=== PATIENT | male | born 1965 | race African-American/Black ===

== ENCOUNTER 2017-03-20 15:02 | Inpatient (IN) | payer MEDICAID, OTHER ==
--- NOTE | 2017-03-20 16:04 | ED ---
General Adult HPI - General Source: patient, RN notes reviewed Mode of arrival: ambulatory Limitations: no limitations <Juan C Monreal - Last Filed: 03/20/17 16:38> <Arcenio Pro - Last Filed: 03/20/17 18:44> - General Chief complaint: Psychiatric Symptoms Stated complaint: Mental Health Time Seen by Provider: 03/20/17 15:25 - History of Present Illness Initial comments: This is a 51-year-old male who presents emergency Department with a past medical history significant for bipolar. Patient comes in today because he states he suicidal. Patient states he stopped his Zyprexa a while ago and he started using cocaine because his INR on the wrong people. Patient states since then his voices in his head have gotten worse and now he wants to harm himself. Patient denies homicidal ideations. Patient states he has in the past hurt people but that's many many years ago. Patient denies any physical complaints today. Patient denies any patient denies numbness weakness. Patient denies lightheadedness. Patient denies chest pain difficulty breathing or shortness of breath. Patient denies abdominal pain. Patient denies nausea vomiting diarrhea. Patient denies any recent fever chills or cough. Patient denies any recent injury or trauma. (Juan C Monreal) - Related Data Home Medications Medication Instructions Recorded Confirmed Citalopram Hydrobromide [CeleXA] 40 mg PO DAILY 03/20/17 03/20/17 OLANZapine 30 mg PO HS 03/20/17 03/20/17 Allergies Allergy/AdvReac Type Severity Reaction Status Date / Time No Known Allergies Allergy Verified 03/20/17 15:24 Review of Systems ROS Other: All systems not noted in ROS Statement are negative. <Juan C Monreal - Last Filed: 03/20/17 16:38> ROS Other: All systems not noted in ROS Statement are negative. <Arcenio Pro - Last Filed: 03/20/17 18:44> ROS Statement: Those systems with pertinent positive or pertinent negative responses have been documented in the HPI. Past Medical History Past Medical History: No Reported History History of Any Multi-Drug Resistant Organisms: None Reported Past Surgical History: No Surgical Hx Reported Past Psychological History: Anxiety, Bipolar, Depression Smoking Status: Current every day smoker Past Alcohol Use History: None Reported Past Drug Use History: Cocaine <Juan C Monreal - Last Filed: 03/20/17 16:38> General Exam Limitations: no limitations <Juan C Monreal - Last Filed: 03/20/17 16:38> <Arcenio Pro - Last Filed: 03/20/17 18:44> - General Exam Comments Initial Comments: GENERAL: Patient is well-developed and well-nourished. Patient is nontoxic and well- hydrated and is in no acute distress. ENT: Neck is soft and supple. No significant lymphadenopathy is noted. Oropharynx is clear. Moist mucous membranes. Neck has full range of motion without eliciting any pain. EYES: The sclera were anicteric and conjunctiva were pink and moist. Extraocular movements were intact and pupils were equal round and reactive to light. Eyelids were unremarkable. PULMONARY: Unlabored respirations. Good breath sounds bilaterally. No audible rales rhonchi or wheezing was noted. CARDIOVASCULAR: There is a regular rate and rhythm without any murmurs gallops or rubs. ABDOMEN: Soft and nontender with normal bowel sounds. No palpable organomegaly was noted. There is no palpable pulsatile mass. SKIN: Skin is clear with no lesions or rashes and otherwise unremarkable. NEUROLOGIC: Patient is alert and oriented x3. Cranial nerves II through XII are grossly intact. Motor and sensory are also intact. Normal speech, volume and content. Symmetrical smile. MUSCULOSKELETAL: Normal extremities with adequate strength and full range of motion. No lower extremity swelling or edema. No calf tenderness. LYMPHATICS: No significant lymphadenopathy is noted PSYCHIATRIC: Patient states she's been hearing more voices and the voices are telling to kill himself and as of late he is really considering doing it. Patient does not have a specific plan at this point time. (Juan C Monreal) Course <Juan C Monreal - Last Filed: 03/20/17 16:38> <Arcenio Pro - Last Filed: 03/20/17 18:44> Vital Signs 03/20/17 03/20/17 15:21 17:57 Temperature 97.9 F 97.2 F L Pulse Rate 78 72 Respiratory 20 18 Rate Blood Pressure 112/61 118/73 O2 Sat by Pulse 99 99 Oximetry - Reevaluation(s) Reevaluation #1: 03/20/17 18:44 The patient was evaluated by psychiatric service and will be admitted for inpatient treatment of depression. (Arcenio Pro) Medical Decision Making <Juan C Monreal - Last Filed: 03/20/17 16:38> <Arcenio Pro - Last Filed: 03/20/17 18:44> - Medical Decision Making Dr. Pro be taking over care of this patient at 5 PM (Juan C Monreal) - Lab Data Lab Results 03/20/17 Range/Units 16:05 Urine Opiates Screen Not Detected (NotDetected) Ur Oxycodone Screen Not Detected (NotDetected) Urine Methadone Screen Not Detected (NotDetected) Ur Propoxyphene Screen Not Detected (NotDetected) Ur Barbiturates Screen Not Detected (NotDetected) U Tricyclic Antidepress Not Detected (NotDetected) Ur Phencyclidine Scrn Not Detected (NotDetected) Ur Amphetamines Screen Not Detected (NotDetected) U Methamphetamines Scrn Not Detected (NotDetected) U Benzodiazepines Scrn Not Detected (NotDetected) Urine Cocaine Screen Detected H (NotDetected) U Marijuana (THC) Screen Not Detected (NotDetected) Disposition <Juan C Monreal - Last Filed: 03/20/17 16:38> <Arcenio Pro - Last Filed: 03/20/17 18:44> Clinical Impression: Depression Disposition: TRANSFER TO PSYCH HOSP/UNIT Condition: Stable
[2017-03-20] MEDS ORDERED: MAGNESIUM HYDROXIDE 2,400 MG/10 ML CUP PO PRN (20:55)
[2017-03-20] MEDS ORDERED: MAG HYDROX/AL HYDROX/SIMETH 30 ML CUP PO PRN (20:55)
[2017-03-20] MEDS ORDERED: ACETAMINOPHEN TAB 325 MG TAB PO PRN (20:55)
[2017-03-20] MEDS ORDERED: LORazepam 1 MG TAB PO PRN (20:55)
[2017-03-21 09:38] LABS: Basophils # (A) 0.1 k/uL (0-0.2); Basophils % (A) 1 %; CH 30.1; CHCM 32.5; Eosinophils # (A) 0.1 k/uL (0-0.7); Eosinophils % (A) 3 %; HCT 51.1 % (39.0-53.0); HDW 2.63; Luc # (Auto) 0.11; Luc % (Auto) 3; Lymphocytes # (A) 1.4 k/uL (1.0-4.8); Lymphocytes % (A) 40 %; MCH 29.2 pg (25.0-35.0); MCHC 31.3 g/dL (31.0-37.0); MCV 93.3 fL (80.0-100.0); Mean Platelet Volume 7.6; Monocytes # (A) 0.2 k/uL (0-1.0); Monocytes % (A) 5 %; Neutrophils # (A) 1.7 k/uL (1.3-7.7); Neutrophils % (A) 47 %; RBC 5.48 m/uL (4.30-5.90); RDW 14.9 % (11.5-15.5); WBC 3.6 k/uL (3.8-10.6); WBC (Perox) 3.51
[2017-03-21 09:45] LABS: ALT 75 U/L (21-72); AST 48 U/L (17-59); Alkaline Phosphatase 46 U/L (38-126); Anion Gap 9 mmol/L; Blood Urea Nitrogen 10 mg/dL (9-20); Calcium 9.3 mg/dL (8.4-10.2); Carbon Dioxide 25 mmol/L (22-30); Chloride 105 mmol/L (98-107); Glucose 137 mg/dL (74-99); Non-African American GFR(MDRD) >60 (>60 ml/min/1.73 sqM); Potassium 4.6 mmol/L (3.5-5.1); Sodium 139 mmol/L (137-145); Total Bilirubin 0.9 mg/dL (0.2-1.3); Total Protein 7.2 g/dL (6.3-8.2)
[2017-03-21] MEDS: NICOTINE 14MG/24HR PATCH TRANSDERM SCH (09:46)
--- NOTE | 2017-03-21 18:26 | HP ---
DATE OF ADMISSION 03/20/17 IDENTIFYING DATA: This is a 51 -year-old male patient. HISTORY OF PRESENT ILLNESS: Mr. Dee was admitted to the inpatient psychiatry unit at [facility] on a voluntary basis with recent symptoms of auditory hallucinations. He states that he was off his medications which were Zyprexa and Celexa and using cocaine. He says a couple of days ago, he started hearing voices and the voices were loud telling him to hurt himself. He says he usually hears voices as whispers. He says his mood lately has been alright. He has been off his medications for two weeks. He was not having thoughts of suicide but says the voices were telling him regarding to hurt himself. He denies having had any paranoid thoughts. He does state he has been having trouble with sleep. PSYCHIATRIC HISTORY: Most recent medications were Zyprexa 30 mg at bedtime and Celexa 40 mg daily which worked well for him. He has had four inpatient psychiatric hospitalizations. No history of suicide attempt. He sees Dr. Kaminski through [facility] and a counselor Romy every two weeks. He has history of bipolar disorder with episodes of darrius and depression with psychotic features. PSYCHIATRIC FAMILY HISTORY: Sister with bipolar disorder. PAST MEDICAL HISTORY: Hepatitis C. Current medications: 1. Tylenol prn. 2. Maalox prn. 3. Ativan prn. 4. Milk of Magnesia prn. 5. Habitrol patch. DRUG AND ALCOHOL HISTORY: The patient states he had been using cocaine daily over the past week. Heroin, his last use was four years ago. He used to use it daily. He denies any alcohol use. SOCIAL HISTORY: The patient states that he recently did four years in [facility] and was released on 01/08/2017. He lives currently at a halfway house. MENTAL STATUS EXAM: He is alert, cooperative. Pleasant overall. He does not show any agitation. His mood is described as good. His affect overall is restricted. Regarding auditory hallucinations he relates he is just hearing whispering today. He denies any visual hallucinations. He denies any thoughts of harm to self or others. He does not verbalize any geetha delusions. Cognitively appears to be grossly intact. I do not note any significant disorientation or memory disturbances. Insight is adequate. Judgement shows evidence of recent impairment. IMPRESSION: 1. Bipolar disorder, unspecified with psychotic features, rule out schizoaffective disorder, bipolar type. 2. History of stimulant use disorder. 3. History of opioid use disorder. PLAN/RECOMMENDATIONS: The patient is admitted to the inpatient psychiatric unit at [facility] to help stabilize psychosis symptoms. He will be placed on SP 15 minute precautions. He will participate in group and activity therapy. Baseline laboratory workup was done on the patient and medical consultation will be ordered. He will be reinitiated on Celexa to help with psychosis symptoms and mood stabilization, 15 mg at bedtime. We will also reinitiate Celexa to help with any depressive component at 20 mg daily. He has responded well to this regimen in the past. He will be encouraged regarding keeping his sobriety. We will continue to cover this patient for Dr. Montgomery through the weekend. We will be looking at any possible support systems. Estimated length of stay is five to seven days. Prognosis guarded. MTDD
--- NOTE | 2017-03-21 19:47 | P.CON ---
Consult Note - . Consult date: 03/21/17 Assessment/Plan:: *Live* Sergei [facility] [address], [place] [address] General Medical Problem Patient Name: Rufino Dee Date of : 67 Patient Status: Inpatient Attending Provider: Konrad Montgomery General Adult HPI - General Source: patient, RN notes reviewed, emergency department notes reviewed Limitations: no limitations - General Chief complaint: Psychiatric Symptoms, patient stopped his psychiatric medications lately started hearing voices asking him to kill himself decided to come into the emergency department for further evaluation, patient has been admitted into the psychiatric unit I was asked to evaluate this patient from medical standpoint while covering for Dr. Montesinos who is his primary care provider Stated complaint: Mental Health Time Seen by Provider: 03/20/17 15:25 - History of Present Illness Initial comments: This is a 51-year-old male who presents emergency Department with a past medical history significant for bipolar. Patient comes in because he states he suicidal. Patient states he stopped his Zyprexa a while ago and he started using cocaine. Patient states since then his voices in his head have gotten worse and now he wants to harm himself. Patient denies homicidal ideations. Patient states he has in the past hurt people but that's many many years ago. Patient denies any physical complaints today. Patient denies any patient denies numbness weakness. Patient denies lightheadedness. Patient denies chest pain difficulty breathing or shortness of breath. Patient denies abdominal pain. Patient denies nausea vomiting diarrhea. Patient denies any recent fever chills or cough. Patient denies any recent injury or trauma. - Related Data Home Medications Medication Instructions Recorded Confirmed Citalopram Hydrobromide [CeleXA] 40 mg PO DAILY 03/20/17 03/20/17 OLANZapine 30 mg PO HS 03/20/17 03/20/17 Allergies Allergy/AdvReac Type Severity Reaction Status Date / Time No Known Allergies Allergy Verified 03/20/17 15:24 Review of Systems ROS Other: All systems not noted in ROS Statement are negative. <Juan C Monreal - Last Filed: 03/20/17 16:38> ROS Other: All systems not noted in ROS Statement are negative. <Arcenio Pro - Last Filed: 03/20/17 18:44> ROS Statement: Those systems with pertinent positive or pertinent negative responses have been documented in the HPI. Past Medical History Past Medical History: Chronic hepatitis C History of Any Multi-Drug Resistant Organisms: None Reported Past Surgical History: No Surgical Hx Reported Past Psychological History: Anxiety, Bipolar, Depression Smoking Status: Current every day smoker, history of substance use like cocaine Past Alcohol Use History: None Reported Past Drug Use History: Cocaine <MonrealJuan C - Last Filed: 03/20/17 16:38> General Exam GENERAL: Patient is well-developed and well-nourished. Patient is nontoxic and well- hydrated and is in no acute distress. ENT: Neck is soft and supple. No significant lymphadenopathy is noted. Oropharynx is clear. Moist mucous membranes. Neck has full range of motion without eliciting any pain. EYES: The sclera were anicteric and conjunctiva were pink and moist. Extraocular movements were intact and pupils were equal round and reactive to light. Eyelids were unremarkable. PULMONARY: Unlabored respirations. Good breath sounds bilaterally. No audible rales rhonchi or wheezing was noted. CARDIOVASCULAR: There is a regular rate and rhythm without any murmurs gallops or rubs. ABDOMEN: Soft and nontender with normal bowel sounds. No palpable organomegaly was noted. There is no palpable pulsatile mass. SKIN: Skin is clear with no lesions or rashes and otherwise unremarkable. NEUROLOGIC: Patient is alert and oriented x3. Cranial nerves II through XII are grossly intact. Motor and sensory are also intact. Normal speech, volume and content. Symmetrical smile. MUSCULOSKELETAL: Normal extremities with adequate strength and full range of motion. No lower extremity swelling or edema. No calf tenderness. LYMPHATICS: No significant lymphadenopathy is noted PSYCHIATRIC: Patient states she's been hearing more voices and the voices are telling to kill himself and as of late he is really considering doing it. Patient does not have a specific plan at this point time. Vital Signs 03/20/17 03/20/17 15:21 17:57 Temperature 97.9 F 97.2 F L Pulse Rate 78 72 Respiratory 20 18 Rate Blood Pressure 112/61 118/73 O2 Sat by Pulse 99 99 Oximetry Lab Results 08/18/17 Range/Units 16:05 Urine Opiates Screen Not Detected (NotDetected) Ur Oxycodone Screen Not Detected (NotDetected) Urine Methadone Screen Not Detected (NotDetected) Ur Propoxyphene Screen Not Detected (NotDetected) Ur Barbiturates Screen Not Detected (NotDetected) U Tricyclic Antidepress Not Detected (NotDetected) Ur Phencyclidine Scrn Not Detected (NotDetected) Ur Amphetamines Screen Not Detected (NotDetected) U Methamphetamines Scrn Not Detected (NotDetected) U Benzodiazepines Scrn Not Detected (NotDetected) Urine Cocaine Screen Detected H (NotDetected) U Marijuana (THC) Screen Not Detected (NotDetected) Impression Suicidal ideation and thought, schizophrenia Substance use with cocaine History of chronic hepatitis C History of smoking and nicotine use possible COPD From medical standpoint patient is overall stable to continue psychiatric evaluation and therapy would recommend patient to follow up on outpatient setting for more definitive evaluation and treatment for his ongoing medical problems.
[2017-03-21] MEDS: OLANZapine 5 MG TAB PO SCH (21:04)
[2017-03-22] MEDS: CITALOPRAM HYDROBROMIDE 20 MG TAB PO SCH (09:25)
[2017-03-22] MEDS: NICOTINE 14MG/24HR PATCH TRANSDERM SCH (09:26)
--- NOTE | 2017-03-22 17:46 | P.PN ---
Progress Note - Text Interval history: Patient seen in cross coverage today for Dr. Montgomery. He reports that he is feeling much better today. He slept well last night, did seem to describe some awakenings.. He does not voice any adverse psychotropic medication side effects. He reports that he talked to his 7-year-old son on the phone. Mental status exam: He is alert and cooperative with the interview. His speech is fluent, not rapid or pressured. Thought processes are organized. He denies any current hallucinations. He does not appear to responding to any internal stimuli. He does not voice any thoughts of harm to self or others. He does not display any agitation. Plan: Patient will be maintained on current doses of Zyprexa and Celexa. Consideration for further titration of Zyprexa back towards former dose during the hospital course to maintain good stabilization of psychosis symptoms. Dr. Montgomery to initiate care this patient starting tomorrow.
[2017-03-22] MEDS: OLANZapine 5 MG TAB PO SCH (18:35)
[2017-03-23] MEDS: CITALOPRAM HYDROBROMIDE 20 MG TAB PO SCH (09:51)
--- NOTE | 2017-03-23 10:24 | P.PN ---
Progress Note - Text Interval history: The patient is found in his room he follows me to an interview room. He was admitted over the weekend for acute symptoms of psychosis as well as suicidal ideation. The patient reports he was experiencing command hallucinations directing him to hang himself. As a result he had suicidal ideation. This occurs in the context of him recently using cocaine area he was in penitentiary for 4 years for drug related charges and was released this past January. He had been residing at the [facility]. He states the cocaine became available and he went ahead and used. He reports feeling much better today he has been restarted on his Celexa and Zyprexa. He is typically on Celexa 40 mg daily Zyprexa 30 mg at bedtime and we discussed titrating these medications to the outpatient dosages. Mental status exam: The patient is a very tall thin -[place] male dressed in hospital attire. Eye contact is appropriate. He has poor dentition with some missing teeth. He reports his mood is much better affect is constricted. He is cooperative throughout the session he demonstrates no agitated behavior. He is endorsing no acute suicidal or homicidal ideation intent or plan he is endorsing no command auditory hallucinations or any specific delusions. He states at baseline he will experience some auditory hallucinations that are quieter and noncommanding. He demonstrates no abnormal involuntary movements. He demonstrates no verbal or physical aggressiveness. He is oriented to person place month year. Plan: The patient will continue on the Celexa and Zyprexa I will titrate these to the outpatient doses of 40 and 30 mg respectively. We will continue to monitor him for safety. At this point he does not wish to attend inpatient chemical dependency treatment. He has been in touch with his police officer. Vital signs reviewed. He is encouraged to participate in the milieu. We will consider discharging him in the next 1-2 days if he demonstrates sufficient clinical stability/improvement.
[2017-03-23] MEDS ORDERED: OLANZapine 10 MG TAB PO SCH (21:00)
[2017-03-24 07:22] VITALS: BP 103/56; PULSE 63; RESP 16; TEMP 98.1
[2017-03-24] MEDS ORDERED: CITALOPRAM HYDROBROMIDE 20 MG TAB PO SCH (09:00)
--- NOTE | 2017-03-24 09:02 | P.DS ---
Providers Date of admission: 03/20/17 18:37 Expected date of discharge: 03/24/17 Attending physician: Konrad Montgomery Consults: 03/20/17 20:55 Consult Physician Routine Consulting Provider: Jean-Claude Montesinos Consult Reason/Comments: medical management Do you want consulting provider notified?: Already Contacted Primary care physician: Jean-Claude Montesinos - Discharge Diagnosis(es) (1) Psychosis Current Visit: Yes Status: Acute Priority: High (2) Depression Current Visit: Yes Status: Acute Priority: High (3) Cocaine use disorder, mild, abuse Current Visit: Yes Status: Acute Priority: High (4) Opiate dependence Current Visit: Yes Status: Acute Priority: Medium Hospital Course: This patient is a 51-year-old -[place] male was admitted to the mental health unit with a complaint of command auditory hallucinations and suicidal ideation. The patient reported he had been off of his Zyprexa and Celexa for several weeks prior to this presentation and he had also relapsed with cocaine use. He presented describing auditory hallucinations commanding self-harm. For full details please refer to Dr. Wilkinson is psychiatric evaluation dated 03/20/2017. Summary of hospital course: The patient was admitted to the mental health unit voluntarily. Dr. Wilkinson initially evaluated the patient and the patient was restarted on Celexa and Zyprexa. I assumed care of the patient beginning yesterday and we titrated these medications back to the outpatient dosages of 40 mg and 30 mg respectively. The patient was seen by the internal medicine physician for routine history and physical exam. Social work has met with the patient to complete a psychosocial assessment. The patient yesterday reported improvement of his symptoms and today states he has no hallucinations and his mood is much better. He has demonstrated no agitated behavior he is able to participate in his own activities of daily living. The patient has demonstrated no agitated behavior. He is complying with his medications he reports no side effects from them. He plans on returning to the [facility] where he resided before this admission. Mental status exam: The patient is a tall -[place] male appearing his stated age. He has impaired dentition. Eye contact is appropriate speech is spontaneous fluent nonpressured. He states his mood is "much better" he denies having any suicidal or homicidal ideation intent or plan. He is reporting no auditory or visual hallucinations he is endorsing no specific delusions. At this time there is no observed evidence of psychosis. Thought process is linear he demonstrates no tangential thinking loose associations or flight of ideas. He does not appear hypomanic or manic. He demonstrates no verbal or physical aggressiveness. Affect appears euthymic he is appropriately expressive throughout the conversation including smiling. He is oriented to person place and date. Impressions 1. Psychosis unspecified, depression unspecified, rule out schizoaffective disorder, rule out substance-induced mood and psychotic symptoms, cocaine use disorder, opiate abuse disorder 2. On parole resides at [facility], reapplying for disability, limited social support Plan: The patient will be discharged from the mental health unit today he will return residing at the [facility]. He will continue on Celexa 40 mg daily Zyprexa 30 mg at bedtime. At length we discussed the importance of abstaining from alcohol use marijuana or any illicit drug. He plans on attending AA or NA meetings. He does not wish to participate in inpatient chemical dependency treatment at this time. Social work will arrange his outpatient mental health follow-up likely through [facility]. There is no imminent safety risk is appropriate for transition to outpatient care. He is instructed to return to the hospital with any acute safety concerns. Patient Condition at Discharge: Stable Plan - Discharge Summary New Discharge Prescriptions: Continue Citalopram Hydrobromide [CeleXA] 40 mg PO DAILY #30 OLANZapine 30 mg PO HS #60 Discharge Medication List Citalopram Hydrobromide [CeleXA] 40 mg PO DAILY #30 03/24/17 [Rx] OLANZapine 30 mg PO HS #60 03/24/17 [Rx] Follow up Appointment(s)/Referral(s): [facility] [Outside] - 03/25/17 6:00 pm (03-25-17 @ 6:00 PM with Ester Jensen 03-30-17 @ 5:[address] Kaminski ) Jean-Claude Montesinos MD [Primary Care Provider] - 1-2 days
== END 2017-03-24 13:30 | disposition home or self-care (01) | DRG 885 ==
LOC: EC 15:02 → 3MHU 18:37
PROVIDERS: ADMIT Psychiatry & Neurology Psychiatry; ATTEND Psychiatry & Neurology Psychiatry
DX: F32.3 Major depressive disorder, single episode, severe with psychotic features (principal); F11.20 Opioid dependence, uncomplicated; R45.851 Suicidal ideations; F14.10 Cocaine abuse, uncomplicated; B18.2 Chronic viral hepatitis C; F17.200 Nicotine dependence, unspecified, uncomplicated; Z79.899 Other long term (current) drug therapy; Z81.8 Family history of other mental and behavioral disorders
CPT/HCPCS: 80053; 80306; 82075; 84443; 85025; 99285

== ENCOUNTER 2018-03-08 11:11 | Inpatient (IN) | payer MEDICAID, OTHER ==
--- NOTE | 2018-03-08 11:41 | ED ---
General Adult HPI - General Chief complaint: Psychiatric Symptoms Stated complaint: Mental Health Time Seen by Provider: 03/08/18 11:15 Source: patient, RN notes reviewed Mode of arrival: ambulatory Limitations: no limitations - History of Present Illness Initial comments: This a 52-year-old male who presents emergency department stating that he stopped his medications about 3 weeks ago shortly thereafter he started having suicidal voices in his head. He states he hears voices louder and louder and are telling him to kill himself and they also are pushing him to be more violent. Patient states he has not committed any violence towards anyone else but he feels as though is getting to the point where he might harm somebody. Patient admits to drinking couple days ago and doing crack cocaine yesterday. Patient denies any physical complaints today. Patient denies any headache patient denies any numbness weakness. Patient denies chest pain difficulty breathing first breath per patient denies abdominal pain patient denies nausea vomiting diarrhea. She denies any recent injury or trauma. - Related Data Home Medications Medication Instructions Recorded Confirmed Naltrexone HCl [Revia] 50 mg PO DAILY 03/08/18 03/08/18 QUEtiapine FUMARATE [SEROquel] 300 mg PO HS 03/08/18 03/08/18 QUEtiapine [SEROquel] 50 mg PO TID 03/08/18 03/08/18 Previous Rx's Medication Instructions Recorded Citalopram Hydrobromide [CeleXA] 40 mg PO DAILY #30 tablet 07/08/17 Allergies Allergy/AdvReac Type Severity Reaction Status Date / Time No Known Allergies Allergy Verified 03/08/18 11:21 Review of Systems ROS Statement: Those systems with pertinent positive or pertinent negative responses have been documented in the HPI. ROS Other: All systems not noted in ROS Statement are negative. Past Medical History Past Medical History: No Reported History Additional Past Medical History / Comment(s): arthritis, Hep C History of Any Multi-Drug Resistant Organisms: None Reported Past Surgical History: No Surgical Hx Reported Past Psychological History: Anxiety, Bipolar, Depression Smoking Status: Current every day smoker Past Alcohol Use History: Occasional Past Drug Use History: Cocaine General Exam - General Exam Comments Initial Comments: GENERAL: Patient is well-developed and well-nourished. Patient is nontoxic and well- hydrated and is in mild distress. ENT: Neck is soft and supple. No significant lymphadenopathy is noted. Oropharynx is clear. Moist mucous membranes. Neck has full range of motion without eliciting any pain. EYES: The sclera were anicteric and conjunctiva were pink and moist. Extraocular movements were intact and pupils were equal round and reactive to light. Eyelids were unremarkable. PULMONARY: Unlabored respirations. Good breath sounds bilaterally. No audible rales rhonchi or wheezing was noted. CARDIOVASCULAR: There is a regular rate and rhythm without any murmurs gallops or rubs. ABDOMEN: Soft and nontender with normal bowel sounds. No palpable organomegaly was noted. There is no palpable pulsatile mass. SKIN: Skin is clear with no lesions or rashes and otherwise unremarkable. NEUROLOGIC: Patient is alert and oriented x3. Cranial nerves II through XII are grossly intact. Motor and sensory are also intact. Normal speech, volume and content. Symmetrical smile. MUSCULOSKELETAL: Normal extremities with adequate strength and full range of motion. LYMPHATICS: No significant lymphadenopathy is noted PSYCHIATRIC: Patient states he is hearing voices in those voices are telling him to kill himself and was voices also are making him feel as though he wants to be more violent. Limitations: no limitations Course Vital Signs 03/08/18 03/08/18 11:19 18:35 Temperature 97.7 F 97.7 F Pulse Rate 85 77 Respiratory 20 18 Rate Blood Pressure 110/70 114/61 O2 Sat by Pulse 99 99 Oximetry Medical Decision Making - Lab Data Result diagrams: 03/08/18 15:03 03/08/18 15:03 Lab Results 03/08/18 03/08/18 03/08/18 Range/Units 12:25 12:25 15:03 WBC (3.8-10.6) k/uL RBC (4.30-5.90) m/uL Hgb (13.0-17.5) gm/dL Hct (39.0-53.0) % MCV (80.0-100.0) fL MCH (25.0-35.0) pg MCHC (31.0-37.0) g/dL RDW (11.5-15.5) % Plt Count (150-450) k/uL Neutrophils % (Manual) % Band Neutrophils % Lymphocytes % (Manual) % Monocytes % (Manual) % Eosinophils % (Manual) % Other Cells % Neutrophils # (Manual) (1.3-7.7) k/uL Lymphocytes # (Manual) (1.0-4.8) k/uL Monocytes # (Manual) (0-1.0) k/uL Eosinophils # (Manual) (0-0.7) k/uL Nucleated RBCs (0-0) /100 WBC Sodium 141 (137-145) mmol/L Potassium 4.4 (3.5-5.1) mmol/L Chloride 104 (98-107) mmol/L Carbon Dioxide 31 H (22-30) mmol/L Anion Gap 6 mmol/L BUN 18 (9-20) mg/dL Creatinine 1.30 H (0.66-1.25) mg/dL Est GFR (CKD-EPI)AfAm 73 (>60 ml/min/1.73 sqM) Est GFR (CKD-EPI)NonAf 63 (>60 ml/min/1.73 sqM) Glucose 62 L (74-99) mg/dL Calcium 9.5 (8.4-10.2) mg/dL Total Bilirubin 0.7 (0.2-1.3) mg/dL AST 94 H (17-59) U/L ALT 125 H (21-72) U/L Alkaline Phosphatase 55 (38-126) U/L Total Protein 7.8 (6.3-8.2) g/dL Albumin 4.2 (3.5-5.0) g/dL Triglycerides (<150) mg/dL Cholesterol (<200) mg/dL LDL Cholesterol, Calc (0-99) mg/dL HDL Cholesterol (40-60) mg/dL TSH (0.465-4.680) mIU/L Urine Color Dark Yellow Urine Appearance Clear (Clear) Urine pH 5.5 (5.0-8.0) Ur Specific [place] 1.034 (1.001-1.035) Urine Protein 1+ H (Negative) Urine Glucose (UA) Negative (Negative) Urine Ketones Negative (Negative) Urine Blood Negative (Negative) Urine Nitrite Negative (Negative) Urine Bilirubin 1+ H (Negative) Urine Urobilinogen 4.0 (<2.0) mg/dL Ur Leukocyte Esterase Negative (Negative) Ur Squamous Epith Cells <1 (0-4) /hpf Calcium Oxalate Crystal Rare H (None) /hpf Urine Mucus Few H (None) /hpf Urine Opiates Screen Not Detected (NotDetected) Ur Oxycodone Screen Not Detected (NotDetected) Urine Methadone Screen Not Detected (NotDetected) Ur Propoxyphene Screen Not Detected (NotDetected) Ur Barbiturates Screen Not Detected (NotDetected) U Tricyclic Antidepress Not Detected (NotDetected) Ur Phencyclidine Scrn Not Detected (NotDetected) Ur Amphetamines Screen Not Detected (NotDetected) U Methamphetamines Scrn Not Detected (NotDetected) U Benzodiazepines Scrn Not Detected (NotDetected) Urine Cocaine Screen Detected H (NotDetected) U Marijuana (THC) Screen Not Detected (NotDetected) 03/08/18 03/08/18 Range/Units 15:03 15:03 WBC 3.7 L (3.8-10.6) k/uL RBC 5.62 (4.30-5.90) m/uL Hgb 15.7 (13.0-17.5) gm/dL Hct 50.4 (39.0-53.0) % MCV 89.5 (80.0-100.0) fL MCH 27.9 (25.0-35.0) pg MCHC 31.1 (31.0-37.0) g/dL RDW 13.7 (11.5-15.5) % Plt Count 211 (150-450) k/uL Neutrophils % (Manual) 39 % Band Neutrophils % Not Reportable Lymphocytes % (Manual) 48 % Monocytes % (Manual) 8 % Eosinophils % (Manual) 5 % Other Cells % Not Reportable Neutrophils # (Manual) 1.44 (1.3-7.7) k/uL Lymphocytes # (Manual) 1.78 (1.0-4.8) k/uL Monocytes # (Manual) 0.30 (0-1.0) k/uL Eosinophils # (Manual) 0.19 (0-0.7) k/uL Nucleated RBCs 0 (0-0) /100 WBC Sodium (137-145) mmol/L Potassium (3.5-5.1) mmol/L Chloride (98-107) mmol/L Carbon Dioxide (22-30) mmol/L Anion Gap mmol/L BUN (9-20) mg/dL Creatinine (0.66-1.25) mg/dL Est GFR (CKD-EPI)AfAm (>60 ml/min/1.73 sqM) Est GFR (CKD-EPI)NonAf (>60 ml/min/1.73 sqM) Glucose (74-99) mg/dL Calcium (8.4-10.2) mg/dL Total Bilirubin (0.2-1.3) mg/dL AST (17-59) U/L ALT (21-72) U/L Alkaline Phosphatase (38-126) U/L Total Protein (6.3-8.2) g/dL Albumin (3.5-5.0) g/dL Triglycerides 103 (<150) mg/dL Cholesterol 198 (<200) mg/dL LDL Cholesterol, Calc 139 H (0-99) mg/dL HDL Cholesterol 38 L (40-60) mg/dL TSH 0.545 (0.465-4.680) mIU/L Urine Color Urine Appearance (Clear) Urine pH (5.0-8.0) Ur Specific [place] (1.001-1.035) Urine Protein (Negative) Urine Glucose (UA) (Negative) Urine Ketones (Negative) Urine Blood (Negative) Urine Nitrite (Negative) Urine Bilirubin (Negative) Urine Urobilinogen (<2.0) mg/dL Ur Leukocyte Esterase (Negative) Ur Squamous Epith Cells (0-4) /hpf Calcium Oxalate Crystal (None) /hpf Urine Mucus (None) /hpf Urine Opiates Screen (NotDetected) Ur Oxycodone Screen (NotDetected) Urine Methadone Screen (NotDetected) Ur Propoxyphene Screen (NotDetected) Ur Barbiturates Screen (NotDetected) U Tricyclic Antidepress (NotDetected) Ur Phencyclidine Scrn (NotDetected) Ur Amphetamines Screen (NotDetected) U Methamphetamines Scrn (NotDetected) U Benzodiazepines Scrn (NotDetected) Urine Cocaine Screen (NotDetected) U Marijuana (THC) Screen (NotDetected) Disposition Clinical Impression: Suicidal ideation, Depression Disposition: ADMITTED IP TO THIS HOSP
[2018-03-08 13:11] LABS: Amphetamine Screen,Urine Not Detected (NotDetected); Barbiturate Screen,Urine Not Detected (NotDetected); Benzodiazepines Screen,Urine Not Detected (NotDetected); Cocaine Screen,Urine Detected (NotDetected); Methadone Screen, Urine Not Detected (NotDetected); Opiate Screen,Urine Not Detected (NotDetected); Oxycodone Screen, Urine Not Detected (NotDetected); Phencyclidine Screen,Urine Not Detected (NotDetected); Tricyclic Antidepressant,Urine Not Detected (NotDetected); Urn Cannabinoid Scrn Not Detected (NotDetected)
[2018-03-08 15:21] LABS: Albumin 4.2 g/dL (3.5-5.0); Calcium 9.5 mg/dL (8.4-10.2); Potassium 4.4 mmol/L (3.5-5.1); Total Bilirubin 0.7 mg/dL (0.2-1.3); Total Protein 7.8 g/dL (6.3-8.2)
[2018-03-08 15:21] LABS: Appearance,Urine Clear (Clear); Bilirubin,Urine 1+ (Negative); Blood,Urine Negative (Negative); Calcium Oxalate Crystals,Urine Rare /hpf; Color,Urine Dark Yellow; Glucose,Urine (UA) Negative (Negative); Ketones,Urine Negative (Negative); Leukocyte Esterase,Urine Negative (Negative); Mucus,Urine Few /hpf; Nitrite,Urine Negative (Negative); PH, Urine 5.5 (5.0-8.0); Protein,Urine 1+ (Negative); Specific Gravity,Urine 1.034 (1.001-1.035); Squamous Epithelial Cell,Urine <1 /hpf (0-4)
[2018-03-08 15:26] LABS: HCT 50.4 % (39.0-53.0); HGB 15.7 gm/dL (13.0-17.5); MCH 27.9 pg (25.0-35.0); MCHC 31.1 g/dL (31.0-37.0); MCV 89.5 fL (80.0-100.0); Mean Platelet Volume 6.9; Platelet Count 211 k/uL (150-450); RBC 5.62 m/uL (4.30-5.90); RDW 13.7 % (11.5-15.5); WBC 3.7 k/uL (3.8-10.6)
[2018-03-08 16:12] LABS: Eosinophils # (M) 0.19 k/uL (0-0.7); Nucleated Red Blood Cells 0 /100 WBC (0-0)
[2018-03-08 16:17] LABS: Lymphocytes # (M) 1.78 k/uL (1.0-4.8); Neutrophils % (M) 39 %; Total Cells Counted 100
[2018-03-08 16:55] LABS: Neutrophils # (M) 1.44 k/uL (1.3-7.7)
[2018-03-08] MEDS ORDERED: MAGNESIUM HYDROXIDE 2,400 MG/10 ML CUP PO PRN (20:58)
[2018-03-08] MEDS ORDERED: MAG HYDROX/AL HYDROX/SIMETH 30 ML CUP PO PRN (20:58)
[2018-03-08] MEDS ORDERED: ACETAMINOPHEN TAB 325 MG TAB PO PRN (20:58)
[2018-03-08] MEDS: LORazepam 1 MG TAB PO PRN (21:35)
[2018-03-08] MEDS ORDERED: MELATONIN 3 MG TABLET PO ONE (22:11)
[2018-03-09] MEDS: NICOTINE 7MG/24HR PATCH TRANSDERM SCH (08:55)
[2018-03-09] MEDS ORDERED: NICOTINE 14MG/24HR PATCH TRANSDERM SCH (09:00)
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
[2018-03-09] MEDS: CITALOPRAM HYDROBROMIDE 20 MG TAB PO SCH (12:20)
[2018-03-09] MEDS: ARIPiprazole 10 MG TAB PO SCH (12:20)
[2018-03-09 13:45] LABS: Hemoglobin A1C 5.8 % (4.0-6.0)
--- NOTE | 2018-03-09 17:18 | CONS ---
CONSULTATION CHIEF COMPLAINT: Acute psychosis and schizophrenia. HISTORY OF PRESENT ILLNESS: This is another psych admission for this 52-year-old male. He has been on medications in the past for this problem, but has not been on them of late. He started to hear voices which were telling him to kill himself and eventually came to the emergency room. He was admitted. REVIEW OF SYSTEMS: He has had no headaches, headaches, change in vision hearing, chest pain, shortness of breath, cough, hemoptysis, asthma, hypertension, heart disease, murmurs, rheumatic fever, orthopnea, PND, abdominal pain, nausea, vomiting, hematemesis, ulcer disease, melena, hematochezia, jaundice, hepatitis, cirrhosis, gallbladder disease, hematuria, frequency, urgency, diabetes, etc. Past medical history, family history and personal and social histories are all otherwise unremarkable. He is not allergic to any medication. It is not known if he uses any illicit drugs. He does have a history of hepatitis C. PHYSICAL EXAMINATION: Blood pressure 134/76 with a pulse of 68 and regular, respirations of 20 and he is afebrile. He is 6 feet 8-1/2 inches tall. Head, ears, eyes, nose, mouth, and throat are normal. Neck veins not distended. Thyroid is not enlarged. CHEST: Clear. Cardiac exam is normal. Abdomen is soft, nontender. EXTREMITIES: Normal. Neurological is intact. IMPRESSION: 1. Schizophrenia. 2. History of hepatitis C. 3. History of drug abuse. RECOMMENDATIONS: None at this time. Thank you for this consultation. MMODL / IJN: [id number] /
[2018-03-09] MEDS: LORazepam 1 MG TAB PO PRN (18:55)
[2018-03-09 19:17] LABS: Hepatitis A Ab, Total Reactive (Non-Reactive)
[2018-03-09] MEDS: MELATONIN 5 MG TABLET PO SCH (20:34)
[2018-03-10] MEDS: CITALOPRAM HYDROBROMIDE 20 MG TAB PO SCH (08:50)
[2018-03-10] MEDS: ARIPiprazole 10 MG TAB PO SCH (08:50)
[2018-03-10] MEDS: NICOTINE 7MG/24HR PATCH TRANSDERM SCH (08:50)
--- NOTE | 2018-03-10 09:14 | P.PN ---
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 He states that his mood is down. He reports hearing whispers of auditory hallucinations last evening. He states he was able to sleep better and appetite has been improving. He had a phone conversation with his mother and girlfriend. He states they both emphasized the importance of him asking for help before needing hospitalization. We again discussed his substance use. He still plans on calling the access line to initiate placement for inpatient chemical dependency treatment. We discussed his current psychotropic medication his questions were answered. He continues to want the Abilify maintena injection. Mental status exam: The patient is a very tall thin -[place] male appearing his stated age. He is dressed in his own clothing. Hygiene is adequate. Dentition is poor he is missing teeth. Eye contact is intermittent. He reports his mood is all right but he is tearful briefly during the session. He endorsed auditory hallucinations as recent as last evening. He reports feeling safe here in the hospital. No acute suicidal ideation as he feels safe in the hospital. No homicidal ideation. He demonstrates no verbal or physical aggressiveness. He remains oriented to person place and date. Plan: The patient's will continue on his current medication. If he is demonstrating/reporting no adverse effects to Abilify we will proceed with the Abilify maintena injection. He is encouraged to call the access line as soon as possible for inpatient chemical dependency treatment. He is encouraged to fully participate in the milieu. Vital signs reviewed.
[2018-03-10 15:49] LABS: Hepatitis C IgG Antibody Reactive (Non-Reactive)
[2018-03-10] MEDS: LORazepam 1 MG TAB PO PRN (20:05)
[2018-03-10] MEDS: MELATONIN 5 MG TABLET PO SCH (20:05)
[2018-03-11 06:39] VITALS: TEMP 98.6
[2018-03-11] MEDS: CITALOPRAM HYDROBROMIDE 20 MG TAB PO SCH (08:38)
[2018-03-11] MEDS: ARIPiprazole 10 MG TAB PO SCH (08:38)
[2018-03-11] MEDS: NICOTINE 7MG/24HR PATCH TRANSDERM SCH (08:38)
--- NOTE | 2018-03-11 09:00 | P.PN ---
Progress Note - Text Interval history: The patient is found at the front end driver he follows me to an interview room. He reports his mood is stabilizing. He still struggling with sleep but we discussed that he has not attending groups and sleeping during the day. He tries to generalize all the groups by stating "I don't want to do crossword puzzles" but we discussed that several the groups are actually more interactive than that. We reviewed his psychotropic medication. He does not feel that the melatonin is effective we discussed doxepin as an alternative but again reminded him not to stay in bed during the day. We discussed initiating the Abilify maintena tomorrow. He is reporting no side effects from the medication. Mental status exam: The patient is a tall thin -[place] male appearing his stated age. He seated calmly he is dressed in his own clothing. Hygiene is adequate. He reports that his moods improving. He is reporting less hopeless thinking he feels safe in the hospital. No homicidal ideation intent or plan. He is reporting no auditory or visual hallucinations today he is endorsing no specific delusions. His affect is brighter today he is more interactive in the session. He demonstrates no abnormal involuntary movements he demonstrates no verbal or physical aggressiveness. He is oriented to person place and date. Affect is constricted. Plan: The patient will continue on his current psychotropic medications. We will plan to initiate the Abilify maintena tomorrow prior to discharge. We are awaiting a placement date from [place] which we hope is soon. Vital signs reviewed. We will monitor him for safety. I will initiate doxepin 10 mg at bedtime and we'll discontinue melatonin. He is instructed to attend the goal setting group this morning as well as the group in the [facility].
[2018-03-11] MEDS: LORazepam 1 MG TAB PO PRN (20:01)
[2018-03-11] MEDS ORDERED: DOXEPIN 10 MG CAP PO SCH (21:00)
[2018-03-12 06:29] VITALS: BP 117/67; PULSE 71; RESP 18
[2018-03-12] MEDS: ARIPiprazole 10 MG TAB PO SCH (08:22)
[2018-03-12] MEDS: NICOTINE 7MG/24HR PATCH TRANSDERM SCH (08:22)
[2018-03-12] MEDS: CITALOPRAM HYDROBROMIDE 20 MG TAB PO SCH (08:22)
[2018-03-12] MEDS ORDERED: ARIPiprazole IM SYRINGE 400 MG (NO CHARGE) IM ONE (09:29)
--- NOTE | 2018-03-12 09:31 | P.DS ---
Providers Date of admission: 03/08/18 18:36 Expected date of discharge: 03/12/18 Attending physician: Konrad Montgomery Consults: 03/08/18 21:04 Consult Physician Routine Consulting Provider: Jean-Claude Montesinos Consult Reason/Comments: follow up H & P Do you want consulting provider notified?: Yes Primary care physician: Jean-Claude Montesinos - Discharge Diagnosis(es) (1) Schizoaffective disorder, bipolar type Current Visit: Yes Status: Acute Priority: High (2) Cocaine use disorder Current Visit: Yes Status: Acute Priority: High (3) Opioid use disorder Current Visit: Yes Status: Acute Priority: Low Hospital Course: Brief summary of admission note: This patient is a 52-year-old -[place] male who presented to the mental health unit through the emergency room for suicidal ideation in the context of reported psychosis. The patient presented with suicidal and homicidal ideation. He reported experiencing command auditory hallucinations directing self-harm and harm to his girlfriend. He stated he had no thoughts of wanting to harm her but had to kan against the voices. The hallucinations had been fairly recent and occurred in the context of recent cocaine use. He does have an established cocaine use disorder as well as an opioid use disorder. He described having decreased sleep decreased appetite with weight loss and was not showering lately. He carries a diagnosis of schizoaffective disorder. For full details please refer to my psychiatric evaluation dated 03/09/2018. Summary of hospital course: The patient was admitted to the mental health unit voluntarily. We reviewed his presenting symptoms and treatment options. He had previously been treated with Seroquel and Celexa. The Seroquel was making him feel tired and was not adequately treating his hallucinations. He reported having hallucinations even when not using cocaine. He voluntarily selected a medication that could be given as a monthly Depo form. We discussed choices available. We decided to utilize Abilify and then later Abilify maintena which we will order for today for 100 mg IM. We reinitiated Celexa 20 mg daily. Doxepin was used at bedtime for sleep. The patient initially did not attend groups this has been improving over the course of the hospitalization. He was seen by internal medicine for routine history and physical exam. He demonstrated no agitated behavior. He feels that he has stabilized and is safe for discharge today. He reports he is going to be staying with a friend who is been clean for 12 years. He states that this hospitalization is different as he has made "several different personal decisions" stating "I can't keep doing this". Mental status exam: The patient is a tall thin -[place] male appearing his stated age. He is dressed in his own clothing. He has poor dentition. Eye contact is good speech is fluent spontaneous nonpressured. He reports his mood is much improved is reporting no hopelessness thinking no suicidal ideation intent or plan. He is reporting no homicidal ideation intent or plan. He states he has no thoughts of specifically harming anyone or any group of people. He reports that his auditory hallucinations have resolved. He is not experiencing any command auditory hallucinations. He is endorsing no specific delusions. At this time he demonstrates no evidence of psychosis. He demonstrates no tangential thinking loose associations or flight of ideas. He does not appear hypomanic or manic. He demonstrates no verbal or physical aggressiveness. He demonstrates no abnormal involuntary movements. He remains oriented to person place and date. His affect is euthymic and he demonstrates an appropriate range of affect during our session. Impressions 1. Schizoaffective disorder, bipolar type, opiate use disorder in sustained remission, cocaine use disorder 2. Hepatitis C 3. Homeless, unemployed Plan: The patient will be discharged from the mental health unit today he plans on residing with his friend. He will continue following up with [facility] upon discharge. He will continue on Celexa 20 mg daily, Abilify 10 mg for the next 14 days. He will be given Abilify maintena 400 mg IM today prior to discharge. He is instructed to abstain from any use of alcohol marijuana or any illicit drugs as we discussed that they will elevate his safety risk and provoke psychotic symptoms. He does not wish to participate in inpatient chemical dependency treatment. He does not wish to utilize a medication for substance use at this time. He is instructed to return to the hospital with any acute safety concerns. Patient Condition at Discharge: Stable Plan - Discharge Summary New Discharge Prescriptions: New ARIPiprazole [Abilify] 10 mg PO DAILY #14 tab ARIPiprazole IM [Abilify Maintena] 400 mg IM QMONTH #1 vial Citalopram Hydrobromide [CeleXA] 20 mg PO DAILY #30 tab Doxepin [SINEquan] 10 mg PO HS #30 cap Nicotine 7Mg/24Hr Patch [Habitrol] 1 patch TRANSDERM DAILY #30 patch Discontinued Citalopram Hydrobromide [CeleXA] 40 mg PO DAILY #30 tablet QUEtiapine [SEROquel] 50 mg PO TID QUEtiapine FUMARATE [SEROquel] 300 mg PO HS Naltrexone HCl [Revia] 50 mg PO DAILY Discharge Medication List ARIPiprazole IM [Abilify Maintena] 400 mg IM QMONTH #1 vial 03/12/18 [Rx] ARIPiprazole [Abilify] 10 mg PO DAILY #14 tab 03/12/18 [Rx] Citalopram Hydrobromide [CeleXA] 20 mg PO DAILY #30 tab 03/12/18 [Rx] Doxepin [SINEquan] 10 mg PO HS #30 cap 03/12/18 [Rx] Nicotine 7Mg/24Hr Patch [Habitrol] 1 patch TRANSDERM DAILY #30 patch 03/12/18 [ Rx] Follow up Appointment(s)/Referral(s): [facility] [Outside] - 03/23/18 10:00 am (intake,intake ) Jean-Claude Montesinos MD [Primary Care Provider] - 1-2 days
== END 2018-03-12 11:39 | disposition designated cancer center or children's hospital (05) | DRG 885 ==
LOC: EC 11:11 → 3MHU 18:36
PROVIDERS: ADMIT Psychiatry & Neurology Psychiatry; ATTEND Psychiatry & Neurology Psychiatry
DX: F25.0 Schizoaffective disorder, bipolar type (principal); R45.851 Suicidal ideations; R45.850 Homicidal ideations; Z59.0 Homelessness; F14.10 Cocaine abuse, uncomplicated; F17.200 Nicotine dependence, unspecified, uncomplicated; F11.11 Opioid abuse, in remission; M19.91 Primary osteoarthritis, unspecified site; B19.20 Unspecified viral hepatitis C without hepatic coma; Z91.5 Personal history of self-harm; Z65.3 Problems related to other legal circumstances; Z79.899 Other long term (current) drug therapy
CPT/HCPCS: 36415; 80053; 80061; 80306; 81001; 82075; 83036; 84443; 85025; 86704; 86706; 86708; 86803; 99285

== ENCOUNTER 2018-04-01 21:45 | Emergency (ER) | payer OTHER ==
--- NOTE | 2018-04-01 23:09 | ED ---
General Adult HPI - General Chief complaint: Animal Bite Stated complaint: dog bite Time Seen by Provider: 04/01/18 22:39 Source: patient, RN notes reviewed Mode of arrival: ambulatory Limitations: no limitations - History of Present Illness Initial comments: 52-year-old male presents to the emergency department for a chief complaint of dog bite occurring about one hour ago. Patient states that he was at his friend 's house when the dog bit him. Patient states he is not sure if the dog is up- to-date on immunizations but that it can be monitored for 10 days. Patient is not up-to-date on tetanus. Patient denies any fevers or chills. Patient denies any drainage from the bite. Patient denies being bitten anywhere else besides the left thigh. No other injuries. Patient has no other complaints at this time including shortness of breath, chest pain, abdominal pain, nausea or vomiting, headache, or visual changes. - Related Data Previous Rx's Medication Instructions Recorded ARIPiprazole [Abilify] 10 mg PO DAILY #14 tab 03/12/18 Citalopram Hydrobromide [CeleXA] 20 mg PO DAILY #30 tab 03/12/18 Doxepin [SINEquan] 10 mg PO HS #30 cap 03/12/18 Amoxicillin/Potassium Clav 1 tab PO Q12HR #20 tab 04/01/18 [Augmentin 875-125 Tablet] Allergies Allergy/AdvReac Type Severity Reaction Status Date / Time No Known Allergies Allergy Verified 04/01/18 22:43 Review of Systems ROS Statement: Those systems with pertinent positive or pertinent negative responses have been documented in the HPI. ROS Other: All systems not noted in ROS Statement are negative. Past Medical History Past Medical History: No Reported History Additional Past Medical History / Comment(s): arthritis, Hep C History of Any Multi-Drug Resistant Organisms: None Reported Past Surgical History: No Surgical Hx Reported Past Psychological History: Anxiety, Bipolar, Depression Smoking Status: Current every day smoker Past Alcohol Use History: Occasional Past Drug Use History: Cocaine General Exam Limitations: no limitations General appearance: alert, in no apparent distress Head exam: Present: atraumatic, normocephalic, normal inspection Eye exam: Present: normal appearance. Absent: scleral icterus, conjunctival injection ENT exam: Present: normal exam, mucous membranes moist Neck exam: Present: normal inspection, full ROM. Absent: tenderness, meningismus, lymphadenopathy Respiratory exam: Present: normal lung sounds bilaterally. Absent: respiratory distress, wheezes, rales, rhonchi, stridor Cardiovascular Exam: Present: regular rate, normal rhythm, normal heart sounds. Absent: systolic murmur, diastolic murmur, rubs, gallop, clicks Extremities exam: Present: full ROM (Full range of motion of the left lower extremity patient is able to ambulate.), tenderness (Mild tenderness over wound. ), normal capillary refill (Refill less than 2 seconds in the left lower extremity), other (Patient has 2 superficial abrasions to the left thigh. No puncture wounds noted. No lacerations noted. No spreading redness or streaking redness noted. No drainage or other signs of infection. No foreign bodies.). Absent: pedal edema, joint swelling Course Vital Signs 04/01/18 22:00 Temperature 98.6 F Pulse Rate 66 Respiratory 16 Rate Blood Pressure 114/70 O2 Sat by Pulse 96 Oximetry Medical Decision Making - Medical Decision Making 52-year-old male presents to the emergency department for a chief complaint of dog bite occurring one hour ago. On exam patient has 2 abrasions noted to the left anterior thigh. No puncture wounds or lacerations. I did clean these with saline thoroughly. No signs of infection at this time. Patient has full range of motion and neurovascular intact in the left lower extremity. He is able to ambulate. Patient was given a tetanus here in the emergency department. He was also given an Augmentin starter pack as well as Augmentin prescription. Patient states he is able to monitor the dog for 10 days to evaluate for rabies. I did offer rabies vaccinations but patient would rather monitor the dog. He will also monitor for infection and return if this occurs. Signs of infection were discussed with him. He will follow up with primary care in 1-2 days. Disposition Clinical Impression: Dog bite Disposition: HOME SELF-CARE Condition: Good Instructions: Animal Bite (ED) Additional Instructions: Please take antibiotic as directed. Please monitor for any signs of infection such as spreading redness, streaking redness, or fever and return if these or any other worsening symptoms occur. Follow-up with primary care in 1-2 days. Prescriptions: Amoxicillin/Potassium Clav [Augmentin 875-125 Tablet] 1 tab PO Q12HR #20 tab Is patient prescribed a controlled substance at d/c from ED?: No Referrals: Jean-Claude Montesinos MD [Primary Care Provider] - 1-2 days Time of Disposition: 23:08
[2018-04-01] MEDS ORDERED: DIPH,PERTUS(ACELL)TETVAC-LF 0.5 ML VIAL IM ONE (23:10)
[2018-04-01] MEDS ORDERED: AMOXIC-POT CLAV 875MG STARTER 2 EACH TABLET PO STA (23:12)
[2018-04-01 23:28] VITALS: BP 125/85; PULSE 76; RESP 18; TEMP 98.2
== END 2018-04-01 23:29 | disposition home or self-care (01) ==
LOC: EC 21:45
DX: S70.372A Other superficial bite of left thigh, initial encounter (principal); F17.200 Nicotine dependence, unspecified, uncomplicated; Z86.19 Personal history of other infectious and parasitic diseases; Z23 Encounter for immunization; W54.0XXA Bitten by dog, initial encounter
CPT/HCPCS: 90471; 90715; 99283

== ENCOUNTER 2018-04-18 09:18 | Emergency (ER) | payer OTHER ==
[2018-04-18 09:27] VITALS: BP 109/67; PULSE 86; RESP 18; TEMP 97.6
[2018-04-18] MEDS ORDERED: SODIUM CHLORIDE 0.9% 1,000 ML IV STA (09:54)
[2018-04-18] MEDS ORDERED: KETOROLAC 30 MG/ML 1 ML VIAL IVP STA (09:54)
--- NOTE | 2018-04-18 09:54 | ED ---
Abdominal Pain HPI - General Chief Complaint: Abdominal Pain Stated Complaint: Kidney pain Time Seen by Provider: 04/18/18 09:33 Source: patient, RN notes reviewed, old records reviewed Mode of arrival: ambulatory Limitations: no limitations - History of Present Illness Initial Comments: Patient is a 52-year-old male chief I right-sided back pain. Patient reports that he thinks he has been having some issues with his kidney. He states his urine is somewhat darker. He denies any other symptoms including nausea or vomiting or diarrhea. Patient states he woke up today with worsening pain. He denies any fever or chills. She does have a history of hepatitis C. - Related Data Home Medications Medication Instructions Recorded Confirmed ARIPiprazole [Abilify Maintena] 400 mg IM Q30D 04/18/18 04/18/18 Naltrexone HCl [Revia] 50 mg PO DAILY 04/18/18 04/18/18 QUEtiapine FUMARATE [SEROquel] 300 mg PO HS 04/18/18 04/18/18 Previous Rx's Medication Instructions Recorded ARIPiprazole [Abilify] 10 mg PO DAILY #14 tab 03/12/18 Citalopram Hydrobromide [CeleXA] 20 mg PO DAILY #30 tab 03/12/18 Doxepin [SINEquan] 10 mg PO HS #30 cap 03/12/18 Ibuprofen 600 mg PO TID #20 tablet 04/18/18 Allergies Allergy/AdvReac Type Severity Reaction Status Date / Time No Known Allergies Allergy Verified 04/18/18 10:33 Review of Systems ROS Statement: Those systems with pertinent positive or pertinent negative responses have been documented in the HPI. ROS Other: All systems not noted in ROS Statement are negative. Past Medical History Past Medical History: No Reported History Additional Past Medical History / Comment(s): arthritis, Hep C History of Any Multi-Drug Resistant Organisms: None Reported Past Surgical History: No Surgical Hx Reported Past Psychological History: Anxiety, Bipolar, Depression Smoking Status: Current every day smoker Past Alcohol Use History: Rare Past Drug Use History: Cocaine General Exam - General Exam Comments Initial Comments: 52-year-old male. Alert and oriented. No significant distress. Limitations: no limitations General appearance: alert, in no apparent distress Head exam: Present: atraumatic, normocephalic, normal inspection Eye exam: Present: normal appearance, PERRL, EOMI. Absent: scleral icterus, conjunctival injection, periorbital swelling ENT exam: Present: normal exam, mucous membranes moist Neck exam: Present: normal inspection. Absent: tenderness, meningismus, lymphadenopathy Respiratory exam: Present: normal lung sounds bilaterally. Absent: respiratory distress, wheezes, rales, rhonchi, stridor Cardiovascular Exam: Present: regular rate, normal rhythm, normal heart sounds. Absent: systolic murmur, diastolic murmur, rubs, gallop, clicks GI/Abdominal exam: Present: soft, normal bowel sounds. Absent: distended, tenderness, guarding, rebound, rigid Extremities exam: Present: normal inspection, full ROM, normal capillary refill. Absent: tenderness, pedal edema, joint swelling, calf tenderness Back exam: Present: normal inspection Neurological exam: Present: alert, oriented X3, CN II-XII intact Psychiatric exam: Present: normal affect, normal mood Skin exam: Present: warm, dry, intact, normal color. Absent: rash Course Vital Signs 04/18/18 09:24 Temperature 97.6 F Pulse Rate 86 Respiratory 18 Rate Blood Pressure 109/67 O2 Sat by Pulse 100 Oximetry Medical Decision Making - Medical Decision Making Patient is a 52-year-old male presents emergency Department chief complaint of right-sided flank pain. He has normal UA, blood work is negative for infection with normal WBC. Reports the pain is mainly with deep within the back. Lab work does show mildly elevated liver enzymes likely related to diagnosis of hepatitis C. We did complete US gallbladder, and this was an Unremarkable right upper quadrant ultrasound.. Right kidney is within normal limits. No evidence of biliary dilation. At this time patient's pain is somewhat better after Toradol. I did discuss the Patient does have history of drug abuse and not prescribe any narcotic medication. Patient also advised to avoid Tylenol second causing liver enzyme elevation. Patient will be discharged with ibuprofen. Discussed following up with a GI doctor in regards to diagnosis of hep C and liver enzyme elevation. Patient understands history plan will comply. Return parameters were discussed. - Lab Data Result diagrams: 04/18/18 10:00 04/18/18 10:00 Lab Results 04/18/18 04/18/18 04/18/18 Range/Units 10:00 10:00 10:00 WBC 3.0 L (3.8-10.6) k/uL RBC 5.28 (4.30-5.90) m/uL Hgb 15.8 (13.0-17.5) gm/dL Hct 48.4 (39.0-53.0) % MCV 91.7 (80.0-100.0) fL MCH 29.9 (25.0-35.0) pg MCHC 32.6 (31.0-37.0) g/dL RDW 13.6 (11.5-15.5) % Plt Count 199 (150-450) k/uL Neutrophils % 33 % Lymphocytes % 49 % Monocytes % 9 % Eosinophils % 5 % Basophils % 2 % Neutrophils # 1.0 L (1.3-7.7) k/uL Lymphocytes # 1.5 (1.0-4.8) k/uL Monocytes # 0.3 (0-1.0) k/uL Eosinophils # 0.1 (0-0.7) k/uL Basophils # 0.1 (0-0.2) k/uL Sodium 141 (137-145) mmol/L Potassium 4.4 (3.5-5.1) mmol/L Chloride 102 (98-107) mmol/L Carbon Dioxide 33 H (22-30) mmol/L Anion Gap 6 mmol/L BUN 10 (9-20) mg/dL Creatinine 1.06 (0.66-1.25) mg/dL Est GFR (CKD-EPI)AfAm >90 (>60 ml/min/1.73 sqM) Est GFR (CKD-EPI)NonAf 82 (>60 ml/min/1.73 sqM) Glucose 58 L (74-99) mg/dL Calcium 9.7 (8.4-10.2) mg/dL Total Bilirubin 1.1 (0.2-1.3) mg/dL AST 105 H (17-59) U/L ALT 162 H (21-72) U/L Alkaline Phosphatase 38 (38-126) U/L Total Protein 7.7 (6.3-8.2) g/dL Albumin 4.0 (3.5-5.0) g/dL Amylase 95 (30-110) U/L Lipase 75 (23-300) U/L Urine Color Yellow Urine Appearance Clear (Clear) Urine pH 6.0 (5.0-8.0) Ur Specific [place] 1.020 (1.001-1.035) Urine Protein Trace H (Negative) Urine Glucose (UA) Negative (Negative) Urine Ketones Negative (Negative) Urine Blood Negative (Negative) Urine Nitrite Negative (Negative) Urine Bilirubin Negative (Negative) Urine Urobilinogen 4.0 (<2.0) mg/dL Ur Leukocyte Esterase Negative (Negative) - Radiology Data Radiology results: report reviewed No acute intra-abdominal abnormality. Right upper quadrant ultrasound was negative for any acute process. Gallbladder and liver within normal limits. Disposition Clinical Impression: Elevated liver enzymes, Right flank pain, Hepatitis C Disposition: HOME SELF-CARE Condition: Good Instructions: Abdominal Pain (ED) Additional Instructions: and advised to follow-up with primary care physician. Return to the emergency department if any alarming signs or symptoms occur. Is a 5 with GI specialist regards to hepatitis C diagnosis. Prescriptions: Ibuprofen 600 mg PO TID #20 tablet Is patient prescribed a controlled substance at d/c from ED?: No Referrals: [facility] [Primary Care Provider] - 1-2 days Anika Ceballos MD [STAFF PHYSICIAN] - 1-2 days Time of Disposition: 11:48
[2018-04-18 10:14] LABS: Appearance,Urine Clear (Clear); Basophils # (A) 0.1 k/uL (0-0.2); Basophils % (A) 2 %; Bilirubin,Urine Negative (Negative); Blood,Urine Negative (Negative); Color,Urine Yellow; Eosinophils # (A) 0.1 k/uL (0-0.7); Eosinophils % (A) 5 %; Glucose,Urine (UA) Negative (Negative); HCT 48.4 % (39.0-53.0); HGB 15.8 gm/dL (13.0-17.5); Ketones,Urine Negative (Negative); Leukocyte Esterase,Urine Negative (Negative); Lymphocytes # (A) 1.5 k/uL (1.0-4.8); Lymphocytes % (A) 49 %; MCH 29.9 pg (25.0-35.0); MCHC 32.6 g/dL (31.0-37.0); MCV 91.7 fL (80.0-100.0); Mean Platelet Volume 7.3; Monocytes # (A) 0.3 k/uL (0-1.0); Monocytes % (A) 9 %; Neutrophils % (A) 33 %; Nitrite,Urine Negative (Negative); Platelet Count 199 k/uL (150-450); Protein,Urine Trace (Negative); RBC 5.28 m/uL (4.30-5.90); RDW 13.6 % (11.5-15.5)
--- NOTE | 2018-04-18 10:16 | XR ---
EXAMINATION TYPE: XR KUB , 2 VIEWS DATE OF EXAM ORDERED: 04/18/2018 HISTORY: abdominal pain. COMPARISON: None. FINDINGS: The lung bases are clear. Within the abdomen, the abdominal gas pattern is normal. There is no evidence of obstruction or free air. IMPRESSION: NO ACUTE INTRA-ABDOMINAL ABNORMALITY.
[2018-04-18 10:23] LABS: ALT 162 U/L (21-72); AST 105 U/L (17-59); Alkaline Phosphatase 38 U/L (38-126); Amylase 95 U/L (30-110); Anion Gap 6 mmol/L; Blood Urea Nitrogen 10 mg/dL (9-20); Calcium 9.7 mg/dL (8.4-10.2); Carbon Dioxide 33 mmol/L (22-30); Chloride 102 mmol/L (98-107); Glucose 58 mg/dL (74-99); Lipase 75 U/L (23-300); Potassium 4.4 mmol/L (3.5-5.1); Sodium 141 mmol/L (137-145); Total Bilirubin 1.1 mg/dL (0.2-1.3); Total Protein 7.7 g/dL (6.3-8.2)
--- NOTE | 2018-04-18 11:30 | US ---
EXAMINATION TYPE: US gallbladder DATE OF EXAM: 04/18/2018 COMPARISON: NONE CLINICAL HISTORY: Pain. Right side pain. Patient ate 4 hours ago- not NPO EXAM MEASUREMENTS: Liver Length: 16.0 cm Gallbladder Wall: 0.2 cm CBD: 0.4 cm CHD: 0.4 cm Right Kidney: 11.3 x 4.8 x 5.5 cm Pancreas: wnl Liver: wnl Gallbladder: Not fully distended due to recently eating Evidence for sonographic Edouard's sign: neg CBD: wnl CHD: wnl Right Kidney: wnl Pancreas appears unremarkable. The liver is unremarkable without evidence of biliary dilatation. The gallbladder is partially contracted. The gallbladder wall measures 2 mm. The distal common hepati c duct measures 4 mm. There is no sonographic Edouard's sign. The right kidney is within normal limits. IMPRESSION: UNREMARKABLE RIGHT UPPER QUADRANT ULTRASOUND.
== END 2018-04-18 12:04 | disposition home or self-care (01) ==
LOC: EC 09:18
DX: B19.20 Unspecified viral hepatitis C without hepatic coma (principal); F41.9 Anxiety disorder, unspecified; F31.9 Bipolar disorder, unspecified; F17.200 Nicotine dependence, unspecified, uncomplicated; Z79.899 Other long term (current) drug therapy
CPT/HCPCS: 36415; 80053; 82150; 83690; 85025; 81003; 74018; 76705; 99285; 96374; 96361 ×2; J1885

== ENCOUNTER 2018-04-23 03:55 | Inpatient (IN) | payer MEDICAID, OTHER ==
[2018-04-23] MEDS ORDERED: ACETAMINOPHEN TAB 325 MG TAB PO STA (04:35)
[2018-04-23 05:47] LABS: Basophils # (A) 0.1 k/uL (0-0.2); Basophils % (A) 1 %; Eosinophils # (A) 0.2 k/uL (0-0.7); Eosinophils % (A) 4 %; HCT 45.4 % (39.0-53.0); HGB 14.6 gm/dL (13.0-17.5); Lymphocytes # (A) 2.2 k/uL (1.0-4.8); Lymphocytes % (A) 37 %; MCH 29.1 pg (25.0-35.0); MCHC 32.1 g/dL (31.0-37.0); MCV 90.7 fL (80.0-100.0); Mean Platelet Volume 7.2; Monocytes # (A) 0.4 k/uL (0-1.0); Monocytes % (A) 6 %; Neutrophils # (A) 2.8 k/uL (1.3-7.7); Neutrophils % (A) 49 %; Platelet Count 200 k/uL (150-450); RBC 5.01 m/uL (4.30-5.90); RDW 13.7 % (11.5-15.5); WBC 5.8 k/uL (3.8-10.6)
[2018-04-23 06:13] LABS: Calcium 9.7 mg/dL (8.4-10.2); Potassium 4.2 mmol/L (3.5-5.1)
[2018-04-23 06:38] LABS: Amphetamine Screen,Urine Not Detected (NotDetected); Barbiturate Screen,Urine Not Detected (NotDetected); Benzodiazepines Screen,Urine Not Detected (NotDetected); Cocaine Screen,Urine Detected (NotDetected); Methadone Screen, Urine Not Detected (NotDetected); Opiate Screen,Urine Not Detected (NotDetected); Oxycodone Screen, Urine Not Detected (NotDetected); Phencyclidine Screen,Urine Not Detected (NotDetected); Tricyclic Antidepressant,Urine Detected (NotDetected); Urn Cannabinoid Scrn Detected (NotDetected)
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
[2018-04-23 09:14] LABS: Appearance,Urine Clear (Clear); Bilirubin,Urine Negative (Negative); Blood,Urine Negative (Negative); Color,Urine Yellow; Glucose,Urine (UA) Negative (Negative); Ketones,Urine Negative (Negative); Leukocyte Esterase,Urine Negative (Negative); Nitrite,Urine Negative (Negative); PH, Urine 5.5 (5.0-8.0); Protein,Urine Negative (Negative); Urobilinogen,Urine <2.0 mg/dL (<2.0)
[2018-04-23] MEDS ORDERED: ACETAMINOPHEN TAB 325 MG TAB PO PRN (12:19)
[2018-04-23] MEDS ORDERED: MAGNESIUM HYDROXIDE 2,400 MG/10 ML CUP PO PRN (12:19)
[2018-04-23] MEDS ORDERED: MAG HYDROX/AL HYDROX/SIMETH 30 ML CUP PO PRN (12:19)
[2018-04-23] MEDS ORDERED: ZIPRASIDONE 20 MG VIAL IM PRN (12:19)
[2018-04-23] MEDS ORDERED: LORazepam 1 MG TAB PO PRN (12:25)
[2018-04-23] MEDS ORDERED: LORazepam 2 MG/ML INJ IM PRN (12:27)
[2018-04-23] MEDS: ARIPiprazole 10 MG TAB PO SCH (13:48)
[2018-04-23 14:28] VITALS: BMI 21.9
[2018-04-23] MEDS ORDERED: DOXEPIN 10 MG CAP PO SCH (21:00)
[2018-04-24] MEDS: ARIPiprazole 10 MG TAB PO SCH (07:56)
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
[2018-04-24] MEDS: NICOTINE POLACRILEX 2 MG GUM BUCCAL PRN ×2 (12:16→18:35)
[2018-04-24] MEDS: CITALOPRAM HYDROBROMIDE 20 MG TAB PO SCH (12:24)
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
[2018-04-24] MEDS: QUEtiapine 100 MG TAB PO SCH (20:36)
[2018-04-25] MEDS: CITALOPRAM HYDROBROMIDE 20 MG TAB PO SCH (07:29)
--- NOTE | 2018-04-25 11:49 | P.PN ---
Progress Note - Text Interval history: The patient is found in the hallway he follows me to an interview room. He reports that his mood is improving. He still has feelings of anger but feels that they're very controllable. He was able to sleep last night staff reportedly slept 6 hours. Appetite is stable. We spent several minutes discussing his history of substance use. We discussed triggers for substance use and strategies he can employ to maintain sobriety. Mental status exam: The patient is a tall thin -[place] male appearing his stated age. He is dressed in a T-shirt and shorts. Eye contact is appropriate. Speech is fluent spontaneous nonpressured. He endorses a mood that's improving. He states he has no suicidal ideation intent or plan no homicidal ideation intent or plan. Specifically he states he has no thoughts of harming his girlfriend. He is endorsing no auditory or visual hallucinations at this time he feels safe here in the hospital. Insight and judgment improving. He demonstrates no verbal or physical aggressiveness he demonstrates no abnormal involuntary movements. He remains oriented to person place and date. Affect is initially constricted but he is able to demonstrate an appropriate range. Plan: The patient will continue on his current psychotropic medication however I will titrate the Celexa to 40 mg daily and we will add a 25 mg dose of Seroquel during the day. Vital signs reviewed. He is encouraged to participate in the therapeutic milieu.
[2018-04-25] MEDS: NICOTINE POLACRILEX 2 MG GUM BUCCAL PRN ×2 (16:17→17:45)
[2018-04-25] MEDS: QUEtiapine 100 MG TAB PO SCH (20:09)
[2018-04-26 06:46] VITALS: BP 103/51; PULSE 67; RESP 16; TEMP 98.1
[2018-04-26] MEDS ORDERED: CITALOPRAM HYDROBROMIDE 20 MG TAB PO SCH (09:00)
[2018-04-26] MEDS ORDERED: QUEtiapine 25 MG TAB PO SCH (09:00)
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
== END 2018-04-26 12:30 | disposition home or self-care (01) | DRG 885 ==
LOC: EC 03:55 → 3MHU 12:09
PROVIDERS: ADMIT Psychiatry & Neurology Psychiatry; ATTEND Psychiatry & Neurology Psychiatry
DX: F25.0 Schizoaffective disorder, bipolar type (principal); R45.851 Suicidal ideations; Z86.19 Personal history of other infectious and parasitic diseases; F11.11 Opioid abuse, in remission; F17.200 Nicotine dependence, unspecified, uncomplicated; R45.850 Homicidal ideations; Z59.0 Homelessness; Z65.3 Problems related to other legal circumstances; Z79.899 Other long term (current) drug therapy; Z91.5 Personal history of self-harm; Z56.0 Unemployment, unspecified; F12.10 Cannabis abuse, uncomplicated; F14.14 Cocaine abuse with cocaine-induced mood disorder; Z71.6 Tobacco abuse counseling; F17.210 Nicotine dependence, cigarettes, uncomplicated; Z71.51 Drug abuse counseling and surveillance of drug abuser; Z81.8 Family history of other mental and behavioral disorders
CPT/HCPCS: 36415; 80048; 80306; 81003; 82075; 84443; 85025; 99285

== ENCOUNTER 2019-02-28 13:11 | Emergency (ER) | payer OTHER ==
[2019-02-28 13:34] VITALS: BP 98/60; PULSE 88; RESP 18; TEMP 98.7
--- NOTE | 2019-02-28 15:03 | ED ---
General Adult HPI - General Chief complaint: Extremity Injury, Lower Stated complaint: Leg swollen/ foot pain Time Seen by Provider: 02/28/19 14:28 Source: patient Mode of arrival: ambulatory Limitations: no limitations - History of Present Illness Initial comments: Patient is a 53-year-old male presenting to emergency Department with bilateral lower extremity edema. Patient reports the initial episode of edema started in his right lower leg 6 days ago and is slowly increasing severity. Patient reports the edema progressed to his foot. Patient also reports pain in his foot especially with palpation pain or patient reports multiple ulcers with clear drainage. Patient reports that 2-3 days ago he also developed lower extremity edema and his left leg although it is not as severe as his right. Patient denies any cardiovascular problems, diabetes or renal problems. Patient reports intermittent lower extremity edema but has never been this severe. Patient does report a neuropathy in bilateral lower legs. Patient is a daily IV drug user of breath for the past 2-3 months. Patient denies injecting in his feet. Patient reports he was at [facility] a few days ago when they ruled out a DVT with ultrasound advised him to keep legs elevated. Patient denies fevers, chills or night sweats. Patient denies chest pain, shortness of breath, chest tightness, nausea or vomiting. - Related Data Home Medications Medication Instructions Recorded Confirmed Magnesium Oxide [Mag-Ox] 400 mg PO DAILY 02/28/19 02/28/19 Multivitamins, Thera [Multivitamin 1 tab PO DAILY 02/28/19 02/28/19 (formulary)] Previous Rx's Medication Instructions Recorded Cephalexin [Keflex] 500 mg PO Q6HR #28 cap 02/28/19 Allergies Allergy/AdvReac Type Severity Reaction Status Date / Time cashew nut Allergy Severe Anaphylaxis Verified 02/28/19 13:30 peanut Allergy Unknown Verified 02/28/19 14:56 peanut oil Allergy Unknown Verified 02/28/19 14:56 sertraline [From Zoloft] Allergy Itching Verified 02/28/19 14:56 Review of Systems ROS Statement: Those systems with pertinent positive or pertinent negative responses have been documented in the HPI. ROS Other: All systems not noted in ROS Statement are negative. Past Medical History Past Medical History: No Reported History Additional Past Medical History / Comment(s): arthritis, Hep C History of Any Multi-Drug Resistant Organisms: None Reported Past Surgical History: No Surgical Hx Reported Additional Past Surgical History / Comment(s): Cyst removed behind L ear Past Anesthesia/Blood Transfusion Reactions: Motion Sickness Past Psychological History: Anxiety, Bipolar, Depression Smoking Status: Current every day smoker Past Alcohol Use History: None Reported Past Drug Use History: Cocaine, Marijuana, Methamphetamine General Exam Limitations: no limitations General appearance: alert, in no apparent distress Head exam: Present: atraumatic, normocephalic, normal inspection Eye exam: Present: normal appearance, PERRL, EOMI Pupils: Present: normal accommodation ENT exam: Present: normal exam, mucous membranes moist, normal external ear exam Neck exam: Present: normal inspection, full ROM Respiratory exam: Present: normal lung sounds bilaterally Cardiovascular Exam: Present: regular rate, normal rhythm, normal heart sounds. Absent: systolic murmur, diastolic murmur Extremities exam: Present: tenderness (Right foot pain on palpation), other (Slight difference in temperature between retinal left leg.). Absent: normal inspection (+4 right lower leg edema, and draining ulcers with clear drainage, +2 dorsalis pedis and posterior tibialis detected with ultrasound. +1 left foot edema.), full ROM (Limited range of motion due swelling.) Back exam: Present: normal inspection, full ROM Neurological exam: Present: alert, oriented X3 Psychiatric exam: Present: normal affect, normal mood Skin exam: Present: warm, intact, normal color Course Vital Signs 02/28/19 13:30 Temperature 98.7 F Pulse Rate 88 Respiratory 18 Rate Blood Pressure 98/60 O2 Sat by Pulse 98 Oximetry Medical Decision Making - Medical Decision Making Patient is 53-year-old male presenting to emergency Department with lower leg edema. Considering the patient has no pertinent past medical history, I suspect the patient could be developing a right lower leg edema due to possible cellulitis or could be a result from his drug use. Patient will be treated for possible cellulitis. Patient advised to follow-up with primary care for further management. Patient advised to keep leg elevated. Patient advised to avoid using illegal substances. Patient advised to go on a low-sodium diet. Strict return parameters were thoroughly discussed patient was understanding and agreeable. also examined the patient and is in agreement with the treatment plan. Patient advised to obtain a primary care through the [facility] and obtain a consultation with [facility] for substance abuse. Disposition Clinical Impression: Lower extremity edema Disposition: HOME SELF-CARE Condition: Stable Instructions (If sedation given, give patient instructions): Leg Edema (ED) Additional Instructions: Please take prescribed medication as directed. Please obtain a primary care physician through [facility]. Please consult with [facility] for substance abuse. Please return to emergency department if symptoms worsen. Prescriptions: Cephalexin [Keflex] 500 mg PO Q6HR #28 cap Is patient prescribed a controlled substance at d/c from ED?: No Referrals: None,Stated [Primary Care Provider] - 1-2 days Time of Disposition: 15:08
[2019-02-28] MEDS ORDERED: IBUPROFEN 800 MG TAB PO STA (15:14)
== END 2019-02-28 15:49 | disposition home or self-care (01) ==
LOC: EC 13:11
DX: R60.0 Localized edema (principal); F17.200 Nicotine dependence, unspecified, uncomplicated; Z91.018 Allergy to other foods; Z91.010 Allergy to peanuts; Z88.8 Allergy status to other drugs, medicaments and biological substances
CPT/HCPCS: 99283

== ENCOUNTER 2019-03-10 05:25 | Inpatient (IN) | payer OTHER ==
[2019-03-10] MEDS ORDERED: IBUPROFEN 600 MG TAB PO STA (06:17)
--- NOTE | 2019-03-10 06:26 | ED ---
Extremity Problem HPI - General Chief complaint: Extremity Problem,Nontraumatic Stated complaint: leg swelling Time Seen by Provider: 03/10/19 06:08 Source: patient, RN notes reviewed, old records reviewed Mode of arrival: wheelchair Limitations: no limitations - History of Present Illness Initial comments: Patient is a 53-year-old male who presents for reevaluation of her bilateral shotty swelling. Patient warts reports that his left leg is worse than his right leg. He states he had the onset of swelling for the past 2 weeks. Patient was seen in emergency department approximately for 5 days ago, and was discharged with antibiotics for cellulitis. Patient rated taking them but continues to have swelling. He complains of groin lymphadenopathy. Patient reports that he's had no fevers or chills. Patient states that he has no other significant complaints. Patient has a history of IV drug use. He denies injecting in the leg sites. He was seen at [facility] and ultrasounds as well. - Related Data Home Medications Medication Instructions Recorded Confirmed Multivitamins, Thera [Multivitamin 1 tab PO DAILY 02/28/19 03/10/19 (formulary)] Allergies Allergy/AdvReac Type Severity Reaction Status Date / Time cashew nut Allergy Severe Anaphylaxis Verified 03/10/19 08:10 peanut Allergy Unknown Verified 03/10/19 08:10 peanut oil Allergy Unknown Verified 03/10/19 08:10 sertraline [From Zoloft] Allergy Itching Verified 03/10/19 08:10 Review of Systems ROS Statement: Those systems with pertinent positive or pertinent negative responses have been documented in the HPI. ROS Other: All systems not noted in ROS Statement are negative. Past Medical History Past Medical History: No Reported History Additional Past Medical History / Comment(s): arthritis, Hep C History of Any Multi-Drug Resistant Organisms: None Reported Past Surgical History: No Surgical Hx Reported Additional Past Surgical History / Comment(s): Cyst removed behind L ear Past Anesthesia/Blood Transfusion Reactions: Motion Sickness Past Psychological History: Anxiety, Bipolar, Depression Smoking Status: Current every day smoker Past Alcohol Use History: None Reported Past Drug Use History: Cocaine, Marijuana, Methamphetamine General Exam - General Exam Comments Initial Comments: Ericka -[place] 53-year-old male. No significant distress. Limitations: no limitations Head exam: Present: atraumatic, normocephalic, normal inspection Eye exam: Present: normal appearance, PERRL, EOMI. Absent: scleral icterus, conjunctival injection, periorbital swelling ENT exam: Present: normal exam, mucous membranes moist Neck exam: Present: normal inspection. Absent: tenderness, meningismus, lymphadenopathy Respiratory exam: Present: normal lung sounds bilaterally. Absent: respiratory distress, wheezes, rales, rhonchi, stridor Cardiovascular Exam: Present: regular rate, normal rhythm, normal heart sounds. Absent: systolic murmur, diastolic murmur, rubs, gallop, clicks GI/Abdominal exam: Present: soft, normal bowel sounds, other ( largelymphadenopathy bilateral groin. ). Absent: distended, tenderness, guarding, rebound, rigid Extremities exam: Present: normal inspection, full ROM, normal capillary refill, pedal edema (Bilateral pitting edema. evidence of broken skin and ulceration over dorsum 4th 5th metatarsal on right foot. ). Absent: tenderness, joint swelling, calf tenderness Back exam: Present: normal inspection Neurological exam: Present: alert, oriented X3, CN II-XII intact Psychiatric exam: Present: normal affect, normal mood Skin exam: Present: warm, dry, intact, normal color. Absent: rash Course Vital Signs 03/10/19 05:30 Temperature 98.1 F Pulse Rate 67 Respiratory 20 Rate Blood Pressure 112/76 O2 Sat by Pulse 100 Oximetry - Reevaluation(s) Reevaluation #1: 03/10/19 07:20 Staff members report odd Conversations between Patient and his significant other room. Reevaluation #2: 03/10/19 07:22 Patient also reported transient 70s been noncompliant has not completed his antibiotics and some of the Keflex as previously prescribed. Medical Decision Making - Medical Decision Making Patient is a 53-year-old male who presents with 2 weeks of lower extremity swelling. He is evaluated at [facility] as well as here in the past few weeks. Patient was recently treated for antibiotics for concern for infection over the lower leg. He returns today with some ulcerations over his ankle and foot. He also has a extremely large lymph nodes in his groin measuring up to 5 cm. Patient's urinalysis is negative. He is positive for cocaine and methamphetamines in his urine drug screen. Patient's labwork was reviewed mildly unremarkable. I did discuss with Patient concern for adenopathy could be related to infectious disease. HIV and syphilis testing was completed. Patient at this time was started on Zosyn for concern for infected wounds. I will have the Patient admitted at [facility]. - Lab Data Result diagrams: 03/10/19 06:30 03/10/19 06:30 Lab Results 03/10/19 03/10/19 03/10/19 Range/Units 06:30 06:30 06:30 WBC 4.7 (3.8-10.6) k/uL RBC 4.10 L (4.30-5.90) m/uL Hgb 12.1 L (13.0-17.5) gm/dL Hct 37.1 L (39.0-53.0) % MCV 90.6 (80.0-100.0) fL MCH 29.5 (25.0-35.0) pg MCHC 32.5 (31.0-37.0) g/dL RDW 13.6 (11.5-15.5) % Plt Count 233 (150-450) k/uL Neutrophils % 42 % Lymphocytes % 43 % Monocytes % 7 % Eosinophils % 4 % Basophils % 1 % Neutrophils # 2.0 (1.3-7.7) k/uL Lymphocytes # 2.0 (1.0-4.8) k/uL Monocytes # 0.3 (0-1.0) k/uL Eosinophils # 0.2 (0-0.7) k/uL Basophils # 0.1 (0-0.2) k/uL PT (9.0-12.0) sec INR (<1.2) APTT (22.0-30.0) sec Sodium 140 (137-145) mmol/L Potassium 4.1 (3.5-5.1) mmol/L Chloride 107 (98-107) mmol/L Carbon Dioxide 31 H (22-30) mmol/L Anion Gap 2 mmol/L BUN 22 H (9-20) mg/dL Creatinine 1.41 H (0.66-1.25) mg/dL Est GFR (CKD-EPI)AfAm 66 (>60 ml/min/1.73 sqM) Est GFR (CKD-EPI)NonAf 57 (>60 ml/min/1.73 sqM) Glucose 67 L (74-99) mg/dL Plasma Lactic Acid Pradip 1.1 (0.7-2.0) mmol/L Calcium 8.5 (8.4-10.2) mg/dL Total Bilirubin 0.6 (0.2-1.3) mg/dL AST 107 H (17-59) U/L ALT 98 H (21-72) U/L Alkaline Phosphatase 63 (38-126) U/L Total Protein 7.1 (6.3-8.2) g/dL Albumin 3.2 L (3.5-5.0) g/dL Urine Color Urine Appearance (Clear) Urine pH (5.0-8.0) Ur Specific Alderson (1.001-1.035) Urine Protein (Negative) Urine Glucose (UA) (Negative) Urine Ketones (Negative) Urine Blood (Negative) Urine Nitrite (Negative) Urine Bilirubin (Negative) Urine Urobilinogen (<2.0) mg/dL Ur Leukocyte Esterase (Negative) Urine Opiates Screen (NotDetected) Ur Oxycodone Screen (NotDetected) Urine Methadone Screen (NotDetected) Ur Propoxyphene Screen (NotDetected) Ur Barbiturates Screen (NotDetected) U Tricyclic Antidepress (NotDetected) Ur Phencyclidine Scrn (NotDetected) Ur Amphetamines Screen (NotDetected) U Methamphetamines Scrn (NotDetected) U Benzodiazepines Scrn (NotDetected) Urine Cocaine Screen (NotDetected) U Marijuana (THC) Screen (NotDetected) 03/10/19 03/10/19 Range/Units 06:30 06:30 WBC (3.8-10.6) k/uL RBC (4.30-5.90) m/uL Hgb (13.0-17.5) gm/dL Hct (39.0-53.0) % MCV (80.0-100.0) fL MCH (25.0-35.0) pg MCHC (31.0-37.0) g/dL RDW (11.5-15.5) % Plt Count (150-450) k/uL Neutrophils % % Lymphocytes % % Monocytes % % Eosinophils % % Basophils % % Neutrophils # (1.3-7.7) k/uL Lymphocytes # (1.0-4.8) k/uL Monocytes # (0-1.0) k/uL Eosinophils # (0-0.7) k/uL Basophils # (0-0.2) k/uL PT 10.3 (9.0-12.0) sec INR 1.0 (<1.2) APTT 28.4 (22.0-30.0) sec Sodium (137-145) mmol/L Potassium (3.5-5.1) mmol/L Chloride (98-107) mmol/L Carbon Dioxide (22-30) mmol/L Anion Gap mmol/L BUN (9-20) mg/dL Creatinine (0.66-1.25) mg/dL Est GFR (CKD-EPI)AfAm (>60 ml/min/1.73 sqM) Est GFR (CKD-EPI)NonAf (>60 ml/min/1.73 sqM) Glucose (74-99) mg/dL Plasma Lactic Acid Pradip (0.7-2.0) mmol/L Calcium (8.4-10.2) mg/dL Total Bilirubin (0.2-1.3) mg/dL AST (17-59) U/L ALT (21-72) U/L Alkaline Phosphatase (38-126) U/L Total Protein (6.3-8.2) g/dL Albumin (3.5-5.0) g/dL Urine Color Yellow Urine Appearance Clear (Clear) Urine pH 5.5 (5.0-8.0) Ur Specific Alderson 1.018 (1.001-1.035) Urine Protein Negative (Negative) Urine Glucose (UA) Negative (Negative) Urine Ketones Negative (Negative) Urine Blood Negative (Negative) Urine Nitrite Negative (Negative) Urine Bilirubin Negative (Negative) Urine Urobilinogen <2.0 (<2.0) mg/dL Ur Leukocyte Esterase Negative (Negative) Urine Opiates Screen Not Detected (NotDetected) Ur Oxycodone Screen Not Detected (NotDetected) Urine Methadone Screen Not Detected (NotDetected) Ur Propoxyphene Screen Not Detected (NotDetected) Ur Barbiturates Screen Not Detected (NotDetected) U Tricyclic Antidepress Not Detected (NotDetected) Ur Phencyclidine Scrn Not Detected (NotDetected) Ur Amphetamines Screen Detected H (NotDetected) U Methamphetamines Scrn Detected H (NotDetected) U Benzodiazepines Scrn Not Detected (NotDetected) Urine Cocaine Screen Detected H (NotDetected) U Marijuana (THC) Screen Not Detected (NotDetected) 03/10/19 06:46 EKG shows normal sinus rhythm with sinus arrhythmia, normal EKG. Ventricular 60 beats were minute period. Intervals 140 ms. Frustration is 86 most seconds. QT QTc is 412 ms. - Radiology Data Radiology results: report reviewed Bilateral ultrasound is negative for DVT. Incidental note of 5 cm lymph node in the right groin. Disposition Clinical Impression: Peripheral edema, Lymphadenopathy, inguinal, Cocaine abuse, Methamphetamine abuse, Leg ulcer Disposition: ADMITTED IP TO THIS HOSP Condition: Stable Is patient prescribed a controlled substance at d/c from ED?: No Referrals: None,Stated [Primary Care Provider] - 1-2 days Time of Disposition: 08:15
[2019-03-10] MEDS: SODIUM CHLORIDE 0.9% 500 ML 500 ML IV SCH ×4 (06:42→08:18)
[2019-03-10] MEDS ORDERED: PIPERACILLIN-TAZOBACTAM 3.375 GM in SODIUM CHLORIDE 0.9% 100 ML IVPB STA (06:44)
[2019-03-10 06:52] LABS: Basophils # (A) 0.1 k/uL (0-0.2); Basophils % (A) 1 %; Eosinophils # (A) 0.2 k/uL (0-0.7); Eosinophils % (A) 4 %; HCT 37.1 % (39.0-53.0); HGB 12.1 gm/dL (13.0-17.5); Lymphocytes % (A) 43 %; MCH 29.5 pg (25.0-35.0); MCHC 32.5 g/dL (31.0-37.0); MCV 90.6 fL (80.0-100.0); Mean Platelet Volume 6.7; Monocytes # (A) 0.3 k/uL (0-1.0); Monocytes % (A) 7 %; Neutrophils % (A) 42 %; Platelet Count 233 k/uL (150-450); RDW 13.6 % (11.5-15.5); WBC 4.7 k/uL (3.8-10.6)
[2019-03-10 06:53] LABS: Appearance,Urine Clear (Clear); Bilirubin,Urine Negative (Negative); Blood,Urine Negative (Negative); Color,Urine Yellow; Glucose,Urine (UA) Negative (Negative); Ketones,Urine Negative (Negative); Leukocyte Esterase,Urine Negative (Negative); Nitrite,Urine Negative (Negative); PH, Urine 5.5 (5.0-8.0); Protein,Urine Negative (Negative); Specific Gravity,Urine 1.018 (1.001-1.035); Urobilinogen,Urine <2.0 mg/dL (<2.0)
[2019-03-10 07:02] LABS: Prothrombin Time 10.3 sec (9.0-12.0)
[2019-03-10 07:03] LABS: Partial Thromboplastin Time 28.4 sec (22.0-30.0)
[2019-03-10 07:04] LABS: Amphetamine Screen,Urine Detected (NotDetected); Barbiturate Screen,Urine Not Detected (NotDetected); Benzodiazepines Screen,Urine Not Detected (NotDetected); Cocaine Screen,Urine Detected (NotDetected); Methadone Screen, Urine Not Detected (NotDetected); Opiate Screen,Urine Not Detected (NotDetected); Oxycodone Screen, Urine Not Detected (NotDetected); Phencyclidine Screen,Urine Not Detected (NotDetected); Tricyclic Antidepressant,Urine Not Detected (NotDetected); Urn Cannabinoid Scrn Not Detected (NotDetected)
[2019-03-10 07:05] LABS: Albumin 3.2 g/dL (3.5-5.0); Calcium 8.5 mg/dL (8.4-10.2); Potassium 4.1 mmol/L (3.5-5.1); Total Bilirubin 0.6 mg/dL (0.2-1.3); Total Protein 7.1 g/dL (6.3-8.2)
--- NOTE | 2019-03-10 07:39 | US ---
EXAMINATION TYPE: US venous doppler duplex LE BI DATE OF EXAM: 03/10/2019 7:19 AM COMPARISON: NONE CLINICAL HISTORY: Pain. right leg swelling SIDE PERFORMED: Bilateral TECHNIQUE: The lower extremity deep venous system is examined utilizing real time linear array sonog carmen with graded compression, doppler sonography and color-flow sonography. VESSELS IMAGED: External Iliac Vein (EIV) Common Femoral Vein Deep Femoral Vein Greater Saphenous Vein * Femoral Vein Popliteal Vein Small Saphenous Vein * Proximal Calf Veins (* superficial vessels) Right Leg: Negative for DVT Left Leg: Negative for DVT Incidental note is made of 5.0 cm lymph node right groin. Grayscale, color doppler, spectral doppler imaging performed of the deep veins of the bilateral lowe r extremities. There is normal flow, compressibility, vascular waveforms. IMPRESSION: No ultrasound evidence for acute DVT in either lower extremity. Note is made of enlarged right groin lymph node measuring roughly 1.5 cm short axis though appears to retain normal fatty hilu m. Correlate clinically for recent infection
[2019-03-10] MEDS ORDERED: NALOXONE 0.4 MG/ML 1 ML VIAL IV PRN (08:15)
[2019-03-10] MEDS ORDERED: ACETAMINOPHEN TAB 325 MG TAB PO PRN (08:15)
[2019-03-10] MEDS ORDERED: ONDANSETRON 4 MG/2 ML VIAL IVP PRN (08:15)
[2019-03-10] MEDS ORDERED: IBUPROFEN 400 MG TAB PO PRN (08:15)
[2019-03-10] MEDS: MORPHINE SULFATE 4 MG/ML SYRINGE IV PRN ×3 (10:14→22:08)
[2019-03-10] MEDS: PANTOPRAZOLE 40 MG/10 ML VIAL IV SCH (14:18)
[2019-03-10] MEDS: SODIUM CHLORIDE 0.9% 1,000 ML IV SCH ×2 (14:18→15:33)
[2019-03-10] MEDS: PIPERACILLIN-TAZOBACTAM 3.375 GM in SODIUM CHLORIDE 0.9% 100 ML IVPB SCH ×2 (15:33→23:59)
[2019-03-10 16:03] LABS: HIV 1 AB Non-Reactive (Non-Reactive); HIV 2 AB Non-Reactive (Non-Reactive); HIV AB P24 Non-Reactive (Non-Reactive); HIV P24 AG Non-Reactive (Non-Reactive)
[2019-03-10] MEDS ORDERED: LORazepam 2 MG/ML INJ IV PRN (21:10)
[2019-03-10] MEDS ORDERED: TEMAZEPAM 15 MG CAP PO PRN (21:11)
[2019-03-10] MEDS: cloNIDine HCL 0.1 MG TAB PO SCH (22:08)
[2019-03-10] MEDS: HEPARIN SODIUM,PORCINE 5,000 UNIT/ML 1 ML VIAL SQ SCH (22:08)
--- NOTE | 2019-03-10 23:24 | HP ---
HISTORY AND PHYSICAL CHIEF COMPLAINT: Bilateral leg swelling and cellulitis. HISTORY OF PRESENT ILLNESS: This 53-year-old gentleman with a past medical history of arthritis, history of hepatitis C, history of anxiety, bipolar depression, history of polysubstance abuse, not being followed by any primary physician in the outpatient setting was complaining of bilateral leg cellulitis which was there for at least the last 2 weeks. Because of increasing symptoms and worsening, the patient came to [facility] and admitted for further evaluation and treatment. Patient was taking apparently Keflex as an outpatient. There is no history of fever, rigors or chills. No history of headache, loss of consciousness or seizures. The patient also complaining of a specific corn like swelling in the sole of the left foot also. PAST MEDICAL HISTORY: History of DJD, history of hepatitis C, anxiety, bipolar depression, history of nicotine dependence, history of polysubstance abuse. MEDICATIONS: Home medication are: Multivitamins 1 p.o. daily. ALLERGIES: CASHEW NUT, PEANUTS. ZOLOFT. FAMILY HISTORY: No history of heart disease or strokes in the family. SOCIAL HISTORY: History of polysubstance abuse, smoking, alcohol, cocaine, marijuana, methamphetamine. REVIEW OF SYSTEMS: ENT: No diminished vision. No diminished hearing. CARDIOVASCULAR: No angina or palpitations. RESPIRATION: No cough. No hemoptysis. GI no nausea or vomiting. no dysuria., NERVOUS SYSTEM: No numbness or weakness. ALLERGY/IMMUNOLOGY: No asthma or hayfever. MUSCULOSKELETAL as mentioned earlier. HEMATOLOGY/ONCOLOGY: No history of anemia. ENDOCRINE: No history of diabetes or hypothyroidism. CONSTITUTIONAL: As mentioned earlier. Dermatology: As mentioned earlier. Rheumatology: Negative. Psychiatry: As mentioned earlier. PHYSICAL EXAMINATION: Alert and oriented times three. Pulse is 54, blood pressure 130/60, respirations 16, temperature 97.4, pulse ox 98% on room air. HEENT: Conjunctivae normal. Oral mucosa moist. NECK is no jugular venous distention. No carotid bruit. No lymph node enlargement. CARDIOVASCULAR: S1, S2 muffled. No S3, no S4. RESPIRATIONS: Breath sounds diminished in the bases. A few rhonchi. No crackles. ABDOMEN: Soft, nontender. No mass palpable. LEGS: Significant bilateral leg swelling and as well as significant excoriation, swelling, tenderness present, especially including the left sole also. NERVOUS SYSTEM: Higher functions as mentioned. Moves all four limbs. No focal motor or sensory deficits. LYMPHATICS: No lymph nodes palpable in the neck, axillae or groin. SKIN: As mentioned earlier. JOINTS: No active deforming arthropathy. LABS: WBC 4.2, hemoglobin 12.1. Sodium 140, potassium 4.1, creatinine is 1.41. AST is 107, ALT is 98. ASSESSMENT: 1. Acute bilateral leg cellulitis with failure of outpatient treatment. 2. Anemia, normocytic anemia of chronic disease. 3. Increased creatinine with chronic kidney stage 3. 4. Increased AST, ALT, possibly hepatitis multifactorial with hepatitis C. 5. History of degenerative joint disease. 6. History hepatitis C. 7. History of anxiety, bipolar depression. 8. History of nicotine dependence. 9. History of polysubstance abuse including cocaine, marijuana, methamphetamines. 10.FULL CODE. RECOMMENDATIONS AND DISCUSSION: In this 53-year-old gentleman who presented with multiple complex medical issues, we will monitor the patient closely, continue the current medications, management and symptomatic treatment. Otherwise, at this time, broad spectrum IV antibiotics. Infectious disease evaluation. I would also recommend DVT prophylaxis. Otherwise guarded prognosis because of multiple complex medical issues. Further recommendations to follow. Continue to continue to monitor. Further recommendations to follow. Also recommend the patient to follow up with primary physician closely after discharge. MMODL / IJN: [id number] /
[2019-03-11] MEDS: SODIUM CHLORIDE 0.9% 1,000 ML IV SCH ×2 (04:35→12:13)
[2019-03-11] MEDS: MORPHINE SULFATE 4 MG/ML SYRINGE IV PRN ×4 (05:10→21:43)
[2019-03-11] MEDS: PIPERACILLIN-TAZOBACTAM 3.375 GM in SODIUM CHLORIDE 0.9% 100 ML IVPB SCH ×2 (07:33→15:33)
[2019-03-11] MEDS: PANTOPRAZOLE 40 MG/10 ML VIAL IV SCH (07:37)
[2019-03-11] MEDS: cloNIDine HCL 0.1 MG TAB PO SCH ×3 (07:37→21:36)
[2019-03-11] MEDS: HEPARIN SODIUM,PORCINE 5,000 UNIT/ML 1 ML VIAL SQ SCH ×2 (07:37→21:36)
[2019-03-11] MEDS: NICOTINE 14MG/24HR PATCH TRANSDERM SCH (07:37)
[2019-03-11 08:53] LABS: Basophils % (A) 1 %; Eosinophils # (A) 0.1 k/uL (0-0.7); Eosinophils % (A) 3 %; HCT 36.9 % (39.0-53.0); HGB 11.8 gm/dL (13.0-17.5); Lymphocytes # (A) 1.4 k/uL (1.0-4.8); Lymphocytes % (A) 31 %; MCH 29.7 pg (25.0-35.0); MCV 92.9 fL (80.0-100.0); Mean Platelet Volume 6.9; Monocytes # (A) 0.2 k/uL (0-1.0); Monocytes % (A) 5 %; Neutrophils # (A) 2.7 k/uL (1.3-7.7); Neutrophils % (A) 59 %; Platelet Count 213 k/uL (150-450); RBC 3.97 m/uL (4.30-5.90); RDW 13.6 % (11.5-15.5); WBC 4.6 k/uL (3.8-10.6)
[2019-03-11 09:11] LABS: Calcium 8.3 mg/dL (8.4-10.2)
[2019-03-11 14:53] LABS: N. gonorrhoeae,PCR Negative (Neg,Equiv); Neisseria Source Urine
[2019-03-11 14:58] LABS: C. trachomatis,PCR Negative (Neg,Equiv); Chlamydia trachomatis Source Urine
[2019-03-11] MEDS: SILVER sulfADIAZINE Cream 400 GM 1 APPLIC APPLIC TOPICAL SCH (15:33)
--- NOTE | 2019-03-11 18:04 | PN ---
PROGRESS NOTE DATE OF SERVICE: 03/11/2019. This 53-year-old gentleman was admitted with bilateral leg cellulitis also complaining of pain on the left foot. Apparently the patient is letting his dog lick his wounds according to the staff. Infectious Disease and as well as Dr. Baker is following the patient closely. PAST MEDICAL HISTORY: Reviewed. REVIEW OF SYSTEMS: CARDIOVASCULAR: No angina or palpitations. RESPIRATORY: As mentioned earlier. GASTROINTESTINAL: As mentioned earlier. : As mentioned earlier. CENTRAL NERVOUS SYSTEM: No numbness, weakness. CURRENT MEDICATIONS: Reviewed and include: 1. Tylenol 650 q.6h p.r.n. 2. Catapres 0.1 p.o. t.i.d. 3. Heparin 5000 subcu b.i.d. 4. Motrin 400 mg q.6 p.r.n. 5. Toradol 30 mg IV q.6h. 6. Ativan 0.5 mg IV q8h. 7. Morphine sulfate 4 mg q.4h p.r.n. 8. Narcan 0.2 q.2 p.r.n. 9. Habitrol. 10.Zofran. 11.Protonix 40 mg p.o. daily. 12.Zosyn 3.375 IV q.6h. 13.Restoril. PHYSICAL EXAM: Patient is alert, oriented x3. Pulse is 52, blood pressure 116/66, respirations 16, temperature 98 degrees, pulse ox 97% on room air. HEENT: Conjunctivae normal. NECK: No JVD. CARDIOVASCULAR: S1, S2. RESPIRATORY: Breath sounds diminished in the bases. Scattered rhonchi and crackles. ABDOMEN: Soft, nontender. No mass palpable. LEGS: Bilateral leg swelling and erythema, excoriations, tenderness present in both legs below the mid calf. SKIN as mentioned earlier. JOINTS: No active deforming arthropathy. NERVOUS SYSTEM: As mentioned earlier. LABORATORY DATA: WBC 4.6, hemoglobin 11.6, sodium is 135, glucose 120. UA drug screen is positive for amphetamine, methamphetamines and cocaine. HIV is negative. ASSESSMENT: 1. Acute bilateral leg cellulitis with failure of outpatient treatment. 2. Anemia, normocytic anemia of chronic disease. 3. Increased creatinine with chronic kidney stage III. 4. Increased AST, ALT, possibly secondary to hepatitis, multifactorial. 5. History of degenerative joint disease. 6. History of hepatitis C. 7. Anxiety/bipolar depression. 8. History of nicotine dependence. 9. History of polysubstance abuse including cocaine, marijuana, and methamphetamine. 10.FULL CODE. RECOMMENDATIONS AND DISCUSSION: This 53-year-old gentleman who presented with multiple medical issues, at this time, we will continue management and symptomatic treatment. Otherwise continue with IV antibiotics. Dr. Baker has recommended local Silvadene and wrap the leg and elevate the leg. Otherwise, closely follow with Infectious Disease. Guarded prognosis because of multiple complex medical issues. See orders for details. Further recommendations will follow. Continue with DVT prophylaxis. MMODL / IJN: [id number] /
[2019-03-11] MEDS: AMPICILLIN-SULBACTAM 3 GM in SODIUM CHLORIDE 0.9% 100 ML IVPB SCH (18:14)
--- NOTE | 2019-03-11 22:52 | CONS ---
DATE OF CONSULTATION: 03/11/2019 This is a 53 year old male. I was consulted for cellulitis of the lower extremities of 2 weeks duration. The patient had a venous ultrasound. No history of DVT. The patient has history of hepatitis C, history of anxiety, history of bipolar depression, history of polysubstance abuse. According to the patient, he had developed marked swelling of the right lower extremity for the last 2 weeks. No history of trauma or insect bite. PHYSICAL EXAMINATION: Patient was seen in his room. His vital signs are stable. NECK: Supple. Trachea central. CHEST: Clear. ABDOMEN: Soft. Vascular examination: Femorals are palpable. Bilateral popliteals palpable. Posterior tibial dorsalis pedis by the Doppler. The patient has a marked swelling of the right lower extremity comparing to the left leg. The patient has superficial ulcer on the medial aspect of the ankle and marked swelling of the lower extremity. IMPRESSION: Could be venous hypertension because of some ulcer formation noted on the medial aspect of the ankle and marked swelling. We will use Silvadene cream with compression of both lower extremities. One pillow elevation. Patient on IV antibiotic. Follow with you. If the swelling goes down and patient is stable, I will follow in my office in 2 weeks. Thank you very much for this consultation. MMODL / IJN: [id number] / FABBY
--- NOTE | 2019-03-11 23:40 | CONS ---
CONSULTATION DATE OF SERVICE: 03/11/2019. REASON FOR CONSULTATION: Right lower extremity wound and cellulitis. HISTORY OF PRESENT ILLNESS: The patient is a 53 -year-old male who started having a problem with bilateral lower extremity swelling and redness more than 2 weeks ago. The patient stated he was initially presented to this facility when the patient was seen in the ER and has been treated with oral Keflex and ibuprofen. May have slight improvement initially. However, the patient did have worsening swelling, pain to the right lower extremity. He did have some superficial wound on the right foot dorsal aspect and on the medial border. The patient says his dog licked those wounds for him and the drainage seems to have slightly decreased. The patient has been complaining of associated pain almost 10 out of 10. He walks on it without any improvement with rest. With these symptoms, the patient has been evaluated by the ER physician. The patient did have lower extremity Doppler that has been negative for DVT. Patient on presentation has been afebrile and his white count has been normal as well. Did have a mildly elevated creatinine 1.4, repeat is down to 1.24. Urine was positive for amphetamines and cocaine. and cultures has been negative so far. The patient was started on Zosyn. infectious disease consulted for further recommendations regarding antibiotic therapy. REVIEW OF SYSTEMS: Positive points have been mentioned in HPI. Other systems are negative. PAST MEDICAL HISTORY: Arthritis and chronic hepatitis C. PAST SURGICAL HISTORY: Cyst removed behind the left ear. PAST PSYCHOLOGICAL HISTORY: Positive for anxiety and bipolar depression. SOCIAL HISTORY: The patient is currently an every day smoker, previous history of cocaine and marijuana use in the past. FAMILY HISTORY: No pertinent findings noticed. ALLERGIES: SERTRALINE. MEDICATIONS: The patient is currently on Tylenol, Catapres, heparin, Motrin, Toradol, Ativan, morphine sulfate, Narcan, nicotine patch, Zosyn and Restoril. EXAMINATION: Blood pressure is 156/66, pulse 52, temperature 98, he is 97% on room air. General description is a middle age male lying in bed in no distress. HEENT exam is slight pallor. No scleral icterus. Oral mucosa membranes dry. No pharyngeal thrush. Neck: Trachea central. No thyromegaly. LUNGS: Unlabored breathing. Clear to auscultation. No wheeze or crackles. HEART S1, S2. Regular rate and rhythm. ABDOMEN: Soft, no tenderness. No guarding. No rigidity. EXTREMITIES: Feet did have been swelling that has more swelling than the left foot with minimal warmth. Hard to tell in view of the dorsum wound on the right, the right medial ankle area with a small tissue or any foul-smelling drainage. NEUROLOGICAL patient is awake, alert, oriented x3. Mood and affect normal. LABS: Hemoglobin 11.2, white count 4.3, BUN of 15, creatinine 1.3 UA has been negative. Blood culture obtained so far currently pending. DIAGNOSTIC IMPRESSION AND PLAN: Patient with right lower extremity likely venous stasis ulcer with secondary cellulitis. The patient did have diffuse swelling and redness. Culture has been negative for deep vein thrombosis likely from a gram-positive skin lexus. However, with a dog licking his leg wounds, will need to cover for both aerobes and anaerobes covering the oral lexus of the dog. PLAN: 1. Discontinue the Zosyn. 2. Start the patient on Unasyn 3 g q6h. 3. Local wound care to continue with Silvadene cream and yanet wrap to keep the swelling down. 4. We will follow on his clinical condition and culture to further adjust medication if needed. Thank you for this consultation. Will follow the patient along with you. MMODL / IJN: [id number] / FABBY
[2019-03-12] MEDS: AMPICILLIN-SULBACTAM 3 GM in SODIUM CHLORIDE 0.9% 100 ML IVPB SCH ×5 (00:23→23:43)
[2019-03-12] MEDS: SODIUM CHLORIDE 0.9% 1,000 ML IV SCH ×3 (00:23→09:21)
[2019-03-12] MEDS: MORPHINE SULFATE 4 MG/ML SYRINGE IV PRN ×3 (05:24→15:36)
[2019-03-12] MEDS: NICOTINE 14MG/24HR PATCH TRANSDERM SCH (07:22)
[2019-03-12] MEDS: cloNIDine HCL 0.1 MG TAB PO SCH ×3 (07:22→22:36)
[2019-03-12] MEDS: SILVER sulfADIAZINE Cream 400 GM 1 APPLIC APPLIC TOPICAL SCH (07:22)
[2019-03-12] MEDS: HEPARIN SODIUM,PORCINE 5,000 UNIT/ML 1 ML VIAL SQ SCH ×2 (07:22→22:34)
[2019-03-12] MEDS: PANTOPRAZOLE 40 MG TABLET PO SCH (07:22)
[2019-03-12 08:26] LABS: Basophils # (A) 0.1 k/uL (0-0.2); Basophils % (A) 2 %; Eosinophils # (A) 0.2 k/uL (0-0.7); Eosinophils % (A) 4 %; HCT 37.9 % (39.0-53.0); HGB 12.1 gm/dL (13.0-17.5); Lymphocytes # (A) 1.5 k/uL (1.0-4.8); Lymphocytes % (A) 28 %; MCH 29.4 pg (25.0-35.0); MCHC 31.9 g/dL (31.0-37.0); Mean Platelet Volume 6.8; Monocytes # (A) 0.3 k/uL (0-1.0); Monocytes % (A) 7 %; Neutrophils # (A) 3.1 k/uL (1.3-7.7); Neutrophils % (A) 58 %; Platelet Count 209 k/uL (150-450); RBC 4.12 m/uL (4.30-5.90); RDW 13.6 % (11.5-15.5); WBC 5.2 k/uL (3.8-10.6)
[2019-03-12 08:39] LABS: Calcium 8.3 mg/dL (8.4-10.2); Potassium 4.6 mmol/L (3.5-5.1)
[2019-03-12] MEDS: KETOROLAC 30 MG/ML 1 ML VIAL IVP PRN (17:46)
--- NOTE | 2019-03-12 17:53 | PN ---
PROGRESS NOTE DATE OF SERVICE: 03/12/2019 This 53-year-old gentleman who was admitted with acute bilateral leg cellulitis with failure of outpatient treatment is being closely monitored. No chest pain. No palpitations. No fever. EXAM: Alert and oriented times three. Pulse 68, blood pressure is 111/60, respiration 20, temperature 98.2, pulse ox 98% on room air. HEENT: Conjunctivae normal. NECK: No jugular venous distention. CARDIOVASCULAR: S1, S2. RESPIRATIONS: Breath sounds diminished in the bases. A few rhonchi. No crackles. Abdomen is soft, nontender. LEGS bilateral leg cellulitis. NERVOUS SYSTEM: No focal deficits. LABS: At this time shows WBC ntd, hemoglobin 12.1, sodium 136. ASSESSMENT: 1. Acute bilateral leg cellulitis with failure of outpatient treatment. 2. Anemia, normocytic anemia of chronic disease. 3. Increased creatinine with chronic kidney stage III. 4. Increased AST, ALT, possibly secondary to hepatitis, multifactorial. 5. History of degenerative joint disease. 6. History of hepatitis C. 7. History of bipolar anxiety depression. 8. History of nicotine dependence. 9. History of polysubstance abuse including cocaine, marijuana, methamphetamine. 10.FULL CODE. RECOMMENDATIONS AND DISCUSSION: Recommend to continue current medications, continue with the broad-spectrum IV antibiotics. Local treatment. Repeat lytes. Guarded prognosis. Further recommendations to follow. MMODL / IJN: [id number] / MTDD
[2019-03-13] MEDS: MORPHINE SULFATE 4 MG/ML SYRINGE IV PRN ×5 (02:25→23:10)
[2019-03-13] MEDS: SODIUM CHLORIDE 0.9% 1,000 ML IV SCH ×2 (04:52→15:21)
[2019-03-13] MEDS: AMPICILLIN-SULBACTAM 3 GM in SODIUM CHLORIDE 0.9% 100 ML IVPB SCH ×4 (05:10→23:14)
[2019-03-13] MEDS: KETOROLAC 30 MG/ML 1 ML VIAL IVP PRN ×2 (05:43→11:15)
[2019-03-13 07:39] LABS: Basophils % (A) 1 %; Eosinophils # (A) 0.2 k/uL (0-0.7); Eosinophils % (A) 5 %; HCT 37.6 % (39.0-53.0); HGB 11.8 gm/dL (13.0-17.5); Lymphocytes # (A) 1.5 k/uL (1.0-4.8); Lymphocytes % (A) 34 %; MCH 28.9 pg (25.0-35.0); MCHC 31.4 g/dL (31.0-37.0); MCV 92.1 fL (80.0-100.0); Mean Platelet Volume 7.1; Monocytes # (A) 0.3 k/uL (0-1.0); Monocytes % (A) 6 %; Neutrophils # (A) 2.2 k/uL (1.3-7.7); Neutrophils % (A) 51 %; Platelet Count 219 k/uL (150-450); RBC 4.08 m/uL (4.30-5.90); RDW 13.6 % (11.5-15.5); WBC 4.3 k/uL (3.8-10.6)
[2019-03-13 07:52] LABS: African American GFR (CKD) >90 (>60 ml/min/1.73 sqM); Anion Gap 4 mmol/L; Blood Urea Nitrogen 10 mg/dL (9-20); Calcium 8.3 mg/dL (8.4-10.2); Carbon Dioxide 28 mmol/L (22-30); Chloride 104 mmol/L (98-107); Glucose 101 mg/dL (74-99); Non-African American GFR(CKD) 81 (>60 ml/min/1.73 sqM); Potassium 4.2 mmol/L (3.5-5.1); Sodium 136 mmol/L (137-145)
[2019-03-13] MEDS: HEPARIN SODIUM,PORCINE 5,000 UNIT/ML 1 ML VIAL SQ SCH ×2 (08:29→23:10)
[2019-03-13] MEDS: PANTOPRAZOLE 40 MG TABLET PO SCH (08:29)
[2019-03-13] MEDS: cloNIDine HCL 0.1 MG TAB PO SCH ×3 (08:29→23:14)
[2019-03-13] MEDS: NICOTINE 14MG/24HR PATCH TRANSDERM SCH (08:29)
[2019-03-13] MEDS: SILVER sulfADIAZINE Cream 400 GM 1 APPLIC APPLIC TOPICAL SCH (09:30)
[2019-03-13] MEDS: LORazepam 0.5 MG TAB PO PRN (12:21)
[2019-03-13 14:46] VITALS: RESP 20
--- NOTE | 2019-03-13 20:00 | PN ---
PROGRESS NOTE DATE OF SERVICE: 03/13/2019 This 53-year-old gentleman admitted with acute bilateral leg cellulitis and failure of outpatient treatment is being closely monitored. Cultures are negative so far. No chest pain. No palpitations. No fever. A 2D echo has been requested. EXAM: Alert and oriented x3. Pulse is 60, blood pressure 115/74, respiration 20, temperature 97.9, pulse ox 97% on room air. HEENT: Conjunctivae normal. Oral mucosa moist. NECK: No jugular venous distention. No lymph node enlargement. CARDIOVASCULAR: S1, S2. RESPIRATORY: Diminished breath sounds at the bases. No rhonchi, no crackles. ABDOMEN: Soft, nontender. LEGS: Bilateral leg swelling, right more than left. Left leg cellulitis also present. NERVOUS SYSTEM: No focal deficits. LABS: WBC 4.2, hemoglobin 11.8, sodium is 136. Other labs are noted. ASSESSMENT: 1. Acute bilateral leg cellulitis with failure of outpatient treatment. 2. Anemia, normocytic anemia of chronic disease. 3. Increased creatinine, chronic kidney disease stage III. 4. Increased AST, ALT, possibly secondary to hepatitis, multifactorial. 5. History of degenerative joint disease. 6. History hepatitis C. 7. History of bipolar anxiety, depression. 8. History of nicotine dependence. 9. History of polysubstance abuse including cocaine, marijuana, methamphetamine. 10.FULL CODE. RECOMMENDATIONS AND DISCUSSION: Recommend to continue current medications, continue to monitor, continue symptomatic treatment. Continue with antibiotics. Follow closely with Infectious Disease. Two-D echo with Doppler has been requested as mentioned earlier to rule out the possibility of endocarditis. Further recommendations to follow. MMODL / IJN: [id number] /
--- NOTE | 2019-03-14 01:48 | PN ---
PROGRESS NOTE DATE OF SERVICE: 03/13/2019. REASON FOR FOLLOWUP: Right lower extremity venous stasis ulcer with secondary cellulitis. INTERVAL HISTORY: The patient is currently afebrile. Patient has been breathing comfortably. Denies any chest pain or cough. No nausea, vomiting. No abdominal pain and right leg pain has decreased in intensity. PHYSICAL EXAMINATION: Blood pressure 149/85 with a pulse of 68, temperature 98. He is 96% room air. General description is a middle-aged male lying in bed in no distress. Respiratory system: Unlabored breathing. Clear to auscultation anteriorly. Heart S1, S2. Regular rate and rhythm. Abdomen soft, no tenderness. Legs are currently dressed up. No obvious drainage on the dressing. LABS: Hemoglobin is 11.1, white count 4.3 with a BUN of 10, creatinine 1.06. Blood culture remains negative so far. DIAGNOSTIC IMPRESSION AND PLAN: Patient with right lower extremity wound with venous stasis ulcer with secondary cellulitis to continue with Unasyn and venous ultrasound rule out source of lower extremity swelling and continue supportive care. MMODL / IJN: [id number] / [facility]
[2019-03-14] MEDS: SODIUM CHLORIDE 0.9% 1,000 ML IV SCH ×2 (02:58→05:43)
[2019-03-14] MEDS: MORPHINE SULFATE 4 MG/ML SYRINGE IV PRN ×3 (02:59→12:05)
[2019-03-14] MEDS: LORazepam 0.5 MG TAB PO PRN (03:04)
[2019-03-14] MEDS: AMPICILLIN-SULBACTAM 3 GM in SODIUM CHLORIDE 0.9% 100 ML IVPB SCH ×2 (05:43→12:00)
[2019-03-14] MEDS: KETOROLAC 30 MG/ML 1 ML VIAL IVP PRN (05:50)
[2019-03-14] MEDS: PANTOPRAZOLE 40 MG TABLET PO SCH (07:26)
[2019-03-14] MEDS: cloNIDine HCL 0.1 MG TAB PO SCH (07:26)
[2019-03-14] MEDS: NICOTINE 14MG/24HR PATCH TRANSDERM SCH (07:26)
[2019-03-14] MEDS: HEPARIN SODIUM,PORCINE 5,000 UNIT/ML 1 ML VIAL SQ SCH (07:26)
[2019-03-14] MEDS: SILVER sulfADIAZINE Cream 400 GM 1 APPLIC APPLIC TOPICAL SCH (07:27)
[2019-03-14 07:44] VITALS: BP 113/64; PULSE 66; TEMP 98.6
--- NOTE | 2019-03-14 14:01 | PN ---
PROGRESS NOTE DATE OF SERVICE: 03/14/2019 REASON FOR FOLLOWUP: Right lower extremity wound with cellulitis. INTERVAL HISTORY: The patient is currently afebrile. Patient is breathing comfortably. The right leg pain and swelling has improved. Patient denies having any worsening pain or any drainage. No abdominal pain, no diarrhea. PHYSICAL EXAMINATION: Blood pressure is 130/64, pulse of 66. Temperature 98.6, he is 96% on room air. General description is a middle-aged male, lying in bed in no distress. RESPIRATORY SYSTEM: Unlabored breathing, clear to auscultation anteriorly. HEART: S1, S2. Regular rate and rhythm. ABDOMEN: Soft, no tenderness. EXTREMITIES: Right leg wound, no worsening, redness improved, no drainage. LABS: Hemoglobin 11.1, white count of 4.3. DIAGNOSTIC IMPRESSION AND PLAN: Patient with right lower extremity venostasis ulcer with secondary cellulitis. The patient overall improvement on Unasyn will be transitioned to a short course of oral Augmentin, prescription sent to the pharmacy. Local care to continue for Vascular Surgery. Continue supportive care. MMODL / IJN: [id number] / [id number]
--- NOTE | 2019-03-14 17:42 | ECHOF ---
Referral Reason:r/o venous hypertension MEASUREMENTS -------- HEIGHT: 205.7 cm WEIGHT: 89.8 kg BP: 149/85 IVSd: 1.1 cm (0.6 - 1.1) LVIDd: 4.9 cm (3.9 - 5.3) LVPWd: 1.1 cm (0.6 - 1.1) IVSs: 1.4 cm LVIDs: 3.4 cm LVPWs: 1.6 cm LA Diam: 3.4 cm (2.7 - 3.8) RVIDd: 3.7 cm (< 3.3) LAESV Index (A-L): 25.46 ml/m Ao Diam: 3.3 cm (2.0 - 3.7) AV Cusp: 2.2 cm (1.5 - 2.6) EPSS: 0.6 cm MV E Johnnie: 1.04 m/s MV DecT: 189 ms MV A Johnnie: 0.56 m/s MV E/A Ratio: 1.84 RAP: 5.00 mmHg RVSP: 25.57 mmHg MV EF SLOPE: 181.02 mm/s (70 - 150) MV EXCURSION: 20.50 mm (> 18.000) FINDINGS -------- Sinus rhythm. This was a technically excellent study. The left ventricular size is normal. There is borderline concentric left ventricular hypertrophy. Overall left ventricular systolic function is normal with, an EF between 60 - 65 %. The right ventricle is mildly enlarged. Normal LA size by volume 22+/-6 ml/m2. The right atrium is normal in size. Interatrial and interventricular septum intact. The aortic valve is trileaflet and appears structurally normal. Mild mitral regurgitation is present. Mild tricuspid regurgitation present. Right ventricular systolic pressure is normal at < 35 mmHg. Trace/mild (physiologic) pulmonic regurgitation. The aortic root size is normal. Normal inferior vena cava with normal inspiratory collapse consistent with estimated right atrial pre ssure of 5 mmHg. The inferior vena cava is mildly dilated. There is no pericardial effusion. Small Pleural Effusion. CONCLUSIONS -------- 1. Sinus rhythm. 2. This was a technically excellent study. 3. The left ventricular size is normal. 4. There is borderline concentric left ventricular hypertrophy. 5. Overall left ventricular systolic function is normal with, an EF between 60 - 65 %. 6. The right ventricle is mildly enlarged. 7. Normal LA size by volume 22+/-6 ml/m2. 8. The right atrium is normal in size. 9. Interatrial and interventricular septum intact. 10. The aortic valve is trileaflet and appears structurally normal. 11. Mild mitral regurgitation is present. 12. Mild tricuspid regurgitation present. 13. Right ventricular systolic pressure is normal at < 35 mmHg. 14. Trace/mild (physiologic) pulmonic regurgitation. 15. The aortic root size is normal. 16. Normal inferior vena cava with normal inspiratory collapse consistent with estimated right atrial pressure of 5 mmHg. 17. The inferior vena cava is mildly dilated. 18. There is no pericardial effusion. 19. Small Pleural Effusion. TIN WHIZ MACHINE OPERATOR: Cielo Lundy RDCS
--- NOTE | 2019-03-15 00:16 | DS ---
DISCHARGE SUMMARY DATE OF SERVICE: 03/14/2019. FINAL DIAGNOSES: 1. Acute bilateral leg cellulitis with failure of outpatient treatment. 2. Anemia, normocytic anemia of chronic disease. 3. Increased creatinine with chronic kidney disease stage III. 4. Increased AST, ALT, possibly secondary to hepatitis multifactorial. 5. History of degenerative joint disease. 6. History of hepatitis C. 7. History of bipolar, anxiety, depression. 8. History of nicotine dependence. 9. History of polysubstance abuse including cocaine, marijuana, methamphetamine. 10.FULL CODE. DISCHARGE DISPOSITION: The patient will be discharged in stable condition with guarded prognosis. HISTORY OF PRESENT ILLNESS: This 53-year-old gentleman with a past medical history of multiple medical problems admitted with acute bilateral leg cellulitis and multiple other medical problems. Patient treated with IV antibiotics Dr. Kaminski saw and Dr. Baker saw the patient. A 2D echo with Doppler was also done which showed no evidence of any endocarditis. The patient discharged in a stable condition with guarded prognosis. On exam, vitals stable. Cardiovascular: S1, S2. Abdomen soft and cellulitis improving. DISCHARGE ADVICE AND MEDICATIONS: 1. Diet is cardiac diet. 2. Activity limited until follow up. 3. Follow up with Dr. Membreno in 2-3 days. 4. Follow up with Dr. Baker as recommended. Medications are as follows: DISCHARGE ADVICE AND MEDICATION: 1. Vitamins 1 p.o. daily. 2. Augmentin 875 mg 1 p.o. b.i.d. 3. [place] 5 mg q.6h p.r.n. 4. Silvadene 1% topically daily. 5. Follow up with Dr. Baker and Dr. Kaminski as advised. Once again the patient will be discharged in stable condition with guarded prognosis. MMODL / IJN: [id number] /
== END 2019-03-14 15:00 | disposition home or self-care (01) | DRG 603 ==
LOC: EC 05:25 → 4MS4W 10:08
PROVIDERS: ADMIT Hospitalist; ATTEND Hospitalist
DX: L03.115 Cellulitis of right lower limb (principal); L97.919 Non-pressure chronic ulcer of unspecified part of right lower leg with unspecified severity; L03.311 Cellulitis of abdominal wall; F31.30 Bipolar disorder, current episode depressed, mild or moderate severity, unspecified; L03.116 Cellulitis of left lower limb; B18.2 Chronic viral hepatitis C; D63.8 Anemia in other chronic diseases classified elsewhere; F14.10 Cocaine abuse, uncomplicated; F15.10 Other stimulant abuse, uncomplicated; F12.10 Cannabis abuse, uncomplicated; F17.210 Nicotine dependence, cigarettes, uncomplicated; F41.9 Anxiety disorder, unspecified; I83.019 Varicose veins of right lower extremity with ulcer of unspecified site; N18.3 Chronic kidney disease, stage 3 (moderate); M19.90 Unspecified osteoarthritis, unspecified site; Z79.899 Other long term (current) drug therapy; Z91.018 Allergy to other foods; Z91.010 Allergy to peanuts
CPT/HCPCS: 36415; 80048; 80053; 80306; 81003; 83605; 85025; 85610; 85730; 86780; 87040; 87070; 87075; 87086; 87205; 87390; 87491; 87591; 93005; 93306; 93970; 96365; 96366; 96375; 99285

== ENCOUNTER 2019-03-24 18:48 | Emergency (ER) | payer OTHER ==
--- NOTE | 2019-03-24 20:42 | ED ---
Wound/Laceration HPI - General Chief Complaint: Wound/Laceration Stated Complaint: WOUNDS LEAKING, SWELLING AND PAIN ON LEGS Time Seen by Provider: 03/24/19 19:44 Source: patient, RN notes reviewed Mode of arrival: wheelchair Limitations: no limitations - History of Present Illness Initial Comments: 53-year-old male presents emergency Department chief complaint of bilateral leg swelling and sores. Patient was recently admitted for similar complaints. Patient never followed up with vascular or infectious disease as directed. Patient states he did take his Augmentin. Patient states that he does have a history of drug abuse. Patient did have his legs wrapped with states he never had an rewrapped. Patient denies any chest pain or shortness breath denies abdominal complaints. Patient states that he has the same swelling they did before. - Related Data Home Medications Medication Instructions Recorded Confirmed Multivitamins, Thera [Multivitamin 1 tab PO DAILY 02/28/19 03/10/19 (formulary)] Previous Rx's Medication Instructions Recorded Amoxic-Pot Clav 875-125Mg 1 tab PO Q12HR #20 tablet 03/14/19 [Augmentin 875-125] Hydrocodone/Acetaminophen [[place] 1 tab PO Q6HR PRN 3 Days #12 tab 03/14/19 5-325] SILVER sulfADIAZINE Cream 1 applic TOPICAL DAILY #1 applic 03/14/19 [Silvadene 1% Cream] Cephalexin [Keflex] 500 mg PO Q6HR #40 cap 03/24/19 Allergies Allergy/AdvReac Type Severity Reaction Status Date / Time cashew nut Allergy Severe Anaphylaxis Verified 03/24/19 19:31 peanut Allergy Unknown Verified 03/24/19 19:31 peanut oil Allergy Unknown Verified 03/24/19 19:31 sertraline [From Zoloft] Allergy Itching Verified 03/24/19 19:31 Review of Systems ROS Statement: Those systems with pertinent positive or pertinent negative responses have been documented in the HPI. ROS Other: All systems not noted in ROS Statement are negative. Past Medical History Past Medical History: No Reported History Additional Past Medical History / Comment(s): arthritis, Hep C, neuropathy History of Any Multi-Drug Resistant Organisms: None Reported Past Surgical History: No Surgical Hx Reported Additional Past Surgical History / Comment(s): Cyst removed behind L ear Past Anesthesia/Blood Transfusion Reactions: Motion Sickness Past Psychological History: Anxiety, Bipolar, Depression Smoking Status: Current every day smoker Past Alcohol Use History: None Reported Past Drug Use History: Cocaine, Marijuana, Methamphetamine General Exam Limitations: no limitations General appearance: alert, in no apparent distress Head exam: Present: atraumatic, normocephalic, normal inspection Eye exam: Present: normal appearance, PERRL, EOMI. Absent: scleral icterus, conjunctival injection, periorbital swelling Respiratory exam: Present: normal lung sounds bilaterally. Absent: respiratory distress, wheezes, rales, rhonchi, stridor Cardiovascular Exam: Present: regular rate, normal rhythm, normal heart sounds. Absent: systolic murmur, diastolic murmur, rubs, gallop, clicks Extremities exam: Present: other (Bilateral lower extremity edema, mild weeping noted there are some open sores on the lower extremities pulses are palpable equal bilaterally 2+ pitting edema) Neurological exam: Present: alert Skin exam: Present: warm, dry, intact, normal color, rash Course Vital Signs 03/24/19 19:28 Temperature 97.8 F Pulse Rate 99 Respiratory 20 Rate Blood Pressure 126/72 O2 Sat by Pulse 99 Oximetry Medical Decision Making - Medical Decision Making 53-year-old male presented for bilateral leg swelling and open wounds. This is related to venous stasis. Patient was admitted recently for similar complaints. He did not follow-up. He is advised that he needs a follow-up with Dr. Baker, wound center. Patient be given Keflex and return parameters were discussed. - Lab Data Result diagrams: 03/24/19 20:38 03/24/19 20:38 Lab Results 03/24/19 03/24/19 03/24/19 Range/Units 20:38 20:38 20:38 WBC 4.7 (3.8-10.6) k/uL RBC 4.40 (4.30-5.90) m/uL Hgb 12.5 L (13.0-17.5) gm/dL Hct 40.7 (39.0-53.0) % MCV 92.6 (80.0-100.0) fL MCH 28.5 (25.0-35.0) pg MCHC 30.8 L (31.0-37.0) g/dL RDW 13.7 (11.5-15.5) % Plt Count 279 (150-450) k/uL Neutrophils % 45 % Lymphocytes % 39 % Monocytes % 7 % Eosinophils % 4 % Basophils % 2 % Neutrophils # 2.1 (1.3-7.7) k/uL Lymphocytes # 1.9 (1.0-4.8) k/uL Monocytes # 0.3 (0-1.0) k/uL Eosinophils # 0.2 (0-0.7) k/uL Basophils # 0.1 (0-0.2) k/uL Sodium 142 (137-145) mmol/L Potassium 4.3 (3.5-5.1) mmol/L Chloride 106 (98-107) mmol/L Carbon Dioxide 31 H (22-30) mmol/L Anion Gap 5 mmol/L BUN 15 (9-20) mg/dL Creatinine 1.00 (0.66-1.25) mg/dL Est GFR (CKD-EPI)AfAm >90 (>60 ml/min/1.73 sqM) Est GFR (CKD-EPI)NonAf 86 (>60 ml/min/1.73 sqM) Glucose 90 (74-99) mg/dL Plasma Lactic Acid Pradip (0.7-2.0) mmol/L Calcium 9.1 (8.4-10.2) mg/dL Total Bilirubin 0.4 (0.2-1.3) mg/dL AST 65 H (17-59) U/L ALT 54 (21-72) U/L Alkaline Phosphatase 74 (38-126) U/L NT-Pro-B Natriuret Pep 225 pg/mL Total Protein 7.9 (6.3-8.2) g/dL Albumin 3.6 (3.5-5.0) g/dL 03/24/19 Range/Units 20:38 WBC (3.8-10.6) k/uL RBC (4.30-5.90) m/uL Hgb (13.0-17.5) gm/dL Hct (39.0-53.0) % MCV (80.0-100.0) fL MCH (25.0-35.0) pg MCHC (31.0-37.0) g/dL RDW (11.5-15.5) % Plt Count (150-450) k/uL Neutrophils % % Lymphocytes % % Monocytes % % Eosinophils % % Basophils % % Neutrophils # (1.3-7.7) k/uL Lymphocytes # (1.0-4.8) k/uL Monocytes # (0-1.0) k/uL Eosinophils # (0-0.7) k/uL Basophils # (0-0.2) k/uL Sodium (137-145) mmol/L Potassium (3.5-5.1) mmol/L Chloride (98-107) mmol/L Carbon Dioxide (22-30) mmol/L Anion Gap mmol/L BUN (9-20) mg/dL Creatinine (0.66-1.25) mg/dL Est GFR (CKD-EPI)AfAm (>60 ml/min/1.73 sqM) Est GFR (CKD-EPI)NonAf (>60 ml/min/1.73 sqM) Glucose (74-99) mg/dL Plasma Lactic Acid Pradip 1.0 (0.7-2.0) mmol/L Calcium (8.4-10.2) mg/dL Total Bilirubin (0.2-1.3) mg/dL AST (17-59) U/L ALT (21-72) U/L Alkaline Phosphatase (38-126) U/L NT-Pro-B Natriuret Pep pg/mL Total Protein (6.3-8.2) g/dL Albumin (3.5-5.0) g/dL Disposition Clinical Impression: Lower extremity edema, Venous stasis, Leg wound, right, Leg wound, left Disposition: HOME SELF-CARE Condition: Stable Instructions (If sedation given, give patient instructions): Chronic Wounds (ED), Venous Insufficiency (DC) Additional Instructions: Please return to the Emergency Department if symptoms worsen or any other concerns. Prescriptions: Cephalexin [Keflex] 500 mg PO Q6HR #40 cap Is patient prescribed a controlled substance at d/c from ED?: No [facility] - [facility] [NON-[facility]FF] - 1-2 days Basilio Baker MD [STAFF PHYSICIAN] - 1-2 days Time of Disposition: 21:48
[2019-03-24 20:49] LABS: Basophils # (A) 0.1 k/uL (0-0.2); Basophils % (A) 2 %; Eosinophils # (A) 0.2 k/uL (0-0.7); Eosinophils % (A) 4 %; HCT 40.7 % (39.0-53.0); HGB 12.5 gm/dL (13.0-17.5); Lymphocytes # (A) 1.9 k/uL (1.0-4.8); Lymphocytes % (A) 39 %; MCH 28.5 pg (25.0-35.0); MCHC 30.8 g/dL (31.0-37.0); MCV 92.6 fL (80.0-100.0); Mean Platelet Volume 6.8; Monocytes # (A) 0.3 k/uL (0-1.0); Monocytes % (A) 7 %; Neutrophils # (A) 2.1 k/uL (1.3-7.7); Neutrophils % (A) 45 %; Platelet Count 279 k/uL (150-450); RDW 13.7 % (11.5-15.5); WBC 4.7 k/uL (3.8-10.6)
[2019-03-24 21:00] LABS: ALT 54 U/L (21-72); AST 65 U/L (17-59); African American GFR (CKD) >90 (>60 ml/min/1.73 sqM); Albumin 3.6 g/dL (3.5-5.0); Alkaline Phosphatase 74 U/L (38-126); Anion Gap 5 mmol/L; Blood Urea Nitrogen 15 mg/dL (9-20); Calcium 9.1 mg/dL (8.4-10.2); Carbon Dioxide 31 mmol/L (22-30); Chloride 106 mmol/L (98-107); Glucose 90 mg/dL (74-99); Potassium 4.3 mmol/L (3.5-5.1); Sodium 142 mmol/L (137-145); Total Bilirubin 0.4 mg/dL (0.2-1.3); Total Protein 7.9 g/dL (6.3-8.2)
[2019-03-24 22:03] VITALS: BP 127/76; PULSE 76; RESP 18; TEMP 98.3
== END 2019-03-24 22:21 | disposition home or self-care (01) ==
LOC: EC 18:48
DX: S81.802A Unspecified open wound, left lower leg, initial encounter (principal); S81.801A Unspecified open wound, right lower leg, initial encounter; I87.8 Other specified disorders of veins; F17.200 Nicotine dependence, unspecified, uncomplicated; Z91.010 Allergy to peanuts; Z91.018 Allergy to other foods; Z88.8 Allergy status to other drugs, medicaments and biological substances
CPT/HCPCS: 36415; 80053; 83605; 83880; 85025; 99283

== ENCOUNTER 2019-08-09 11:53 | Emergency (ER) | payer OTHER ==
[2019-08-09 12:39] VITALS: RESP 20; TEMP 97.1
--- NOTE | 2019-08-09 12:41 | ED ---
General Adult HPI - General Stated complaint: feet/leg swelling Time Seen by Provider: 08/09/19 12:37 Source: patient, RN notes reviewed Mode of arrival: ambulatory Limitations: no limitations - History of Present Illness Initial comments: 53-year-old male presents emergency Department with chief complaint of lower extremity swelling, pain. He states he cannot tolerate the pain this time. Patient was seen here in March for similar complaints and did not follow-up. Patient does not take any current Lasix. Patient isn't taking anything for pain this time. Patient denies any fevers or chills. Patient is concerned about possible infection. Patient has not follow-up with PCP as directed after hospitalization. Patient was. With vascular surgery. Patient has not. P atient has any fevers or chills. Patient states the swelling has not worsened usual. - Related Data Home Medications Medication Instructions Recorded Confirmed Multivitamins, Thera [Multivitamin 1 tab PO DAILY 02/28/19 03/10/19 (formulary)] Previous Rx's Medication Instructions Recorded Amoxic-Pot Clav 875-125Mg 1 tab PO Q12HR #20 tablet 03/14/19 [Augmentin 875-125] Hydrocodone/Acetaminophen [[place] 1 tab PO Q6HR PRN 3 Days #12 tab 03/14/19 5-325] SILVER sulfADIAZINE Cream 1 applic TOPICAL DAILY #1 applic 03/14/19 [Silvadene 1% Cream] Cephalexin [Keflex] 500 mg PO Q6HR #40 cap 03/24/19 Cephalexin [Keflex] 500 mg PO Q6HR #40 cap 08/09/19 Furosemide [Lasix] 20 mg PO DAILY #5 tab 08/09/19 Allergies Allergy/AdvReac Type Severity Reaction Status Date / Time cashew nut Allergy Severe Anaphylaxis Verified 08/09/19 12:39 peanut Allergy Unknown Verified 08/09/19 12:39 peanut oil Allergy Unknown Verified 08/09/19 12:39 sertraline [From Zoloft] Allergy Itching Verified 08/09/19 12:39 Review of Systems ROS Statement: Those systems with pertinent positive or pertinent negative responses have been documented in the HPI. ROS Other: All systems not noted in ROS Statement are negative. Past Medical History Past Medical History: No Reported History Additional Past Medical History / Comment(s): arthritis, Hep C, neuropathy History of Any Multi-Drug Resistant Organisms: None Reported Past Surgical History: No Surgical Hx Reported Additional Past Surgical History / Comment(s): Cyst removed behind L ear Past Anesthesia/Blood Transfusion Reactions: Motion Sickness Past Psychological History: Anxiety, Bipolar, Depression Smoking Status: Current every day smoker Past Alcohol Use History: None Reported Past Drug Use History: Cocaine, Marijuana, Methamphetamine General Exam General appearance: alert, in no apparent distress Head exam: Present: atraumatic, normocephalic, normal inspection Eye exam: Present: normal appearance, PERRL, EOMI. Absent: scleral icterus, conjunctival injection, periorbital swelling ENT exam: Present: normal exam, mucous membranes moist Neck exam: Present: normal inspection, full ROM. Absent: tenderness, meningismus, lymphadenopathy Respiratory exam: Present: normal lung sounds bilaterally. Absent: respiratory distress, wheezes, rales, rhonchi, stridor Cardiovascular Exam: Present: regular rate, normal rhythm, normal heart sounds. Absent: systolic murmur, diastolic murmur, rubs, gallop, clicks Extremities exam: Present: other (Bilateral lower extremity swelling, PULSE ARE PALPABLE 1+ THERE IS 2+ PITTING EDEMA BILATERALLY THERE IS NO TENDERNESS THERE IS CHRONIC WOUND BUT NO OBVIOUS OVERT SIGNS OF INFECTION) Course Vital Signs 08/09/19 08/09/19 08/09/19 12:36 12:39 13:39 Temperature 97.1 F L Pulse Rate 88 67 Respiratory 20 20 20 Rate Blood Pressure 118/73 144/75 O2 Sat by Pulse 100 99 Oximetry Medical Decision Making - Medical Decision Making Patient has chronic bilateral lower extremity swelling. I did review past medical history and prior records which shows patient follow-up with vascular surgery. Patient does not have any overt signs of infection. Patient be discharged with Lasix, antibiotics and follow-up with vascular surgery. - Lab Data Result diagrams: 08/09/19 13:17 08/09/19 13:17 Lab Results 08/09/19 08/09/19 Range/Units 13:17 13:17 WBC 3.8 (3.8-10.6) k/uL RBC 4.26 L (4.30-5.90) m/uL Hgb 12.4 L (13.0-17.5) gm/dL Hct 38.9 L (39.0-53.0) % MCV 91.2 (80.0-100.0) fL MCH 29.0 (25.0-35.0) pg MCHC 31.8 (31.0-37.0) g/dL RDW 12.8 (11.5-15.5) % Plt Count 210 (150-450) k/uL Neutrophils % 45 % Lymphocytes % 38 % Monocytes % 9 % Eosinophils % 3 % Basophils % 2 % Neutrophils # 1.7 (1.3-7.7) k/uL Lymphocytes # 1.4 (1.0-4.8) k/uL Monocytes # 0.3 (0-1.0) k/uL Eosinophils # 0.1 (0-0.7) k/uL Basophils # 0.1 (0-0.2) k/uL Sodium 140 (137-145) mmol/L Potassium 3.9 (3.5-5.1) mmol/L Chloride 104 (98-107) mmol/L Carbon Dioxide 29 (22-30) mmol/L Anion Gap 7 mmol/L BUN 17 (9-20) mg/dL Creatinine 1.02 (0.66-1.25) mg/dL Est GFR (CKD-EPI)AfAm >90 (>60 ml/min/1.73 sqM) Est GFR (CKD-EPI)NonAf 84 (>60 ml/min/1.73 sqM) Glucose 89 (74-99) mg/dL Calcium 9.0 (8.4-10.2) mg/dL Total Bilirubin 0.6 (0.2-1.3) mg/dL AST 71 H (17-59) U/L ALT 46 (4-49) U/L Alkaline Phosphatase 57 (38-126) U/L Total Protein 7.8 (6.3-8.2) g/dL Albumin 3.6 (3.5-5.0) g/dL Disposition Clinical Impression: Peripheral edema, Leg ulcer, Cellulitis, leg Disposition: HOME SELF-CARE Condition: Stable Instructions (If sedation given, give patient instructions): Leg Edema (ED) Additional Instructions: Follow-up with PCP and vascular surgery as directed. Please return to the Emergency Department if symptoms worsen or any other concerns. Prescriptions: Cephalexin [Keflex] 500 mg PO Q6HR #40 cap Furosemide [Lasix] 20 mg PO DAILY #5 tab Is patient prescribed a controlled substance at d/c from ED?: No Referrals: Cali Membreno MD [Primary Care Provider] - 1-2 days Basilio Baker MD [STAFF PHYSICIAN] - 1-2 days Patricia Mackenzie DO [STAFF PHYSICIAN] - 1-2 days Time of Disposition: 14:08
[2019-08-09 13:49] LABS: Basophils # (A) 0.1 k/uL (0-0.2); Basophils % (A) 2 %; Eosinophils # (A) 0.1 k/uL (0-0.7); Eosinophils % (A) 3 %; HCT 38.9 % (39.0-53.0); HGB 12.4 gm/dL (13.0-17.5); Lymphocytes # (A) 1.4 k/uL (1.0-4.8); Lymphocytes % (A) 38 %; MCHC 31.8 g/dL (31.0-37.0); MCV 91.2 fL (80.0-100.0); Mean Platelet Volume 7.3; Monocytes # (A) 0.3 k/uL (0-1.0); Monocytes % (A) 9 %; Neutrophils # (A) 1.7 k/uL (1.3-7.7); Neutrophils % (A) 45 %; Platelet Count 210 k/uL (150-450); RBC 4.26 m/uL (4.30-5.90); RDW 12.8 % (11.5-15.5); WBC 3.8 k/uL (3.8-10.6)
[2019-08-09 13:52] VITALS: BP 144/75; PULSE 67
[2019-08-09 13:54] LABS: ALT 46 U/L (4-49); AST 71 U/L (17-59); African American GFR (CKD) >90 (>60 ml/min/1.73 sqM); Albumin 3.6 g/dL (3.5-5.0); Alkaline Phosphatase 57 U/L (38-126); Anion Gap 7 mmol/L; Blood Urea Nitrogen 17 mg/dL (9-20); Carbon Dioxide 29 mmol/L (22-30); Chloride 104 mmol/L (98-107); Glucose 89 mg/dL (74-99); Non-African American GFR(CKD) 84 (>60 ml/min/1.73 sqM); Potassium 3.9 mmol/L (3.5-5.1); Sodium 140 mmol/L (137-145); Total Bilirubin 0.6 mg/dL (0.2-1.3); Total Protein 7.8 g/dL (6.3-8.2)
[2019-08-09] MEDS ORDERED: FUROSEMIDE 10 MG/ML 4 ML VIAL IV STA (13:59)
== END 2019-08-09 14:23 | disposition home or self-care (01) ==
LOC: EC 11:53
DX: L97.929 Non-pressure chronic ulcer of unspecified part of left lower leg with unspecified severity (principal); L97.919 Non-pressure chronic ulcer of unspecified part of right lower leg with unspecified severity; L03.115 Cellulitis of right lower limb; L03.116 Cellulitis of left lower limb; F17.200 Nicotine dependence, unspecified, uncomplicated; Z91.010 Allergy to peanuts; Z91.018 Allergy to other foods; Z88.8 Allergy status to other drugs, medicaments and biological substances
CPT/HCPCS: 36415; 83880; 80053; 85025; 99283; 96374; J1940

== ENCOUNTER 2022-01-12 17:07 | Inpatient (IN) | payer OTHER ==
[2022-01-12] MEDS ORDERED: ONDANSETRON 4 MG/2 ML VIAL IVP STA (17:44)
[2022-01-12] MEDS ORDERED: PIPERACILLIN-TAZOBACTAM 3.375 GM in SODIUM CHLORIDE 0.9% 100 ML IVPB STA (17:44)
[2022-01-12] MEDS ORDERED: SODIUM CHLORIDE 0.9% 500 ML 500 ML IV STA (17:45)
[2022-01-12] MEDS ORDERED: HYDROmorphone 0.5 MG/0.5 ML SYRINGE IVP STA (17:45)
--- NOTE | 2022-01-12 18:00 | ED ---
General Adult HPI - General Chief complaint: Extremity Problem,Nontraumatic Stated complaint: Extremity swelling Time Seen by Provider: 01/12/22 17:18 Source: patient, RN notes reviewed Mode of arrival: wheelchair Limitations: no limitations - History of Present Illness Initial comments: This is a 56-year-old male who presents to the emergency department for evaluation of bilateral lower extremity edema and foot ulcers. Patient states he has had worsening swelling for the past 2 weeks and has chronic wounds to his feet. Patient states, however, there is currently a foul stench to his wounds that is not usually present. Also complains of increased pain. States he has a history of cellulitis requiring hospitalization. Has not been seen by his PCP for this complaint. Denies fever, chills, headache, chest pain, shortness of breath, abdominal pain, nausea, vomiting, diarrhea, dysuria, or appetite changes. - Related Data Home Medications Medication Instructions Recorded Confirmed Multivitamins, Thera [Multivitamin 1 tab PO DAILY 02/28/19 03/10/19 (formulary)] Previous Rx's Medication Instructions Recorded Amoxic-Pot Clav 875-125Mg 1 tab PO Q12HR #20 tablet 03/14/19 [Augmentin 875-125] Hydrocodone/Acetaminophen [Holt 1 tab PO Q6HR PRN 3 Days #12 tab 03/14/19 5-325] SILVER sulfADIAZINE Cream 1 applic TOPICAL DAILY #1 applic 03/14/19 [Silvadene 1% Cream] Cephalexin [Keflex] 500 mg PO Q6HR #40 cap 03/24/19 Cephalexin [Keflex] 500 mg PO Q6HR #40 cap 08/09/19 Furosemide [Lasix] 20 mg PO DAILY #5 tab 08/09/19 Allergies Allergy/AdvReac Type Severity Reaction Status Date / Time cashew nut Allergy Severe Anaphylaxis Verified 01/12/22 17:14 peanut Allergy Unknown Verified 01/12/22 17:14 peanut oil Allergy Unknown Verified 01/12/22 17:14 sertraline [From Zoloft] Allergy Itching Verified 01/12/22 17:14 Review of Systems ROS Statement: Those systems with pertinent positive or pertinent negative responses have been documented in the HPI. ROS Other: All systems not noted in ROS Statement are negative. Past Medical History Past Medical History: No Reported History Additional Past Medical History / Comment(s): arthritis, Hep C, neuropathy History of Any Multi-Drug Resistant Organisms: None Reported Past Surgical History: No Surgical Hx Reported Additional Past Surgical History / Comment(s): Cyst removed behind L ear Past Anesthesia/Blood Transfusion Reactions: Motion Sickness Past Psychological History: Anxiety, Bipolar, Depression Smoking Status: Current every day smoker Past Alcohol Use History: Daily Past Drug Use History: Cocaine, Marijuana, Methamphetamine General Exam Limitations: no limitations General appearance: alert, in no apparent distress, other (Well-developed, well-nourished male in no acute distress. Initial temperature 97.6, pulse 64, respirations 22, blood pressure 117/82, pulse ox 90% on room air, recheck 98% on 2 L.) Eye exam: Present: normal appearance. Absent: scleral icterus, conjunctival injection, periorbital swelling, periorbital tenderness ENT exam: Present: normal exam, normal oropharynx Neck exam: Present: normal inspection, full ROM. Absent: lymphadenopathy Respiratory exam: Present: normal lung sounds bilaterally. Absent: respiratory distress, wheezes, rales, rhonchi, stridor, chest wall tenderness Cardiovascular Exam: Present: regular rate, normal rhythm, normal heart sounds. Absent: systolic murmur, diastolic murmur, rubs, gallop, clicks GI/Abdominal exam: Present: soft, normal bowel sounds. Absent: distended, tenderness, guarding, rebound, rigid Left Upper Leg exam: Present: normal inspection, full ROM. Absent: tenderness, swelling, erythema Knee exam: Present: normal inspection, full ROM. Absent: tenderness, erythema Lower Leg exam: Present: full ROM, tenderness (Nonlocalized tenderness upon palp ation of the lower leg), swelling (Diffuse circumferential pitting edema ). Absent: normal inspection, erythema, Homans' sign Ankle exam: Present: full ROM, swelling Foot/Toe exam: Present: tenderness, swelling. Absent: normal inspection (Ulcer on the distal aspect of the plantar surface of the left foot; wound on the dorsal surface of the left foot irregular shaped pink tissue base and sloughing border ), erythema Neurovascular tendon exam: Present: no vascular compromise. Absent: pulse deficit, abnormal cap refill, motor deficit, sensory deficit Right Upper Leg exam: Present: normal inspection, full ROM. Absent: tenderness, swelling Knee exam: Present: normal inspection, full ROM. Absent: tenderness, swelling Lower Leg exam: Present: tenderness (Nonlocalized tenderness upon palpation of the lower leg), swelling (Diffuse circumferential pitting edema ). Absent: normal inspection Ankle exam: Present: tenderness, swelling. Absent: normal inspection Foot/Toe exam: Present: full ROM, tenderness, swelling. Absent: normal inspection (Ulcer on the distal aspect of the plantar surface of the right foot; wound on the dorsal surface of the right foot irregular shaped pink tissue base and sloughing border ) Neurovascular tendon exam: Present: no vascular compromise. Absent: pulse deficit, abnormal cap refill, motor deficit, sensory deficit Neurological exam: Present: alert, oriented X3 Psychiatric exam: Present: anxious Skin exam: Present: warm, dry Course Vital Signs 01/12/22 01/12/22 17:10 19:54 Temperature 97.6 F Pulse Rate 64 70 Respiratory 22 16 Rate Blood Pressure 117/82 119/68 O2 Sat by Pulse 90 L 98 Oximetry - Reevaluation(s) Reevaluation #1: 01/12/22 19:17 Patient is reevaluated and is resting comfortably. Dr. Olivera present at bedside. Patient will be admitted to the hospital for further evaluation and treatment. Medical Decision Making - Medical Decision Making This is a pleasant 56-year-old male with a past medical history of hepatitis C, IV drug abuse, and daily alcohol intake who presents to the emergency department for evaluation of bilateral lower extremity edema and foot wounds. Upon exam, patient is well-appearing and in no acute distress with the exception of signifi cant bilateral lower extremity edema. He has wounds to bilateral feet and ulcers on the plantar surfaces. Foul smell accompanies these wounds. Patient has previously been admitted to the hospital for IV antibiotics for similar situation. It has been noted that patient has poor compliance with follow-up care related to this issue. Patient was given fluids, pain medication, and IV antibiotics were initiated while patient was present to the emergency department. He will be admitted to the hospital for ongoing IV antibiotic therapy. I did speak with Dr. Montesinos who agrees to accept this patient. Attending: Joselin. - Lab Data Result diagrams: 01/12/22 18:21 01/12/22 18:21 Lab Results 01/12/22 01/12/22 01/12/22 Range/Units 18:21 18:21 18:21 WBC 7.0 (3.8-10.6) k/uL RBC 3.91 L (4.30-5.90) m/uL Hgb 11.7 L (13.0-17.5) gm/dL Hct 36.1 L (39.0-53.0) % MCV 92.4 (80.0-100.0) fL MCH 29.9 (25.0-35.0) pg MCHC 32.3 (31.0-37.0) g/dL RDW 12.9 (11.5-15.5) % Plt Count 373 (150-450) k/uL MPV 7.4 Neutrophils % 69 % Lymphocytes % 20 % Monocytes % 4 % Eosinophils % 3 % Basophils % 1 % Neutrophils # 4.8 (1.3-7.7) k/uL Lymphocytes # 1.4 (1.0-4.8) k/uL Monocytes # 0.3 (0-1.0) k/uL Eosinophils # 0.2 (0-0.7) k/uL Basophils # 0.1 (0-0.2) k/uL PT (9.0-12.0) sec INR (<1.2) APTT (22.0-30.0) sec Sodium 139 (137-145) mmol/L Potassium 4.1 (3.5-5.1) mmol/L Chloride 104 (98-107) mmol/L Carbon Dioxide 29 (22-30) mmol/L Anion Gap 6 mmol/L BUN 21 H (9-20) mg/dL Creatinine 1.18 (0.66-1.25) mg/dL Est GFR (CKD-EPI)AfAm 80 (>60 ml/min/1.73 sqM) Est GFR (CKD-EPI)NonAf 69 (>60 ml/min/1.73 sqM) Glucose 83 (74-99) mg/dL Plasma Lactic Acid Pradip 1.5 (0.7-2.0) mmol/L Calcium 8.5 (8.4-10.2) mg/dL Total Bilirubin 0.3 (0.2-1.3) mg/dL AST 35 (17-59) U/L ALT 18 (4-49) U/L Alkaline Phosphatase 69 (38-126) U/L NT-Pro-B Natriuret Pep pg/mL Total Protein 7.3 (6.3-8.2) g/dL Albumin 3.3 L (3.5-5.0) g/dL 01/12/22 01/12/22 Range/Units 18:21 18:21 WBC (3.8-10.6) k/uL RBC (4.30-5.90) m/uL Hgb (13.0-17.5) gm/dL Hct (39.0-53.0) % MCV (80.0-100.0) fL MCH (25.0-35.0) pg MCHC (31.0-37.0) g/dL RDW (11.5-15.5) % Plt Count (150-450) k/uL MPV Neutrophils % % Lymphocytes % % Monocytes % % Eosinophils % % Basophils % % Neutrophils # (1.3-7.7) k/uL Lymphocytes # (1.0-4.8) k/uL Monocytes # (0-1.0) k/uL Eosinophils # (0-0.7) k/uL Basophils # (0-0.2) k/uL PT 10.1 (9.0-12.0) sec INR 0.9 (<1.2) APTT 28.2 (22.0-30.0) sec Sodium (137-145) mmol/L Potassium (3.5-5.1) mmol/L Chloride (98-107) mmol/L Carbon Dioxide (22-30) mmol/L Anion Gap mmol/L BUN (9-20) mg/dL Creatinine (0.66-1.25) mg/dL Est GFR (CKD-EPI)AfAm (>60 ml/min/1.73 sqM) Est GFR (CKD-EPI)NonAf (>60 ml/min/1.73 sqM) Glucose (74-99) mg/dL Plasma Lactic Acid Pradip (0.7-2.0) mmol/L Calcium (8.4-10.2) mg/dL Total Bilirubin (0.2-1.3) mg/dL AST (17-59) U/L ALT (4-49) U/L Alkaline Phosphatase (38-126) U/L NT-Pro-B Natriuret Pep 333 pg/mL Total Protein (6.3-8.2) g/dL Albumin (3.5-5.0) g/dL - Radiology Data Radiology results: report reviewed, image reviewed X-ray of bilateral feet was obtained. Report was reviewed in its entirety. Impression per Dr. Gonzalez is no fracture. No evidence of osteomyelitis. Disposition Clinical Impression: Bilateral lower extremity edema, Cellulitis of both lower extremities, Skin ulcers of foot, bilateral Disposition: ADMITTED IP TO THIS [facility] Condition: Serious Decision Date: 01/12/22 Decision Time: 19:07
[2022-01-12 18:32] LABS: Basophils # (A) 0.1 k/uL (0-0.2); Basophils % (A) 1 %; Eosinophils # (A) 0.2 k/uL (0-0.7); Eosinophils % (A) 3 %; HCT 36.1 % (39.0-53.0); HGB 11.7 gm/dL (13.0-17.5); Lymphocytes # (A) 1.4 k/uL (1.0-4.8); Lymphocytes % (A) 20 %; MCH 29.9 pg (25.0-35.0); MCHC 32.3 g/dL (31.0-37.0); MCV 92.4 fL (80.0-100.0); Mean Platelet Volume 7.4; Monocytes # (A) 0.3 k/uL (0-1.0); Monocytes % (A) 4 %; Neutrophils # (A) 4.8 k/uL (1.3-7.7); Neutrophils % (A) 69 %; Platelet Count 373 k/uL (150-450); RBC 3.91 m/uL (4.30-5.90); RDW 12.9 % (11.5-15.5)
[2022-01-12 18:40] LABS: INR 0.9 (<1.2); Partial Thromboplastin Time 28.2 sec (22.0-30.0); Prothrombin Time 10.1 sec (9.0-12.0)
[2022-01-12 18:43] LABS: Albumin 3.3 g/dL (3.5-5.0); Calcium 8.5 mg/dL (8.4-10.2); Potassium 4.1 mmol/L (3.5-5.1); Total Bilirubin 0.3 mg/dL (0.2-1.3); Total Protein 7.3 g/dL (6.3-8.2)
--- NOTE | 2022-01-12 18:46 | XR ---
EXAMINATION TYPE: XR foot complete bilateral DATE OF EXAM: 01/12/2022 COMPARISON: NONE HISTORY: Bilateral wounds. TECHNIQUE: 6 views FINDINGS: There is bilateral hallux valgus deformity. Metatarsals are intact. There is no fracture no r dislocation. No subluxation. I see no focal bone destruction. There is multiple hammertoe deformity bilaterally. IMPRESSION: No fracture. No evidence of osteomyelitis.
[2022-01-12] MEDS ORDERED: VANCOMYCIN IV PER PHARMACY 1 EACH MISC MISCELLANE PRN (19:18)
[2022-01-12] MEDS ORDERED: VANCOMYCIN 1,500 MG in SODIUM CHLORIDE 0.9% 250 ML IVPB STA (19:21)
[2022-01-12] MEDS ORDERED: NALOXONE 0.4 MG/ML 1 ML VIAL IV PRN (20:22)
[2022-01-12] MEDS ORDERED: ONDANSETRON 4 MG/2 ML VIAL IVP PRN (20:22)
[2022-01-12] MEDS: FAMOTIDINE 20 MG TAB PO SCH (21:22)
[2022-01-12] MEDS: HYDROmorphone 0.5 MG/0.5 ML SYRINGE IVP PRN (21:56)
[2022-01-13] MEDS: PIPERACILLIN-TAZOBACTAM 3.375 GM in SODIUM CHLORIDE 0.9% 100 ML IVPB SCH ×2 (01:37→11:19)
[2022-01-13] MEDS: HYDROmorphone 0.5 MG/0.5 ML SYRINGE IVP PRN ×2 (02:34→06:20)
[2022-01-13] MEDS: VANCOMYCIN 1,500 MG in SODIUM CHLORIDE 0.9% 250 ML IVPB SCH ×2 (08:34→21:22)
[2022-01-13 08:56] LABS: Basophils # (A) 0.06 X 10*3/uL (0.00-0.10); Eosinophils # (A) 0.17 X 10*3/uL (0.04-0.35); Eosinophils % (A) 2.7 %; HCT 33.2 % (39.6-50.0); HGB 10.1 g/dL (13.0-17.0); Immature Grans, Automated 0.3 %; Lymphocytes # (A) 2.04 X 10*3/uL (0.90-5.00); Lymphocytes % (A) 32.6 %; MCH 28.3 pg (27.0-32.0); MCHC 30.4 g/dL (32.0-37.0); Mean Platelet Volume 9.8 fL (9.5-12.2); Monocytes # (A) 0.57 X 10*3/uL (0.20-1.00); Monocytes % (A) 9.1 %; NRBC Per 100 WBC 0 /100 WBCS (0.0-0.0); Neutrophils # (A) 3.39 X 10*3/uL (1.80-7.70); Neutrophils % (A) 54.3 %; Platelet Count 303 X 10*3/uL (140-440); RBC 3.57 X 10*6/uL (4.40-5.60); RDW 13.2 % (11.5-14.5); WBC 6.25 X 10*3/uL (4.50-10.00)
[2022-01-13 09:09] LABS: African American GFR (CKD) 87.1 (60.0-200.0); Anion Gap 6.7 mmol/L (10.00-18.00); BUN/Creat Ratio 13.73 Ratio (12.00-20.00); Blood Urea Nitrogen 15.1 mg/dL (9.0-27.0); Calcium 8.1 mg/dL (8.7-10.3); Carbon Dioxide 25.2 mmol/L (20.0-27.5); Non-African American GFR(CKD) 75.2 (60.0-200.0); Potassium 4.5 mmol/L (3.5-5.5)
[2022-01-13] MEDS: HYDROcodone/APAP 5-325MG 1 EACH TAB PO PRN ×3 (09:20→22:40)
[2022-01-13] MEDS: FAMOTIDINE 20 MG TAB PO SCH ×2 (11:19→21:22)
--- NOTE | 2022-01-13 17:35 | P.GSCN ---
History of Present Illness History of present illness: 56-year-old gentleman patient came to the emergency room with history of bilateral lower extremity wound involving the right and left foot left foot has a skin ulceration involving the ankle area measurement is 7 x 6 cm and dorsum aspect the foot has measurement of 18 x 7 cm. Left foot has ulcer 18 x 6 cm with some debridement last tissue. Patient has history of hepatitis C also patient has a history of drug abuse and alcohol use Neck examination neck is supple Chest pulses second sound normal good and both lungs Abdomen soft nontender Femorals are 1+ bilateral and has a marked swelling of the both lower extremity patient has a right and left foot ulceration there is some debridement last tissue Plan is patient is under care of infectious disease patient will need bilateral foot debridement with deep culture risk and complication discussed Past Medical History Past Medical History: No Reported History Additional Past Medical History / Comment(s): arthritis, Hep C, neuropathy History of Any Multi-Drug Resistant Organisms: None Reported Past Surgical History: No Surgical Hx Reported Additional Past Surgical History / Comment(s): Cyst removed behind L ear Past Anesthesia/Blood Transfusion Reactions: Motion Sickness Past Psychological History: Anxiety, Bipolar, Depression Smoking Status: Current every day smoker Past Alcohol Use History: Daily Past Drug Use History: Cocaine, Marijuana, Methamphetamine Medications and Allergies Home Medications Medication Instructions Recorded Confirmed Type No Known Home Medications 01/13/22 01/13/22 History Allergies Allergy/AdvReac Type Severity Reaction Status Date / Time cashew nut Allergy Severe Anaphylaxis Verified 01/13/22 08:15 peanut Allergy Unknown Verified 01/13/22 08:15 peanut oil Allergy Unknown Verified 01/13/22 08:15 sertraline [From Zoloft] Allergy Itching Verified 01/13/22 08:15 Surgical - Exam Vital Signs Temp Pulse Resp BP Pulse Ox 97.6 F 64 22 117/82 90 L 01/12/22 17:10 01/12/22 17:10 01/12/22 17:10 01/12/22 17:10 01/12/22 17:10 Results - Labs 01/13/22 03:47 01/13/22 03:47 Abnormal Lab Results - Last 24 Hours (Table) 01/12/22 01/12/22 01/13/22 Range/Units 18:21 18:21 03:47 RBC 3.91 L 3.57 L (4.30-5.90) m/uL Hgb 11.7 L 10.1 L (13.0-17.5) gm/dL Hct 36.1 L 33.2 L (39.0-53.0) % MCHC 30.4 L (32.0-37.0) g/dL Anion Gap (10.00-18.00) mmol/L BUN 21 H (9-20) mg/dL Glucose (70-110) mg/dL Calcium (8.7-10.3) mg/dL Albumin 3.3 L (3.5-5.0) g/dL 01/13/22 Range/Units 03:47 RBC (4.30-5.90) m/uL Hgb (13.0-17.5) gm/dL Hct (39.0-53.0) % MCHC (32.0-37.0) g/dL Anion Gap 6.70 L (10.00-18.00) mmol/L BUN (9-20) mg/dL Glucose 111 H (70-110) mg/dL Calcium 8.1 L (8.7-10.3) mg/dL Albumin (3.5-5.0) g/dL Diabetes panel 01/12/22 01/13/22 Range/Units 18:21 03:47 Sodium 139 138 (137-145) mmol/L Potassium 4.1 4.5 (3.5-5.1) mmol/L Chloride 104 107 (98-107) mmol/L Carbon Dioxide 29 25.2 (22-30) mmol/L BUN 21 H 15.1 (9-20) mg/dL Creatinine 1.18 1.1 (0.66-1.25) mg/dL Glucose 83 111 H (74-99) mg/dL Calcium 8.5 8.1 L (8.4-10.2) mg/dL AST 35 (17-59) U/L ALT 18 (4-49) U/L Alkaline Phosphatase 69 (38-126) U/L Total Protein 7.3 (6.3-8.2) g/dL Albumin 3.3 L (3.5-5.0) g/dL Calcium panel 01/12/22 01/13/22 Range/Units 18:21 03:47 Calcium 8.5 8.1 L (8.4-10.2) mg/dL Albumin 3.3 L (3.5-5.0) g/dL Pituitary panel 01/12/22 01/13/22 Range/Units 18:21 03:47 Sodium 139 138 (137-145) mmol/L Potassium 4.1 4.5 (3.5-5.1) mmol/L Chloride 104 107 (98-107) mmol/L Carbon Dioxide 29 25.2 (22-30) mmol/L BUN 21 H 15.1 (9-20) mg/dL Creatinine 1.18 1.1 (0.66-1.25) mg/dL Glucose 83 111 H (74-99) mg/dL Calcium 8.5 8.1 L (8.4-10.2) mg/dL Adrenal panel 01/12/22 01/13/22 Range/Units 18:21 03:47 Sodium 139 138 (137-145) mmol/L Potassium 4.1 4.5 (3.5-5.1) mmol/L Chloride 104 107 (98-107) mmol/L Carbon Dioxide 29 25.2 (22-30) mmol/L BUN 21 H 15.1 (9-20) mg/dL Creatinine 1.18 1.1 (0.66-1.25) mg/dL Glucose 83 111 H (74-99) mg/dL Calcium 8.5 8.1 L (8.4-10.2) mg/dL Total Bilirubin 0.3 (0.2-1.3) mg/dL AST 35 (17-59) U/L ALT 18 (4-49) U/L Alkaline Phosphatase 69 (38-126) U/L Total Protein 7.3 (6.3-8.2) g/dL Albumin 3.3 L (3.5-5.0) g/dL
--- NOTE | 2022-01-13 18:09 | HP ---
HISTORY AND PHYSICAL CHIEF COMPLAINT: Bilateral lower extremity edema, cellulitis and superficial breakdown of the epidermis. HISTORY OF PRESENT ILLNESS: This gentleman has not been seen in the office since December of 2010. He has a history in the past of psychiatric problems with depression, ADD, ADHD, and he currently is not on any medications. He came to the emergency room because of swelling, pain and open areas on the feet. He is not a known diabetic. REVIEW OF SYSTEMS: He has had no headaches, neurologic problems, chest pain, shortness of breath, hemoptysis, abdominal pain, hematemesis, melena, hematochezia, jaundice, renal failure, dysuria, diabetes, etc. Past medical history, family history, and personal and social histories reveal that he is currently not on any medication. He does smoke. PHYSICAL EXAMINATION: Blood pressure 134/76 with a pulse of 90, respirations of 33, and he is afebrile. In general he appeared to be slender and in no acute is acute distress. Head, ears, eyes, nose, mouth and throat were normal. Chest was clear. Cardiac exam is normal and the abdomen is flat, soft and nontender. Lower extremities reveal edema in both legs below the knees with cellulitis and skin breakdown on various areas, particularly on the dorsum of the left foot. Toes seem to be warm and well perfused. Neurologically he is intact. He is admitted to the hospital with the diagnosis: Lower extremity dependent edema with cellulitis and ulcerations. PLAN: 1. Bedrest. 2. IV fluids. 3. IV antibiotics. 4. Vascular surgery consult. MMODL / IJN: [id number] /
--- NOTE | 2022-01-13 18:13 | PN ---
PROGRESS NOTE DATE OF SERVICE: 01/13/2022 CHIEF COMPLAINT: Lower extremity edema with cellulitis and ulcerations. HISTORY OF PRESENT ILLNESS: This gentleman is fairly comfortable. He has not had any fever or chills. PHYSICAL EXAMINATION: The legs are just about the same. Chest is clear. IMPRESSION: Lower extremity edema with cellulitis and ulcerations. PLAN: 1. Continue with IV fluids and antibiotics. 2. Wait for recommendations from Infectious Disease. 3. Consult Vascular Surgery. MMODL / IJN: [id number] /
--- NOTE | 2022-01-13 22:24 | P.CONS ---
History of Present Illness - Reason for Consult Consult date: 01/13/22 Bilateral lower extremity wound and cellulitis Requesting physician: Beulah Landaverde - Chief Complaint Lower extremity wound and redness x few days - History of Present Illness Patient is a 56-year-old -[place] male presenting to the ER yesterday afternoon for evaluation of bilateral lower extremity ulcers apparently the patient mention having increasing swelling to lower legs for the last 2 weeks and noticed to have some blister which seem to have ruptured leading to these ulceration especially to the left leg patient been complaining of pain to the leg more of a sharp in nature 7-8 out of 10 and no radiation denies having any foul-smelling drainage patient on presentation to the hospital was afebrile and no fever has been recorded subsequently, patient did have a normal white count kidney function has been normal patient did have a x-ray of the foot no fracture no evidence of osteomyelitis patient was started on vancomycin and Zosyn was admitted to the hospital infectious disease was consulted for further management of antibiotic therapy Review of Systems Positive point has been mentioned in the HPI rest of the systems are negative Past Medical History Past Medical History: No Reported History Additional Past Medical History / Comment(s): arthritis, Hep C, neuropathy History of Any Multi-Drug Resistant Organisms: None Reported Past Surgical History: No Surgical Hx Reported Additional Past Surgical History / Comment(s): Cyst removed behind L ear Past Anesthesia/Blood Transfusion Reactions: Motion Sickness Past Psychological History: Anxiety, Bipolar, Depression Smoking Status: Current every day smoker Past Alcohol Use History: Daily Past Drug Use History: Cocaine, Marijuana, Methamphetamine Medications and Allergies Home Medications Medication Instructions Recorded Confirmed Type No Known Home Medications 01/13/22 01/13/22 History Allergies Allergy/AdvReac Type Severity Reaction Status Date / Time cashew nut Allergy Severe Anaphylaxis Verified 01/13/22 08:15 peanut Allergy Unknown Verified 01/13/22 08:15 peanut oil Allergy Unknown Verified 01/13/22 08:15 sertraline [From Zoloft] Allergy Itching Verified 01/13/22 08:15 Physical Exam Vitals: Vital Signs Temp Pulse Pulse Resp BP BP Pulse Ox 01/13/22 07:52 97.7 F 92 18 133/87 100 01/13/22 02:00 97.4 F L 60 20 108/68 91 L 01/12/22 22:34 18 01/12/22 22:30 98.7 F 69 18 143/64 99 01/12/22 19:54 70 16 119/68 98 01/12/22 17:10 97.6 F 64 22 117/82 90 L Intake and Output 01/12/22 01/13/22 01/13/22 22:59 06:59 14:59 Other: # Voids 2 Weight 97.522 kg GENERAL DESCRIPTION: Middle-aged male lying in bed, no distress. No tachypnea or accessory muscle of respiration use. HEENT: Shows Pallor , no scleral icterus. Oral mucous membrane is dry. No pharyngeal erythema or thrush NECK: Trachea central, no thyromegaly. LUNGS: Unlabored breathing. Clear to auscultation anteriorly. No wheeze or crackle. HEART: S1, S2, regular rate and rhythm. No loud murmur ABDOMEN: Soft, no tenderness , guarding or rigidity, no organomegaly EXTREMITIES: Bilateral lower extremity with superficial ulceration and redness and warmth most of the left leg SKIN: No rash, no masses palpable. NEUROLOGICAL: The patient is awake, alert, oriented x3, mood and affect normal. Results CBC & Chem 7: 01/13/22 03:47 01/13/22 03:47 Labs: Abnormal Lab Results - Last 24 Hours (Table) 01/12/22 01/12/22 01/13/22 Range/Units 18:21 18:21 03:47 RBC 3.91 L 3.57 L (4.30-5.90) m/uL Hgb 11.7 L 10.1 L (13.0-17.5) gm/dL Hct 36.1 L 33.2 L (39.0-53.0) % MCHC 30.4 L (32.0-37.0) g/dL Anion Gap (10.00-18.00) mmol/L BUN 21 H (9-20) mg/dL Glucose (70-110) mg/dL Calcium (8.7-10.3) mg/dL Albumin 3.3 L (3.5-5.0) g/dL 01/13/22 Range/Units 03:47 RBC (4.30-5.90) m/uL Hgb (13.0-17.5) gm/dL Hct (39.0-53.0) % MCHC (32.0-37.0) g/dL Anion Gap 6.70 L (10.00-18.00) mmol/L BUN (9-20) mg/dL Glucose 111 H (70-110) mg/dL Calcium 8.1 L (8.7-10.3) mg/dL Albumin (3.5-5.0) g/dL Assessment and Plan (1) Cellulitis of both lower extremities Current Visit: Yes Status: Acute Code(s): L03.115 - CELLULITIS OF RIGHT LOWER LIMB; L03.116 - CELLULITIS OF LEFT LOWER LIMB SNOMED Code(s): 198374675 Plan: 1patient with bilateral lower extremity ulceration and cellulitis mostly to the left leg likely from gram-positive skin lexus less likely gram-negative infection. 2local wound culture has been obtained to guide antibiotic therapy. 3await vascular surgery evaluation possible debridement. 4local care with Medihoney followed by moist dressing change daily. 5vancomycin pharmacy to dose target trough of 15 while watching kidney function and vancomycin trough closely and discontinue Zosyn We will follow on clinical condition and cultures to further adjust medication if needed Thank you for this consultation will follow this patient along with you Time with Patient: Greater than 30
[2022-01-14] MEDS: FAMOTIDINE 20 MG TAB PO SCH ×2 (08:26→20:04)
[2022-01-14] MEDS: VANCOMYCIN 1,500 MG in SODIUM CHLORIDE 0.9% 250 ML IVPB SCH ×2 (08:26→20:04)
[2022-01-14] MEDS ORDERED: LACTATED RINGERS 1,000 ML IV ONE (13:02)
[2022-01-14] MEDS ORDERED: LIDOCAINE 2% INJ 20 MG/ML (2 ML VIAL) ONE (13:51)
[2022-01-14] MEDS ORDERED: KETAMINE 10 MG/ML 20 ML VIAL ONE (13:51)
[2022-01-14] MEDS ORDERED: fentaNYL (PF) 50 MCG/ML 2 ML AMP ONE (13:51)
[2022-01-14] MEDS ORDERED: MIDAZOLAM 2 MG/2 ML VIAL ONE (13:51)
[2022-01-14] MEDS ORDERED: PROPOFOL 10 MG/ML 20 ML VIAL IV ONE (13:51)
[2022-01-14] MEDS ORDERED: LIDOCAINE 1% INJ 10MG/ML (20 ML MDV) SQ ONE (14:14)
[2022-01-14] MEDS ORDERED: HYDROmorphone 0.5 MG/0.5 ML SYRINGE IVP ONE ×2 (14:40→14:53)
--- NOTE | 2022-01-14 15:32 | OP ---
OPERATIVE REPORT PREOPERATIVE DIAGNOSIS: Wound, right lower extremity at the ankle and dorsum aspect of the foot. Ankle wound is 7 x 6 cm and dorsum aspect of the foot 18 x 7 cm. Left foot has a lateral aspect wound measuring 18 x 6 cm. PROCEDURE: Debridement of the wounds down to subcutaneous tissue. PROCEDURE DESCRIPTION: The patient was brought to the operating room under local and IV sedation. Both feet were prepped, and drapes were applied in sterile manner. Right lower extremity wound has ulcer with devitalized tissue at the ankle and dorsal aspect. Using a sharp knife, we did selective debridement of all the devitalized tissue, and necrotic skin was excised on the dorsal aspect of the foot and the lateral aspect of the ankle. There were some bleeding points which were electrocoagulated. We sent the deep tissue for culture. We irrigated with saline. Then for the left leg wound, 1% lidocaine was infiltrated. Using a sharp knife we did selective debridement down to subcutaneous tissue. All the devitalized tissue was removed, which was sent for deep culture. No active bleeding was noted. Wound was copiously irrigated with saline. Hemostasis was well controlled and Aquacel Silver was used to cover the wound. Dressing was applied. Patient tolerated the procedure well and was transferred to the recovery room in satisfactory condition. MMODL / IJN: [id number] /
[2022-01-14] MEDS ORDERED: VANCOMYCIN TROUGH DUE 1 EACH MISC MISCELLANE ONE (19:00)
[2022-01-14] MEDS: ACETAMINOPHEN TAB 325 MG TAB PO PRN (19:22)
[2022-01-14] MEDS: HYDROmorphone 0.5 MG/0.5 ML SYRINGE IVP PRN (19:27)
--- NOTE | 2022-01-14 22:10 | PN ---
PROGRESS NOTE CHIEF COMPLAINT: Cellulitis and open ulcers of the lower extremities. HISTORY OF PRESENT ILLNESS: This gentleman is doing just about the same. He is being followed by Infectious Disease and Surgery. PHYSICAL EXAMINATION: The wounds are still open and weeping on both feet. Chest is clear. Cardiac exam is normal. IMPRESSION: Stasis disease with infected superficial ulcerations and cellulitis. PLAN: Continue with current program and refer to Wound Management. MMODL / IJN: [id number] /
[2022-01-14] MEDS: HYDROcodone/APAP 5-325MG 1 EACH TAB PO PRN (23:49)
[2022-01-15] MEDS: HYDROmorphone 0.5 MG/0.5 ML SYRINGE IVP PRN ×4 (01:49→21:58)
[2022-01-15] MEDS: ACETAMINOPHEN TAB 325 MG TAB PO PRN ×2 (06:11→18:29)
[2022-01-15 07:07] LABS: African American GFR (CKD) >90 (>60 ml/min/1.73 sqM); Non-African American GFR(CKD) 83 (>60 ml/min/1.73 sqM)
[2022-01-15] MEDS: HYDROcodone/APAP 5-325MG 1 EACH TAB PO PRN ×2 (07:15→19:08)
[2022-01-15] MEDS: VANCOMYCIN 1,500 MG in SODIUM CHLORIDE 0.9% 250 ML IVPB SCH ×2 (09:04→21:52)
[2022-01-15] MEDS: FAMOTIDINE 20 MG TAB PO SCH ×2 (09:04→21:52)
[2022-01-15] MEDS: CEFEPIME 2 GM in SODIUM CHLORIDE 0.9% 100 ML IVPB SCH (15:59)
--- NOTE | 2022-01-15 19:17 | PN ---
PROGRESS NOTE DATE OF SERVICE: 01/15/2022. CHIEF COMPLAINT: Lower extremity edema, stasis dermatitis, cellulitis and ulcers. HISTORY OF PRESENT ILLNESS: This gentleman's feet have been cleaned and debrided and are now wrapped. He will be a management problem because he has no place to go. He is homeless. PHYSICAL EXAMINATION: Chest is clear. Cardiac exam is normal. Abdomen is soft, nontender. Both feet are now wrapped with bandages. IMPRESSION: Cellulitis and ulcers of the lower legs and feet. PLAN: Continue with wound care in the hospital with IV antibiotics until a discharge plan can be made. MMODL / IJN: [id number] /
[2022-01-16] MEDS: CEFEPIME 2 GM in SODIUM CHLORIDE 0.9% 100 ML IVPB SCH ×4 (00:53→23:33)
[2022-01-16] MEDS: HYDROcodone/APAP 5-325MG 1 EACH TAB PO PRN ×4 (02:23→23:13)
[2022-01-16] MEDS: HYDROmorphone 0.5 MG/0.5 ML SYRINGE IVP PRN ×2 (04:06→08:48)
[2022-01-16 04:49] LABS: African American GFR (CKD) >90 (>60 ml/min/1.73 sqM); Non-African American GFR(CKD) 81 (>60 ml/min/1.73 sqM)
[2022-01-16] MEDS: FAMOTIDINE 20 MG TAB PO SCH ×2 (08:22→22:41)
--- NOTE | 2022-01-16 09:04 | P.PN ---
Subjective Progress Note Date: 01/14/22 Principal diagnosis: Bilateral lower extremity wound and cellulitis Patient is a 56-year-old -Hond[place] male presenting to the hospital with bilateral lower extremity wound and increasing pain and swelling to the left leg has been diagnosed with the wound infection and secondary cellulitis in this patient who is status post surgical debridement and cultures vascular surgery. On today's evaluation that is 01/14/2022, the patient denies having any fever or chills, the patient be complaining of pain to the lower extremity wounds and wanted more pain medication, denies any chest pain or shortness of breath or cough no abdominal pain no diarrhea Objective - Vital Signs Vital signs: Vital Signs Temp 98.9 F 01/14/22 08:00 Pulse 71 01/14/22 08:00 Resp 19 01/14/22 08:00 BP 111/73 01/14/22 08:00 Pulse Ox 96 01/14/22 08:00 FiO2 Intake & Output 01/13/22 01/14/22 01/14/22 18:59 06:59 18:59 Intake Total 350 Balance 350 Intake: Intake, IV Titration 350 Amount Piperacillin-Tazobactam 3 100 .375 gm In Sodium Chloride 0.9% 100 ml @ 25 mls/hr IVPB Q8H [facility] Rx#: [id number] Vancomycin 1,500 mg In 250 Sodium Chloride 0.9% 250 ml @ 125 mls/hr IVPB Q12H [facility] Rx#:[id number] Other: Voiding Method Urinal # Voids 3 - Exam GENERAL DESCRIPTION: Middle-aged male lying in bed in no distress RESPIRATORY SYSTEM: Unlabored breathing , decreased breath sounds at bases HEART: S1 S2 regular rate and rhythm , ABDOMEN: Soft , no tenderness EXTREMITIES: Bilateral lower wounds are currently dressed no drainage on the dressing - Labs CBC & Chem 7: 01/13/22 03:47 01/16/22 03:49 Labs: Microbiology - Last 24 Hours (Table) 01/13/22 15:10 Gram Stain - Preliminary Foot - Right Wound Culture - Preliminary 01/12/22 18:21 Blood Culture - Preliminary Blood No Growth after 24 hours 01/12/22 18:21 Blood Culture - Preliminary Blood No Growth after 24 hours Assessment and Plan (1) Cellulitis of both lower extremities Current Visit: Yes Status: Acute Code(s): L03.115 - CELLULITIS OF RIGHT LOWER LIMB; L03.116 - CELLULITIS OF LEFT LOWER LIMB SNOMED Code(s): 197123555 Plan: 1patient with bilateral lower extremity ulceration and cellulitis mostly to the left leg likely from gram-positive skin lexus less likely gram-negative infection. 2local wound culture has been obtained to guide antibiotic therapy. 3patient is status post vascular surgery evaluation and surgical debridement. 4local care with [place] followed by moist dressing change daily. 5vancomycin pharmacy to dose target trough of 15 while watching kidney function and vancomycin trough closely while waiting for the cultures to finalize Time with Patient: Less than 30
--- NOTE | 2022-01-16 09:08 | P.PN ---
Subjective Progress Note Date: 01/15/22 Principal diagnosis: Bilateral lower extremity wound and cellulitis Patient is a 56-year-old -[place] male presenting to the hospital with bilateral lower extremity wound and increasing pain and swelling to the left leg has been diagnosed with the wound infection and secondary cellulitis in this patient who is status post surgical debridement and cultures vascular surgery. On today's evaluation that is 01/15/2022, the patient remains to be afebrile, the patient pain to the lower extremity wounds is currently controlled, denies any chest pain or shortness of breath or cough no abdominal pain no diarrhea Objective - Vital Signs Vital signs: Vital Signs Temp 99.6 F 01/15/22 07:37 Pulse 79 01/15/22 07:37 Resp 17 01/15/22 07:37 BP 106/55 01/15/22 07:37 Pulse Ox 96 01/15/22 07:37 FiO2 Intake & Output 01/14/22 01/15/22 01/15/22 18:59 06:59 18:59 Intake Total 700 Output Total 15 1250 Balance 685 -1250 Intake: IV 700 Output: Urine 1250 Estimated Blood Loss 15 Other: Voiding Method Urinal Urinal # Voids 4 # Bowel Movements 1 - Exam GENERAL DESCRIPTION: Middle-aged male lying in bed in no distress RESPIRATORY SYSTEM: Unlabored breathing , decreased breath sounds at bases HEART: S1 S2 regular rate and rhythm , ABDOMEN: Soft , no tenderness EXTREMITIES: Bilateral lower wounds are currently dressed no drainage on the dressing - Labs CBC & Chem 7: 01/13/22 03:47 01/16/22 03:49 Labs: Microbiology - Last 24 Hours (Table) 01/14/22 14:30 Gram Stain - Preliminary Foot - Right Tissue Culture - Preliminary Gram Neg Bacilli 01/14/22 14:30 Gram Stain - Preliminary Foot - Left Tissue Culture - Preliminary 01/12/22 18:21 Blood Culture - Preliminary Blood No Growth after 48 hours 01/12/22 18:21 Blood Culture - Preliminary Blood No Growth after 48 hours 01/14/22 14:30 Anaerobic Culture - Preliminary Foot - Left 01/14/22 14:30 Anaerobic Culture - Preliminary Foot - Right Assessment and Plan (1) Cellulitis of both lower extremities Current Visit: Yes Status: Acute Code(s): L03.115 - CELLULITIS OF RIGHT LOWER LIMB; L03.116 - CELLULITIS OF LEFT LOWER LIMB SNOMED Code(s): 506314283 Plan: 1patient with bilateral lower extremity ulceration and cellulitis mostly to the left leg likely from gram-positive skin lexus less likely gram-negative infection. 2local wound culture has been obtained to guide antibiotic therapy. 3patient is status post vascular surgery evaluation and surgical debridement. 4local care with Aquacel silver dressing 5patient will continue the vancomycin however we'll add cefepime as gram- negative has been seen in the culture Time with Patient: Less than 30
[2022-01-16] MEDS: VANCOMYCIN 1,500 MG in SODIUM CHLORIDE 0.9% 250 ML IVPB SCH (09:22)
--- NOTE | 2022-01-16 10:35 | PN ---
PROGRESS NOTE The patient came with bilateral wounds on both feet. The patient had a debridement and patient is on IV antibiotic under the care of infectious disease. Today, we changed dressing. The base of the wound is clean and granulating. No discharge noted. We have been using Aquacel Silver. Dressing should be changed every 48 hours. Neck dressing will be changed on Thursday, then Thursday. LAURA / KIM: [id number] /
[2022-01-16] MEDS ORDERED: IBUPROFEN 800 MG TAB PO PRN (10:47)
[2022-01-16] MEDS ORDERED: IBUPROFEN 800 MG TAB PO SCH (13:00)
--- NOTE | 2022-01-16 20:10 | PN ---
PROGRESS NOTE CHIEF COMPLAINT: Lower extremity edema, stasis dermatitis and infected ulcers of the ankles and feet. HISTORY OF PRESENT ILLNESS: This gentleman is fairly stable. Discharge planning is being worked on. PHYSICAL EXAMINATION: Chest is clear. Cardiac exam is normal. Vital signs: Normal. IMPRESSION: Bilateral lower extremity edema with stasis dermatitis, cellulitis and ulcers. PLAN: 1. Continue with local wound care and work on discharge plan. 2. Apparently the patient wants a different physician and this will be arranged. MMODL / IJN: [id number] /
[2022-01-17] MEDS: IBUPROFEN 600 MG TAB PO PRN ×4 (02:01→21:50)
[2022-01-17] MEDS: HYDROcodone/APAP 5-325MG 1 EACH TAB PO PRN ×4 (03:12→21:50)
[2022-01-17] MEDS ORDERED: VANCOMYCIN TROUGH DUE 1 EACH MISC MISCELLANE ONE (07:00)
[2022-01-17] MEDS: CEFEPIME 2 GM in SODIUM CHLORIDE 0.9% 100 ML IVPB SCH ×3 (08:45→23:31)
[2022-01-17] MEDS: FAMOTIDINE 20 MG TAB PO SCH ×2 (08:45→20:16)
[2022-01-17 10:44] LABS: Basophils # (A) 0.07 X 10*3/uL (0.00-0.10); Basophils % (A) 1.4 %; Eosinophils # (A) 0.24 X 10*3/uL (0.04-0.35); Eosinophils % (A) 4.8 %; HCT 31.9 % (39.6-50.0); HGB 10.3 g/dL (13.0-17.0); Immature Grans, Automated 0.6 %; Lymphocytes # (A) 1.64 X 10*3/uL (0.90-5.00); Lymphocytes % (A) 32.5 %; MCH 28.9 pg (27.0-32.0); MCHC 32.3 g/dL (32.0-37.0); MCV 89.6 fL (80.0-97.0); Mean Platelet Volume 9.6 fL (9.5-12.2); Monocytes # (A) 0.59 X 10*3/uL (0.20-1.00); Monocytes % (A) 11.7 %; NRBC Per 100 WBC 0 /100 WBCS (0.0-0.0); Neutrophils # (A) 2.48 X 10*3/uL (1.80-7.70); Platelet Count 325 X 10*3/uL (140-440); RBC 3.56 X 10*6/uL (4.40-5.60); RDW 13.1 % (11.5-14.5); WBC 5.05 X 10*3/uL (4.50-10.00)
--- NOTE | 2022-01-17 12:24 | P.PN ---
Subjective Progress Note Date: 01/16/22 Patient was transferred from Dr. Montesinos service. Patient is a 56-year-old male presents to ER with complaints of bilateral lower extremity wound and increasing pain and swelling of the left leg on 01/12/2022. Status post surgical debridement and cultures were sent. 01/16/2022 Patient is currently lying in the bed. Awake alert and oriented 3. Still complains of lower extremity pain. Currently IV Dilaudid H has been discontinued. Patient be continued on [place] and will add Motrin 600 mg 3 times a day for one day. Afebrile. No nausea vomiting or abdominal pain or diarrhea. No chest pain or shortness of breath. No cough or sputum production. ID is on board. Current medications reviewed. Objective - Vital Signs Vital signs: Vital Signs Temp 99.0 F 01/16/22 14:00 Pulse 72 01/16/22 14:00 Resp 21 01/16/22 14:00 BP 128/73 01/16/22 14:00 Pulse Ox 98 01/16/22 14:00 FiO2 Intake & Output 01/15/22 01/16/22 01/16/22 18:59 06:59 18:59 Output Total 1275 Balance -1275 Output: Urine 1275 Other: Voiding Method Urinal Urinal Urinal # Voids 6 # Bowel Movements 1 - Exam PHYSICAL EXAMINATION: Patient is lying in the bed comfortably, no acute distress, awake alert and oriented.. HEENT: Normocephalic. Neck is supple. Pupils reactive. Nostrils clear. Oral cavity is moist. Neck reveals no JVD, carotid bruits, or thyromegaly. CHEST EXAMINATION: Trachea is central. Symmetrical expansion. Lung payne clear to auscultation and percussion. CARDIAC: Normal S1, S2 with no gallops. No murmurs ABDOMEN: Soft. Bowel sounds normal. No organomegaly. No abdominal bruits. Extremities: Patient does have bilateral lower extremity wounds with a dressing in place. Bilateral feet swelling. No clubbing or cyanosis Neurologically awake, alert, oriented x3 with well-coordinated movements. No focal deficits noted Skin: No rash or skin lesions. Psychiatric: Coperative. Nonsuicidal Musculoskeletal: No joint swelling or deformity. Normal range of motion. - Labs CBC & Chem 7: 01/17/22 07:03 01/16/22 03:49 Labs: Microbiology - Last 24 Hours (Table) 01/14/22 14:30 Anaerobic Culture - Preliminary Foot - Right 01/14/22 14:30 Anaerobic Culture - Preliminary Foot - Left 01/14/22 14:30 Gram Stain - Preliminary Foot - Left Tissue Culture - Preliminary Gram Neg Bacilli Diphtheroid species Diphtheroid species#2 01/14/22 14:30 Gram Stain - Preliminary Foot - Right Tissue Culture - Preliminary Enterobacter cloacae Gram Neg Bacilli Diphtheroid species 01/12/22 18:21 Blood Culture - Preliminary Blood No Growth after 72 hours 01/12/22 18:21 Blood Culture - Preliminary Blood No Growth after 72 hours 01/13/22 15:10 Gram Stain - Final Foot - Right Wound Culture - Final Assessment and Plan Assessment: Bilateral lower extremity leg wounds and cellulitis. Pain management Plan: Patient will be continued on antidepressant form of cefepime. Vancomycin has been discontinued. Wound cultures growing gram-negative bacilli and Enterobact er species. ID is on board. Patient was seen by vascular and is status post debridement. Next and continued with pain management with [place] and Motrin when necessary. Follow up closely. Discussed the patient in detail. Time with Patient: Greater than 30
--- NOTE | 2022-01-17 15:07 | P.PN ---
Subjective Progress Note Date: 01/16/22 Principal diagnosis: Bilateral lower extremity wound and cellulitis Patient is a 56-year-old -[place] male presenting to the hospital with bilateral lower extremity wound and increasing pain and swelling to the left leg has been diagnosed with the wound infection and secondary cellulitis in this patient who is status post surgical debridement and cultures vascular surgery. On today's evaluation that is 01/16/2022, the patient continues to be afebrile, the patient still complaining of pain to the lower extremity wounds and not getting enough pain medication, denies any chest pain or shortness of breath or cough no abdominal pain no diarrhea Objective - Vital Signs Vital signs: Vital Signs Temp 99.0 F 01/16/22 14:00 Pulse 72 01/16/22 14:00 Resp 21 01/16/22 14:00 BP 128/73 01/16/22 14:00 Pulse Ox 98 01/16/22 14:00 FiO2 Intake & Output 01/15/22 01/16/22 01/16/22 18:59 06:59 18:59 Output Total 1275 Balance -1275 Output: Urine 1275 Other: Voiding Method Urinal Urinal Urinal # Voids 6 # Bowel Movements 1 - Exam GENERAL DESCRIPTION: Middle-aged male lying in bed in no distress RESPIRATORY SYSTEM: Unlabored breathing , decreased breath sounds at bases HEART: S1 S2 regular rate and rhythm , ABDOMEN: Soft , no tenderness EXTREMITIES: Bilateral lower wounds are currently dressed no drainage on the dressing - Labs CBC & Chem 7: 01/17/22 07:03 01/16/22 03:49 Labs: Microbiology - Last 24 Hours (Table) 01/14/22 14:30 Anaerobic Culture - Preliminary Foot - Right 01/14/22 14:30 Anaerobic Culture - Preliminary Foot - Left 01/14/22 14:30 Gram Stain - Preliminary Foot - Left Tissue Culture - Preliminary Gram Neg Bacilli Diphtheroid species Diphtheroid species#2 01/14/22 14:30 Gram Stain - Preliminary Foot - Right Tissue Culture - Preliminary Enterobacter cloacae Gram Neg Bacilli Diphtheroid species 01/12/22 18:21 Blood Culture - Preliminary Blood No Growth after 72 hours 01/12/22 18:21 Blood Culture - Preliminary Blood No Growth after 72 hours 01/13/22 15:10 Gram Stain - Final Foot - Right Wound Culture - Final Assessment and Plan (1) Cellulitis of both lower extremities Current Visit: Yes Status: Acute Code(s): L03.115 - CELLULITIS OF RIGHT LOWER LIMB; L03.116 - CELLULITIS OF LEFT LOWER LIMB SNOMED Code(s): 732336301 Plan: 1patient with bilateral lower extremity ulceration and cellulitis mostly to the left leg likely from gram-positive skin lexus less likely gram-negative infection. 2local wound culture has been obtained to guide antibiotic therapy. 3patient is status post vascular surgery evaluation and surgical debridement and culture showing gram-negative. 4local care with Aquacel silver dressing 5patient will continue with cefepime however discontinue vancomycin Time with Patient: Less than 30
--- NOTE | 2022-01-17 15:09 | P.PN ---
Subjective Progress Note Date: 01/17/22 Principal diagnosis: Bilateral lower extremity wound and cellulitis Patient is a 56-year-old -Kittitian male presenting to the hospital with bilateral lower extremity wound and increasing pain and swelling to the left leg has been diagnosed with the wound infection and secondary cellulitis in this patient who is status post surgical debridement and cultures vascular surgery. On today's evaluation that is 01/17/2022, the patient denies any fever or chills , the patient denies any worsening pain to the lower extremity wounds however still complaining of not getting enough pain medication, the patient denies any chest pain or shortness of breath or cough no abdominal pain no diarrhea Objective - Vital Signs Vital signs: Vital Signs Temp 98.7 F 01/17/22 08:00 Pulse 71 01/17/22 08:00 Resp 18 01/17/22 08:00 BP 141/79 01/17/22 08:00 Pulse Ox 99 01/17/22 08:00 FiO2 Intake & Output 01/16/22 01/17/22 01/17/22 18:59 06:59 18:59 Output Total 1999 1150 Balance -19991150 Output: Urine 1999 1150 Other: Voiding Method Urinal Urinal Urinal # Bowel Movements 1 - Exam GENERAL DESCRIPTION: Middle-aged male lying in bed in no distress RESPIRATORY SYSTEM: Unlabored breathing , decreased breath sounds at bases HEART: S1 S2 regular rate and rhythm , ABDOMEN: Soft , no tenderness EXTREMITIES: Bilateral lower wounds are currently dressed, RN mentioned dressing was changed yesterday morning and the wound base looks clean and addressing supposed to be changed tomorrow - Labs CBC & Chem 7: 01/17/22 07:03 01/16/22 03:49 Labs: Abnormal Lab Results - Last 24 Hours (Table) 01/17/22 Range/Units 07:03 RBC 3.56 L (4.40-5.60) X 10*6/uL Hgb 10.3 L (13.0-17.0) g/dL Hct 31.9 L (39.6-50.0) % Microbiology - Last 24 Hours (Table) 01/12/22 18:21 Blood Culture - Preliminary Blood No Growth after 96 hours 01/12/22 18:21 Blood Culture - Preliminary Blood No Growth after 96 hours 01/14/22 14:30 Anaerobic Culture - Preliminary Foot - Right 01/14/22 14:30 Anaerobic Culture - Preliminary Foot - Left 01/14/22 14:30 Gram Stain - Preliminary Foot - Left Tissue Culture - Preliminary Gram Neg Bacilli Diphtheroid species Diphtheroid species#2 01/14/22 14:30 Gram Stain - Preliminary Foot - Right Tissue Culture - Preliminary Enterobacter cloacae Gram Neg Bacilli Diphtheroid species Assessment and Plan (1) Cellulitis of both lower extremities Current Visit: Yes Status: Acute Code(s): L03.115 - CELLULITIS OF RIGHT LOWER LIMB; L03.116 - CELLULITIS OF LEFT LOWER LIMB SNOMED Code(s): 056195449 Plan: 1patient with bilateral lower extremity ulceration and cellulitis mostly to the left leg likely from gram-positive skin lexus less likely gram-negative infection. 2local wound culture has been obtained to guide antibiotic therapy. 3patient is status post vascular surgery evaluation and surgical debridement and culture showing gram-negative. 4patient will continue local care with Aquacel silver dressing to be changed every 48 hour 5patient will continue with cefepime however plan to finish therapy with oral Cipro Time with Patient: Less than 30
[2022-01-18] MEDS: HYDROcodone/APAP 5-325MG 1 EACH TAB PO PRN ×5 (02:52→23:12)
[2022-01-18] MEDS: ACETAMINOPHEN TAB 325 MG TAB PO PRN ×2 (02:52→12:29)
[2022-01-18] MEDS: CEFEPIME 2 GM in SODIUM CHLORIDE 0.9% 100 ML IVPB SCH ×3 (07:34→23:13)
[2022-01-18] MEDS: FAMOTIDINE 20 MG TAB PO SCH ×2 (07:35→22:05)
[2022-01-18] MEDS: IBUPROFEN 600 MG TAB PO PRN ×3 (07:38→23:12)
--- NOTE | 2022-01-18 11:21 | P.PN ---
Subjective Progress Note Date: 01/17/22 Patient was transferred from Dr. Montesinos service. Patient is a 56-year-old male presents to ER with complaints of bilateral lower extremity wound and increasing pain and swelling of the left leg on 01/12/2022. Status post surgical debridement and cultures were sent. 01/16/2022 Patient is currently lying in the bed. Awake alert and oriented 3. Still complains of lower extremity pain. Currently IV Dilaudid H has been discontinued. Patient be continued on [place] and will add Motrin 600 mg 3 times a day for one day. Afebrile. No nausea vomiting or abdominal pain or diarrhea. No chest pain or shortness of breath. No cough or sputum production. ID is on board. 01/17/2022 Patient is currently resting in bed. Awake alert and oriented 3. Wound care dressing is being done. Patient is on antibiotics in the form of cefepime. Wound cultures growing Enterobacter, diphtheroid species and alcaligan faecalis. Patient is on oral pain medications. No fever no chills. Tolerating oral diet. ID is on board. Anticipate discharge to rehab once antibiotics are finalized. Case management services following. Current medications reviewed. Objective - Vital Signs Vital signs: Vital Signs Temp 98.9 F 01/17/22 14:00 Pulse 72 01/17/22 14:00 Resp 18 01/17/22 14:00 BP 129/78 01/17/22 14:00 Pulse Ox 99 01/17/22 14:00 FiO2 Intake & Output 01/16/22 01/17/22 01/17/22 18:59 06:59 18:59 Output Total 1999 1150 800 Balance -19991150 -800 Output: Urine 1999 1150 800 Other: Voiding Method Urinal Urinal Urinal # Bowel Movements 1 - Exam PHYSICAL EXAMINATION: Patient is lying in the bed comfortably, no acute distress, awake alert and oriented.. HEENT: Normocephalic. Neck is supple. Pupils reactive. Nostrils clear. Oral cavity is moist. Neck reveals no JVD, carotid bruits, or thyromegaly. CHEST EXAMINATION: Trachea is central. Symmetrical expansion. Lung payne clear to auscultation and percussion. CARDIAC: Normal S1, S2 with no gallops. No murmurs ABDOMEN: Soft. Bowel sounds normal. No organomegaly. No abdominal bruits. Extremities: Patient does have bilateral lower extremity wounds with a dressing in place. Bilateral feet swelling. No clubbing or cyanosis Neurologically awake, alert, oriented x3 with well-coordinated movements. No focal deficits noted Skin: No rash or skin lesions. Psychiatric: Coperative. Nonsuicidal Musculoskeletal: No joint swelling or deformity. Normal range of motion. - Labs CBC & Chem 7: 01/17/22 07:03 01/16/22 03:49 Labs: Abnormal Lab Results - Last 24 Hours (Table) 01/17/22 Range/Units 07:03 RBC 3.56 L (4.40-5.60) X 10*6/uL Hgb 10.3 L (13.0-17.0) g/dL Hct 31.9 L (39.6-50.0) % Microbiology - Last 24 Hours (Table) 01/12/22 18:21 Blood Culture - Preliminary Blood No Growth after 96 hours 01/12/22 18:21 Blood Culture - Preliminary Blood No Growth after 96 hours 01/14/22 14:30 Anaerobic Culture - Preliminary Foot - Right 01/14/22 14:30 Anaerobic Culture - Preliminary Foot - Left Assessment and Plan Assessment: Bilateral lower extremity leg wounds and cellulitis. Pain management Plan: Patient will be continued on antidepressant form of cefepime. Vancomycin has been discontinued. Wound cultures growing diphtheroid and Enterobacter species. ID is on board. Patient was seen by vascular and is status post debridement. continued with pain management with [place] and Motrin when necessary. Follow up closely. Pending discharge to rehab. Discussed the patient in detail. Time with Patient: Greater than 30
--- NOTE | 2022-01-18 12:50 | P.PN ---
Subjective Progress Note Date: 01/18/22 Principal diagnosis: Bilateral lower extremity wound and cellulitis Patient is a 56-year-old -[place]ian male presenting to the hospital with bilateral lower extremity wound and increasing pain and swelling to the left leg has been diagnosed with the wound infection and secondary cellulitis in this patient who is status post surgical debridement and cultures vascular surgery. On today's evaluation that is 01/18/2022, the patient remains to be afebrile , the patient pain to the lower extremity wounds is currently controlled, the patient denies any chest pain or shortness of breath or cough no abdominal pain no diarrhea Objective - Vital Signs Vital signs: Vital Signs Temp 98.4 F 01/18/22 07:55 Pulse 79 01/18/22 08:00 Resp 18 01/18/22 08:00 BP 137/72 01/18/22 07:55 Pulse Ox 99 01/18/22 07:55 FiO2 Intake & Output 01/17/22 01/18/22 01/18/22 18:59 06:59 18:59 Intake Total 750 Output Total 2800 1000 675 Balance -2800 -250 -675 Intake: IV 550 normal saline 550 Intake, IV Titration 200 Amount Cefepime 2 gm In Sodium 200 Chloride 0.9% 100 ml @ 25 mls/hr IVPB Q8HR [facility] Rx# :[id number] Output: Urine 2800 1000 675 Other: Voiding Method Urinal Urinal Urinal - Exam GENERAL DESCRIPTION: Middle-aged male lying in bed in no distress RESPIRATORY SYSTEM: Unlabored breathing , decreased breath sounds at bases HEART: S1 S2 regular rate and rhythm , ABDOMEN: Soft , no tenderness EXTREMITIES: Bilateral lower wounds are currently dressed, RN mentioned dressing was changed yesterday morning and the wound base looks clean and addressing supposed to be changed tomorrow - Labs CBC & Chem 7: 01/17/22 07:03 01/16/22 03:49 Labs: Microbiology - Last 24 Hours (Table) 01/14/22 14:30 Gram Stain - Final Foot - Right Tissue Culture - Final Enterobacter cloacae Alcaligen. faecalis Diphtheroid species 01/14/22 14:30 Gram Stain - Final Foot - Left Tissue Culture - Final Alcaligen. faecalis Diphtheroid species Diphtheroid species#2 01/12/22 18:21 Blood Culture - Preliminary Blood No Growth after 120 hours 01/12/22 18:21 Blood Culture - Preliminary Blood No Growth after 120 hours Assessment and Plan (1) Cellulitis of both lower extremities Current Visit: Yes Status: Acute Code(s): L03.115 - CELLULITIS OF RIGHT LOWER LIMB; L03.116 - CELLULITIS OF LEFT LOWER LIMB SNOMED Code(s): 758075458 Plan: 1patient with bilateral lower extremity ulceration and cellulitis mostly to the left leg likely from gram-positive skin lexus less likely gram-negative infection. 2local wound culture has been obtained to guide antibiotic therapy. 3patient is status post vascular surgery evaluation and surgical debridement and culture showing gram-negative. 4patient will continue local care with Aquacel silver dressing to be changed every 48 hour 5patient currently being treated with cefepime which will be continued while inpatient however plan to finish therapy with oral Cipro Time with Patient: Less than 30
[2022-01-18] MEDS: NICOTINE 14MG/24HR PATCH TRANSDERM SCH (14:46)
[2022-01-19] MEDS: ACETAMINOPHEN TAB 325 MG TAB PO PRN ×3 (04:21→22:17)
[2022-01-19] MEDS: HYDROcodone/APAP 5-325MG 1 EACH TAB PO PRN ×5 (04:21→22:17)
[2022-01-19] MEDS: NICOTINE 14MG/24HR PATCH TRANSDERM SCH (08:26)
[2022-01-19] MEDS: CEFEPIME 2 GM in SODIUM CHLORIDE 0.9% 100 ML IVPB SCH ×2 (08:26→17:30)
[2022-01-19] MEDS: FAMOTIDINE 20 MG TAB PO SCH ×2 (08:26→22:18)
[2022-01-19] MEDS: IBUPROFEN 600 MG TAB PO PRN ×2 (08:27→18:26)
[2022-01-20] MEDS: CEFEPIME 2 GM in SODIUM CHLORIDE 0.9% 100 ML IVPB SCH ×3 (01:33→15:09)
--- NOTE | 2022-01-20 01:57 | P.PN ---
Subjective Progress Note Date: 01/18/22 Patient was transferred from Dr. Montesinos service. Patient is a 56-year-old male presents to ER with complaints of bilateral lower extremity wound and increasing pain and swelling of the left leg on 01/12/2022. Status post surgical debridement and cultures were sent. 01/16/2022 Patient is currently lying in the bed. Awake alert and oriented 3. Still complains of lower extremity pain. Currently IV Dilaudid H has been discontinued. Patient be continued on [place] and will add Motrin 600 mg 3 times a day for one day. Afebrile. No nausea vomiting or abdominal pain or diarrhea. No chest pain or shortness of breath. No cough or sputum production. ID is on board. 01/17/2022 Patient is currently resting in bed. Awake alert and oriented 3. Wound care dressing is being done. Patient is on antibiotics in the form of cefepime. Wound cultures growing Enterobacter, diphtheroid species and alcaligan faecalis. Patient is on oral pain medications. No fever no chills. Tolerating oral diet. ID is on board. Anticipate discharge to rehab once antibiotics are finalized. Case management services following. 01/18/2022 Patient is currently resting in bed. Awake alert and oriented x3. Currently on pain management with [place] and Motrin. No complaints of fever or chills. No cough or sputum production. No nausea vomiting or abdominal pain or diarrhea. Tolerating oral diet. Current on wound care. Current medications reviewed. Objective - Vital Signs Vital signs: Vital Signs Temp 98.6 F 01/18/22 13:58 Pulse 65 01/18/22 13:58 Resp 22 01/18/22 13:58 BP 126/75 01/18/22 13:58 Pulse Ox 100 01/18/22 13:58 FiO2 Intake & Output 01/17/22 01/18/22 01/18/22 18:59 06:59 18:59 Intake Total 750 Output Total 2800 1000 1000 Balance -2800 -250 -1000 Intake: IV 550 normal saline 550 Intake, IV Titration 200 Amount Cefepime 2 gm In Sodium 200 Chloride 0.9% 100 ml @ 25 mls/hr IVPB Q8HR [facility] Rx# :[id number] Output: Urine 2800 1000 1000 Other: Voiding Method Urinal Urinal Urinal - Exam PHYSICAL EXAMINATION: Patient is lying in the bed comfortably, no acute distress, awake alert and oriented.. HEENT: Normocephalic. Neck is supple. Pupils reactive. Nostrils clear. Oral cavity is moist. Neck reveals no JVD, carotid bruits, or thyromegaly. CHEST EXAMINATION: Trachea is central. Symmetrical expansion. Lung payne clear to auscultation and percussion. CARDIAC: Normal S1, S2 with no gallops. No murmurs ABDOMEN: Soft. Bowel sounds normal. No organomegaly. No abdominal bruits. Extremities: Patient does have bilateral lower extremity wounds with a dressing in place. Bilateral feet swelling. No clubbing or cyanosis Neurologically awake, alert, oriented x3 with well-coordinated movements. No focal deficits noted Skin: No rash or skin lesions. Psychiatric: Coperative. Nonsuicidal Musculoskeletal: No joint swelling or deformity. Normal range of motion. - Labs CBC & Chem 7: 01/17/22 07:03 01/16/22 03:49 Labs: Microbiology - Last 24 Hours (Table) 01/14/22 14:30 Gram Stain - Final Foot - Right Tissue Culture - Final Enterobacter cloacae Alcaligen. faecalis Diphtheroid species 01/14/22 14:30 Gram Stain - Final Foot - Left Tissue Culture - Final Alcaligen. faecalis Diphtheroid species Diphtheroid species#2 01/12/22 18:21 Blood Culture - Preliminary Blood No Growth after 120 hours 01/12/22 18:21 Blood Culture - Preliminary Blood No Growth after 120 hours Assessment and Plan Assessment: Bilateral lower extremity leg wounds and cellulitis. Pain management Plan: Patient will be continued on antidepressant form of cefepime. Vancomycin has been discontinued. Wound cultures growing diphtheroid and Enterobacter species. ID is on board. Patient was seen by vascular and is status post debridement. continued with pain management with Wool[place] and Motrin when necessary. Follow up closely. Pending discharge to rehab. Discussed the patient in detail.
--- NOTE | 2022-01-20 01:58 | P.PN ---
Subjective Progress Note Date: 01/19/22 Patient was transferred from Dr. Montesinos service. Patient is a 56-year-old male presents to ER with complaints of bilateral lower extremity wound and increasing pain and swelling of the left leg on 01/12/2022. Status post surgical debridement and cultures were sent. 01/16/2022 Patient is currently lying in the bed. Awake alert and oriented 3. Still complains of lower extremity pain. Currently IV Dilaudid H has been discontinued. Patient be continued on [place] and will add Motrin 600 mg 3 times a day for one day. Afebrile. No nausea vomiting or abdominal pain or diarrhea. No chest pain or shortness of breath. No cough or sputum production. ID is on board. 01/17/2022 Patient is currently resting in bed. Awake alert and oriented 3. Wound care dressing is being done. Patient is on antibiotics in the form of cefepime. Wound cultures growing Enterobacter, diphtheroid species and alcaligan faecalis. Patient is on oral pain medications. No fever no chills. Tolerating oral diet. ID is on board. Anticipate discharge to rehab once antibiotics are finalized. Case management services following. 01/18/2022 Patient is currently resting in bed. Awake alert and oriented x3. Currently on pain management with [place] and Motrin. No complaints of fever or chills. No cough or sputum production. No nausea vomiting or abdominal pain or diarrhea. Tolerating oral diet. Current on wound care. 01/19/2022. Patient is resting in bed. Awake alert and oriented x3. No complaints of chest pain or shortness breath. Still complains of pain in the legs. Requesting more pain medications. Patient will be continued on Motrin and Frisco 5 every 4 hourly at this time. On antibiotics on hold cefepime. Wound cultures showed diphtheroid species and Enterobacter and Alcaligen faecalis. Anticipate discharge to rehab in the next 24 hours. Current medications reviewed. Objective - Vital Signs Vital signs: Vital Signs Temp 98.3 F 01/19/22 14:00 Pulse 77 01/19/22 14:00 Resp 18 01/19/22 14:00 BP 116/81 01/19/22 14:00 Pulse Ox 98 01/19/22 14:00 FiO2 Intake & Output 06/19/22 06/19/22 06/20/22 06:59 18:59 06:59 Intake Total 480 Output Total 600 Balance -120 Intake: Oral 480 Output: Urine 600 Other: Voiding Method Urinal # Voids 4 # Bowel Movements 1 - Exam PHYSICAL EXAMINATION: Patient is lying in the bed comfortably, no acute distress, awake alert and oriented.. HEENT: Normocephalic. Neck is supple. Pupils reactive. Nostrils clear. Oral cavity is moist. Neck reveals no JVD, carotid bruits, or thyromegaly. CHEST EXAMINATION: Trachea is central. Symmetrical expansion. Lung payne clear to auscultation and percussion. CARDIAC: Normal S1, S2 with no gallops. No murmurs ABDOMEN: Soft. Bowel sounds normal. No organomegaly. No abdominal bruits. Extremities: Patient does have bilateral lower extremity wounds with a dressing in place. Bilateral feet swelling. No clubbing or cyanosis Neurologically awake, alert, oriented x3 with well-coordinated movements. No focal deficits noted Skin: No rash or skin lesions. Psychiatric: Coperative. Nonsuicidal Musculoskeletal: No joint swelling or deformity. Normal range of motion. - Labs CBC & Chem 7: 01/17/22 07:03 01/16/22 03:49 Labs: Microbiology - Last 24 Hours (Table) 01/14/22 14:30 Anaerobic Culture - Final Foot - Left Anaerobic Gm Negative Bacilli 01/14/22 14:30 Anaerobic Culture - Final Foot - Right 01/12/22 18:21 Blood Culture - Final Blood No Growth after 144 hours 01/12/22 18:21 Blood Culture - Final Blood No Growth after 144 hours Assessment and Plan Assessment: Bilateral lower extremity leg wounds and cellulitis. Pain management Plan: Patient will be continued on antidepressant form of cefepime. Vancomycin has been discontinued. Wound cultures growing diphtheroid and Enterobacter species. ID is on board. Patient was seen by vascular and is status post debridement. continued with pain management with [place] and Motrin when necessary. Follow up closely. Pending discharge to rehab. Discussed the patient in detail.
[2022-01-20] MEDS: IBUPROFEN 600 MG TAB PO PRN ×3 (03:19→15:06)
[2022-01-20] MEDS: HYDROcodone/APAP 5-325MG 1 EACH TAB PO PRN ×3 (03:19→15:02)
[2022-01-20] MEDS: NICOTINE 14MG/24HR PATCH TRANSDERM SCH (06:46)
[2022-01-20] MEDS: FAMOTIDINE 20 MG TAB PO SCH (06:46)
--- NOTE | 2022-01-20 07:40 | P.PN ---
Subjective Progress Note Date: 01/19/22 Principal diagnosis: Bilateral lower extremity wound and cellulitis Patient is a 56-year-old -[place] male presenting to the hospital with bilateral lower extremity wound and increasing pain and swelling to the left leg has been diagnosed with the wound infection and secondary cellulitis in this patient who is status post surgical debridement and cultures vascular surgery. On today's evaluation that is 01/19/2022, the patient denies any fever or chills , the patient still complaining of pain to the lower extremity wounds and want more pain medication, the patient denies any chest pain or shortness of breath or cough no abdominal pain no diarrhea Objective - Vital Signs Vital signs: Vital Signs Temp 98.3 F 01/19/22 14:00 Pulse 77 01/19/22 14:00 Resp 18 01/19/22 14:00 BP 116/81 01/19/22 14:00 Pulse Ox 98 01/19/22 14:00 FiO2 Intake & Output 01/19/22 01/19/22 01/20/22 06:59 18:59 06:59 Intake Total 480 Output Total 600 Balance -120 Intake: Oral 480 Output: Urine 600 Other: Voiding Method Urinal # Voids 4 # Bowel Movements 1 - Exam GENERAL DESCRIPTION: Middle-aged male lying in bed in no distress RESPIRATORY SYSTEM: Unlabored breathing , decreased breath sounds at bases HEART: S1 S2 regular rate and rhythm , ABDOMEN: Soft , no tenderness EXTREMITIES: Bilateral lower wounds are currently dressed, RN mentioned dressing was changed yesterday morning and the wound base looks clean and addressing supposed to be changed tomorrow - Labs CBC & Chem 7: 01/17/22 07:03 01/16/22 03:49 Labs: Microbiology - Last 24 Hours (Table) 01/14/22 14:30 Anaerobic Culture - Final Foot - Left Anaerobic Gm Negative Bacilli 01/14/22 14:30 Anaerobic Culture - Final Foot - Right 01/12/22 18:21 Blood Culture - Final Blood No Growth after 144 hours 01/12/22 18:21 Blood Culture - Final Blood No Growth after 144 hours Assessment and Plan (1) Cellulitis of both lower extremities Current Visit: Yes Status: Acute Code(s): L03.115 - CELLULITIS OF RIGHT LOWER LIMB; L03.116 - CELLULITIS OF LEFT LOWER LIMB SNOMED Code(s): 507420690 Plan: 1patient with bilateral lower extremity ulceration and cellulitis mostly to the left leg likely from gram-positive skin lexus less likely gram-negative infection. 2local wound culture has been obtained to guide antibiotic therapy. 3patient is status post vascular surgery evaluation and surgical debridement and culture showing gram-negative. 4patient will continue local care with Aquacel silver dressing to be changed every 48 hour 5patient to continue cefepime while inpatient and plan to finish therapy with oral Cipro Time with Patient: Less than 30
[2022-01-20 08:41] LABS: Basophils # (A) 0.06 X 10*3/uL (0.00-0.10); Basophils % (A) 1.1 %; Eosinophils # (A) 0.19 X 10*3/uL (0.04-0.35); Eosinophils % (A) 3.5 %; HCT 34.6 % (39.6-50.0); HGB 10.8 g/dL (13.0-17.0); Immature Grans, Automated 0.9 %; Lymphocytes % (A) 33.3 %; MCH 28.4 pg (27.0-32.0); MCHC 31.2 g/dL (32.0-37.0); MCV 91.1 fL (80.0-97.0); Mean Platelet Volume 9.7 fL (9.5-12.2); Monocytes # (A) 0.64 X 10*3/uL (0.20-1.00); Monocytes % (A) 11.8 %; NRBC Per 100 WBC 0 /100 WBCS (0.0-0.0); Neutrophils # (A) 2.67 X 10*3/uL (1.80-7.70); Neutrophils % (A) 49.4 %; Platelet Count 407 X 10*3/uL (140-440); RDW 13.2 % (11.5-14.5); WBC 5.41 X 10*3/uL (4.50-10.00)
[2022-01-20 09:03] LABS: African American GFR (CKD) 90.1 (60.0-200.0); Anion Gap 5.6 mmol/L (10.00-18.00); BUN/Creat Ratio 12.43 Ratio (12.00-20.00); Blood Urea Nitrogen 13.3 mg/dL (9.0-27.0); Calcium 8.6 mg/dL (8.7-10.3); Carbon Dioxide 31.1 mmol/L (20.0-27.5); Non-African American GFR(CKD) 77.7 (60.0-200.0); Potassium 5.1 mmol/L (3.5-5.5)
--- NOTE | 2022-01-20 15:49 | P.PCN ---
Description of Procedure: Patient came with bilateral wound to the foot we did the debridement in the OR patient is under care of infectious disease for IV antibiotic today we have changed the dressing of the both feet base of the wound is clean and granulating plan is patient will go to detention are home homecare the dressing should be changed every 48 hours with Aquacel silver patient will follow in the wound clinic
[2022-01-20] MEDS ORDERED: GABAPENTIN 100 MG CAP PO SCH (16:00)
[2022-01-20 16:08] VITALS: BP 132/73; PULSE 79; RESP 18; TEMP 98.6
--- NOTE | 2022-01-21 09:52 | P.DS ---
Providers Date of admission: 01/14/22 13:41 Expected date of discharge: 01/20/22 Attending physician: Simone Phan Consults: 01/12/22 20:22 Consult Physician Routine Consulting Provider: Michelle Kaminski Consult Reason/Comments: Bilateral lower extremity foot wounds and ulcers Do you want consulting provider notified?: Yes, Notify in am 01/13/22 15:09 Consult Physician Routine Consulting Provider: Basilio Baker Consult Reason/Comments: vasc. eval. Do you want consulting provider notified?: Yes Primary care physician: Jean-Claude Montesinos [facility] Course: Final diagnosis Bilateral lower extremity leg wounds and cellulitis Pain management History of arthritis History of hepatitis C History of neuropathy Anxiety, bipolar, depression Continued ongoing nicotine abuse Continued use of cocaine and marijuana DVT prophylaxis GI prophylaxis Full code Discharge disposition Patient is being discharged in a stable condition with guarded prognosis to home. Home care being arranged. Patient will follow-up with Dr. Montesinos in the outpatient setting upon discharge. Patient is to continue with wound care Dr. Kaminski and also vascular surgery as scheduled. Patient will continue on oral Cipro for the next 10 days. Continue local wound care Total time taken is greater than 35 minutes. Hospital course This is a 56-year-old male who was recently admitted with bilateral lower extremity wounds and increasing pain and swelling and underwent surgical debridement with vascular surgery and ID following. Patient was initially scheduled to go to [facility] for continued antibiotic therapy and wound care although only accepting facility is in [place] at [facility] and patient refusing and is being arranged for home care in the outpatient setting and will continue on oral Cipro for the next 10 days and close outpatient follow-up at the wound center with Dr. Kaminski along with vascular surgery this week. Patient is to continue local wound care per Dr. Baker and dressing changes every 2 days or if becoming soiled. Home care arranged for discharge. Currently no reports of chest pain, shortness of breath, or palpitations. Patient is afebrile. No reports of nausea or vomiting and patient is tolerating diet. Patient will be going to discharge home with home care today. Guarded prognosis. On exam vital signs are stable. Cardio S1, S2 are muffled. Respiratory system shows diminished breath sounds at the bases with no wheezing or rhonchi noted. Abdomen is soft and nontender. Nervous system shows diffuse weakness. Please refer to medication reconciliation sheet for a list of medications. The impression and plan of care has been dictated by Melissa Stafford, Nurse Practitioner as directed. Dr. Gary MD I have performed a history and examination and MDM of this patient, discussed the same with the dictator, and agree with the dictator's assessment and plan as written ,documented as a scribe. Based on total visit time, I have performed more than 50% of the visit. Patient Condition at Discharge: Stable Plan - Discharge Summary Discharge Rx Participant: No New Discharge Prescriptions: New Ciprofloxacin HCl [Cipro] 500 mg PO BID 10 Days #20 tab Ibuprofen [Motrin] 600 mg PO TID PRN #30 tab PRN Reason: Pain Gabapentin [Neurontin] 100 mg PO TID #9 cap HYDROcodone/APAP 5-325MG [Antelope 5-325] 1 each PO Q6H PRN #9 tab PRN Reason: Pain Acetaminophen Tab [Tylenol] 650 mg PO Q6HR PRN #30 tab PRN Reason: Mild Pain Or Fever > 100.5 Discharge Medication List Acetaminophen Tab [Tylenol] 650 mg PO Q6HR PRN #30 tab 01/20/22 [Rx] Ciprofloxacin HCl [Cipro] 500 mg PO BID 10 Days #20 tab 01/20/22 [Rx] Gabapentin [Neurontin] 100 mg PO TID #9 cap 01/20/22 [Rx] HYDROcodone/APAP 5-325MG [Antelope 5-325] 1 each PO Q6H PRN #9 tab 01/20/22 [Rx] Ibuprofen [Motrin] 600 mg PO TID PRN #30 tab 01/20/22 [Rx] Follow up Appointment(s)/Referral(s): Jean-Claude Montesinos MD [Primary Care Provider] - 1-2 days [facility], [NON-STAFF] - [facility] [NON-STAFF] - 01/27/22 12:40 pm Basilio Baker MD [STAFF PHYSICIAN] - 1 Week Michelle Kaminski MD [STAFF PHYSICIAN] - 1 Week Ambulatory/Diagnostic Orders: Complete Blood Count w/diff [LAB.AMB] Time Frame: 3 Days, Location: None Selected Patient Instructions/Handouts: Acute Wounds (DC) Activity/Diet/Wound Care/Special Instructions: Activity Limited until follow-up Follow-up with primary care provider on discharge Follow-up with wound care center with Dr. Kaminski in one week Follow-up with Dr. Baker vascular surgery in one week Continue local wound care and Homecare Recommend repeat labs of CBC and BMP in 2-3 days Patient will need outpatient follow-up with pain management Discharge Disposition: HOME WITH HOME HEALTH SERVICES
[2022-01-22 16:34] LABS: C. trachomatis,PCR Negative (Neg,Equiv); Chlamydia trachomatis Source Urine; N. gonorrhoeae,PCR Negative (Neg,Equiv); Neisseria Source Urine
== END 2022-01-20 16:34 | disposition home health service (06) | DRG 571 ==
LOC: EC 17:07 → 5NMEDONC 19:00 → 4SSUR 21:10 → OBSVTOIN 01-14 13:41
PROVIDERS: ADMIT Internal Medicine; ATTEND Internal Medicine
PROC: 0JBQ0ZZ Excision of Right Foot Subcutaneous Tissue and Fascia, Open Approach (ICD-10-PCS; 2022-01-14)
PROC: 0JBR0ZZ Excision of Left Foot Subcutaneous Tissue and Fascia, Open Approach (ICD-10-PCS; principal; 2022-01-14 16:00)
DX: L03.115 Cellulitis of right lower limb (principal); L97.319 Non-pressure chronic ulcer of right ankle with unspecified severity; L97.329 Non-pressure chronic ulcer of left ankle with unspecified severity; I96 Gangrene, not elsewhere classified; L03.116 Cellulitis of left lower limb; I87.2 Venous insufficiency (chronic) (peripheral); G62.9 Polyneuropathy, unspecified; B19.20 Unspecified viral hepatitis C without hepatic coma; F17.200 Nicotine dependence, unspecified, uncomplicated; F31.9 Bipolar disorder, unspecified; F41.9 Anxiety disorder, unspecified; Z59.00 Homelessness unspecified; Z88.8 Allergy status to other drugs, medicaments and biological substances; Z91.010 Allergy to peanuts; Z91.018 Allergy to other foods
CPT/HCPCS: 36415; 80048; 80053; 80202; 82565; 83605; 83880; 85025; 85610; 85730; 87040; 87070; 87075; 87077; 87186; 87205; 87491; 87591; 96365; 96366; 96367; 96375; 99285

== ENCOUNTER 2022-01-28 21:55 | Observation (INO) | payer OTHER ==
--- NOTE | 2022-01-29 05:29 | ED ---
Recheck HPI - General Chief Complaint: Skin/Abscess/Foreign Body Stated Complaint: Cellulitis in both feet Time Seen by Provider: 01/29/22 04:59 Source: patient, RN notes reviewed, old records reviewed Mode of arrival: ambulatory Limitations: no limitations - History of Present Illness Initial Comments: This is a 56-year-old male to the ER for evaluation. Patient is known to facility, recent hospital admission with discharge. Patient's eye was diagnosed with cellulitis lower extremity open wounds. Patient states he is unfortunately homeless cannot get wound care started of elevated is discharged significant swelling increased redness MD Complaint: wound re-check -: days(s) Returns Today for: needs IV antibiotics, persistent/worsening pain related to initial visit Symptoms Since Prior Visit: worsening pain, worsening swelling, worsening redn ess Treatments Prior to Arrival: Given Antibiotics on, Given Pain Meds on - Related Data Home Medications Medication Instructions Recorded Confirmed HYDROcodone/APAP 5-325MG [Sch[place]ield 1 tab PO Q6H PRN 01/29/22 01/29/22 5-325] Previous Rx's Medication Instructions Recorded Acetaminophen Tab [Tylenol] 650 mg PO Q6HR PRN #30 tab 01/20/22 Ciprofloxacin HCl [Cipro] 500 mg PO BID 10 Days #20 tab 01/20/22 Gabapentin [Neurontin] 100 mg PO TID #9 cap 01/20/22 Ibuprofen [Motrin] 600 mg PO TID PRN #30 tab 01/20/22 Allergies Allergy/AdvReac Type Severity Reaction Status Date / Time cashew nut Allergy Severe Anaphylaxis Verified 01/29/22 08:05 peanut Allergy Unknown Verified 01/29/22 08:05 peanut oil Allergy Unknown Verified 01/29/22 08:05 sertraline [From Zoloft] Allergy Itching Verified 01/29/22 08:05 Review of Systems ROS Statement: Those systems with pertinent positive or pertinent negative responses have been documented in the HPI. ROS Other: All systems not noted in ROS Statement are negative. Past Medical History Past Medical History: No Reported History Additional Past Medical History / Comment(s): arthritis, Hep C, neuropathy History of Any Multi-Drug Resistant Organisms: None Reported Past Surgical History: No Surgical Hx Reported Additional Past Surgical History / Comment(s): Cyst removed behind L ear Past Anesthesia/Blood Transfusion Reactions: Motion Sickness Past Psychological History: Anxiety, Bipolar, Depression Smoking Status: Current every day smoker Past Alcohol Use History: Daily Past Drug Use History: Cocaine, Marijuana, Methamphetamine - Past Family History Mother Family Medical History: No Reported History General Exam Limitations: no limitations General appearance: alert, in no apparent distress Head exam: Present: atraumatic, normocephalic, normal inspection Eye exam: Present: normal appearance, PERRL, EOMI. Absent: scleral icterus, conjunctival injection, periorbital swelling ENT exam: Present: normal exam, mucous membranes moist Neck exam: Present: normal inspection. Absent: tenderness, meningismus, lymphadenopathy Respiratory exam: Present: normal lung sounds bilaterally. Absent: respiratory distress, wheezes, rales, rhonchi, stridor Cardiovascular Exam: Present: regular rate, normal rhythm, normal heart sounds. Absent: systolic murmur, diastolic murmur, rubs, gallop, clicks GI/Abdominal exam: Present: soft, normal bowel sounds. Absent: distended, tenderness, guarding, rebound, rigid Extremities exam: Present: normal inspection, full ROM, normal capillary refill, other (Both lower extremity's have significantly swollen wounds likely infected). Absent: tenderness, pedal edema, joint swelling, calf tenderness Back exam: Present: normal inspection Neurological exam: Present: alert, oriented X3, CN II-XII intact Psychiatric exam: Present: normal affect, normal mood Skin exam: Present: warm, dry, intact, normal color. Absent: rash Course Vital Signs 01/28/22 01/29/22 01/29/22 22:15 06:20 07:34 Temperature 98.5 F 97.7 F Pulse Rate 97 74 Respiratory 18 16 Rate Blood Pressure 105/63 127/63 100/58 O2 Sat by Pulse 98 97 95 Oximetry 01/29/22 01/29/22 10:46 12:36 Temperature Pulse Rate 58 L Respiratory 16 16 Rate Blood Pressure 123/81 141/83 O2 Sat by Pulse 100 Oximetry - Reevaluation(s) Reevaluation #1: 01/29/22 Medical records reviewed Reevaluation #2: 01/29/22 Patient has adequate pain control Reevaluation #3: 01/29/22 patient informed results and questions answered - Consultations Consultation #1: Spoke with sound okay for admission Medical Decision Making - Medical Decision Making 56 male presents today for evaluation, patient presents today for evaluation regards to bilateral lower extremity swelling edema fevers and chills drainage from leg wounds. Patient is unable to get outpatient wound care as he is currently homeless. - Lab Data Result diagrams: 01/29/22 06:20 01/29/22 06:20 - EKG Data -: EKG Interpreted by Me (EKG sinus rhythm 61 CT 158 QRS 88 QTc 413) Disposition Clinical Impression: Cellulitis of both lower extremities, Bilateral lower extremity edema, Leg ulcer, Failure of outpatient treatment Disposition: ADMITTED IP TO THIS HOSP Condition: Good Is patient prescribed a controlled substance at d/c from ED?: No
[2022-01-29] MEDS ORDERED: NALOXONE 0.4 MG/ML 1 ML VIAL IV PRN (05:41)
[2022-01-29] MEDS ORDERED: SODIUM CHLORIDE 0.9% 1,000 ML IV STA (05:41)
[2022-01-29] MEDS: MORPHINE SULFATE 4 MG/ML SYRINGE IV PRN ×3 (06:17→22:21)
[2022-01-29 06:35] LABS: Basophils # (A) 0.1 k/uL (0-0.2); Basophils % (A) 2 %; Eosinophils # (A) 0.2 k/uL (0-0.7); Eosinophils % (A) 4 %; HGB 12.3 gm/dL (13.0-17.5); Hypochromasia Slight; Lymphocytes # (A) 1.4 k/uL (1.0-4.8); Lymphocytes % (A) 30 %; MCH 29.2 pg (25.0-35.0); MCHC 31.5 g/dL (31.0-37.0); MCV 92.6 fL (80.0-100.0); Mean Platelet Volume 7.2; Monocytes # (A) 0.4 k/uL (0-1.0); Monocytes % (A) 8 %; Neutrophils # (A) 2.6 k/uL (1.3-7.7); Neutrophils % (A) 54 %; Platelet Count 455 k/uL (150-450); RBC 4.21 m/uL (4.30-5.90); RDW 13.2 % (11.5-15.5); WBC 4.8 k/uL (3.8-10.6)
[2022-01-29 06:43] LABS: Albumin 4.2 g/dL (3.5-5.0); Partial Thromboplastin Time 26.6 sec (22.0-30.0); Phosphorus 4.2 mg/dL (2.5-4.5); Prothrombin Time 10.8 sec (9.0-12.0); Total Bilirubin 0.9 mg/dL (0.2-1.3); Total Protein 9.2 g/dL (6.3-8.2)
[2022-01-29 06:45] LABS: Magnesium 1.9 mg/dL (1.6-2.3); Potassium 4.4 mmol/L (3.5-5.1)
[2022-01-29] MEDS: SODIUM CHLORIDE 0.9% 1,000 ML IV SCH (08:30)
[2022-01-29] MEDS ORDERED: ACETAMINOPHEN TAB 325 MG TAB PO PRN (11:04)
[2022-01-29] MEDS ORDERED: VANCOMYCIN IV PER PHARMACY 1 EACH MISC MISCELLANE PRN (11:30)
--- NOTE | 2022-01-29 11:33 | P.HPIM ---
History of Present Illness H&P Date: 01/29/22 Chief Complaint: leg wounds Patient is a 56 yo Male with known bilateral lower extremity wounds who was recently hosptialized here from 01/14 through 01/20 for cellulitis and infected wounds. He underwent debridement of wounds with Dr. Baker on 01/14/22. He ap parently did not want to go to the facility we found to accept him for rehab and was discharged home. In the ED he underwent an extensive evaluation. His vitals were within normal limits. His labs were relatively unremarkable. Patient seen and exmained at bedside in the emergency department. He complains of worsening lower extremity pain and inability to walk along with fevers. He reports increased odor over the last 2 days. He was taking cipro. He has no complaints of nuasea or vomiting. He reports that he is now homeless. 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 He was doing his dressing changes with silividene but ran out and dressed his legs last 2 days ago. Pertinent positives and negatives as discussed in HPI, a complete review of systems was performed and all other systems are negative. Vital signs reviewed General: nontoxic, no distress, appears at stated age Derm: warm, dry, dressings were inplace on bilateral feet which revealed 4 areas of skin break down that are malodorous with pink moist wound bed and no areas of necrosis noted. Head: atraumatic, normocephalic, symmetric Eyes: EOMI, no lid lag, anicteric sclera, pupils equal round reactive to light ENT: Nose and ears atraumatic, no thrush, no pharyngeal erythema Neck: No thyromegaly, no cervical lymphadenopathy, trachea midline, supple Mouth: no lip lesion, mucus membranes moist Cardiovascular: S1S2 reg, no murmur, positive posterior tibial pulse bilateral, no edema, capillary refill less than 2 seconds Lungs: clear to auscultation bilateral, no rhonchi, no rales, no wheeze, no a ccessory muscle use Abdominal: soft, nontender to palpation, no guarding, no appreciable organomega ly, normal bowel sounds Ext: no gross muscle atrophy, Moving all 4 extremities independently, no c ontractures Neuro: CN II-XII grossly intact, light touch intact all 4 extremities, finger to nose within normal limits, Psych: Alert, oriented, appropriate affect Assessment/Plan: Infected bilateral lower extremity wounds, failed outpatient management. Venous insufficiency - vanco and unasyn - consult ID and vascular - Lift legs up Tobacco abuse - cessation - nicotine replacement Thrombocytosis - follow CBC SDOH - homeless The patient is admitted with an anticipated greater than 2 midnight stay for evaluation of Infected bilateral lower extremity wounds. CODE STATUS:full DVT prophylaxis: Lovenox Discussed with: Patient, nursing Anticipated discharge date: in 2-[address]: SNF A total of 65 minutes was spent on the care of this complex patient more than 50% of the time was spent in counseling and care coordination. Past Medical History Additional Past Medical History / Comment(s): arthritis, Hep C, neuropathy, lower extremity wounds History of Any Multi-Drug Resistant Organisms: None Reported Additional Past Surgical History / Comment(s): Cyst removed behind L ear Past Anesthesia/Blood Transfusion Reactions: Motion Sickness Past Psychological History: Anxiety, Bipolar, Depression Smoking Status: Current every day smoker Past Alcohol Use History: Daily Past Drug Use History: Cocaine, Marijuana, Methamphetamine - Past Family History Mother Family Medical History: No Reported History Medications and Allergies Home Medications Medication Instructions Recorded Confirmed Type Acetaminophen Tab [Tylenol] 650 mg PO Q6HR PRN #30 tab 01/20/22 01/29/22 Rx Ciprofloxacin HCl [Cipro] 500 mg PO BID 10 Days #20 tab 01/20/22 01/29/22 Rx Gabapentin [Neurontin] 100 mg PO TID #9 cap 01/20/22 01/29/22 Rx Ibuprofen [Motrin] 600 mg PO TID PRN #30 tab 01/20/22 01/29/22 Rx HYDROcodone/APAP 5-325MG [[place] 1 tab PO Q6H PRN 01/29/22 01/29/22 History 5-325] Allergies Allergy/AdvReac Type Severity Reaction Status Date / Time cashew nut Allergy Severe Anaphylaxis Verified 01/29/22 08:05 peanut Allergy Unknown Verified 01/29/22 08:05 peanut oil Allergy Unknown Verified 01/29/22 08:05 sertraline [From Zoloft] Allergy Itching Verified 01/29/22 08:05 Physical Exam Osteopathic Statement: *. No significant issues noted on an osteopathic structural exam other than those noted in the History and Physical/Consult. Vitals: Vital Signs Temp Pulse Resp BP Pulse Ox 01/29/22 10:46 16 123/81 01/29/22 07:34 97.7 F 16 100/58 95 01/29/22 06:20 74 127/63 97 01/28/22 22:15 98.5 F 97 18 105/63 98 Intake and Output 01/28/22 01/29/22 01/29/22 22:59 06:59 14:59 Other: Weight 95.254 kg Results CBC & Chem 7: 01/29/22 06:20 01/29/22 06:20 Labs: Abnormal Lab Results - Last 24 Hours (Table) 01/29/22 01/29/22 Range/Units 06:20 06:20 RBC 4.21 L (4.30-5.90) m/uL Hgb 12.3 L (13.0-17.5) gm/dL Plt Count 455 H (150-450) k/uL BUN 24 H (9-20) mg/dL ALT 57 H (4-49) U/L Total Protein 9.2 H (6.3-8.2) g/dL
[2022-01-29] MEDS: AMPICILLIN-SULBACTAM 3 GM in SODIUM CHLORIDE 0.9% 100 ML IVPB SCH ×3 (12:00→23:58)
[2022-01-29] MEDS: VANCOMYCIN 1,500 MG in SODIUM CHLORIDE 0.9% 250 ML IVPB SCH ×2 (13:46→21:45)
[2022-01-29] MEDS: GABAPENTIN 100 MG CAP PO SCH ×2 (13:54→21:45)
[2022-01-29] MEDS: HYDROcodone/APAP 5-325MG 1 EACH TAB PO PRN (13:56)
[2022-01-30] MEDS: AMPICILLIN-SULBACTAM 3 GM in SODIUM CHLORIDE 0.9% 100 ML IVPB SCH (05:42)
[2022-01-30] MEDS: HYDROcodone/APAP 5-325MG 1 EACH TAB PO PRN ×4 (05:42→21:02)
[2022-01-30] MEDS: SODIUM CHLORIDE 0.9% 1,000 ML IV SCH (05:42)
[2022-01-30] MEDS: NICOTINE 14MG/24HR PATCH TRANSDERM SCH (08:03)
[2022-01-30] MEDS: GABAPENTIN 100 MG CAP PO SCH ×3 (08:03→21:03)
[2022-01-30] MEDS: ENOXAPARIN 40 MG/0.4 ML SYRINGE SQ SCH ×2 (08:03→09:25)
[2022-01-30] MEDS: MORPHINE SULFATE 4 MG/ML SYRINGE IV PRN (08:03)
--- NOTE | 2022-01-30 08:04 | P.CONS ---
History of Present Illness - Reason for Consult Consult date: 01/29/22 - History of Present Illness Patient is a 56-year-old -[place] male with a past medical history significant for bilateral lower extremity venous stasis ulcer with a recent admission to this facility for infected wound and secondary cellulitis especially to the left leg patient did have debridement of the leg wounds culture positive for Enterobacter Alcaligen and anaerobes patient was treated with IV antibiotic therapy on discharge was recommended Cipro and Flagyl and the patient was supposed to go to rehab however the patient refused and going home mentioned has been taking his antibiotic however not clear how compliant he has been with his dressing changes presenting back to the hospital early this morning concerning for worsening pain and swelling and some foul-smelling drainage from his leg wound patient describes the pain to be more of a throbbing to dull aching 6-7 out of 10 no radiation on presentation to the hospital patient was afebrile did have normal white count kidney function was normal ALT mildly elevated patient was started on Unasyn and vancomycin has been admitted to hospital infectious disease was consulted for further management Past Medical History Past Medical History: No Reported History Additional Past Medical History / Comment(s): arthritis, Hep C, neuropathy, lower extremity wounds History of Any Multi-Drug Resistant Organisms: None Reported Past Surgical History: No Surgical Hx Reported Additional Past Surgical History / Comment(s): Cyst removed behind L ear Past Anesthesia/Blood Transfusion Reactions: Motion Sickness Past Psychological History: Anxiety, Bipolar, Depression Smoking Status: Current every day smoker Past Alcohol Use History: Daily Past Drug Use History: Cocaine, Marijuana, Methamphetamine - Past Family History Mother Family Medical History: No Reported History Medications and Allergies Home Medications Medication Instructions Recorded Confirmed Type Acetaminophen Tab [Tylenol] 650 mg PO Q6HR PRN #30 tab 01/20/22 01/29/22 Rx Ciprofloxacin HCl [Cipro] 500 mg PO BID 10 Days #20 tab 01/20/22 01/29/22 Rx Gabapentin [Neurontin] 100 mg PO TID #9 cap 01/20/22 01/29/22 Rx Ibuprofen [Motrin] 600 mg PO TID PRN #30 tab 01/20/22 01/29/22 Rx HYDROcodone/APAP 5-325MG [[place] 1 tab PO Q6H PRN 01/29/22 01/29/22 History 5-325] Allergies Allergy/AdvReac Type Severity Reaction Status Date / Time cashew nut Allergy Severe Anaphylaxis Verified 01/29/22 08:05 peanut Allergy Unknown Verified 01/29/22 08:05 peanut oil Allergy Unknown Verified 01/29/22 08:05 sertraline [From Zoloft] Allergy Itching Verified 01/29/22 08:05 Physical Exam Vitals: Vital Signs Temp Pulse Resp BP Pulse Ox 01/29/22 10:46 16 123/81 01/29/22 07:34 97.7 F 16 100/58 95 01/29/22 06:20 74 127/63 97 01/28/22 22:15 98.5 F 97 18 105/63 98 Intake and Output 01/28/22 01/29/22 01/29/22 22:59 06:59 14:59 Other: Weight 95.254 kg Results CBC & Chem 7: 01/29/22 06:20 01/29/22 06:20 Labs: Abnormal Lab Results - Last 24 Hours (Table) 01/29/22 01/29/22 Range/Units 06:20 06:20 RBC 4.21 L (4.30-5.90) m/uL Hgb 12.3 L (13.0-17.5) gm/dL Plt Count 455 H (150-450) k/uL BUN 24 H (9-20) mg/dL ALT 57 H (4-49) U/L Total Protein 9.2 H (6.3-8.2) g/dL Assessment and Plan Plan: 1patient with bilateral lower extremity venous stasis ulcer with secondary cellulitis in this patient with noncompliant with local treatment plus minus antibiotic intake presented back to the hospital with worsening wound pain and drainage with concern for possible second cellulitis however the patient did not have any fever or elevated white count with recent culture predominantly gram- negative and anaerobes. 2wait for surgical evaluation and possible debridement. 3local wound care with the [facility] followed by moist dressing change daily. 4discontinue Unasyn and start the patient on cefepime and Flagyl. We will follow on clinical condition and cultures to further adjust medication if needed Thank you for this consultation will follow this patient along with you Time with Patient: Greater than 30
--- NOTE | 2022-01-30 08:09 | P.GSCN ---
History of Present Illness History of present illness: 56-year-old -English male patient was seen on last admission on 01/14/2022 patient went for bilateral lower extremity no involving the both feet dorsal lateral aspect extensive wound debridement and we have been treating with Aquacel silver which we will changing every 48 hours he was under care of infectious disease for IV antibiotic patient had a appointment last Thursday to the wound clinic to see me he did not show has appointment Lizzeth has been complaining of some pain in both feet Medical history history of arthritis hepatitis C Neck examination neck is supple no bruit appreciated Chest is clear good and both lungs first and second sound normal Abdomen soft nontender Vascular femorals are 1+ bilateral patient has a wound on the dorsal venous right foot base of the wound is granulating no discharge noted patient has a wound on the left foot lateral aspect dorsum aspect and at the ankle area base of the wound is granulating no discharge noted that graft plan is continue his exercise silver which should be changed every 48 hours with you Past Medical History Past Medical History: No Reported History Additional Past Medical History / Comment(s): arthritis, Hep C, neuropathy, lower extremity wounds History of Any Multi-Drug Resistant Organisms: None Reported Past Surgical History: No Surgical Hx Reported Additional Past Surgical History / Comment(s): Cyst removed behind L ear Past Anesthesia/Blood Transfusion Reactions: Motion Sickness Past Psychological History: Anxiety, Bipolar, Depression Smoking Status: Current every day smoker Past Alcohol Use History: Daily Past Drug Use History: Cocaine, Marijuana, Methamphetamine - Past Family History Mother Family Medical History: No Reported History Medications and Allergies Home Medications Medication Instructions Recorded Confirmed Type Acetaminophen Tab [Tylenol] 650 mg PO Q6HR PRN #30 tab 01/20/22 01/29/22 Rx Ciprofloxacin HCl [Cipro] 500 mg PO BID 10 Days #20 tab 01/20/22 01/29/22 Rx Gabapentin [Neurontin] 100 mg PO TID #9 cap 01/20/22 01/29/22 Rx Ibuprofen [Motrin] 600 mg PO TID PRN #30 tab 01/20/22 01/29/22 Rx HYDROcodone/APAP 5-325MG [[place] 1 tab PO Q6H PRN 01/29/22 01/29/22 History 5-325] Allergies Allergy/AdvReac Type Severity Reaction Status Date / Time cashew nut Allergy Severe Anaphylaxis Verified 01/29/22 08:05 peanut Allergy Unknown Verified 01/29/22 08:05 peanut oil Allergy Unknown Verified 01/29/22 08:05 sertraline [From Zoloft] Allergy Itching Verified 01/29/22 08:05 Surgical - Exam Vital Signs Temp Pulse Resp BP Pulse Ox 98.5 F 97 18 105/63 98 01/28/22 22:15 01/28/22 22:15 01/28/22 22:15 01/28/22 22:15 01/28/22 22:15 Results - Labs 01/29/22 06:20 01/29/22 06:20
[2022-01-30] MEDS: CEFEPIME 2 GM in SODIUM CHLORIDE 0.9% 100 ML IVPB SCH ×2 (09:32→16:05)
[2022-01-30] MEDS: metroNIDAZOLE 500 MG TAB PO SCH ×3 (09:32→21:03)
[2022-01-30] MEDS ORDERED: GABAPENTIN 100 MG CAP PO STA (11:40)
--- NOTE | 2022-01-30 17:09 | P.PN ---
Subjective Progress Note Date: 01/30/22 (Delayed charting seen on 1135) Patient is a 56 yo Male with known bilateral lower extremity wounds who was recently hosptialized here from 01/14 through 01/20 for cellulitis and infected wounds. He underwent debridement of wounds with Dr. Baker on 01/14/22. He apparently did not want to go to the facility we found to accept him for rehab and was discharged home. In the ED he underwent an extensive evaluation. His vitals were within normal limits. His labs were relatively unremarkable. He was seen by vascular surgery who felt his wounds were healing well. He was seen by infectious disease who felt he could be transitioned to oral antibiotics with Cipro and Flagyl on discharge. Case management is currently working on [facility]. Patient seen and exmained at bedside. He is complaining of nerve pain and asking for something more. We discussed that vascular surgery and infectious disease both feel as though he is having a normal postoperative course that they recommended him going to rehab for continued dressings and wound care changes as it will be difficult for patient to walk with his multiple wounds. General: nontoxic, no distress, appears at stated age Derm: warm, dry, dressings in place bilateral feet Head: atraumatic, normocephalic, symmetric Eyes: EOMI, no lid lag, anicteric sclera Mouth: no lip lesion, mucus membranes moist Cardiovascular: S1S2 reg, no murmur, positive posterior tibial pulse bilateral, Lungs: CTA bilateral, no rhonchi, no rales , no accessory muscle use Abdominal: soft, nontender to palpation, no guarding, no appreciable organome roger Ext: no gross muscle atrophy, 2+ nonpitting edema bilateral lower extremities left greater than right, no contractures Neuro: CN II-XI grossly intact, no focal neuro deficits Psych: Alert, oriented, appropriate affect Assessment/Plan: Infected bilateral lower extremity wounds, failed outpatient management. Venous insufficiency -Vascular surgery recommendations appreciated -Infectious disease recommendations appreciated. Currently on cefepime and Flagyl. Plan to transition to Cipro and Flagyl on discharge -Elevate legs -Continue with dressing changes -Pain control Tobacco abuse - cessation - nicotine replacement Thrombocytosis - follow CBC SDOH - homeless Patient is aware that with his record he will not have many choices for nursing homes. He is aware that he will need to go to ever facility accept him. Currently awaiting auth. Anticipate that patient will be discharged to [facility] in [place]. DVT prophylaxis: Lovenox Discussed with: Patient, nursing Anticipated discharge date: In a.m. Anticipated discharge place: [facility] A total of 35 minutes was spent on the care of this complex patient more than 50% of the time was spent in counseling and care coordination. Objective - Vital Signs Vital signs: Vital Signs Temp 98.5 F 01/30/22 15:00 Pulse 82 01/30/22 15:00 Resp 18 01/30/22 15:00 BP 127/69 01/30/22 15:00 Pulse Ox 97 01/30/22 15:51 FiO2 Intake & Output 01/29/22 01/30/22 01/30/22 18:59 06:59 18:59 Intake Total 240 473 Output Total 300 1700 750 Balance -60 -1700 -277 Weight 95.254 kg Intake: Oral 240 473 Output: Urine 300 1700 750 Other: # Voids 2 - Labs CBC & Chem 7: 01/29/22 06:20 01/29/22 06:20
--- NOTE | 2022-01-31 00:21 | P.PN ---
Subjective Progress Note Date: 01/30/22 Principal diagnosis: Bilateral lower extremity venous stasis ulcer and cellulitis Patient is a 56-year-old -[place] male with a recent admission to the hospital with bilateral lower extremity venous stasis ulcer and cellulitis status post debridement culture positive for Enterobacter and anaerobes, patient noncompliant with local care and antibiotic with presentation to the hospital with worsening wound and the patient being homeless. On today's evaluation that is 01/30/2022, the patient denies having any fever and chills, patient denies any worsening pain to bilateral lower extremity wound. No chest pain shortness of breath or cough no abdominal pain or diarrhea Objective - Vital Signs Vital signs: Vital Signs Temp 98.3 F 01/30/22 07:00 Pulse 80 01/30/22 07:00 Resp 16 01/30/22 07:00 BP 120/57 01/30/22 07:00 Pulse Ox 97 01/30/22 07:00 FiO2 Intake & Output 01/29/22 01/30/22 01/30/22 18:59 06:59 18:59 Intake Total 240 473 Output Total 300 1700 Balance -60 -1700 473 Weight 95.254 kg Intake: Oral 240 473 Output: Urine 300 1700 Other: # Voids 2 - Exam GENERAL DESCRIPTION: Middle-age male lying in bed in no distress RESPIRATORY SYSTEM: Unlabored breathing , decreased breath sounds at bases HEART: S1 S2 regular rate and rhythm , ABDOMEN: Soft , no tenderness EXTREMITIES: Bilateral lower extremity wound with minimal slough tissue some surrounding swelling or redness minimal drainage - Labs CBC & Chem 7: 01/29/22 06:20 01/29/22 06:20 Assessment and Plan (1) Cellulitis of both lower extremities Current Visit: Yes Status: Acute Code(s): L03.115 - CELLULITIS OF RIGHT LOWER LIMB; L03.116 - CELLULITIS OF LEFT LOWER LIMB SNOMED Code(s): 783587324 (2) Leg ulcer Current Visit: Yes Status: Acute Code(s): L97.909 - NON-PRS CHRONIC ULC UNSP PRT OF UNSP LOW LEG W UNSP SEVERITY SNOMED Code(s): 29851717 Plan: 1patient with bilateral lower extremity venous stasis ulcer with secondary cellulitis in this patient with noncompliant with local treatment plus minus antibiotic intake presented back to the hospital with worsening wound pain and drainage with concern for possible second cellulitis however the patient did not have any fever or elevated white count with recent culture predominantly gram- negative and anaerobes. 2vascular surgery has seen the patient recommending no debridement 3local wound care with the Aquacel silver dressing per surgery 4patient to continue with cefepime and Flagyl with a plan to finish therapy with oral Cipro and Flagyl discussed with admitting physician.
[2022-01-31] MEDS: CEFEPIME 2 GM in SODIUM CHLORIDE 0.9% 100 ML IVPB SCH ×4 (00:42→23:18)
[2022-01-31 05:47] LABS: African American GFR (CKD) 78 (>60 ml/min/1.73 sqM); Anion Gap 5 mmol/L; Blood Urea Nitrogen 13 mg/dL (9-20); Calcium 8.2 mg/dL (8.4-10.2); Carbon Dioxide 28 mmol/L (22-30); Chloride 101 mmol/L (98-107); Glucose 113 mg/dL (74-99); Non-African American GFR(CKD) 68 (>60 ml/min/1.73 sqM); Potassium 4.1 mmol/L (3.5-5.1); Sodium 134 mmol/L (137-145)
[2022-01-31] MEDS: SODIUM CHLORIDE 0.9% 1,000 ML IV SCH (05:54)
[2022-01-31] MEDS: metroNIDAZOLE 500 MG TAB PO SCH ×3 (07:49→20:29)
[2022-01-31] MEDS: HYDROcodone/APAP 5-325MG 1 EACH TAB PO PRN ×3 (07:49→20:32)
[2022-01-31] MEDS: NICOTINE 14MG/24HR PATCH TRANSDERM SCH (07:49)
[2022-01-31] MEDS: GABAPENTIN 100 MG CAP PO SCH ×3 (07:49→20:39)
[2022-01-31] MEDS: ENOXAPARIN 40 MG/0.4 ML SYRINGE SQ SCH ×2 (07:53→07:57)
--- NOTE | 2022-01-31 10:35 | P.PN ---
Subjective Progress Note Date: 01/31/22 No new complaints. Placement pending. Gen: awake, alert HEENT: normocephalic, atraumatic, good hearing acuity, moist mucous membranes Resp: good air exchange, breathing comfortably with no accessory muscle use CVS: good distal perfusion x 4, GI: soft, NTTP, ND : no SPT, no CVAT, light catheter not present MSK: no pitting edema, no clubbing Neuro: non-focal, moving all extremities Psych: cooperative, euthymic mood Assessment/plan: Infected bilateral lower extremity wounds, failed outpatient management. Venous insufficiency -Vascular surgery recommendations appreciated -Infectious disease recommendations appreciated. Currently on cefepime and Flagyl. Plan to transition to Cipro and Flagyl on discharge -Elevate legs -Continue with dressing changes -Pain control Tobacco abuse - cessation - nicotine replacement Thrombocytosis - follow CBC SDOH - homeless Patient is aware that with his record he will not have many choices for nursing homes. He is aware that he will need to go to ever facility accept him. Currently awaiting auth. Anticipate that patient will be discharged to [facility] in [place]. DVT prophylaxis: Lovenox Discussed with: Patient, nursing Anticipated discharge date: In a.m. Anticipated discharge place: SNF A total of 35 minutes was spent on the care of this complex patient more than 50% of the time was spent in counseling and care coordination. Objective - Vital Signs Vital signs: Vital Signs Temp 98.5 F 01/31/22 07:00 Pulse 83 01/31/22 07:00 Resp 16 01/31/22 07:00 BP 131/69 01/31/22 07:00 Pulse Ox 100 01/31/22 07:00 FiO2 Intake & Output 01/30/22 01/31/22 01/31/22 18:59 06:59 18:59 Intake Total 473 118 Output Total 750 2250 650 Balance -277 -7416 -532 Intake: Oral 473 118 Output: Urine 750 2250 650 Other: Voiding Method Urinal # Voids 1 - Labs CBC & Chem 7: 01/29/22 06:20 01/31/22 04:56 Labs: Abnormal Lab Results - Last 24 Hours (Table) 01/31/22 Range/Units 04:56 Sodium 134 L (137-145) mmol/L Glucose 113 H (74-99) mg/dL Calcium 8.2 L (8.4-10.2) mg/dL
--- NOTE | 2022-01-31 14:58 | P.PN ---
Subjective Progress Note Date: 01/31/22 Principal diagnosis: Bilateral lower extremity venous stasis ulcer and cellulitis Patient is a 56-year-old -[place] male with a recent admission to the hospital with bilateral lower extremity venous stasis ulcer and cellulitis status post debridement culture positive for Enterobacter and anaerobes, patient noncompliant with local care and antibiotic with presentation to the hospital with worsening wound and the patient being homeless. On today's evaluation that is 01/31/2022, the patient denies any fever or chills, patient pain to bilateral lower extremity wound is currently controlled, the patient denies chest pain shortness of breath or cough no abdominal pain or diarrhea Objective - Vital Signs Vital signs: Vital Signs Temp 98.5 F 01/31/22 07:00 Pulse 83 01/31/22 07:00 Resp 16 01/31/22 08:00 BP 131/69 01/31/22 07:00 Pulse Ox 100 01/31/22 07:00 FiO2 Intake & Output 01/30/22 01/31/22 01/31/22 18:59 06:59 18:59 Intake Total 473 118 Output Total 750 2250 650 Balance -277 -2250 -532 Intake: Oral 473 118 Output: Urine 750 2250 650 Other: Voiding Method Urinal Urinal # Voids 1 - Exam GENERAL DESCRIPTION: Middle-age male lying in bed in no distress RESPIRATORY SYSTEM: Unlabored breathing , decreased breath sounds at bases HEART: S1 S2 regular rate and rhythm , ABDOMEN: Soft , no tenderness EXTREMITIES: Bilateral lower extremity wound with minimal slough tissue some shah rrounding swelling or redness minimal drainage - Labs CBC & Chem 7: 01/29/22 06:20 01/31/22 04:56 Labs: Abnormal Lab Results - Last 24 Hours (Table) 01/31/22 Range/Units 04:56 Sodium 134 L (137-145) mmol/L Glucose 113 H (74-99) mg/dL Calcium 8.2 L (8.4-10.2) mg/dL Assessment and Plan (1) Cellulitis of both lower extremities Current Visit: Yes Status: Acute Code(s): L03.115 - CELLULITIS OF RIGHT LOWER LIMB; L03.116 - CELLULITIS OF LEFT LOWER LIMB SNOMED Code(s): 277125489 (2) Leg ulcer Current Visit: Yes Status: Acute Code(s): L97.909 - NON-PRS CHRONIC ULC UNSP PRT OF UNSP LOW LEG W UNSP SEVERITY SNOMED Code(s): 93529949 Plan: 1patient with bilateral lower extremity venous stasis ulcer with secondary cellulitis in this patient with noncompliant with local treatment plus minus antibiotic intake presented back to the hospital with worsening wound pain and drainage with concern for possible second cellulitis however the patient did not have any fever or elevated white count with recent culture predominantly gram- negative and anaerobes. 2vascular surgery has seen the patient recommending no debridement at this point 3local wound care with the Aquacel silver dressing per surgery 4patient currently being treated with cefepime and Flagyl with a plan to finish therapy with oral Cipro and Flagyl 10 days on discharge. Time with Patient: Less than 30
[2022-02-01] MEDS: SODIUM CHLORIDE 0.9% 1,000 ML IV SCH (05:14)
[2022-02-01] MEDS: HYDROcodone/APAP 5-325MG 1 EACH TAB PO PRN ×2 (08:16→16:42)
[2022-02-01] MEDS: NICOTINE 14MG/24HR PATCH TRANSDERM SCH (08:17)
[2022-02-01] MEDS: GABAPENTIN 100 MG CAP PO SCH ×3 (08:17→20:33)
[2022-02-01] MEDS: ENOXAPARIN 40 MG/0.4 ML SYRINGE SQ SCH (08:18)
[2022-02-01] MEDS: CEFEPIME 2 GM in SODIUM CHLORIDE 0.9% 100 ML IVPB SCH ×3 (08:18→23:13)
[2022-02-01] MEDS: metroNIDAZOLE 500 MG TAB PO SCH ×3 (08:18→20:33)
--- NOTE | 2022-02-01 14:30 | P.PN ---
Subjective Progress Note Date: 02/01/22 No new complaints. Placement pending. Gen: awake, alert HEENT: normocephalic, atraumatic, good hearing acuity, moist mucous membranes Resp: good air exchange, breathing comfortably with no accessory muscle use CVS: good distal perfusion x 4, GI: soft, NTTP, ND : no SPT, no CVAT, light catheter not present MSK: no pitting edema, no clubbing Neuro: non-focal, moving all extremities Psych: cooperative, euthymic mood Assessment/plan: Infected bilateral lower extremity wounds, failed outpatient management. Venous insufficiency -Vascular surgery recommendations appreciated -Infectious disease recommendations appreciated. Currently on cefepime and Flagyl. Plan to transition to Cipro and Flagyl on discharge -Elevate legs -Continue with dressing changes -Pain control Tobacco abuse - cessation - nicotine replacement Thrombocytosis - follow CBC SDOH - homeless Patient is aware that with his record he will not have many choices for nursing homes. He is aware that he will need to go to ever facility accept him. Currently awaiting auth. Anticipate that patient will be discharged to [facility] in [place]. DVT prophylaxis: Lovenox Discussed with: Patient, nursing Anticipated discharge date: In a.m. Anticipated discharge place: SNF A total of 35 minutes was spent on the care of this complex patient more than 50% of the time was spent in counseling and care coordination. Objective - Vital Signs Vital signs: Vital Signs Temp 98.6 F 02/01/22 13:15 Pulse 74 02/01/22 13:15 Resp 16 02/01/22 13:15 BP 115/72 02/01/22 13:15 Pulse Ox 100 02/01/22 13:15 FiO2 Intake & Output 01/31/22 02/01/22 02/01/22 18:59 06:59 18:59 Intake Total 1006 720 Output Total 9034 037 8219 Balance -394 -550 -330 Intake: Oral 1006 720 Output: Urine 8573 373 2358 Other: Voiding Method Urinal Urinal Urinal # Voids 1 - Labs CBC & Chem 7: 01/29/22 06:20 01/31/22 04:56
[2022-02-02] MEDS: HYDROcodone/APAP 5-325MG 1 EACH TAB PO PRN ×2 (01:48→08:53)
[2022-02-02 07:31] VITALS: BP 105/67; PULSE 76; RESP 14; TEMP 97.5
[2022-02-02] MEDS: ENOXAPARIN 40 MG/0.4 ML SYRINGE SQ SCH (08:48)
[2022-02-02] MEDS: CEFEPIME 2 GM in SODIUM CHLORIDE 0.9% 100 ML IVPB SCH (08:49)
[2022-02-02] MEDS: metroNIDAZOLE 500 MG TAB PO SCH (08:50)
[2022-02-02] MEDS: GABAPENTIN 100 MG CAP PO SCH (08:50)
[2022-02-02] MEDS: NICOTINE 14MG/24HR PATCH TRANSDERM SCH (09:03)
[2022-02-02] MEDS: SODIUM CHLORIDE 0.9% 1,000 ML IV SCH (09:20)
--- NOTE | 2022-02-02 14:28 | P.DS ---
Providers Date of admission: 01/31/22 11:57 Expected date of discharge: 02/02/22 Attending physician: Carmelita Mata MD Consults: 01/29/22 11:05 Consult Physician Routine Consulting Provider: Basilio Baker Consult Reason/Comments: lower extremity wounds, venous insufficiency Do you want consulting provider notified?: Yes Consult Physician Routine Consulting Provider: Michelle Kaminski Consult Reason/Comments: infected lower extremity wounds Do you want consulting provider notified?: Yes Primary care physician: Stated None Hospital Course: Infected bilateral lower extremity wounds, failed outpatient management. Venous insufficiency Tobacco abuse Thrombocytosis SDUT Patient is a 56 yo Male with known bilateral lower extremity wounds who was recently hosptialized here from 01/14 through 01/20 for cellulitis and infected wounds. He underwent debridement of wounds with Dr. Baker on 01/14/22. He apparently did not want to go to the facility we found to accept him for rehab and was discharged home. In the ED he underwent an extensive evaluation. His vitals were within normal limits. His labs were relatively unremarkable. Patient was evaluated again by vascular surgery as well as infectious disease. Patient was treated with cefepime/Flagyl with the plan to go to rehab for wound care . However, prior to finding a facility, patient left AGAINST MEDICAL ADVICE prior to my evaluation today. Patient Condition at Discharge: Fair Plan - Discharge Summary Discharge Rx Participant: No New Discharge Prescriptions: No Action Ciprofloxacin HCl [Cipro] 500 mg PO BID 10 Days #20 tab Ibuprofen [Motrin] 600 mg PO TID PRN #30 tab PRN Reason: Pain Gabapentin [Neurontin] 100 mg PO TID #9 cap Acetaminophen Tab [Tylenol] 650 mg PO Q6HR PRN #30 tab PRN Reason: Mild Pain Or Fever > 100.5 HYDROcodone/APAP 5-325MG [[place] 5-325] 1 tab PO Q6H PRN PRN Reason: Pain Discharge Medication List Acetaminophen Tab [Tylenol] 650 mg PO Q6HR PRN #30 tab 01/20/22 [Rx] Ciprofloxacin HCl [Cipro] 500 mg PO BID 10 Days #20 tab 01/20/22 [Rx] Gabapentin [Neurontin] 100 mg PO TID #9 cap 01/20/22 [Rx] Ibuprofen [Motrin] 600 mg PO TID PRN #30 tab 01/20/22 [Rx] HYDROcodone/APAP 5-325MG [[place]red 5-325] 1 tab PO Q6H PRN 01/29/22 [History] Follow up Appointment(s)/Referral(s): None,Stated [Primary Care Provider] - 1-2 days Discharge Disposition: Left Against Medical Advice
--- NOTE | 2022-02-08 22:44 | P.PN ---
Subjective Progress Note Date: 02/01/22 Principal diagnosis: Bilateral lower extremity venous stasis ulcer and cellulitis Patient is a 56-year-old -Czech male with a recent admission to the hospital with bilateral lower extremity venous stasis ulcer and cellulitis status post debridement culture positive for Enterobacter and anaerobes, patient noncompliant with local care and antibiotic with presentation to the hospital with worsening wound and the patient being homeless. On today's evaluation that is 02/01/2022, the patient remains to be afebrile, patient denies any worsening pain to bilateral lower extremity wound, the patient denies chest pain shortness of breath or cough no abdominal pain or diarrhea Objective - Vital Signs Vital signs: Vital Signs Temp 98.6 F 02/01/22 13:15 Pulse 74 02/01/22 13:15 Resp 16 02/01/22 13:15 BP 115/72 02/01/22 13:15 Pulse Ox 100 02/01/22 13:15 FiO2 Intake & Output 01/31/22 02/01/22 02/01/22 18:59 06:59 18:59 Intake Total 1006 720 Output Total 1963 736 4484 Balance -394 -550 -330 Intake: Oral 1006 720 Output: Urine 7353 712 6970 Other: Voiding Method Urinal Urinal Urinal # Voids 1 - Exam GENERAL DESCRIPTION: Middle-age male lying in bed in no distress RESPIRATORY SYSTEM: Unlabored breathing , decreased breath sounds at bases HEART: S1 S2 regular rate and rhythm , ABDOMEN: Soft , no tenderness EXTREMITIES: Bilateral lower extremity wound with minimal slough tissue some surrounding swelling or redness minimal drainage - Labs CBC & Chem 7: 01/29/22 06:20 01/31/22 04:56 Assessment and Plan (1) Cellulitis of both lower extremities Status: Acute Code(s): L03.115 - CELLULITIS OF RIGHT LOWER LIMB; L03.116 - CELLULITIS OF LEFT LOWER LIMB SNOMED Code(s): 516369178 (2) Leg ulcer Status: Acute Code(s): L97.909 - NON-PRS CHRONIC ULC UNSP PRT OF UNSP LOW LEG W UNSP SEVERITY SNOMED Code(s): 22041065 Plan: 1patient with bilateral lower extremity venous stasis ulcer with secondary cellulitis in this patient with noncompliant with local treatment plus minus antibiotic intake presented back to the hospital with worsening wound pain and drainage with concern for possible second cellulitis however the patient did not have any fever or elevated white count with recent culture predominantly gram-n egative and anaerobes. 2vascular surgery has seen the patient recommending no debridement at this p oint 3local wound care with the Aquacel silver dressing per surgery 4patient to continue with cefepime and Flagyl with a plan to finish therapy with oral Cipro and Flagyl 10 days on discharge and close outpatient follow-up. Time with Patient: Less than 30
== END 2022-02-02 11:50 | disposition left against medical advice (07) ==
LOC: EC 21:55 → 6NMEDSUR 01-29 05:41 → INTOOBSV 01-31 11:57 → OBSVTOIN 01-31 11:57 → UNDODISIN 02-02 11:50
PROVIDERS: ADMIT Internal Medicine; ATTEND Internal Medicine
DX: I83.215 Varicose veins of right lower extremity with both ulcer other part of foot and inflammation (principal); L03.115 Cellulitis of right lower limb; L97.929 Non-pressure chronic ulcer of unspecified part of left lower leg with unspecified severity; L03.116 Cellulitis of left lower limb; I83.229 Varicose veins of left lower extremity with both ulcer of unspecified site and inflammation; L97.519 Non-pressure chronic ulcer of other part of right foot with unspecified severity; F41.9 Anxiety disorder, unspecified; F31.9 Bipolar disorder, unspecified; F15.11 Other stimulant abuse, in remission; Z20.822 Contact with and (suspected) exposure to COVID-19; D75.839 Thrombocytosis, unspecified; G62.9 Polyneuropathy, unspecified; B19.20 Unspecified viral hepatitis C without hepatic coma; M19.90 Unspecified osteoarthritis, unspecified site; F17.200 Nicotine dependence, unspecified, uncomplicated; Z91.19 Patient's noncompliance with other medical treatment and regimen; Z71.6 Tobacco abuse counseling; Z79.899 Other long term (current) drug therapy; Z59.00 Homelessness unspecified; Z86.59 Personal history of other mental and behavioral disorders; Z88.8 Allergy status to other drugs, medicaments and biological substances; Z91.018 Allergy to other foods; Z91.010 Allergy to peanuts; Z53.29 Procedure and treatment not carried out because of patient's decision for other reasons; Z71.9 Counseling, unspecified
CPT/HCPCS: 96376 ×3; 96361 ×3; 96366 ×5; 96367 ×2; 96365; 96375; 99284; 93005; 97162; 97166; 80053; 80048; 83605; 83735; 84100; 84484; 85025; 85610; 85730; 87635; G0378 ×5; S4990 ×3; J3370; J2270 ×2; J0696; J0692 ×4; J0295 ×2

== ENCOUNTER 2022-02-03 10:24 | Inpatient (IN) | payer OTHER ==
[2022-02-03] MEDS ORDERED: HYDROmorphone 0.5 MG/0.5 ML SYRINGE IVP STA (10:54)
[2022-02-03] MEDS ORDERED: ONDANSETRON 4 MG/2 ML VIAL IVP STA (10:55)
[2022-02-03] MEDS ORDERED: SODIUM CHLORIDE 0.9% 2,000 ML IV STA (10:56)
[2022-02-03] MEDS ORDERED: CEFEPIME 2 GM in SODIUM CHLORIDE 0.9% 100 ML IVPB STA (11:01)
[2022-02-03] MEDS ORDERED: metroNIDAZOLE-NS PMX 500 MG in SALINE 1 100ML.BAG IVPB STA (11:02)
--- NOTE | 2022-02-03 11:22 | ED ---
Skin/Abscess/FB HPI - General Chief complaint: Skin/Abscess/Foreign Body Stated complaint: Celulitis Time Seen by Provider: 02/03/22 10:31 Source: patient Mode of arrival: ambulatory Limitations: no limitations - History of Present Illness Initial comments: Patient is a 56-year-old male with a past medical history significant for bilateral lower extremity venous stasis ulcer with multiple recent admissions for infected wounds and secondary cellulitis who presents to the emergency department for worsening bilateral leg pain. Patient was hospitalized from 01/14 through 01/23 where he underwent debridement of wounds with Dr. Baker. Patient was accepted for rehab in [place] however did not want to go so he was discharged home. Patient presented back to the emergency department on 01/29 with worsening symptoms and apparently is homeless so could not get outpatient wound care established. Patient's wound cultures positive for Enterobacter cloacae, alcaligen faecalis, and diphtheroid. He was evaluated by vascular surgery and infectious disease. He was treated with cefepime and Flagyl will plan to go to rehab for wound care however prior to evaluation on 02/02 patient left AGAINST MEDICAL ADVICE. Patient states the medications were making him sick so he left. Patient presents with increased pain and chills today. He agrees to stay in the hospital for IV antibiotics and agrees to go to rehab upon discharge. - Related Data Home Medications Medication Instructions Recorded Confirmed HYDROcodone/APAP 5-325MG [[place] 1 tab PO Q6H PRN 01/29/22 02/03/22 5-325] Previous Rx's Medication Instructions Recorded Acetaminophen Tab [Tylenol] 650 mg PO Q6HR PRN #30 tab 01/20/22 Ciprofloxacin HCl [Cipro] 500 mg PO BID 10 Days #20 tab 01/20/22 Gabapentin [Neurontin] 100 mg PO TID #9 cap 01/20/22 Ibuprofen [Motrin] 600 mg PO TID PRN #30 tab 01/20/22 Allergies Allergy/AdvReac Type Severity Reaction Status Date / Time cashew nut Allergy Severe Anaphylaxis Verified 02/03/22 11:44 peanut Allergy Unknown Verified 02/03/22 11:44 peanut oil Allergy Unknown Verified 02/03/22 11:44 sertraline [From Zoloft] Allergy Itching Verified 02/03/22 11:44 Review of Systems ROS Statement: Those systems with pertinent positive or pertinent negative responses have been documented in the HPI. ROS Other: All systems not noted in ROS Statement are negative. Past Medical History Past Medical History: No Reported History Additional Past Medical History / Comment(s): arthritis, Hep C, neuropathy, low er extremity wounds History of Any Multi-Drug Resistant Organisms: None Reported Past Surgical History: No Surgical Hx Reported Additional Past Surgical History / Comment(s): Cyst removed behind L ear Past Anesthesia/Blood Transfusion Reactions: Motion Sickness Past Psychological History: Anxiety, Bipolar, Depression Smoking Status: Current every day smoker Past Alcohol Use History: Daily Past Drug Use History: Cocaine, Marijuana, Methamphetamine - Past Family History Mother Family Medical History: No Reported History General Exam Limitations: no limitations General appearance: alert, in no apparent distress Eye exam: Present: normal appearance, PERRL, EOMI. Absent: scleral icterus, conjunctival injection, periorbital swelling Respiratory exam: Present: normal lung sounds bilaterally. Absent: respiratory distress, wheezes, rales, rhonchi, stridor Cardiovascular Exam: Present: regular rate, normal rhythm, normal heart sounds. Absent: systolic murmur, diastolic murmur, rubs, gallop, clicks Extremities exam: Present: other (Diffuse tenderness over bilateral lower legs and feet with swelling. Large ulcers over the lateral aspect of the bilateral feet, pink with sloughing. Additional ulcer inferior to the right medial ankle. Neurovascularly intact.) Neurological exam: Present: alert, oriented X3, CN II-XII intact Psychiatric exam: Present: normal affect, normal mood Skin exam: Present: warm, dry Course Vital Signs 02/03/22 02/03/22 10:26 11:35 Temperature 97.9 F Pulse Rate 96 Respiratory 18 16 Rate Blood Pressure 118/72 138/81 O2 Sat by Pulse 96 95 Oximetry Medical Decision Making - Medical Decision Making This is a 56-year-old -[place] male who presents with infection of bilateral lower extremity wounds and cellulitis with failed outpatient management and recent leave against medical advice yesterday. Patient is in no apparent distress. Vitals stable. He is afebrile. Patient presents with moderately saturated wound dressing over the bilateral feet which he states was last changed yesterday. He has multiple ulcers over the bilateral feet that are pink with sloughing. Neurovascularly intact. Patient started on cefepime and vancomycin. Pain and nausea controlled with Dilaudid and zofran. Laboratory studies obtained. Patient has normal white count at 6.4. Case discussed with Dr. Vega. Patient will be admitted to his service for further evaluation and management. Infectious disease is consulted. Results discussed the patient who verbalizes understanding and is agreeable with admission. Dr. Aj is my attending. - Lab Data Result diagrams: 02/03/22 11:19 02/03/22 11:19 Lab Results 02/03/22 02/03/22 02/03/22 Range/Units 11:19 11:19 11:19 WBC 6.4 (3.8-10.6) k/uL RBC 4.57 (4.30-5.90) m/uL Hgb 13.1 (13.0-17.5) gm/dL Hct 40.9 (39.0-53.0) % MCV 89.4 (80.0-100.0) fL MCH 28.7 (25.0-35.0) pg MCHC 32.1 (31.0-37.0) g/dL RDW 13.0 (11.5-15.5) % Plt Count 415 (150-450) k/uL MPV 7.2 Neutrophils % 66 % Lymphocytes % 21 % Monocytes % 6 % Eosinophils % 3 % Basophils % 2 % Neutrophils # 4.2 (1.3-7.7) k/uL Lymphocytes # 1.3 (1.0-4.8) k/uL Monocytes # 0.4 (0-1.0) k/uL Eosinophils # 0.2 (0-0.7) k/uL Basophils # 0.1 (0-0.2) k/uL Sodium 136 L (137-145) mmol/L Potassium 5.1 (3.5-5.1) mmol/L Chloride 100 (98-107) mmol/L Carbon Dioxide 26 (22-30) mmol/L Anion Gap 10 mmol/L BUN 16 (9-20) mg/dL Creatinine 0.96 (0.66-1.25) mg/dL Est GFR (CKD-EPI)AfAm >90 (>60 ml/min/1.73 sqM) Est GFR (CKD-EPI)NonAf 89 (>60 ml/min/1.73 sqM) Glucose 99 (74-99) mg/dL Plasma Lactic Acid Pradip 0.9 (0.7-2.0) mmol/L Calcium 9.0 (8.4-10.2) mg/dL Total Bilirubin 0.8 (0.2-1.3) mg/dL AST 38 (17-59) U/L ALT 26 (4-49) U/L Alkaline Phosphatase 61 (38-126) U/L Total Protein 9.2 H (6.3-8.2) g/dL Albumin 4.1 (3.5-5.0) g/dL Disposition Clinical Impression: Failure of outpatient treatment, Cellulitis of both lower extremities, Bilateral lower extremity edema, Skin ulcers of foot, bilateral Disposition: ADMITTED IP TO THIS [facility] Condition: Good Referrals: None,Stated [Primary Care Provider] - 1-2 days Decision Time: 11:55
[2022-02-03 11:34] LABS: Basophils # (A) 0.1 k/uL (0-0.2); Basophils % (A) 2 %; Eosinophils # (A) 0.2 k/uL (0-0.7); Eosinophils % (A) 3 %; HCT 40.9 % (39.0-53.0); HGB 13.1 gm/dL (13.0-17.5); Lymphocytes # (A) 1.3 k/uL (1.0-4.8); Lymphocytes % (A) 21 %; MCH 28.7 pg (25.0-35.0); MCHC 32.1 g/dL (31.0-37.0); MCV 89.4 fL (80.0-100.0); Mean Platelet Volume 7.2; Monocytes # (A) 0.4 k/uL (0-1.0); Monocytes % (A) 6 %; Neutrophils # (A) 4.2 k/uL (1.3-7.7); Neutrophils % (A) 66 %; Platelet Count 415 k/uL (150-450); RBC 4.57 m/uL (4.30-5.90); WBC 6.4 k/uL (3.8-10.6)
[2022-02-03 11:43] LABS: ALT 26 U/L (4-49); African American GFR (CKD) >90 (>60 ml/min/1.73 sqM); Albumin 4.1 g/dL (3.5-5.0); Anion Gap 10 mmol/L; Blood Urea Nitrogen 16 mg/dL (9-20); Carbon Dioxide 26 mmol/L (22-30); Chloride 100 mmol/L (98-107); Glucose 99 mg/dL (74-99); Non-African American GFR(CKD) 89 (>60 ml/min/1.73 sqM); Sodium 136 mmol/L (137-145); Total Bilirubin 0.8 mg/dL (0.2-1.3); Total Protein 9.2 g/dL (6.3-8.2)
[2022-02-03 11:46] LABS: AST 38 U/L (17-59); Alkaline Phosphatase 61 U/L (38-126); Potassium 5.1 mmol/L (3.5-5.1)
[2022-02-03] MEDS ORDERED: VANCOMYCIN 2,000 MG in SODIUM CHLORIDE 0.9% 500 ML 500 ML IVPB STA (12:03)
[2022-02-03] MEDS ORDERED: VANCOMYCIN 1,500 MG in SODIUM CHLORIDE 0.9% 250 ML IVPB STA (12:04)
[2022-02-03] MEDS ORDERED: ONDANSETRON 4 MG/2 ML VIAL IVP PRN (12:11)
[2022-02-03] MEDS ORDERED: NALOXONE 0.4 MG/ML 1 ML VIAL IV PRN (12:11)
[2022-02-03] MEDS ORDERED: IBUPROFEN 600 MG TAB PO PRN (15:18)
[2022-02-03] MEDS ORDERED: ACETAMINOPHEN TAB 325 MG TAB PO PRN (15:18)
[2022-02-03] MEDS ORDERED: LORazepam 0.5 MG TAB PO PRN (15:19)
--- NOTE | 2022-02-03 16:15 | HP ---
HISTORY AND PHYSICAL DATE OF SERVICE: 02/03/2022 CHIEF COMPLAINTS: Bilateral leg ulcers. HISTORY OF PRESENT ILLNESS: This 56-year-old gentleman with a past medical history of hepatitis C, DJD, not being followed by any primary physician in the outpatient setting, was having diabetic foot ulcers on both feet for the last 3 months. The patient was recently admitted, but the patient left AGAINST MEDICAL ADVICE. Currently the patient is being readmitted with features of cellulitis and failure of outpatient treatment. The patient underwent debridement by Dr. Baker. There is no history of any fever, rigor or chills at this time. PAST MEDICAL HISTORY: History of cellulitis, history of hepatitis C, history of anxiety, bipolar. HOME MEDICATIONS: Reviewed. They include Motrin. Doses and the rest of the medications are noted. ALLERGIES: ALLERGIES INCLUDE CASHEW NUTS. FAMILY HISTORY: Hypertension. SOCIAL HISTORY: Smoking, THC. REVIEW OF SYSTEMS: Fourteen-point review of systems negative except as mentioned earlier. PHYSICAL EXAMINATION: Pulse is 90, blood pressure 130/69, respirations 16. HEENT: Conjunctivae normal. NECK: No jugular venous distention. CARDIOVASCULAR: S1, S2 muffled. RESPIRATION: Breath sounds diminished at the bases. A few scattered rhonchi. ABDOMEN: Soft, nontender. LEGS: Bilateral feet and there is some bilateral cellulitis and ulcers also present, grade 2 on both dorsum. SKIN: As mentioned earlier. JOINTS: No active deforming arthropathy. NERVOUS SYSTEM: No focal deficit. LABS: CBC within normal limits. Other labs are noted. ASSESSMENT: 1. Bilateral foot cellulitis and failure of outpatient treatment. 2. History of noncompliance. 3. Hepatitis C. 4. Degenerative joint disease. 5. Anxiety, bipolar. RECOMMENDATIONS AND DISCUSSION: In this 56-year-old gentleman who presented with multiple complex medical issues, at this time I recommend continuing the antibiotics, vascular and infectious disease evaluations. Otherwise, prognosis is guarded because of multiple complex medical conditions. Further recommendations to follow. I also recommend that the patient follow up with a primary physician closely. MMODL / IJN: [id number] / MTDD
[2022-02-03] MEDS: GABAPENTIN 100 MG CAP PO SCH ×2 (16:26→22:26)
[2022-02-03] MEDS: HYDROcodone/APAP 5-325MG 1 EACH TAB PO PRN ×2 (16:26→22:25)
[2022-02-03] MEDS: SODIUM CHLORIDE 0.9% 1,000 ML IV SCH ×3 (16:27→23:10)
[2022-02-03] MEDS ORDERED: VANCOMYCIN 1,500 MG in SODIUM CHLORIDE 0.9% 250 ML IVPB SCH (20:00)
[2022-02-03] MEDS: MORPHINE SULFATE 4 MG/ML SYRINGE IV PRN (20:12)
[2022-02-03] MEDS: HEPARIN SODIUM,PORCINE/PF 5,000 UNIT/0.5 ML SYRINGE SQ SCH ×2 (20:12→20:17)
--- NOTE | 2022-02-03 22:49 | P.CONS ---
History of Present Illness - Reason for Consult Consult date: 02/03/22 - History of Present Illness Patient is a 56-year-old -[place]ene[place] male with a past medical history significant for bilateral lower extremity venous stasis ulcer in this patient who recently did have a debridement of this wound on January 14, 2022 culture positive for Enterobacter anaerobes Alcaligenes species, patient was treated with cefepime and Flagyl and was advised oral Cipro on discharge patient end up going home subsequent readmission to the hospital with similar problem and improved with IV antibiotic therapy however the patient left AMA yesterday and is presenting back to the hospital with 24-hour concerning for worsening pain to lower extremity wounds describes the pain to be more of a sharp in nature almost 7-8 out of 10 no radiation and did have some drainage patient denies having any chest pain or shortness of breath or cough patient was afebrile on presentation to the hospital and did have a normal white count kidney function has been normal patient was started on vancomycin infectious disease was consulted for further management of antibiotic therapy Past Medical History Past Medical History: No Reported History Additional Past Medical History / Comment(s): arthritis, Hep C, neuropathy, lower extremity wounds History of Any Multi-Drug Resistant Organisms: None Reported Past Surgical History: No Surgical Hx Reported Additional Past Surgical History / Comment(s): Cyst removed behind L ear Past Anesthesia/Blood Transfusion Reactions: No Reported Reaction Past Psychological History: Anxiety, Bipolar, Depression Smoking Status: Current every day smoker, Vaper Past Alcohol Use History: Occasional Additional Past Alcohol Use History / Comment(s): Pt. states he maybe drinks one beer per month. Past Drug Use History: Marijuana Additional Drug Use History / Comment(s): Patient states he uses his vape which has THC and marijuana - Past Family History Mother Family Medical History: Hypertension Medications and Allergies Home Medications Medication Instructions Recorded Confirmed Type Acetaminophen Tab [Tylenol] 650 mg PO Q6HR PRN #30 tab 01/20/22 02/03/22 Rx Ciprofloxacin HCl [Cipro] 500 mg PO BID 10 Days #20 tab 01/20/22 02/03/22 Rx Gabapentin [Neurontin] 100 mg PO TID #9 cap 01/20/22 02/03/22 Rx Ibuprofen [Motrin] 600 mg PO TID PRN #30 tab 01/20/22 02/03/22 Rx HYDROcodone/APAP 5-325MG [[place] 1 tab PO Q6H PRN 01/29/22 02/03/22 History 5-325] Allergies Allergy/AdvReac Type Severity Reaction Status Date / Time cashew nut Allergy Severe Anaphylaxis Verified 02/03/22 11:44 peanut Allergy Unknown Verified 02/03/22 11:44 peanut oil Allergy Unknown Verified 02/03/22 11:44 sertraline [From Zoloft] Allergy Itching Verified 02/03/22 11:44 Physical Exam Vitals: Vital Signs Temp Pulse Pulse Resp BP BP Pulse Ox 02/03/22 12:58 98.3 F 90 138/69 100 02/03/22 11:35 16 138/81 95 02/03/22 10:26 97.9 F 96 18 118/72 96 Intake and Output 02/02/22 02/03/22 02/03/22 22:59 06:59 14:59 Other: Weight 90.718 kg Results CBC & Chem 7: 02/03/22 11:19 02/03/22 11:19 Labs: Abnormal Lab Results - Last 24 Hours (Table) 02/03/22 Range/Units 11:19 Sodium 136 L (137-145) mmol/L Total Protein 9.2 H (6.3-8.2) g/dL Assessment and Plan Plan: 1patient with bilateral lower extremity venous stasis ulcer and concern for secondary cellulitis the patient overall wound base With no evidence of any slough tissue there was no evidence of any MRSA on the culture positive recently. 2discontinue vancomycin. 3we will start the patient on oral Cipro and Flagyl to cover for the pathogen grew on his last culture. 4local wound care with dry Aquacel silver dressing change every 48 hours. Patient will likely need placement in view of noncompliance with the treatment. We will follow on clinical condition and cultures to further adjust medication if needed Thank you for this consultation will follow this patient along with you Time with Patient: Less than 30
[2022-02-03] MEDS: metroNIDAZOLE 500 MG TAB PO SCH (23:06)
[2022-02-03] MEDS: CIPROFLOXACIN HCL 500 MG TAB PO SCH (23:06)
[2022-02-04] MEDS: HYDROcodone/APAP 5-325MG 1 EACH TAB PO PRN ×4 (04:25→22:27)
[2022-02-04] MEDS: HEPARIN SODIUM,PORCINE/PF 5,000 UNIT/0.5 ML SYRINGE SQ SCH ×2 (07:57→20:21)
[2022-02-04] MEDS: CIPROFLOXACIN HCL 500 MG TAB PO SCH ×2 (08:00→20:23)
[2022-02-04] MEDS: GABAPENTIN 100 MG CAP PO SCH ×3 (08:00→20:23)
[2022-02-04] MEDS: metroNIDAZOLE 500 MG TAB PO SCH ×3 (08:01→20:23)
[2022-02-04] MEDS: MORPHINE SULFATE 4 MG/ML SYRINGE IV PRN ×3 (08:02→20:52)
[2022-02-04 10:38] LABS: Basophils # (A) 0.07 X 10*3/uL (0.00-0.10); Basophils % (A) 1.5 %; Eosinophils # (A) 0.25 X 10*3/uL (0.04-0.35); Eosinophils % (A) 5.2 %; HGB 11.2 g/dL (13.0-17.0); Immature Grans, Automated 0.6 %; Lymphocytes # (A) 1.73 X 10*3/uL (0.90-5.00); Lymphocytes % (A) 36.3 %; MCH 27.5 pg (27.0-32.0); MCHC 30.3 g/dL (32.0-37.0); MCV 90.9 fL (80.0-97.0); Mean Platelet Volume 9.9 fL (9.5-12.2); Monocytes # (A) 0.65 X 10*3/uL (0.20-1.00); Monocytes % (A) 13.6 %; NRBC Per 100 WBC 0 /100 WBCS (0.0-0.0); Neutrophils # (A) 2.04 X 10*3/uL (1.80-7.70); Neutrophils % (A) 42.8 %; Platelet Count 357 X 10*3/uL (140-440); RBC 4.07 X 10*6/uL (4.40-5.60); RDW 13.7 % (11.5-14.5); WBC 4.77 X 10*3/uL (4.50-10.00)
[2022-02-04 11:03] LABS: African American GFR (CKD) 97.8 (60.0-200.0); Anion Gap 7.3 mmol/L (10.00-18.00); BUN/Creat Ratio 10.8 Ratio (12.00-20.00); Blood Urea Nitrogen 10.8 mg/dL (9.0-27.0); Calcium 8.4 mg/dL (8.7-10.3); Carbon Dioxide 27.7 mmol/L (20.0-27.5); Non-African American GFR(CKD) 84.4 (60.0-200.0); Potassium 4.5 mmol/L (3.5-5.5)
--- NOTE | 2022-02-04 15:42 | P.PN ---
Subjective Progress Note Date: 02/04/22 This is a 56-year-old male who was recently admitted with diabetic foot ulcers that have been ongoing over the last 3 months with recent admission and patient left AGAINST MEDICAL ADVICE. Patient is being closely monitored and infectious disease is following. Patient was readmitted with features of cellulitis and failure of outpatient treatment. Patient was also recently seen by vascular surgery and underwent debridement and noncompliant with follow-up and continues to have lower extremity pain. Infectious disease is following and patient is maintained on oral Flagyl and Cipro in case management also following working on possible ECF. Patient is high risk for noncompliance and has been hospitalized and left AGAINST MEDICAL ADVICE. Patient currently does not have a primary care provider and will provide resources to establish once stabilized and discharged. Patient to continue with local wound care. Patient is currently afebrile and denies any chest pain or shortness of breath. Patient is tolerating diet with no reports of nausea or vomiting noted. Review of systems: Constitutional: No reports of fatigue, fever, or chills Cardiovascular: No reports of chest pain or palpitations Respiratory: No reports of shortness of breath or cough GI: reports of nausea, no reports of of vomiting, patient is passing gas : No reports of dysuria or retention Neurovascular: reports of generalized weakness, reports bilateral lower extremity and feet pain All medications have been reviewed Active Medications Acetaminophen (Acetaminophen Tab 325 Mg Tab) 650 mg PO Q6HR PRN PRN Reason: Mild Pain or Fever > 100.5 Hydrocodone Bitart/Acetaminophen (Hydrocodone/Apap 5-325mg 1 Each Tab) 1 each PO Q4H PRN PRN Reason: Pain Ciprofloxacin (Ciprofloxacin Hcl 500 Mg Tab) 500 mg PO BID [facility]; Protocol Last Admin: 02/04/22 08:00 Dose: 500 mg Gabapentin (Gabapentin 100 Mg Cap) 100 mg PO TID [facility] Last Admin: 02/04/22 08:00 Dose: 100 mg Heparin Sodium (Porcine) (Heparin Sodium,Porcine/Pf 5,000 Unit/0.5 Ml Syringe) 5,000 unit SQ Q12HR [facility] Last Admin: 02/04/22 07:57 Dose: Not Given Sodium Chloride (Saline 0.9%) 1,000 mls @ 130 mls/hr IV .Q7H42M [facility] Last Admin: 02/03/22 23:10 Dose: Not Given Ibuprofen (Ibuprofen 600 Mg Tab) 600 mg PO TID PRN PRN Reason: Pain Lorazepam (Lorazepam 0.5 Mg Tab) 0.5 mg PO Q8HR PRN PRN Reason: Anxiety Metronidazole (Metronidazole 500 Mg Tab) 500 mg PO TID [facility]; Protocol Last Admin: 02/04/22 08:01 Dose: 500 mg Morphine Sulfate (Morphine Sulfate 4 Mg/Ml Syringe) 4 mg IV Q4HR PRN PRN Reason: Severe Pain Last Admin: 02/04/22 13:25 Dose: 4 mg Naloxone HCl (Naloxone 0.4 Mg/Ml 1 Ml Vial) 0.2 mg IV Q2M PRN PRN Reason: Opioid Reversal Ondansetron HCl (Ondansetron 4 Mg/2 Ml Vial) 4 mg IVP Q8HR PRN PRN Reason: Nausea And Vomiting Temazepam (Temazepam 15 Mg Cap) 15 mg PO HS PRN PRN Reason: Insomnia PHYSICAL EXAMINATION: GENERAL: The patient is alert and oriented x4, Well developed, well nourished. HEENT: Pupils are round and equally reacting to light. EOMI. no scleral icterus. No conjunctival pallor. Normocephalic, atraumatic. No pharyngeal erythema. No thyromegaly. CARDIOVASCULAR: S1 and S2 muffled PULMONARY: diminished breath sounds bilaterally with no wheezing and a few scat tered rhonchi noted. ABDOMEN: soft. Nontender on exam. non-distended, normoactive bowel sounds. No palpable organomegaly. MUSCULOSKELETAL: No joint swelling or deformity. EXTREMITIES: No cyanosis, clubbing, or pedal edema. Bilateral lower extremities with dressings noted with some bilateral cellulitis and ulcers also present, grade 2 on both dorsum NEUROLOGICAL: Gross neurological examination did not reveal any focal deficits. Diffuse weakness SKIN: No rashes. Assessment: Bilateral foot cellulitis and failure of outpatient treatment History of noncompliance hepatitis C Degenerative joint disease anxiety/bipolar GI prophylaxis DVT prophylaxis Full code Plan: Recommend to continue with current medications and management infectious disease following . Patient did have recent debridement with vascular surgery and currently maintained on oral antibiotics. Patient continues to have severe pain of bilateral lower extremities and will titrate pain medications. Case management also following and working on possible ECF. Blood cultures remain negative. Recommend continue with local wound care per infectious disease. Will have physical therapy evaluate the patient and plan for possible ECF. Patient is extremely noncompliant and has had multiple hospitalizations and left AGAINST MEDICAL ADVICE and currently does not have a primary care provider in the outpatient setting. Due to multiple complex medical issues, prognosis is guarded. The impression and plan of care has been dictated by Melissa Stafford, nurse practitioner as directed. MD Poncho I have performed a history and examination and MDM of this patient, discussed the same with the dictator, and agree with the dictator's assessment and plan as written ,documented as a scribe. Based on total visit time, I have performed more than 50% of the visit. Any additional findings or plans will be noted. Objective - Vital Signs Vital signs: Vital Signs Temp 98.6 F 02/04/22 14:00 Pulse 65 02/04/22 14:00 Resp 18 02/04/22 14:00 BP 117/70 02/04/22 14:00 Pulse Ox 96 02/04/22 14:00 FiO2 Intake & Output 02/03/22 02/04/22 02/04/22 18:59 06:59 18:59 Intake Total 770 1000 Output Total 2100 Balance 770 -1100 Weight 90.718 kg Intake: Intake, IV Titration 770 Amount Sodium Chloride 0.9% 1, 520 000 ml @ 130 mls/hr IV . Q7H42M [facility] Rx#:[id number] Vancomycin 1,500 mg In 250 Sodium Chloride 0.9% 250 ml @ 125 mls/hr IVPB Q8H [facility] Rx#:[id number] Oral 1000 Output: Urine 2100 Other: Voiding Method Urinal Urinal # Voids 5 # Bowel Movements 0 0 - Labs CBC & Chem 7: 02/04/22 05:33 02/04/22 05:33 Labs: Abnormal Lab Results - Last 24 Hours (Table) 02/04/22 02/04/22 Range/Units 05:33 05:33 RBC 4.07 L (4.40-5.60) X 10*6/uL Hgb 11.2 L (13.0-17.0) g/dL Hct 37.0 L (39.6-50.0) % MCHC 30.3 L (32.0-37.0) g/dL Carbon Dioxide 27.7 H (20.0-27.5) mmol/L Anion Gap 7.30 L (10.00-18.00) mmol/L BUN/Creatinine Ratio 10.80 L (12.00-20.00) Ratio Calcium 8.4 L (8.7-10.3) mg/dL Microbiology - Last 24 Hours (Table) 02/03/22 11:00 Blood Culture - Preliminary Blood No Growth after 24 hours 02/03/22 11:00 Blood Culture - Preliminary Blood No Growth after 24 hours
[2022-02-04] MEDS: SODIUM CHLORIDE 0.9% 1,000 ML IV SCH ×2 (16:20→20:24)
[2022-02-04] MEDS: TEMAZEPAM 15 MG CAP PO PRN (22:27)
[2022-02-05] MEDS: HYDROcodone/APAP 5-325MG 1 EACH TAB PO PRN ×4 (03:08→21:16)
[2022-02-05] MEDS: SODIUM CHLORIDE 0.9% 1,000 ML IV SCH ×3 (03:09→18:01)
[2022-02-05] MEDS: MORPHINE SULFATE 4 MG/ML SYRINGE IV PRN ×3 (05:45→18:14)
[2022-02-05] MEDS: GABAPENTIN 100 MG CAP PO SCH ×3 (09:02→21:16)
[2022-02-05] MEDS: metroNIDAZOLE 500 MG TAB PO SCH ×3 (09:02→21:16)
[2022-02-05] MEDS: CIPROFLOXACIN HCL 500 MG TAB PO SCH ×2 (09:03→21:17)
[2022-02-05] MEDS: HEPARIN SODIUM,PORCINE/PF 5,000 UNIT/0.5 ML SYRINGE SQ SCH ×3 (09:03→21:17)
--- NOTE | 2022-02-05 15:29 | P.PN ---
Subjective Progress Note Date: 02/05/22 This is a 56-year-old male who was recently admitted with diabetic foot ulcers that have been ongoing over the last 3 months with recent admission and patient left AGAINST MEDICAL ADVICE. Patient is being closely monitored and infectious disease is following. Patient was readmitted with features of cellulitis and failure of outpatient treatment. Patient was also recently seen by vascular surgery and underwent debridement and noncompliant with follow-up and continues to have lower extremity pain. Infectious disease is following and patient is maintained on oral Flagyl and Cipro in case management also following working on possible ECF. Patient is high risk for noncompliance and has been hospitalized and left AGAINST MEDICAL ADVICE. Patient currently does not have a primary care provider and will provide resources to establish once stabilized and discharged. Patient to continue with local wound care. Patient is currently afebrile and denies any chest pain or shortness of breath. Patient is tolerating diet with no reports of nausea or vomiting noted. 02/05/2022 Patient is seen in follow-up this morning reports his pain is somewhat improved although continues to have pain. Patient is maintained on Cipro and Flagyl with infectious disease following closely. Case management also following and working on ECF for continued wound care and antibiotic therapy. Patient reports he is willing to go for continued care as he has previously refused. Recommend continue with local wound care and awaiting insurance authorization at this time. Patient denies chest pain or palpitations. Patient denies any shortness of breath or abdominal discomfort. Patient is tolerating diet with no reports of nausea or vomiting noted. Patient is afebrile. Recommend continued physical therapy evaluation. Review of systems: Constitutional: No reports of fatigue, fever, or chills Cardiovascular: No reports of chest pain or palpitations Respiratory: No reports of shortness of breath or cough GI: reports of nausea, no reports of of vomiting, no reports of diarrhea : No reports of dysuria or retention Neurovascular: reports of generalized weakness, reports bilateral lower extremity and feet pain All medications have been reviewed PHYSICAL EXAMINATION: GENERAL: The patient is alert and oriented x4, Well developed, well nourished. HEENT: Pupils are round and equally reacting to light. EOMI. no scleral icterus. No conjunctival pallor. Normocephalic, atraumatic. No pharyngeal erythema. No thyromegaly. CARDIOVASCULAR: S1 and S2 muffled PULMONARY: diminished breath sounds bilaterally with no wheezing and a few scattered rhonchi noted. ABDOMEN: soft. Nontender on exam. non-distended, normoactive bowel sounds. No palpable organomegaly. MUSCULOSKELETAL: No joint swelling or deformity. EXTREMITIES: No cyanosis, clubbing, or pedal edema. Bilateral lower extremities with dressings noted with some bilateral cellulitis and ulcers also present, grade 2 on both dorsum NEUROLOGICAL: Gross neurological examination did not reveal any focal deficits. Diffuse weakness SKIN: No rashes. Assessment: Bilateral foot cellulitis and failure of outpatient treatment History of noncompliance hepatitis C Degenerative joint disease anxiety/bipolar GI prophylaxis DVT prophylaxis Full code Plan: Recommend to continue with current medications and management infectious disease following . Patient did have recent debridement with vascular surgery and currently maintained on oral antibiotics. Patient continues to have severe pain of bilateral lower extremities and have adjusted pain medications. Patient reporting 7 out of 10 on the pain scale. Case management also following and working on possible ECF as patient is now agreeable and working on possible [place] and awaiting for insurance authorization at this time.. Blood cultures remain negative. Recommend continue with local wound care per infectious disease. Will have physical therapy follow the patient and plan for possible ECF. Patient is extremely noncompliant and has had multiple hospitalizations a nd left AGAINST MEDICAL ADVICE and currently does not have a primary care provider in the outpatient setting. Patient is now agreeable to rehab and moving forward with the treatment plan. Due to multiple complex medical issues, prognosis is guarded. The impression and plan of care has been dictated by Melissa Stafford, nurse practitioner as directed. MD Poncho I have performed a history and examination and MDM of this patient, discussed the same with the dictator, and agree with the dictator's assessment and plan as written ,documented as a scribe. Based on total visit time, I have performed more than 50% of the visit. Any additional findings or plans will be noted. Objective - Vital Signs Vital signs: Vital Signs Temp 98.6 F 02/05/22 13:45 Pulse 65 02/05/22 13:45 Resp 18 02/05/22 13:45 BP 128/74 02/05/22 13:45 Pulse Ox 99 02/05/22 13:45 FiO2 Intake & Output 02/04/22 02/05/22 02/05/22 18:59 06:59 18:59 Intake Total 1856 2200 296 Output Total 600 4250 Balance 1256 -2049 296 Intake: Intake, IV Titration 1560 1200 Amount Sodium Chloride 0.9% 1, 1560 1200 000 ml @ 130 mls/hr IV . Q7H42M [facility] Rx#:[id number] Oral 296 1000 296 Output: Urine 600 4250 Other: Voiding Method Urinal Urinal Urinal # Voids 5 # Bowel Movements 0 0 - Labs CBC & Chem 7: 02/04/22 05:33 02/04/22 05:33 Labs: Microbiology - Last 24 Hours (Table) 02/03/22 11:00 Blood Culture - Preliminary Blood No Growth after 48 hours 02/03/22 11:00 Blood Culture - Preliminary Blood No Growth after 48 hours
[2022-02-05] MEDS: TEMAZEPAM 15 MG CAP PO PRN (22:28)
[2022-02-06] MEDS: HYDROcodone/APAP 5-325MG 1 EACH TAB PO PRN (05:33)
[2022-02-06] MEDS: SODIUM CHLORIDE 0.9% 1,000 ML IV SCH ×2 (05:44→10:53)
[2022-02-06] MEDS: MORPHINE SULFATE 4 MG/ML SYRINGE IV PRN (07:05)
--- NOTE | 2022-02-06 08:56 | P.PN ---
Subjective Progress Note Date: 02/04/22 Principal diagnosis: Bilateral lower extremity ulcer and cellulitis Patient is a 56-year-old -Malawian male with a past medical history significant for bilateral lower extremity ulcerations and cellulitis noncompliance with treatment and did have multiple episodes of AMA, presented back to hospital for pain the lower extremity wound and has been admitted for cellulitis and placement. On today's evaluation that is 02/04/2022, the patient denies having any fever or chills, patient is still complaining of pain to the lower extremity wound area, patient denies having any chest pain or shortness of cough no abdominal pain or any diarrhea Objective - Vital Signs Vital signs: Vital Signs Temp 98.6 F 02/04/22 14:00 Pulse 65 02/04/22 14:00 Resp 18 02/04/22 14:00 BP 117/70 02/04/22 14:00 Pulse Ox 96 02/04/22 14:00 FiO2 Intake & Output 02/03/22 02/04/22 02/04/22 18:59 06:59 18:59 Intake Total 770 1000 Output Total 2100 Balance 770 -1100 Weight 90.718 kg Intake: Intake, IV Titration 770 Amount Sodium Chloride 0.9% 1, 520 000 ml @ 130 mls/hr IV . Q7H42M [facility] Rx#:[id number] Vancomycin 1,500 mg In 250 Sodium Chloride 0.9% 250 ml @ 125 mls/hr IVPB Q8H [facility] Rx#:[id number] Oral 1000 Output: Urine 2100 Other: Voiding Method Urinal Urinal # Voids 5 # Bowel Movements 0 0 - Exam GENERAL DESCRIPTION: Middle-aged male lying in bed in no distress RESPIRATORY SYSTEM: Unlabored breathing , decreased breath sounds at bases HEART: S1 S2 regular rate and rhythm , ABDOMEN: Soft , no tenderness EXTREMITIES: Bilateral lower extremity wound with no slough tissue some swelling no significant redness - Labs CBC & Chem 7: 02/04/22 05:33 02/04/22 05:33 Labs: Abnormal Lab Results - Last 24 Hours (Table) 02/04/22 02/04/22 Range/Units 05:33 05:33 RBC 4.07 L (4.40-5.60) X 10*6/uL Hgb 11.2 L (13.0-17.0) g/dL Hct 37.0 L (39.6-50.0) % MCHC 30.3 L (32.0-37.0) g/dL Carbon Dioxide 27.7 H (20.0-27.5) mmol/L Anion Gap 7.30 L (10.00-18.00) mmol/L BUN/Creatinine Ratio 10.80 L (12.00-20.00) Ratio Calcium 8.4 L (8.7-10.3) mg/dL Microbiology - Last 24 Hours (Table) 02/03/22 11:00 Blood Culture - Preliminary Blood No Growth after 24 hours 02/03/22 11:00 Blood Culture - Preliminary Blood No Growth after 24 hours Assessment and Plan (1) Cellulitis of both lower extremities Current Visit: Yes Status: Acute Code(s): L03.115 - CELLULITIS OF RIGHT LOWER LIMB; L03.116 - CELLULITIS OF LEFT LOWER LIMB SNOMED Code(s): 396429557 Plan: 1patient with bilateral lower extremity venous stasis ulcer and concern for secondary cellulitis the patient overall wound base With no evidence of any slough tissue there was no evidence of any MRSA on the culture positive recently. 2patient to continue with oral Cipro and Flagyl to cover for the pathogen grew on his last culture. 3local wound care with dry Aquacel silver dressing change every 48 hours. Time with Patient: Less than 30
--- NOTE | 2022-02-06 08:57 | P.PN ---
Subjective Progress Note Date: 02/05/22 Principal diagnosis: Bilateral lower extremity ulcer and cellulitis Patient is a 56-year-old -Guatem[place] male with a past medical history significant for bilateral lower extremity ulcerations and cellulitis noncompliance with treatment and did have multiple episodes of AMA, presented back to hospital for pain the lower extremity wound and has been admitted for cellulitis and placement. On today's evaluation that is 02/05/2022, the patient is afebrile, patient denies any worsening pain to the lower extremity wound area, patient denies having any chest pain or shortness of cough no abdominal pain or any diarrhea Objective - Vital Signs Vital signs: Vital Signs Temp 98 F 02/05/22 07:44 Pulse 77 02/05/22 07:44 Resp 18 02/05/22 07:44 BP 112/85 02/05/22 07:44 Pulse Ox 99 02/05/22 07:44 FiO2 Intake & Output 02/04/22 02/05/22 02/05/22 18:59 06:59 18:59 Intake Total 1856 2200 296 Output Total 600 4250 Balance 1256 -2050 296 Intake: Intake, IV Titration 1560 1200 Amount Sodium Chloride 0.9% 1, 1560 1200 000 ml @ 130 mls/hr IV . Q7H42M [facility] Rx#:[id number] Oral 296 1000 296 Output: Urine 600 4250 Other: Voiding Method Urinal Urinal Urinal # Voids 5 # Bowel Movements 0 0 - Exam GENERAL DESCRIPTION: Middle-aged male lying in bed in no distress RESPIRATORY SYSTEM: Unlabored breathing , decreased breath sounds at bases HEART: S1 S2 regular rate and rhythm , ABDOMEN: Soft , no tenderness EXTREMITIES: Bilateral lower extremity wound are currently dressed no drainage on the dressing - Labs CBC & Chem 7: 02/04/22 05:33 02/04/22 05:33 Labs: Microbiology - Last 24 Hours (Table) 02/03/22 11:00 Blood Culture - Preliminary Blood No Growth after 24 hours 02/03/22 11:00 Blood Culture - Preliminary Blood No Growth after 24 hours Assessment and Plan (1) Bilateral lower extremity edema Current Visit: Yes Status: Acute Code(s): R60.0 - LOCALIZED EDEMA SNOMED Code(s): 763940497 Plan: 1patient with bilateral lower extremity venous stasis ulcer and concern for secondary cellulitis the patient overall wound base With no evidence of any slough tissue there was no evidence of any MRSA on the culture positive recently. 2local wound care with dry Aquacel silver dressing change every 48 hours. 3-patient to continue with oral Cipro and Flagyl to cover for cellulitis Time with Patient: Less than 30
[2022-02-06 09:26] VITALS: BP 99/65; PULSE 70; RESP 18; TEMP 97.8
[2022-02-06] MEDS: metroNIDAZOLE 500 MG TAB PO SCH (09:27)
[2022-02-06] MEDS: CIPROFLOXACIN HCL 500 MG TAB PO SCH (09:27)
[2022-02-06] MEDS: HEPARIN SODIUM,PORCINE/PF 5,000 UNIT/0.5 ML SYRINGE SQ SCH ×2 (09:27→09:29)
[2022-02-06] MEDS: GABAPENTIN 100 MG CAP PO SCH (09:28)
--- NOTE | 2022-02-06 11:38 | P.DS ---
Providers Date of admission: 02/03/22 12:14 Expected date of discharge: 02/06/22 Attending physician: Shannon Vega Consults: 02/03/22 12:11 Consult Physician Routine Consulting Provider: Michelle Kaminski Consult Reason/Comments: bilateral lower extremity venous stasis ulcer infection with cellulitis Do you want consulting provider notified?: Yes Primary care physician: Stated None Hospital Course: Final diagnosis Discharge disposition Patient is being discharged in a stable condition with guarded prognosis to [facility] for continued PT/OT therapy. Patient will follow-up with primary care provider and also wound care Dr. Kaminski in the outpatient setting upon discharge. Patient is to continue with Cipro 500 mg twice daily for the next 10 days along with Flagyl 3 times a day for the next 10 days as scheduled. Total time taken is greater than 35 minutes. Hospital course This is a 56-year-old male who was recently admitted with bilateral lower extremity cellulitis with failed outpatient treatment and has high history of noncompliance and has left AGAINST MEDICAL ADVICE multiple times. Patient will require placement to accommodate wound care and also medication compliance. Patient will need follow-up with wound care along with vascular surgery on discharge. Currently no reports of chest pain, shortness of breath, or palpitations. Patient is afebrile. No reports of nausea or vomiting and patient is tolerating diet. Patient will be going to [facility] today. Physical exam: Gen: This is a 56-year-old male awake, alert and oriented 3, well-developed, well-nourished. HEENT: Head is atraumatic, normocephalic. Pupils equal, round. Sclerae is anicteric. NECK: Supple. No JVD. No lymphadenopathy. No thyromegaly. LUNGS: Clear to auscultation. No wheezes or rhonchi. No intercostal retractions. HEART: Regular rate and rhythm. No murmur. ABDOMEN: Soft. Bowel sounds are present. No masses. No tenderness. EXTREMITIES: No pedal edema. No calf tenderness. NEUROLOGICAL: Patient is awake, alert and oriented x3. Cranial nerves 2 through 12 are grossly intact. Diffusely weak Please refer to medication reconciliation sheet for a list of medications. The impression and plan of care has been dictated by Melissa Stafford, Nurse Practitioner as directed. Dr. Matthew MD I have performed a history and examination and MDM of this patient, discussed the same with the dictator, and agree with the dictator's assessment and plan as written ,documented as a scribe. Based on total visit time, I have performed more than 50% of the visit. Patient Condition at Discharge: Good Plan - Discharge Summary Discharge Rx Participant: Yes New Discharge Prescriptions: New Ciprofloxacin HCl [Cipro] 500 mg PO BID 10 Days #20 tab metroNIDAZOLE [Flagyl] 500 mg PO TID 30 Days #30 tab Temazepam [Restoril] 15 mg PO HS PRN #3 cap PRN Reason: Insomnia HYDROcodone/APAP 5-325MG [[place] 5-325] 1 each PO Q4H PRN #6 tab PRN Reason: Pain Continue Ciprofloxacin HCl [Cipro] 500 mg PO BID 10 Days #20 tab Ibuprofen [Motrin] 600 mg PO TID PRN #30 tab PRN Reason: Pain Acetaminophen Tab [Tylenol] 650 mg PO Q6HR PRN #30 tab PRN Reason: Mild Pain Or Fever > 100.5 Gabapentin [Neurontin] 100 mg PO TID #6 cap Discontinued HYDROcodone/APAP 5-325MG [[place] 5-325] 1 tab PO Q6H PRN PRN Reason: Pain Discharge Medication List Acetaminophen Tab [Tylenol] 650 mg PO Q6HR PRN #30 tab 01/20/22 [Rx] Ciprofloxacin HCl [Cipro] 500 mg PO BID 10 Days #20 tab 01/20/22 [Rx] Ibuprofen [Motrin] 600 mg PO TID PRN #30 tab 01/20/22 [Rx] Ciprofloxacin HCl [Cipro] 500 mg PO BID 10 Days #20 tab 02/06/22 [Rx] Gabapentin [Neurontin] 100 mg PO TID #6 cap 02/06/22 [Rx] HYDROcodone/APAP 5-325MG [[place]att 5-325] 1 each PO Q4H PRN #6 tab 02/06/22 [Rx] Temazepam [Restoril] 15 mg PO HS PRN #3 cap 02/06/22 [Rx] metroNIDAZOLE [Flagyl] 500 mg PO TID 30 Days #30 tab 02/06/22 [Rx] Follow up Appointment(s)/Referral(s): Michelle Kaminski MD [STAFF PHYSICIAN] - 1 Week Basilio Baker MD [STAFF PHYSICIAN] - 1 Week Activity/Diet/Wound Care/Special Instructions: Patient is going to [facility] Activity as tolerated Follow-up with infectious disease Dr. Kaminski at the wound center in 1 week Follow-up Dr. Baker vascular in 1-2 weeks Continue current diet Discharge Disposition: TRANSFER TO SNF/ECF
== END 2022-02-06 13:08 | DRG 603 ==
LOC: EC 10:24 → 4SSUR 12:14
PROVIDERS: ADMIT Hospitalist; ATTEND Hospitalist
DX: L03.115 Cellulitis of right lower limb (principal); L03.116 Cellulitis of left lower limb; I83.029 Varicose veins of left lower extremity with ulcer of unspecified site; B19.20 Unspecified viral hepatitis C without hepatic coma; F17.290 Nicotine dependence, other tobacco product, uncomplicated; F17.200 Nicotine dependence, unspecified, uncomplicated; F31.9 Bipolar disorder, unspecified; F41.9 Anxiety disorder, unspecified; I83.019 Varicose veins of right lower extremity with ulcer of unspecified site; L97.519 Non-pressure chronic ulcer of other part of right foot with unspecified severity; L97.529 Non-pressure chronic ulcer of other part of left foot with unspecified severity; F15.11 Other stimulant abuse, in remission; E11.42 Type 2 diabetes mellitus with diabetic polyneuropathy; E11.621 Type 2 diabetes mellitus with foot ulcer; Z59.00 Homelessness unspecified; M19.90 Unspecified osteoarthritis, unspecified site; Z79.899 Other long term (current) drug therapy; Z82.49 Family history of ischemic heart disease and other diseases of the circulatory system; Z91.19 Patient's noncompliance with other medical treatment and regimen; Z28.21 Immunization not carried out because of patient refusal
CPT/HCPCS: 36415; 80048; 80053; 83605; 85025; 87040; 96361; 96365; 96375; 99284

== ENCOUNTER 2022-03-01 07:40 | Inpatient (IN) | payer MEDICAID, OTHER ==
--- NOTE | 2022-03-01 07:59 | ED ---
General Adult HPI - General Chief complaint: Recheck/Abnormal Lab/Rx Stated complaint: wounds on feet Time Seen by Provider: 03/01/22 07:43 Source: patient Mode of arrival: wheelchair Limitations: no limitations - History of Present Illness Initial comments: Dictation was produced using [employer] dictation software. please excuse any grammatical, word or spelling errors. Chief Complaint: 56-year-old male presents to the emergency department for request to be transferred back to rehab facility. History of Present Illness: She is 56-year-old male U was recently admitted to our hospital for bilateral lower extremity wounds. During that time patient had surgical debridement of bilateral lower extremity foot wounds. He is also seen by infectious disease. Patient was discharged on February 06. He was sent to [facility] rehab facility. Patient is a long-standing history of leaving its medical advice, medical noncompliance. Patient states that he left [facility] because he didn't like how he was treated there the left AGAINST MEDICAL ADVICE. Patient states he spoke with his girlfriend told to come to the emergency department to seek rehab readmission. She has been performing wound checks at home. He states that he's been taking his antibiotics as prescribed. Patient has any constitutional symptoms. States that the pain is stable. Patient has not had any follow-up. After surgical debridement patient was discharged with 10 days of ciprofloxacin. The ROS documented in this emergency department record has been reviewed and confirmed by me. Those systems with pertinent positive or negative responses have been documented in the HPI. All other systems are other negative and/or noncontributory. PHYSICAL EXAM: General Impression: Alert and oriented x3, not in acute distress HEENT: Normocephalic atraumatic, extra-ocular movements intact, pupils equal and reactive to light bilaterally, mucous membranes moist. Cardiovascular: Heart regular rate and rhythm Chest: Able to complete full sentences, no retractions, no tachypnea Abdomen: abdomen soft, non-tender, non-distended, no organomegaly Musculoskeletal: Pulses present and equal in all extremities, no peripheral edema Motor: no focal deficits noted Neurological: CN II-XII grossly intact, no focal motor or sensory deficits noted Skin: Intact with no visualized rashes Bilateral feet: There appears to be well healing nonerythematous, nondraining nonindurated wounds to the lateral portions of the bilateral feet Psych: Normal affect and mood ED course: 56-year-old male presents to the emergency department seeking rehab placement. States that his wound is not completely healed up yet. Signs upon arrival are within acceptable limits. Patient's well-appearing. His wounds appear to be stable without any signs of infection. Patient was told that he does not meet criteria for any further care workup. He saw his wounds look well. Patient told that he was given a be discharge. Told me that he is homeless and suicidal. Patient requests being evaluated by [facility]. Patient was read by [facility]. According to [facility] patient told EPS nurse that he was actively homicidal towards his ex-girlfriend since she broke up with him. Patient stated to EPS nurse that he has access to weapons. EPS recommended psychiatric admission. - Related Data Previous Rx's Medication Instructions Recorded Acetaminophen Tab [Tylenol] 650 mg PO Q6HR PRN #30 tab 01/20/22 Ciprofloxacin HCl [Cipro] 500 mg PO BID 10 Days #20 tab 01/20/22 Ibuprofen [Motrin] 600 mg PO TID PRN #30 tab 01/20/22 Ciprofloxacin HCl [Cipro] 500 mg PO BID 10 Days #20 tab 02/06/22 Gabapentin [Neurontin] 100 mg PO TID #6 cap 02/06/22 HYDROcodone/APAP 5-325MG [[place] 1 each PO Q4H PRN #6 tab 02/06/22 5-325] Temazepam [Restoril] 15 mg PO HS PRN #3 cap 02/06/22 metroNIDAZOLE [Flagyl] 500 mg PO TID 30 Days #30 tab 02/06/22 Allergies Allergy/AdvReac Type Severity Reaction Status Date / Time cashew nut Allergy Severe Anaphylaxis Verified 03/01/22 13:22 peanut Allergy Unknown Verified 03/01/22 13:22 peanut oil Allergy Unknown Verified 03/01/22 13:22 sertraline [From Zoloft] Allergy Itching Verified 03/01/22 13:22 Review of Systems ROS Statement: Those systems with pertinent positive or pertinent negative responses have been documented in the HPI. ROS Other: All systems not noted in ROS Statement are negative. Past Medical History Past Medical History: No Reported History Additional Past Medical History / Comment(s): arthritis, Hep C, neuropathy, lower extremity wounds History of Any Multi-Drug Resistant Organisms: None Reported Past Surgical History: No Surgical Hx Reported, Orthopedic Surgery Additional Past Surgical History / Comment(s): Cyst removed behind L ear Past Anesthesia/Blood Transfusion Reactions: No Reported Reaction Past Psychological History: Anxiety, Bipolar, Depression Smoking Status: Current every day smoker, Vaper Past Alcohol Use History: Occasional Past Drug Use History: Marijuana - Past Family History Mother Family Medical History: Hypertension General Exam Limitations: no limitations Course Vital Signs 03/01/22 03/01/22 07:41 11:25 Temperature 97.9 F 97.0 F L Pulse Rate 89 62 Respiratory 18 18 Rate Blood Pressure 125/70 126/75 O2 Sat by Pulse 100 97 Oximetry Medical Decision Making - Lab Data Lab Results 03/01/22 Range/Units 10:25 Coronavirus (PCR) Not Detected (Not Detectd) Disposition Clinical Impression: Psychosis Disposition: ADMITTED IP TO THIS HOSP Condition: Fair
[2022-03-01] MEDS ORDERED: HYDROcodone/APAP 5-325MG 1 EACH TAB PO STA (09:32)
[2022-03-01] MEDS ORDERED: haloperidoL 5 MG TAB PO PRN (11:23)
[2022-03-01] MEDS ORDERED: ACETAMINOPHEN TAB 325 MG TAB PO PRN (11:23)
[2022-03-01] MEDS ORDERED: MAGNESIUM HYDROXIDE 2,400 MG/10 ML CUP PO PRN (11:23)
[2022-03-01] MEDS ORDERED: LORazepam 1 MG TAB PO PRN (11:23)
[2022-03-01] MEDS ORDERED: MAG HYDROX/AL HYDROX/SIMETH 30 ML CUP PO PRN (11:23)
[2022-03-01] MEDS ORDERED: HALOPERIDOL LACTATE 5 MG/ML 1 ML VIAL IM PRN (11:23)
[2022-03-01] MEDS ORDERED: LORazepam 2 MG/ML INJ IM PRN (11:23)
[2022-03-01] MEDS: ARIPiprazole 5 MG TAB PO SCH ×2 (13:45→21:09)
[2022-03-01] MEDS: IBUPROFEN 800 MG TAB PO PRN ×2 (13:46→21:15)
--- NOTE | 2022-03-01 14:21 | P.HP ---
Psychiatric H&P - . H&P Date: 03/01/22 History & Physical: Allergies Allergy/AdvReac Type Severity Reaction Status Date / Time cashew nut Allergy Severe Anaphylaxis Verified 03/01/22 13:22 peanut Allergy Unknown Verified 03/01/22 13:22 peanut oil Allergy Unknown Verified 03/01/22 13:22 sertraline [From Zoloft] Allergy Itching Verified 03/01/22 13:22 Vital Signs Temp 98.7 F 03/01/22 13:23 Pulse 78 03/01/22 13:23 Resp 14 03/01/22 13:23 BP 122/78 03/01/22 13:23 Pulse Ox 99 03/01/22 13:23 FiO2 Intake & Output 02/28/22 03/01/22 03/01/22 18:59 06:59 18:59 Weight 87.7 kg Laboratory Last Values Coronavirus (PCR) Not Detected (Not Detectd) 03/01/22 10:25 03/01/22 14:10 Chief Complaint: 56-year-old male presents to the emergency department for request to be transferred back to rehab facility. When they could not find any problem with his feet then he wanted be admitted to the psychiatric unit. At first he said that he was having thoughts of self-harm then he wanted to harm his girlfriend. History of Present Illness: She is 56-year-old male who was recently admitted to our hospital for bilateral lower extremity wounds. During that time patient had surgical debridement of bilateral lower extremity foot wounds. He is also seen by infectious disease. Patient was discharged on February 06. He was sent to [facility] rehab facility. Patient is a long-standing history of ignoring medical advice, medical noncompliance. Patient states that he left [facility] because he didn't like how he was treated there. He left AGAINST MEDICAL ADVICE. Patient states he spoke with his girlfriend who told him to come to the emergency department to seek rehab readmission. She has been performing wound checks at home. He states that he's been taking his antibiotics as prescribed. Patient has not had any follow-up. After surgical debridement patient was discharged with 10 days of ciprofloxacin. 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 He says that he has been 20 years trying to make his girlfriend happy and that she recently got upset at him and gave away all of his memorabilia or threw it out. He says he is consumed with ideas of harming her. He said he would like to cut out her lying tongue and then bury her. He said that this would probably be legal because it would just be enforcing justice. He said that he wanted to be in the hospital so he could sleep and get help with the racing thoughts although he thought the thoughts themselves were justified. ( He is a poor historian because he keeps jumping topic and has some pressured speech). He says he has 100s of bicycles that he collects We talked about medicines he is trying the past he seemed to be positive about Seroquel but if you crank up the dose higher than 200 the needs to sleepy the next day and that he has a friend on Sharla and would like to give that a try. Mental status exam: Patient is in a wheelchair he is thin and tall says he has not had much appetite has poor eye contact flight of ideas pressured speech and mild grandiosity. He is intelligent and the things he says are within the realm of possibility but highly improbable. No clear psychotic symptoms. He is alert oriented to person place time and circumstances seems to be of above-average IQ. He could remember 3 of 3 objects after 3 minutes when asked to name the [facility] he said that he was not from here but then he got Kahlil and Mariano. He couldn't subtract 7 from 100 but then 7 from 93 was 87. When asked to spell world backward he said DL Geeta Baron thought for a while and said DL ROW. He abstracted the cats and snakes of both sneaky then he could not think of any other similarity and appeared that his mind jumped off in another direction. For the grass is greener on the other side of the fence, "he said there is a better way." When asked to name the presidents he wanted know the first letter the current president's name and then he remembered his name and the previous Pres. he got off on how he is probably going to be in alf here shortly. Social history the patient is a second of 3 children born to his parents he has an older sister who just recently of [place] it. She was diagnosed with bipolar disorder his parents stayed together dad dying and from cancer when he was 80. As far as he knows he had normal and early development he says he graduated from [employer] and then went on to school beyond that and worked as a schoolteacher for special ed. Substance: He says that he has often abuse cocaine but has been clear since about 4 years. denied Legal denied Income he says he is on SSI Diagnosis would be bipolar manic Plan Abilify 5 twice a day and Seroquel 200 at night because the patient requested's the Seroquel but wanted something to back it up that would make him so sleepy.
[2022-03-01] MEDS: QUEtiapine 200 MG TAB PO SCH (21:09)
--- NOTE | 2022-03-01 23:12 | P.CONS ---
History of Present Illness - Reason for Consult Consult date: 03/01/22 - History of Present Illness The patient is a 56-year-old male with a PMH of bilateral lower extremity nonhealing ulcers who presents to the emergency room requesting for transfer to rehab facility. Of note, the patient was recently admitted on bilateral lower extremity cellulitis requiring surgical debridement. The patient was evaluated by wound care and infectious disease and was subsequently discharged to [facility] for PT/OT on 02/06 with a course of oral antibiotics. The patient however left from the facility AGAINST MEDICAL ADVICE as he was not happy with the care he was receiving. Of note, the patient has a long-standing history of bleeding AGAINST MEDICAL ADVICE from multiple facilities. The patient was informed in the emergency room that he did not meet criteria for further hospitalization, at which time the patient complained of suicidal ideation as well as homicidal ideation against his girlfriend. Patient was admitted to the mental health unit where he was seen and evaluated. He reports that he in fact does not have any depressive thoughts or suicidal or homicidal ideation that he simply wants to be placed in a facility either rehab or a mental health unit if needed. He reports mild lower extremity pain at the site of his ulcers but denies any changes in the wounds and reports that they have been healing. Denied any additional complaints. Denied extremity chest discomfort, shortness of breath, chills, cough, nausea, vomiting, abdominal pain, diarrhea. Review of systems: Pertinent positives and negatives as discussed in HPI, a complete review of systems was performed and all other systems are negative. Physical examination: General: non toxic, no distress, appears at stated age, normal weight Derm: Right foot well healing wounds on the medial aspect with dry scab, left lateral foot large healing wound with scab, no unusual ecchymoses, warm, dry Head: atraumatic, normocephalic, symmetric Eyes: EOMI, no lid lag, anicteric sclera ENT: Nose and ears atraumatic, no thrush, no pharyngeal erythema Neck: trachea midline, supple Mouth: no lip lesion, mucus membranes moist Cardiovascular: S1S2 reg, no murmur, no edema Lungs: CTA bilateral, no rhonchi, no rales , no accessory muscle use Abdominal: soft, nontender to palpation, no guarding Ext: no gross muscle atrophy, no contractures, Neuro: No gross focal neuro deficits noted Psych: Alert, oriented, appropriate affect Assessment/plan Bilateral lower extremity ulcers -Wound care consult Depression and suicidal ideation -As per psychiatry Thank you for allowing us to participate in the care of this patient. We will follow peripherally. Do not hesitate to contact us with questions. Someone can be reached from the [facility] hospitalist group at all hours of the day at [phone]. Past Medical History Past Medical History: No Reported History Additional Past Medical History / Comment(s): arthritis, Hep C, neuropathy, lower extremity wounds History of Any Multi-Drug Resistant Organisms: None Reported Past Surgical History: No Surgical Hx Reported, Orthopedic Surgery Additional Past Surgical History / Comment(s): Cyst removed behind L ear Past Anesthesia/Blood Transfusion Reactions: No Reported Reaction Past Psychological History: Anxiety, Bipolar, Depression Smoking Status: Current every day smoker, Vaper Past Alcohol Use History: Occasional Past Drug Use History: Marijuana - Past Family History Mother Family Medical History: Hypertension Medications and Allergies Home Medications Medication Instructions Recorded Confirmed Type Acetaminophen Tab [Tylenol] 650 mg PO Q6HR PRN #30 tab 01/20/22 03/01/22 Rx Ciprofloxacin HCl [Cipro] 500 mg PO BID 10 Days #20 tab 01/20/22 03/01/22 Rx Ibuprofen [Motrin] 600 mg PO TID PRN #30 tab 01/20/22 03/01/22 Rx Ciprofloxacin HCl [Cipro] 500 mg PO BID 10 Days #20 tab 02/06/22 03/01/22 Rx Gabapentin [Neurontin] 100 mg PO TID #6 cap 02/06/22 03/01/22 Rx HYDROcodone/APAP 5-325MG [[place] 1 each PO Q4H PRN #6 tab 02/06/22 03/01/22 Rx 5-325] Temazepam [Restoril] 15 mg PO HS PRN #3 cap 02/06/22 03/01/22 Rx metroNIDAZOLE [Flagyl] 500 mg PO TID 30 Days #30 tab 02/06/22 03/01/22 Rx Allergies Allergy/AdvReac Type Severity Reaction Status Date / Time cashew nut Allergy Severe Anaphylaxis Verified 03/01/22 13:22 peanut Allergy Unknown Verified 03/01/22 13:22 peanut oil Allergy Unknown Verified 03/01/22 13:22 sertraline [From Zoloft] Allergy Itching Verified 03/01/22 13:22 Physical Exam Vitals: Vital Signs Temp Pulse Pulse Resp BP BP Pulse Ox 03/01/22 13:23 98.7 F 78 14 122/78 99 03/01/22 11:25 97.0 F L 62 18 126/75 97 03/01/22 07:41 97.9 F 89 18 125/70 100 Intake and Output 03/01/22 03/01/22 03/01/22 06:59 14:59 22:59 Other: Weight 87.7 kg
--- NOTE | 2022-03-02 08:14 | P.PN ---
Subjective Progress Note Date: 03/02/22 Principal diagnosis: Diagnosis: Bipolar darrius Pain medicine abuse Subjective: The patient changes topics every few seconds so it's hard to assess his subjective state. He said that the Seroquel helped him get to sleep just fine last night until everybody came in like [place] to look for his stashed drugs which he freely acknowledges he brought in. He said all he needed to do was ask. He denies any akathisia and he has also had a dose of Abilify. He says that although he is still angry at his sex for stealing all of his things he says his plan is to just ignore her and leave her alone and he has a new girlfriend and a place to go. Objective: His story changes every 2 minutes O's hard to establish what his resources are. He has decreased eye contact but definitely seems less belligerent and did not give the staff or hard time yesterday. Evidently he has reported by another patient to say, " if they find out about my drugs although who told them." His insight into the inappropriateness of what he did is low although he realizes that he knew he was breaking the rules. No evidence of her psychosis still some pressured speech. We talked for modest period time jumping topic and then he says can I go to breakfasts and wheeled himself out. Assessment I think he does have bipolar disorder darrius and he thought it was a great lark to figure out how to get in here and make sure he had pain medicine for his feet and sell some of it and get around our rules. He has not been aggressive with anyone but he is a big person which of course makes everybody jumpy. Plan: He is tolerating the antipsychotics well I think I'll increase Abilify to 10 twice a day with the Seroquel at night for sleep and the symptoms we can establish that he has a safe place to go and fulfill her duty to warn the ex- girlfriend I think we should look to moving him on. Objective - Vital Signs Vital signs: Vital Signs Temp 98.7 F 03/01/22 13:23 Pulse 78 03/01/22 13:23 Resp 14 03/01/22 13:23 BP 122/78 03/01/22 13:23 Pulse Ox 99 03/01/22 13:23 FiO2 Intake & Output 03/01/22 03/02/22 03/02/22 18:59 06:59 18:59 Weight 87.7 kg
[2022-03-02] MEDS: NICOTINE 14MG/24HR PATCH TRANSDERM SCH (08:50)
[2022-03-02] MEDS: ARIPiprazole 5 MG TAB PO SCH ×2 (08:50→20:42)
[2022-03-02] MEDS: IBUPROFEN 800 MG TAB PO PRN ×2 (08:52→21:08)
[2022-03-02 12:38] LABS: Appearance,Urine Clear (Clear); Bilirubin,Urine Negative (Negative); Blood,Urine Negative (Negative); Color,Urine Yellow; Glucose,Urine (UA) Negative (Negative); Ketones,Urine Negative (Negative); Leukocyte Esterase,Urine Negative (Negative); Nitrite,Urine Negative (Negative); PH, Urine 5.5 (5.0-8.0); Protein,Urine Trace (Negative); Urobilinogen,Urine <2.0 mg/dL (<2.0)
[2022-03-02 13:11] LABS: Cocaine Screen,Urine Detected (NotDetected); Phencyclidine Screen,Urine Not Detected (NotDetected); Urn Cannabinoid Scrn Detected (NotDetected)
[2022-03-02 13:12] LABS: Amphetamine Screen,Urine Not Detected (NotDetected); Barbiturate Screen,Urine Not Detected (NotDetected); Benzodiazepines Screen,Urine Not Detected (NotDetected); Methadone Screen, Urine Not Detected (NotDetected); Opiate Screen,Urine Detected (NotDetected); Oxycodone Screen, Urine Not Detected (NotDetected); Tricyclic Antidepressant,Urine Detected (NotDetected)
[2022-03-02] MEDS: QUEtiapine 200 MG TAB PO SCH (20:42)
[2022-03-03] MEDS: ARIPiprazole 5 MG TAB PO SCH (07:43)
[2022-03-03] MEDS: IBUPROFEN 800 MG TAB PO PRN ×2 (07:43→20:30)
[2022-03-03] MEDS: NICOTINE 14MG/24HR PATCH TRANSDERM SCH (07:43)
--- NOTE | 2022-03-03 11:17 | P.PN ---
Progress Note - Text Progress Note Date: 03/03/22 Interval History: Patient was seen wandering the hallways and was directable and agreeable to sp eak with procedure writer in the office. Patient appeared to be calm and cooperative with procedure writer today. He explains he is feeling "embarrassed" and was also somewhat depressed when he came into the hospital. He states that he did not want to face his oral friend about his relapse. He claims that he has been doing a little better over the weekend in terms of his anxiety and mood. He states that medications are helping him. He admitted to relapsing back on cocaine before coming into the hospital however does not seem interested in going to rehab. States that "I can stop when I want to". He claims that he has been going to groups and attending to participate. At this time patient denies any suicidal or homical ideations, intent or plan. Patient denies any auditory, visual hallucinations and denies any paranoia or delusions. Patient denies any side effects from the medications and has been compliant with meds. Mental Status Exam: General Appearance: Patient appears to be tall, male, stated age is alert, directable, and cooperative. Behavior: Patient is calmly seated without any agitated behavior. Superficial and manipulative at times. Speech: Patient's speech is fluent and nonpressured. concrete. Mood/Affect: Mood is improving mildly, affect is congruent and constricted. Suicidality/Homicidality: Patient denies having any suicidal or homicidal ideation intent or plan. Perceptions: Patient denies any visual hallucinations and denies any auditory hallucinations. Though content/process: There is no evidence of any delusional thought content and thought process is linear and goal-directed. manipulative at times. Memory and concentration: AOX3, grossly intact for the purposes of this session Judgment and insight: Improving mildly Assessment: mood disorder unspecified cocaine use disorder cannabis use disorder mild opioid abuse nicotine dependence Plan: -Patient continues to meet criteria for inpatient psychiatric admission for symptom stabilization and safety. Patient has signed adult voluntary form and medication consent and was placed in patient's chart. -Medications: D/c abilify. Continue with seroquel 200 mg qhs insomnia/mood stabilization. -When necessary Ativan and Haldol for agitation/aggression. -NRT - nicotine patch -SW on board for discharge planning. Encouraged the patient to participate in milieu. Patient is not interested in rehab at this time. likely discharge in 1-2 days. SW to call girlfriend to provide duty to warn.
[2022-03-03 20:29] VITALS: RESP 16
[2022-03-03] MEDS: QUEtiapine 200 MG TAB PO SCH (20:30)
[2022-03-04 07:11] VITALS: BP 123/64; PULSE 96; TEMP 98.3
[2022-03-04] MEDS: NICOTINE 14MG/24HR PATCH TRANSDERM SCH (08:19)
[2022-03-04] MEDS: IBUPROFEN 800 MG TAB PO PRN (08:19)
[2022-03-04] MEDS ORDERED: SODIUM HYPOCHLORITE 0.25% 480 ML BOT MISCELLANE SCH (10:15)
--- NOTE | 2022-03-04 10:19 | P.CONS ---
History of Present Illness - Reason for Consult Consult date: 03/04/22 wound care - History of Present Illness The patient is a 56-year-old male with a PMH of bilateral lower extremity nonhealing ulcers who presents to the emergency room requesting for transfer to rehab facility. Of note, the patient was recently admitted on 02/03 bilateral lower extremity cellulitis requiring surgical debridement. The patient was evaluated by wound care and infectious disease and was subsequently discharged to [facility] for PT/OT on 02/06 with a course of oral antibiotics. Patient states that he does not like what dressings on his ulcerations. He only wanted dry dressing. Patient states that he will use Dakin's only and maybe honey gel. Patient has ulcerations to bilateral lower extremities lateral aspect with fat layer exposed. Some Slough and scabbing noted. The patient however left from the facility AGAINST MEDICAL ADVICE as he was not happy with the care he was receiving. Of note, the patient has a long-standing history of bleeding AGAINST MEDICAL ADVICE from multiple facilities. Patient was admitted to the mental health unit where he was seen and evaluated. Review Of Systems: Constitutional: No fever, no chills, no night sweats. No weight change. No weakness, fatigue or lethargy. No daytime sleepiness. Integumentary:reports wounds, no lesions. No rash or pruritus. No unusual bruising. No change in hair or nails. Physical exam: General Appearance: Alert, cooperative, no distress, appears stated age. Skin: See HPI all other Skin color, texture, tugor normal, no rashes or lesions. Neurologic: Alert oriented x3 Assessment: 1. Nonhealing ulceration with fatty layer exposure right foot 2. Nonhealing ulceration with fat layer exposure left foot Plan: 1. Cleanse with Dakin's, apply honey gel, dry gauze roll gauze and secure with paper tape. Change Thursday and Thursday. Thank you for the consultation any questions please contact the wound care center DNP note has been reviewed and discussed with Dr. Hawkins and the impression and plan of care has been directed as dictated. Past Medical History Past Medical History: No Reported History Additional Past Medical History / Comment(s): arthritis, Hep C, neuropathy, lower extremity wounds History of Any Multi-Drug Resistant Organisms: None Reported Past Surgical History: No Surgical Hx Reported, Orthopedic Surgery Additional Past Surgical History / Comment(s): Cyst removed behind L ear Past Anesthesia/Blood Transfusion Reactions: No Reported Reaction Past Psychological History: Anxiety, Bipolar, Depression Smoking Status: Current every day smoker, Vaper Past Alcohol Use History: Occasional Past Drug Use History: Marijuana - Past Family History Mother Family Medical History: Hypertension Medications and Allergies Home Medications Medication Instructions Recorded Confirmed Type Acetaminophen Tab [Tylenol] 650 mg PO Q6HR PRN #30 tab 01/20/22 03/01/22 Rx Ciprofloxacin HCl [Cipro] 500 mg PO BID 10 Days #20 tab 01/20/22 03/01/22 Rx Ibuprofen [Motrin] 600 mg PO TID PRN #30 tab 01/20/22 03/01/22 Rx Ciprofloxacin HCl [Cipro] 500 mg PO BID 10 Days #20 tab 02/06/22 03/01/22 Rx Gabapentin [Neurontin] 100 mg PO TID #6 cap 02/06/22 03/01/22 Rx HYDROcodone/APAP 5-325MG [[place] 1 each PO Q4H PRN #6 tab 02/06/22 03/01/22 Rx 5-325] Temazepam [Restoril] 15 mg PO HS PRN #3 cap 02/06/22 03/01/22 Rx metroNIDAZOLE [Flagyl] 500 mg PO TID 30 Days #30 tab 02/06/22 03/01/22 Rx Allergies Allergy/AdvReac Type Severity Reaction Status Date / Time cashew nut Allergy Severe Anaphylaxis Verified 03/01/22 13:22 peanut Allergy Unknown Verified 03/01/22 13:22 peanut oil Allergy Unknown Verified 03/01/22 13:22 sertraline [From Zoloft] Allergy Itching Verified 03/01/22 13:22 Physical Exam Vitals: Vital Signs Temp Pulse Resp BP 03/04/22 07:10 98.3 F 96 123/64 03/03/22 20:27 97.4 F L 113 H 16 131/81 Assessment and Plan (1) Non-pressure chronic ulcer of other part of right foot with fat layer exposed Current Visit: Yes Status: Acute Code(s): L97.512 - NON-PRS CHRONIC ULCER OTH PRT RIGHT FOOT W FAT LAYER EXPOSED SNOMED Code(s): 093222035 (2) Non-pressure chronic ulcer of other part of left foot with fat layer exposed Current Visit: Yes Status: Acute Code(s): L97.522 - NON-PRS CHRONIC ULCER OTH PRT LEFT FOOT W FAT LAYER EXPOSED SNOMED Code(s): 373082019
--- NOTE | 2022-03-04 11:06 | P.DS ---
Providers Date of admission: 03/01/22 11:16 Expected date of discharge: 03/04/22 Attending physician: Conrad Laura MD Consults: 03/01/22 11:23 Consult Physician Routine Consulting Provider: Guicho Busby Consult Reason/Comments: New MHU Admission Do you want consulting provider notified?: Already Contacted Primary care physician: Physician Nonstaff - Discharge Diagnosis(es) (1) Mood disorder Current Visit: Yes Status: Acute Priority: High (2) Cocaine use disorder Current Visit: Yes Status: Acute Priority: High (3) Cannabis use disorder, mild, abuse Current Visit: Yes Status: Acute Priority: Low (4) Opioid abuse Current Visit: Yes Status: Acute Priority: High (5) Nicotine dependence Current Visit: Yes Status: Acute Priority: Low Hospital Course: Admission HPI: Admission note was completed by Dr Neri "56-year-old male presents to the emergency department for request to be transferred back to rehab facility. When they could not find any problem with his feet then he wanted be admitted to the psychiatric unit. At first he said that he was having thoughts of self-harm then he wanted to harm his girlfriend. She is 56-year-old male who was recently admitted to our hospital for bilateral lower extremity wounds. During that time patient had surgical debridement of bilateral lower extremity foot wounds. He is also seen by infectious disease. Patient was discharged on February 06. He was sent to [facility] facility. Patient is a long-standing history of ignoring medical advice, medical noncompliance. Patient states that he left [facility] because he didn't like how he was treated there. He left AGAINST MEDICAL ADVICE. Patient states he spoke with his girlfriend who told him to come to the emergency department to seek rehab readmission. She has been performing wound checks at home. He states that he's been taking his antibiotics as prescribed. Patient has not had any follow-up. After surgical debridement patient was discharged with 10 days of ciprofloxacin. 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 He says that he has been 20 years trying to make his girlfriend happy and that she recently got upset at him and gave away all of his memorabilia or threw it out. He says he is consumed with ideas of harming her. He said he would like to cut out her lying tongue and then bury her. He said that this would probably be legal because it would just be enforcing justice. He said that he wanted to be in the hospital so he could sleep and get help with the racing thoughts although he thought the thoughts themselves were justified. ( He is a poor historian because he keeps jumping topic and has some pressured speech). He says he has 100s of bicycles that he collects. we talked about medicines he is trying the past he seemed to be positive about Seroquel but if you crank up the dose higher than 200 the needs to sleepy the next day and that he has a friend on Abilify and would like to give that a try." Hospital course: Upon admission to the unit patient was directable and agreeable to commence treatment and signed adult voluntary form . Patient got along well with other patients on the unit and followed unit protocol. Patient was compliant with the medications and denied any side effects throughout hospital course. Patient was started on Seroquel 200 mg daily at bedtime for mood stabilization/insomnia. Abilify was discontinued. Patient spoke of his stressors and engaged in therapy both group and individual. Patient was also seen by medical team for history and physical exam. Throughout the course of the hospitalization patient gradually improved with regards to mood, anxiety, sleep and returned back to their baseline level of functioning. On the day of discharge patient denied any suicidal or homicidal ideations intent or plan denied any auditory or visual hallucinations. Patient endorsed wanting to live for his health and family. The patient denied any access to guns or weapons. Patient denied any paranoia and did not endorse any delusions. Patient does have a significant history of substance abuse and was counseled on abstaining from all substances including alcohol and marijuana. Patient was offered however declined inpatient substance- abuse rehab. Patient was also counseled on the medications and need for regular compliance and was encouraged to follow-up with their outpatient appointment for mental health and also for primary care. Prior to discharge a family meeting will be arranged by social work lecturer to answer any questions and ensure safety upon discharge. Mental status exam: General Appearance: Patient appears to be tall, -[place] male, stated age is alert, pleasant, and cooperative. Patient is in no acute distress and has improved hygiene and grooming Behavior: Patient is calmly seated without any agitated behavior. Speech: Patient's speech is fluent and nonpressured. Mood/Affect: Patient reports their mood is "good", affect is congruent and euthymic. Suicidality/Homicidality: Patient denies having any suicidal or homicidal ideation intent or plan. Perceptions: Patient denies any auditory or visual hallucinations. Though content/process: There is no evidence of any delusional thought content and thought process is linear and goal-directed. more future oriented Memory and concentration: AOX3, grossly intact for the purposes of this session. Can spell "WORLD" backwards correctly. Judgment and insight: chronically poor, however has improved with guarded prognosis Impression: Mood disorder unspecified Cocaine use disorder Cannabis use disorder mild Opioid abuse Nicotine dependence Plan: -Continue with discharge today as patient has improved and stabilized psychiatrically and is not currently an imminent threat to himself and/or others. Patient will remain at chronically elevated risk for harm to self and/or others due to his polysubstance abuse. -Continue medications: Seroquel 200 mg daily at bedtime for mood stabilization/insomnia. -Patient was counseled on the need for medication compliance and appropriate follow-up at mental health and also primary care for medical issues. Patient verbalized understanding and agreed. -Social work to arrange for and conduct family meeting to ensure safety upon discharge and answer any questions/concerns. Social work also to arrange for patients follow up appointments with [facility] for psychiatric care along with follow up with primary care provider. -Patient counseled on abstaining from recreational drugs and marijuana and alcohol. Was informed/educated on the adverse effects on their physical and mental health. Patient verbally agreed and understood]. [Patient was offered substance abuse treatment however declined at this time.] -Patient was instructed to return to the hospital or seek immediate medical care if their psychiatric or medical symptoms do worsen or reoccur. Allergies Allergy/AdvReac Type Severity Reaction Status Date / Time cashew nut Allergy Severe Anaphylaxis Verified 03/01/22 13:22 peanut Allergy Unknown Verified 03/01/22 13:22 peanut oil Allergy Unknown Verified 03/01/22 13:22 sertraline [From Zoloft] Allergy Itching Verified 03/01/22 13:22 Laboratory Results Urine Color Yellow 03/02/22 12:00 Urine Appearance Clear (Clear) 03/02/22 12:00 Urine pH 5.5 (5.0-8.0) 03/02/22 12:00 Ur Specific [place] 1.030 (1.001-1.035) 03/02/22 12:00 Urine Protein Trace (Negative) H 03/02/22 12:00 Urine Glucose (UA) Negative (Negative) 03/02/22 12:00 Urine Ketones Negative (Negative) 03/02/22 12:00 Urine Blood Negative (Negative) 03/02/22 12:00 Urine Nitrite Negative (Negative) 03/02/22 12:00 Urine Bilirubin Negative (Negative) 03/02/22 12:00 Urine Urobilinogen <2.0 mg/dL (<2.0) 03/02/22 12:00 Ur Leukocyte Esterase Negative (Negative) 03/02/22 12:00 Urine Opiates Screen Detected (NotDetected) H 03/02/22 12:00 Ur Oxycodone Screen Not Detected (NotDetected) 03/02/22 12:00 Urine Methadone Screen Not Detected (NotDetected) 03/02/22 12:00 Ur Propoxyphene Screen Not Detected (NotDetected) 03/02/22 12:00 Ur Barbiturates Screen Not Detected (NotDetected) 03/02/22 12:00 U Tricyclic Antidepress Detected (NotDetected) H 03/02/22 12:00 Ur Phencyclidine Scrn Not Detected (NotDetected) 03/02/22 12:00 Ur Amphetamines Screen Not Detected (NotDetected) 03/02/22 12:00 U Methamphetamines Scrn Not Detected (NotDetected) 03/02/22 12:00 U Benzodiazepines Scrn Not Detected (NotDetected) 03/02/22 12:00 Urine Cocaine Screen Detected (NotDetected) H 03/02/22 12:00 U Marijuana (THC) Screen Detected (NotDetected) H 03/02/22 12:00 Coronavirus (PCR) Not Detected (Not Detectd) 03/01/22 10:25 Vital Signs Temp 98.3 F 03/04/22 07:10 Pulse 96 03/04/22 07:10 Resp 16 03/03/22 20:27 BP 123/64 03/04/22 07:10 Pulse Ox 99 03/01/22 13:23 FiO2 Patient Condition at Discharge: Stable Plan - Discharge Summary Discharge Rx Participant: No New Discharge Prescriptions: New Nicotine 14Mg/24Hr Patch [Habitrol] 1 patch TRANSDERM DAILY 14 Days patch Ibuprofen [Motrin] 800 mg PO TID PRN 30 Days tab PRN Reason: Pain QUEtiapine [SEROquel] 200 mg PO HS 30 Days tab Continue Gabapentin [Neurontin] 100 mg PO TID #6 cap Ibuprofen [Motrin] 600 mg PO TID PRN #30 tab PRN Reason: Pain Discontinued Ciprofloxacin HCl [Cipro] 500 mg PO BID 10 Days #20 tab Acetaminophen Tab [Tylenol] 650 mg PO Q6HR PRN #30 tab PRN Reason: Mild Pain Or Fever > 100.5 Ciprofloxacin HCl [Cipro] 500 mg PO BID 10 Days #20 tab metroNIDAZOLE [Flagyl] 500 mg PO TID 30 Days #30 tab Temazepam [Restoril] 15 mg PO HS PRN #3 cap PRN Reason: Insomnia HYDROcodone/APAP 5-325MG [[place] 5-325] 1 each PO Q4H PRN #6 tab PRN Reason: Pain Discharge Medication List Gabapentin [Neurontin] 100 mg PO TID #6 cap 02/06/22 [Rx] Ibuprofen [Motrin] 600 mg PO TID PRN #30 tab 03/04/22 [Rx] Ibuprofen [Motrin] 800 mg PO TID PRN 30 Days tab 03/04/22 [Rx] Nicotine 14Mg/24Hr Patch [Habitrol] 1 patch TRANSDERM DAILY 14 Days patch 03/04/22 [Rx] QUEtiapine [SEROquel] 200 mg PO HS 30 Days tab 03/04/22 [Rx] Follow up Appointment(s)/Referral(s): [facility] [Outside] - 1 Week Nonstaff,Physician [Primary Care Provider] - 1-2 days [facility] [NON-STAFF] - As Needed Activity/Diet/Wound Care/Special Instructions: Avoid the use of street drugs and alcohol. Take all prescriptions as prescribed. When you are in need of refills on your medications, please contact your medical provider and/or outpatient psychiatrist to have this done. Please go to scheduled outpatient appointment for aftercare treatment. If symptoms return or become worse, call the crisis line at and/or go to the nearest emergency room for evaluation. Discharge Disposition: HOME SELF-CARE
== END 2022-03-04 11:57 | disposition home or self-care (01) | DRG 885 ==
LOC: EC 07:40 → 3MHU 11:16
PROVIDERS: ADMIT Psychiatry & Neurology Psychiatry; ATTEND Psychiatry & Neurology Psychiatry
DX: F31.2 Bipolar disorder, current episode manic severe with psychotic features (principal); R45.851 Suicidal ideations; F11.10 Opioid abuse, uncomplicated; F12.10 Cannabis abuse, uncomplicated; F14.10 Cocaine abuse, uncomplicated; B18.2 Chronic viral hepatitis C; G62.9 Polyneuropathy, unspecified; M19.90 Unspecified osteoarthritis, unspecified site; F17.210 Nicotine dependence, cigarettes, uncomplicated; F41.9 Anxiety disorder, unspecified; G47.00 Insomnia, unspecified; L97.512 Non-pressure chronic ulcer of other part of right foot with fat layer exposed; L97.522 Non-pressure chronic ulcer of other part of left foot with fat layer exposed; L98.492 Non-pressure chronic ulcer of skin of other sites with fat layer exposed; R45.850 Homicidal ideations; Z79.899 Other long term (current) drug therapy; Z91.19 Patient's noncompliance with other medical treatment and regimen; Z88.8 Allergy status to other drugs, medicaments and biological substances; Z91.018 Allergy to other foods; Z91.010 Allergy to peanuts; Z82.49 Family history of ischemic heart disease and other diseases of the circulatory system
CPT/HCPCS: 80306; 81003; 82075; 87635; 99285

== ENCOUNTER 2023-01-04 23:18 | Emergency (ER) | payer OTHER ==
[2023-01-04 23:24] VITALS: TEMP 97.8
[2023-01-04] MEDS ORDERED: MORPHINE SULFATE 4 MG/ML SYRINGE IV STA (23:42)
[2023-01-05 00:15] LABS: Basophils % (A) 1 %; Eosinophils # (A) 0.2 k/uL (0-0.7); Eosinophils % (A) 4 %; HGB 12.8 gm/dL (13.0-17.5); Lymphocytes # (A) 1.6 k/uL (1.0-4.8); Lymphocytes % (A) 36 %; MCHC 32.7 g/dL (31.0-37.0); MCV 91.9 fL (80.0-100.0); Mean Platelet Volume 6.8; Monocytes # (A) 0.3 k/uL (0-1.0); Monocytes % (A) 6 %; Neutrophils # (A) 2.3 k/uL (1.3-7.7); Neutrophils % (A) 50 %; Platelet Count 254 k/uL (150-450); RBC 4.25 m/uL (4.30-5.90); RDW 13.2 % (11.5-15.5); WBC 4.5 k/uL (3.8-10.6)
[2023-01-05 00:38] LABS: African American GFR (CKD) >90 (>60 ml/min/1.73 sqM); Anion Gap 10 mmol/L; Blood Urea Nitrogen 18 mg/dL (9-20); C Reactive Protein 2.1 mg/dL (<1.0); Calcium 8.9 mg/dL (8.4-10.2); Carbon Dioxide 25 mmol/L (22-30); Chloride 103 mmol/L (98-107); Glucose 116 mg/dL (74-99); Non-African American GFR(CKD) 85 (>60 ml/min/1.73 sqM); Potassium 4.1 mmol/L (3.5-5.1); Sodium 138 mmol/L (137-145)
--- NOTE | 2023-01-05 01:25 | US ---
EXAM: US Duplex Right Lower Extremity Veins CLINICAL HISTORY: ITS.REASON US Reason: swelling, possible DVT TECHNIQUE: Real-time duplex ultrasound scan of the right lower extremity veins integrating B-mode two-dimensional vascular structure, Doppler spectral analysis, color flow Doppler imaging and compression. COMPARISON: No relevant prior studies available. FINDINGS: Deep veins: No DVT in the visualized common femoral, femoral, proximal deep femoral or popliteal veins. The veins demonstrate normal color flow, are normally compressible, with normal phasic flow and/or augmentation response. Superficial veins: No thrombus in the visualized great saphenous vein. Soft tissues: No popliteal cyst. IMPRESSION: No DVT.
--- NOTE | 2023-01-05 02:47 | ED ---
Extremity Problem HPI - General Chief complaint: Extremity Problem,Nontraumatic Stated complaint: Swollen Leg, Pain Time Seen by Provider: 01/04/23 23:32 Source: patient Mode of arrival: ambulatory Limitations: no limitations - History of Present Illness Initial comments: This patient is a 57-year-old man who presents to evaluation of right calf pain and swelling. Has been getting worse over past 2 days or so. Patient denies acute trauma area he has not noted fever or chills. He has not noted redness or erythema. No wound or drainage. MD Complaint: extremity pain, extremity swelling -: days(s) Location: right, lower extremity History of Same: Yes -: Yes myalgia Quality: aching Consistency: constant Improves with: rest Worsens with: walking Associated Symptoms: denies other symptoms - Related Data Home Medications Medication Instructions Recorded Confirmed Sulfamethox-Tmp 800-160Mg [Bactrim 1 tab PO Q12HR 01/13/23 01/13/23 Ds] Allergies Allergy/AdvReac Type Severity Reaction Status Date / Time cashew nut Allergy Severe Anaphylaxis Verified 01/13/23 09:00 peanut Allergy Unknown Verified 01/13/23 09:00 peanut oil Allergy Unknown Verified 01/13/23 09:00 sertraline [From Zoloft] Allergy Itching Verified 01/13/23 09:00 Review of Systems ROS Statement: Those systems with pertinent positive or pertinent negative responses have been documented in the HPI. ROS Other: All systems not noted in ROS Statement are negative. Constitutional: Denies: fever, chills Respiratory: Denies: cough, dyspnea, hemoptysis Cardiovascular: Denies: chest pain, palpitations, syncope Gastrointestinal: Denies: abdominal pain, vomiting Genitourinary: Denies: dysuria, hematuria Musculoskeletal: Reports: myalgia Skin: Denies: rash, lesions Neurological: Denies: headache, weakness, numbness Past Medical History Past Medical History: No Reported History Additional Past Medical History / Comment(s): arthritis, Hep C, neuropathy, lower extremity wounds History of Any Multi-Drug Resistant Organisms: None Reported Past Surgical History: No Surgical Hx Reported, Orthopedic Surgery Additional Past Surgical History / Comment(s): bilateral feet Past Anesthesia/Blood Transfusion Reactions: No Reported Reaction Past Psychological History: Anxiety, Bipolar, Depression Smoking Status: Current every day smoker, Vaper Past Alcohol Use History: None Reported Past Drug Use History: Cocaine, Marijuana - Past Family History Mother Family Medical History: Hypertension General Exam Limitations: no limitations General appearance: alert, in no apparent distress Head exam: Present: atraumatic, normocephalic Eye exam: Present: normal appearance Respiratory exam: Present: normal lung sounds bilaterally. Absent: respiratory distress, wheezes, rales, rhonchi, stridor Cardiovascular Exam: Present: regular rate, normal rhythm, normal heart sounds. Absent: systolic murmur, diastolic murmur, rubs, gallop GI/Abdominal exam: Present: soft. Absent: distended, tenderness, guarding Extremities exam: Present: normal capillary refill, other (The patient does have swelling to the right lower extremity, mainly in the calf and there is tenderness to palpation. There is no palpable cord. No Homans sign. No wound, drainage, erythema or warmth. There is intact motor and sensory function as well as normal dorsalis pedis pulse) Back exam: Present: normal inspection. Absent: vertebral tenderness Neurological exam: Present: alert. Absent: motor sensory deficit Skin exam: Present: warm, dry, intact, normal color. Absent: rash Course Vital Signs 01/04/23 01/05/23 01/05/23 23:19 01:00 02:30 Temperature 97.8 F Pulse Rate 77 71 69 Respiratory 16 16 14 Rate Blood Pressure 178/74 132/73 113/76 O2 Sat by Pulse 100 97 99 Oximetry 01/05/23 03:40 Temperature Pulse Rate 65 Respiratory 16 Rate Blood Pressure 110/68 O2 Sat by Pulse 99 Oximetry Medical Decision Making - Medical Decision Making This patient is 57-year-old man presenting with right lower extremity pain. The workup includes duplex Doppler which was interpreted by the radiologist as being negative for acute DVT or warner's cyst. The patient did have relief of symptoms with analgesic here. The labs unremarkable. The patient at this point stable for discharge with close follow-up to ensure that this is not onset of infection or vascular problem. He is given close follow-up and strict return parameters. Was pt. sent in by a medical professional or institution (, PA, WOOD WEB WEAVING MACHINE OPERATOR, urgent care, hospital, or long-term...) When possible be specific @ -[No] Did you speak to anyone other than the patient for history (EMS, parent, family, police, friend...)? What history was obtained from this source @ -[No] Did you review nursing and triage notes (agree or disagree)? Why? @ -[I reviewed and agree with nursing and triage notes] Were old charts reviewed (outside hosp., previous admission, EMS record, old EKG, old radiological studies, urgent care reports/EKG's, long-term records)? Report findings @ -[No old charts were reviewed] Differential Diagnosis (chest pain, altered mental status, abdominal pain women, abdominal pain men, vaginal bleeding, weakness, fever, dyspnea, syncope, headache, dizziness, GI bleed, back pain, seizure, CVA, palpatations, mental health, musculoskeletal)? @ -[Differential diagnosis for the patient's unilateral leg swelling and pain include but not limited to cellulitis/infection, DVT, peripheral vascular occlusion, muscle strain, popliteal cyst, lymphangitis, amongst other conditions EKG interpreted by me (3pts min.). @ -[ X-rays interpreted by me (1pt min.). @ -[None done] CT interpreted by me (1pt min.). @ -[None done] U/S interpreted by me (1pt. min.). @ -[None done] What testing was considered but not performed or refused? (CT, X-rays, U/S, labs)? Why? @ -[None] What meds were considered but not given or refused? Why? @ -[None] Did you discuss the management of the patient with other professionals (professionals i.e. , PA, WOOD WEB WEAVING MACHINE OPERATOR, lab, RT, psych nurse, manager social, stock mixer, teacher, electronic intelligence officer, case packer and sealer)? Give summary @ -[No] Was smoking cessation discussed for >3mins.? @ -[No] Was critical care preformed (if so, how long)? @ -[No] Were there social determinants of health that impacted care today? How? (Homele ssness, low income, unemployed, alcoholism, drug addiction, transportation, low edu. Level, literacy, decrease access to med. care, fdc, rehab)? @ -[No] Was there de-escalation of care discussed even if they declined (Discuss DNR or withdrawal of care, Hospice)? DNR status @ -[No] What co-morbidities impacted this encounter? (DM, HTN, Smoking, COPD, CAD, Cancer, CVA, ARF, Chemo, Hep., AIDS, mental health diagnosis, sleep apnea, morbid obesity)? @ -[None] Was patient admitted / discharged? Hospital course, mention meds given and route, prescriptions, significant lab abnormalities, going to OR and other pertinent info. @ -[Patient discharged to have close follow-up and strict return parameters given Undiagnosed new problem with uncertain prognosis? @ -[No] Drug Therapy requiring intensive monitoring for toxicity (Heparin, Nitro, Insulin, Cardizem)? @ -[No] Were any procedures done? @ -[No] Diagnosis/symptom? @ -[Acute right leg pain and swelling Acute, or Chronic, or Acute on Chronic? @ -[Acute Uncomplicated (without systemic symptoms) or Complicated (systemic symptoms)? @ -[Uncomplicated Side effects of treatment? @ -[No] Exacerbation, Progression, or Severe Exacerbation? @ -[No] Poses a threat to life or bodily function? How? (Chest pain, [place], [place], pneumonia, PE, COPD, DKA, ARF, appy, cholecystitis, CVA, Diverticulitis, Homicidal, Suicidal, threat to staff... and all critical care pts) @ -[No] - Lab Data Result diagrams: 01/05/23 00:00 01/05/23 00:00 Lab Results 01/05/23 01/05/23 Range/Units 00:00 00:00 WBC 4.5 (3.8-10.6) k/uL RBC 4.25 L (4.30-5.90) m/uL Hgb 12.8 L (13.0-17.5) gm/dL Hct 39.0 (39.0-53.0) % MCV 91.9 (80.0-100.0) fL MCH 30.0 (25.0-35.0) pg MCHC 32.7 (31.0-37.0) g/dL RDW 13.2 (11.5-15.5) % Plt Count 254 (150-450) k/uL MPV 6.8 Neutrophils % 50 % Lymphocytes % 36 % Monocytes % 6 % Eosinophils % 4 % Basophils % 1 % Neutrophils # 2.3 (1.3-7.7) k/uL Lymphocytes # 1.6 (1.0-4.8) k/uL Monocytes # 0.3 (0-1.0) k/uL Eosinophils # 0.2 (0-0.7) k/uL Basophils # 0.0 (0-0.2) k/uL Sodium 138 (137-145) mmol/L Potassium 4.1 (3.5-5.1) mmol/L Chloride 103 (98-107) mmol/L Carbon Dioxide 25 (22-30) mmol/L Anion Gap 10 mmol/L BUN 18 (9-20) mg/dL Creatinine 0.99 (0.66-1.25) mg/dL Est GFR (CKD-EPI)AfAm >90 (>60 ml/min/1.73 sqM) Est GFR (CKD-EPI)NonAf 85 (>60 ml/min/1.73 sqM) Glucose 116 H (74-99) mg/dL Calcium 8.9 (8.4-10.2) mg/dL C-Reactive Protein 2.1 H (<1.0) mg/dL Disposition Clinical Impression: Leg ulcer Disposition: HOME SELF-CARE Condition: Good Instructions (If sedation given, give patient instructions): Chronic Wounds (ED) Is patient prescribed a controlled substance at d/c from ED?: No Referrals: None,Stated [Primary Care Provider] - 1-2 days [facility] [NON-STAFF] - 1-2 days
[2023-01-05] MEDS ORDERED: traMADol 50 MG STARTER PACK 3 TAB BTL PO STA (03:19)
[2023-01-05] MEDS ORDERED: SULFAMETH-TMP DS STARTER PACK 2 TAB BTL PO STA (03:19)
[2023-01-05 04:45] VITALS: BP 110/68; PULSE 65; RESP 16
== END 2023-01-05 04:37 | disposition home or self-care (01) ==
LOC: EC 23:18
DX: L97.219 Non-pressure chronic ulcer of right calf with unspecified severity (principal); F12.90 Cannabis use, unspecified, uncomplicated; F17.290 Nicotine dependence, other tobacco product, uncomplicated; Z86.59 Personal history of other mental and behavioral disorders; Z91.018 Allergy to other foods
CPT/HCPCS: 36415; 80048; 85025; 86140; 87040; 93971; 99284; 96374; J2270

== ENCOUNTER 2023-01-13 05:47 | Observation (INO) | payer OTHER ==
[2023-01-13] MEDS ORDERED: KETOROLAC 15 MG/ML 1 ML VIAL IVP STA (06:12)
--- NOTE | 2023-01-13 06:28 | ED ---
Extremity Problem HPI - General Chief complaint: Extremity Problem,Nontraumatic Stated complaint: Right Foot Pain Time Seen by Provider: 01/13/23 05:56 Source: patient, EMS, RN notes reviewed Mode of arrival: EMS - History of Present Illness Initial comments: This is a 57-year-old male who presents to the emergency department for right foot pain. Patient states that he has increasing pain and wounds to the right foot over the last couple of weeks. He was evaluated here on 01/05 for the same complaint. He was started on Bactrim, but believes that the wounds have gotten worse. He had an ultrasound at that time that was negative for signs of a blood clot. While he believes that the swelling has improved, as he has been elevating his feet and staying off of them, the pain and the ulcerations have started to get worse. He has also started to develop a wound to the left foot. He has not checked his temperature, but states that he has felt very hot. Denies any sore throat, cough, dyspnea, chest pain, palpitations, abdominal pain, nausea, vomiting, diarrhea, back pain, or headaches. MD Complaint: extremity pain - Related Data Home Medications Medication Instructions Recorded Confirmed Sulfamethox-Tmp 800-160Mg [Bactrim 1 tab PO Q12HR 01/13/23 01/13/23 Ds] Allergies Allergy/AdvReac Type Severity Reaction Status Date / Time cashew nut Allergy Severe Anaphylaxis Verified 01/13/23 09:00 peanut Allergy Unknown Verified 01/13/23 09:00 peanut oil Allergy Unknown Verified 01/13/23 09:00 sertraline [From Zoloft] Allergy Itching Verified 01/13/23 09:00 Review of Systems ROS Statement: Those systems with pertinent positive or pertinent negative responses have been documented in the HPI. ROS Other: All systems not noted in ROS Statement are negative. Past Medical History Past Medical History: No Reported History Additional Past Medical History / Comment(s): arthritis, Hep C, neuropathy, lower extremity wounds History of Any Multi-Drug Resistant Organisms: None Reported Past Surgical History: No Surgical Hx Reported, Orthopedic Surgery Additional Past Surgical History / Comment(s): bilateral feet Past Anesthesia/Blood Transfusion Reactions: No Reported Reaction Past Psychological History: Anxiety, Bipolar, Depression Smoking Status: Current every day smoker, Vaper Past Alcohol Use History: None Reported Past Drug Use History: Cocaine, Marijuana - Past Family History Mother Family Medical History: Hypertension General Exam Limitations: no limitations General appearance: alert, in no apparent distress Head exam: Present: atraumatic, normocephalic, normal inspection Respiratory exam: Present: normal lung sounds bilaterally. Absent: respiratory distress, wheezes, rales, rhonchi, stridor Cardiovascular Exam: Present: regular rate, normal rhythm, normal heart sounds. Absent: systolic murmur, diastolic murmur, rubs, gallop, clicks Extremities exam: Present: other (Multiple ulcerations to the dorsal aspect of the right foot. No active drainage. Swelling to the entirety of the foot with severe surrounding tenderness. One ulceration to the dorsal aspect of the left foot. Less severe than the right foot.) Neurological exam: Present: alert, oriented X3, CN II-XII intact Psychiatric exam: Present: normal affect, normal mood Course Vital Signs 01/13/23 01/13/23 01/13/23 05:49 07:42 10:00 Temperature 97.7 F Pulse Rate 74 75 71 Respiratory 16 18 16 Rate Blood Pressure 122/88 134/88 135/81 O2 Sat by Pulse 100 100 99 Oximetry 01/13/23 13:06 Temperature Pulse Rate Respiratory Rate Blood Pressure 118/77 O2 Sat by Pulse Oximetry Medical Decision Making - Medical Decision Making This is a 57-year-old male who presents to the emergency department for ulcera tions to the right foot. Was pt. sent in by a medical professional or institution? @ -No Did you speak to anyone other than the patient for history? @ -No Did you review nursing and triage notes? @ -Yes, and I agree, it is accurate with regards to the patient's symptoms. Were old charts reviewed? @ -No Differential Diagnosis? @ -Differential Foot Ulcerations/Redness: Cellulitis, Abscess, Osteomyelitis, Venous stasis changes, this is not meant to be an all-inclusive list. EKG interpreted by me (3pts min.)? @ -Not obtained X-rays interpreted by me (1pt min.)? @ -X-ray of the bilateral feet obtained. My interpretation identifies generalized soft tissue swelling. CT interpreted by me (1pt min.)? @ -Not obtained U/S interpreted by me (1pt. min.)? @ -Not obtained What testing was considered but not performed? (CT, X-rays, U/S, labs)? Why? @ -None What meds were considered but not given? Why? @ -None Did you discuss the management of the patient with other professionals? @ -Yes, Melissa Stafford, who accepts the patient for admission. Did you reconcile home meds? @ -No Was smoking cessation discussed for >3mins.? @ -No Was critical care preformed (if so, how long)? @ -No Were there social determinants of health that impacted care today? How? (Homelessness, low income, unemployed, alcoholism, drug addiction, transportation, low edu. Level, literacy, decrease access to med. care, senior care, rehab)? @ -No Was there de-escalation of care discussed even if they declined? (Discuss DNR or withdrawal of care, Hospice)? @ -No What co-morbidities impacted this encounter? (DM, HTN, Smoking, COPD, CAD, Cancer, CVA, Hep., AIDS, mental health diagnosis, sleep apnea, morbid obesity)? @ -Hx of polysubstance abuse, hepatitis C Was patient admitted / discharged? @ -Admitted. Lab work obtained and found to be nonactionable. X-ray of the bilateral feet reveal generalized soft tissue swelling. While the images appear to reflect chronic changes on the right foot, they cannot exclude a new metatarsal head erosion on the right. I tried to obtain wound cultures, however the ulcerations were fairly hardened over and the patient did not want them to be interfered with to try to get a better sample. His pain was fairly hard to control in the emergency department. Given that he has been on Bactrim and symptoms continue to worsen, as well as the fact that he is experiencing intractable pain and barely able to walk at this point, will admit patient to medicine for field outpatient management of cellulitis. He was started on IV vancomycin and cefepime. Consult placed for infectious disease. Undiagnosed new problem with uncertain prognosis? @ -None Drug Therapy requiring intensive monitoring for toxicity (Heparin, Nitro, Insulin, Cardizem)? @ -None Were any procedures done? @ -None Diagnosis/symptom? @ -Right foot cellulitis Acute, or Chronic, or Acute on Chronic? @ -Acute Uncomplicated (without systemic symptoms) or Complicated (systemic symptoms)? @ -Complicated Side effects of treatment? @ -None Exacerbation, Progression, or Severe Exacerbation] @ -Not applicable Poses a threat to life or bodily function? @ -This is impacting his ability to walk. This case was discussed in detail with the attending ED physician, Dr. Persaud. Presentation, findings, and treatment plan discussed in detail as well. - Lab Data Result diagrams: 01/13/23 06:36 01/13/23 06:36 Lab Results 01/13/23 01/13/23 01/13/23 Range/Units 06:36 06:36 06:36 WBC 4.5 (3.8-10.6) k/uL RBC 4.26 L (4.30-5.90) m/uL Hgb 12.5 L (13.0-17.5) gm/dL Hct 38.7 L (39.0-53.0) % MCV 90.9 (80.0-100.0) fL MCH 29.4 (25.0-35.0) pg MCHC 32.4 (31.0-37.0) g/dL RDW 13.1 (11.5-15.5) % Plt Count 259 (150-450) k/uL MPV 7.3 Neutrophils % 53 % Lymphocytes % 32 % Monocytes % 7 % Eosinophils % 5 % Basophils % 1 % Neutrophils # 2.4 (1.3-7.7) k/uL Lymphocytes # 1.4 (1.0-4.8) k/uL Monocytes # 0.3 (0-1.0) k/uL Eosinophils # 0.2 (0-0.7) k/uL Basophils # 0.0 (0-0.2) k/uL Sodium 138 (137-145) mmol/L Potassium 4.4 (3.5-5.1) mmol/L Chloride 103 (98-107) mmol/L Carbon Dioxide 28 (22-30) mmol/L Anion Gap 7 mmol/L BUN 19 (9-20) mg/dL Creatinine 1.17 (0.66-1.25) mg/dL Est GFR (CKD-EPI)AfAm 80 (>60 ml/min/1.73 sqM) Est GFR (CKD-EPI)NonAf 69 (>60 ml/min/1.73 sqM) Glucose 85 (74-99) mg/dL Plasma Lactic Acid Pradip 1.0 (0.7-2.0) mmol/L Calcium 8.7 (8.4-10.2) mg/dL Total Bilirubin 0.4 (0.2-1.3) mg/dL AST 42 (17-59) U/L ALT 27 (4-49) U/L Alkaline Phosphatase 59 (38-126) U/L C-Reactive Protein 2.0 H (<1.0) mg/dL Total Protein 7.6 (6.3-8.2) g/dL Albumin 3.7 (3.5-5.0) g/dL Urine Opiates Screen (NotDetected) Ur Oxycodone Screen (NotDetected) Urine Methadone Screen (NotDetected) Ur Propoxyphene Screen (NotDetected) Ur Barbiturates Screen (NotDetected) U Tricyclic Antidepress (NotDetected) Ur Phencyclidine Scrn (NotDetected) Ur Amphetamines Screen (NotDetected) U Methamphetamines Scrn (NotDetected) U Benzodiazepines Scrn (NotDetected) Urine Cocaine Screen (NotDetected) U Marijuana (THC) Screen (NotDetected) 01/13/23 Range/Units 07:52 WBC (3.8-10.6) k/uL RBC (4.30-5.90) m/uL Hgb (13.0-17.5) gm/dL Hct (39.0-53.0) % MCV (80.0-100.0) fL MCH (25.0-35.0) pg MCHC (31.0-37.0) g/dL RDW (11.5-15.5) % Plt Count (150-450) k/uL MPV Neutrophils % % Lymphocytes % % Monocytes % % Eosinophils % % Basophils % % Neutrophils # (1.3-7.7) k/uL Lymphocytes # (1.0-4.8) k/uL Monocytes # (0-1.0) k/uL Eosinophils # (0-0.7) k/uL Basophils # (0-0.2) k/uL Sodium (137-145) mmol/L Potassium (3.5-5.1) mmol/L Chloride (98-107) mmol/L Carbon Dioxide (22-30) mmol/L Anion Gap mmol/L BUN (9-20) mg/dL Creatinine (0.66-1.25) mg/dL Est GFR (CKD-EPI)AfAm (>60 ml/min/1.73 sqM) Est GFR (CKD-EPI)NonAf (>60 ml/min/1.73 sqM) Glucose (74-99) mg/dL Plasma Lactic Acid Pradip (0.7-2.0) mmol/L Calcium (8.4-10.2) mg/dL Total Bilirubin (0.2-1.3) mg/dL AST (17-59) U/L ALT (4-49) U/L Alkaline Phosphatase (38-126) U/L C-Reactive Protein (<1.0) mg/dL Total Protein (6.3-8.2) g/dL Albumin (3.5-5.0) g/dL Urine Opiates Screen Not Detected (NotDetected) Ur Oxycodone Screen Not Detected (NotDetected) Urine Methadone Screen Not Detected (NotDetected) Ur Propoxyphene Screen Not Detected (NotDetected) Ur Barbiturates Screen Not Detected (NotDetected) U Tricyclic Antidepress Not Detected (NotDetected) Ur Phencyclidine Scrn Not Detected (NotDetected) Ur Amphetamines Screen Detected H (NotDetected) U Methamphetamines Scrn Detected H (NotDetected) U Benzodiazepines Scrn Detected H (NotDetected) Urine Cocaine Screen Detected H (NotDetected) U Marijuana (THC) Screen Detected H (NotDetected) - Radiology Data Radiology results: report reviewed, image reviewed Disposition Clinical Impression: Cellulitis of right foot Disposition: ADMITTED IP TO THIS HOSP
[2023-01-13 07:03] LABS: Basophils % (A) 1 %; Eosinophils # (A) 0.2 k/uL (0-0.7); Eosinophils % (A) 5 %; HCT 38.7 % (39.0-53.0); HGB 12.5 gm/dL (13.0-17.5); Lymphocytes # (A) 1.4 k/uL (1.0-4.8); Lymphocytes % (A) 32 %; MCH 29.4 pg (25.0-35.0); MCHC 32.4 g/dL (31.0-37.0); MCV 90.9 fL (80.0-100.0); Mean Platelet Volume 7.3; Monocytes # (A) 0.3 k/uL (0-1.0); Monocytes % (A) 7 %; Neutrophils # (A) 2.4 k/uL (1.3-7.7); Neutrophils % (A) 53 %; Platelet Count 259 k/uL (150-450); RBC 4.26 m/uL (4.30-5.90); RDW 13.1 % (11.5-15.5); WBC 4.5 k/uL (3.8-10.6)
[2023-01-13 07:23] LABS: ALT 27 U/L (4-49); AST 42 U/L (17-59); African American GFR (CKD) 80 (>60 ml/min/1.73 sqM); Albumin 3.7 g/dL (3.5-5.0); Alkaline Phosphatase 59 U/L (38-126); Anion Gap 7 mmol/L; Blood Urea Nitrogen 19 mg/dL (9-20); Calcium 8.7 mg/dL (8.4-10.2); Carbon Dioxide 28 mmol/L (22-30); Chloride 103 mmol/L (98-107); Glucose 85 mg/dL (74-99); Non-African American GFR(CKD) 69 (>60 ml/min/1.73 sqM); Potassium 4.4 mmol/L (3.5-5.1); Sodium 138 mmol/L (137-145); Total Bilirubin 0.4 mg/dL (0.2-1.3); Total Protein 7.6 g/dL (6.3-8.2)
--- NOTE | 2023-01-13 07:25 | XR ---
EXAMINATION TYPE: XR foot limited bilateral DATE OF EXAM: 01/13/2023 COMPARISON: NONE HISTORY: 57-year-old male infection, pain TECHNIQUE: 2 views each side FINDINGS: Right: There is hallux valgus deformity with a bunion. Mild degenerative change first MTP joint. Some genera lized soft tissue swelling is noted. Pes planus. Hammertoes. Punctate 1 mm density at the distal wall of the foot on the lateral view not well localized on the AP view. Some well-defined, chronic appear ing erosions are suggested at the medial first metatarsal head. Left: Hallux valgus deformity with bunion. Hammertoes. Mild generalized soft tissue swelling. Tiny plantar heel spur. Mild hallux valgus. A couple punctate densities, one along the proximal ball of the foot superficiall y located and one projecting at the plantar aspect of the great toe. These also not well localized on the AP view. No acute fracture, subluxation, or dislocation seen on either side. IMPRESSION: 1. Bilateral hallux valgus deformities with bunion. 2. On the right, the medial aspect of the first metatarsal head may contain some chronic, well define d erosions that may reflect sequela of gout or prior infection. Correlate clinically to exclude any a ctive infection though this is considered less likely. 3. Generalized soft tissue swelling on both sides. Query signs of cellulitis or third spacing. Some p unctate debris is present along the sole of the forefoot on both sides, likely on the skin surface or in the superficial soft tissues. 4. Pes planus bilaterally. Bilateral hammertoes.
[2023-01-13] MEDS ORDERED: CEFEPIME 2 GM in SODIUM CHLORIDE 0.9% 100 ML IVPB STA (07:37)
[2023-01-13] MEDS ORDERED: VANCOMYCIN IV PER PHARMACY 1 EACH MISC MISCELLANE PRN (07:37)
[2023-01-13] MEDS ORDERED: VANCOMYCIN 1,500 MG in SODIUM CHLORIDE 0.9% 500 ML 500 ML IVPB STA (07:46)
[2023-01-13] MEDS ORDERED: MORPHINE SULFATE 2 MG/ML SYRINGE IVP STA (07:54)
[2023-01-13 08:15] LABS: Amphetamine Screen,Urine Detected (NotDetected); Barbiturate Screen,Urine Not Detected (NotDetected); Benzodiazepines Screen,Urine Detected (NotDetected); Cocaine Screen,Urine Detected (NotDetected); Methadone Screen, Urine Not Detected (NotDetected); Opiate Screen,Urine Not Detected (NotDetected); Oxycodone Screen, Urine Not Detected (NotDetected); Phencyclidine Screen,Urine Not Detected (NotDetected); Tricyclic Antidepressant,Urine Not Detected (NotDetected); Urn Cannabinoid Scrn Detected (NotDetected)
[2023-01-13] MEDS ORDERED: NALOXONE 0.4 MG/ML 1 ML VIAL IV PRN (08:22)
[2023-01-13] MEDS ORDERED: ACETAMINOPHEN TAB 325 MG TAB PO PRN (08:22)
[2023-01-13] MEDS ORDERED: MORPHINE SULFATE 4 MG/ML SYRINGE IV PRN (08:22)
[2023-01-13] MEDS ORDERED: ONDANSETRON 4 MG/2 ML VIAL IVP PRN (08:22)
[2023-01-13] MEDS ORDERED: KETOROLAC 15 MG/ML 1 ML VIAL IVP PRN (08:22)
--- NOTE | 2023-01-13 11:01 | P.HPIM ---
History of Present Illness 57-year-old male is admitted for right foot cellulitis and stage II to 3 ulcer on the dorsal aspect. Patient was started on Bactrim without any improvement. Patient does have chronic venous stasis of bilateral lower extremities. Patient had an ultrasound that when he was started on Bactrim this is negative for any DVT. Patient drug screen is positive for amphetamines cocaine and benzodiazepine and patient admits to using them and agrees that he has to quit. REVIEW OF SYSTEMS: CONSTITUTIONAL: No fever, no malaise, no fatigue. HEENT: No recent visual problems or hearing problems. Denied any sore throat. CARDIOVASCULAR: No chest pain, orthopnea, PND, no palpitations, no syncope. PULMONARY: No shortness of breath, no cough, no hemoptysis. GASTROINTESTINAL: No diarrhea, no nausea, no vomiting, no abdominal pain. NEUROLOGICAL: No headaches, no weakness, no numbness. HEMATOLOGICAL: Denies any bleeding or petechiae. GENITOURINARY: Denies any burning micturition, frequency, or urgency. MUSCULOSKELETAL/RHEUMATOLOGICAL: Denies any joint pain, swelling, or any muscle pain. ENDOCRINE: Denies any polyuria or polydipsia. The rest of the 14-point review of systems is negative. PHYSICAL EXAMINATION: GENERAL: The patient is alert and oriented x3, not in any acute distress. Well developed, well nourished. HEENT: Pupils are round and equally reacting to light. EOMI. No scleral icterus. No conjunctival pallor. Normocephalic, atraumatic. No pharyngeal erythema. No thyromegaly. CARDIOVASCULAR: S1 and S2 present. No murmurs, rubs, or gallops. PULMONARY: Chest is clear to auscultation, no wheezing or crackles. ABDOMEN: Soft, nontender, nondistended, normoactive bowel sounds. No palpable organomegaly. MUSCULOSKELETAL: No joint swelling or deformity. EXTREMITIES: No cyanosis, clubbing. NEUROLOGICAL: Gross neurological examination did not reveal any focal deficits. SKIN: Patient has a bilateral lower extremity venous stasis and chronic venous stasis dermatosis along with a large ulcer occupying the entire dorsal aspect of the right foot cellulitis. Assessment and plan -Cellulitis and infected ulcer on the dorsal aspect of the right foot: Patient was started on vancomycin and Cipro infectious disease was consulted wound cultures will be obtained if there is any purulence -History of hepatitis C -Chronic venous stasis dermatosis -Nicotine use: Counseling was provided -Multiple drug use counseling was provided and patient is willing to quit all these -Bipolar disorder: Patient is presently not on any medications DVT prophylaxis: Lovenox Past Medical History Past Medical History: No Reported History Additional Past Medical History / Comment(s): arthritis, Hep C, neuropathy, lower extremity wounds History of Any Multi-Drug Resistant Organisms: None Reported Past Surgical History: No Surgical Hx Reported, Orthopedic Surgery Additional Past Surgical History / Comment(s): bilateral feet Past Anesthesia/Blood Transfusion Reactions: No Reported Reaction Past Psychological History: Anxiety, Bipolar, Depression Smoking Status: Current every day smoker, Vaper Past Alcohol Use History: None Reported Past Drug Use History: Cocaine, Marijuana - Past Family History Mother Family Medical History: Hypertension Medications and Allergies Home Medications Medication Instructions Recorded Confirmed Type Sulfamethox-Tmp 800-160Mg [Bactrim 1 tab PO Q12HR 01/13/23 01/13/23 History Ds] Allergies Allergy/AdvReac Type Severity Reaction Status Date / Time cashew nut Allergy Severe Anaphylaxis Verified 01/13/23 09:00 peanut Allergy Unknown Verified 01/13/23 09:00 peanut oil Allergy Unknown Verified 01/13/23 09:00 sertraline [From Zoloft] Allergy Itching Verified 01/13/23 09:00 Physical Exam Vitals: Vital Signs Temp Pulse Resp BP Pulse Ox 01/13/23 10:00 71 16 135/81 99 01/13/23 07:42 75 18 134/88 100 01/13/23 05:49 97.7 F 74 16 122/88 100 Intake and Output 01/12/23 01/13/23 01/13/23 22:59 06:59 14:59 Other: Weight 95.254 kg Results CBC & Chem 7: 01/13/23 06:36 01/13/23 06:36 Labs: Abnormal Lab Results - Last 24 Hours (Table) 01/13/23 01/13/23 01/13/23 Range/Units 06:36 06:36 07:52 RBC 4.26 L (4.30-5.90) m/uL Hgb 12.5 L (13.0-17.5) gm/dL Hct 38.7 L (39.0-53.0) % C-Reactive Protein 2.0 H (<1.0) mg/dL Ur Amphetamines Screen Detected H (NotDetected) U Methamphetamines Scrn Detected H (NotDetected) U Benzodiazepines Scrn Detected H (NotDetected) Urine Cocaine Screen Detected H (NotDetected) U Marijuana (THC) Screen Detected H (NotDetected)
[2023-01-13] MEDS: HYDROcodone/APAP 5-325MG 1 EACH TAB PO PRN ×2 (13:05→20:27)
[2023-01-13] MEDS: IBUPROFEN 400 MG TAB PO PRN (20:30)
--- NOTE | 2023-01-13 20:39 | P.CONS ---
History of Present Illness - Reason for Consult Consult date: 01/13/23 Cellulitis right foot Requesting physician: Dilia Hardy - Chief Complaint Bilateral foot wound and pain x days - History of Present Illness Patient is a 57-year-old -[place] male with a past medical history significant for hepatitis C arthritis did have a history of venous stasis ulcer to bilateral lower extremity and [facility] same reason patient is presenting to [facility] ER for evaluation of increasing pain swelling redness and drainage from his right foot wound that apparently has been getting worse over the last week or 2 patient was evaluated at [facility] ER on 01/05/2023 for the same symptoms and the patient was discharged on Bactrim with the patient mention has been taking however did not have any improvement hence he presented back to the hospital on presentation the hospital the patient was afebrile and in no acute hemicord subsequently patient did have a normal white count kidney function has been normal he was in the normal ureteroscopy has been positive for multiple agents including him benzo marijuana and cocaine amphetamines and methamphetamines patient did have x-ray of the foot on the right medial aspect of the first metatarsal head may contain some chronic bony erosion concerning for possible gout or prior infection patient was started on vancomycin local culture has been obtained infectious disease was consulted for further management of antibiotic therapy Review of Systems Positive point and negatives has been mentioned in the HPI, complete review of systems was performed and all other systems are negative Past Medical History Past Medical History: No Reported History Additional Past Medical History / Comment(s): arthritis, Hep C, neuropathy, lower extremity wounds History of Any Multi-Drug Resistant Organisms: None Reported Past Surgical History: No Surgical Hx Reported, Orthopedic Surgery Additional Past Surgical History / Comment(s): bilateral feet Past Anesthesia/Blood Transfusion Reactions: No Reported Reaction Past Psychological History: Anxiety, Bipolar, Depression Smoking Status: Current every day smoker, Vaper Past Alcohol Use History: None Reported Past Drug Use History: Cocaine, Marijuana - Past Family History Mother Family Medical History: Hypertension Medications and Allergies Home Medications Medication Instructions Recorded Confirmed Type Acetaminophen Tab [Tylenol] 650 mg PO Q6HR PRN tab 01/15/23 Rx Doxycycline [Vibramycin] 100 mg PO BID 7 Days #14 capsule 01/15/23 Rx Famotidine [Pepcid] 20 mg PO BID #60 tablet 01/15/23 Rx HYDROcodone/APAP 5-325MG [[place] 1 tab PO Q6HR PRN 3 Days #12 tab 01/15/23 Rx 5-325] Pregabalin 100 mg PO BID 15 Days #30 cap 01/15/23 Rx Allergies Allergy/AdvReac Type Severity Reaction Status Date / Time cashew nut Allergy Severe Anaphylaxis Verified 01/13/23 09:00 peanut Allergy Unknown Verified 01/13/23 09:00 peanut oil Allergy Unknown Verified 01/13/23 09:00 sertraline [From Zoloft] Allergy Itching Verified 01/13/23 09:00 Physical Exam Vitals: Vital Signs Temp Pulse Resp BP Pulse Ox 01/13/23 10:00 71 16 135/81 99 01/13/23 07:42 75 18 134/88 100 01/13/23 05:49 97.7 F 74 16 122/88 100 Intake and Output 01/12/23 01/13/23 01/13/23 22:59 06:59 14:59 Other: Weight 95.254 kg GENERAL DESCRIPTION: Middle-aged male lying in bed, no distress. No tachypnea or accessory muscle of respiration use. HEENT: Shows Pallor , no scleral icterus. Oral mucous membrane is dry. No pharyngeal erythema or thrush NECK: Trachea central, no thyromegaly. LUNGS: Unlabored breathing. Clear to auscultation anteriorly. No wheeze or crackle. HEART: S1, S2, regular rate and rhythm. No loud murmur ABDOMEN: Soft, no tenderness , guarding or rigidity, no organomegaly EXTREMITIES: Bilateral feet did have a wound on the dorsum aspect superficial with no slough tissue no drainage SKIN: No rash, no masses palpable. NEUROLOGICAL: The patient is awake, alert, oriented x3, mood and affect normal. Results CBC & Chem 7: 01/13/23 06:36 01/15/23 07:24 Labs: Abnormal Lab Results - Last 24 Hours (Table) 01/13/23 01/13/23 01/13/23 Range/Units 06:36 06:36 07:52 RBC 4.26 L (4.30-5.90) m/uL Hgb 12.5 L (13.0-17.5) gm/dL Hct 38.7 L (39.0-53.0) % C-Reactive Protein 2.0 H (<1.0) mg/dL Ur Amphetamines Screen Detected H (NotDetected) U Methamphetamines Scrn Detected H (NotDetected) U Benzodiazepines Scrn Detected H (NotDetected) Urine Cocaine Screen Detected H (NotDetected) U Marijuana (THC) Screen Detected H (NotDetected) Assessment and Plan (1) Cellulitis of both lower extremities Status: Acute Code(s): L03.115 - CELLULITIS OF RIGHT LOWER LIMB; L03.116 - CELLULITIS OF LEFT LOWER LIMB SNOMED Code(s): 319547843 Plan: 1patient with bilateral feet ulceration mostly on the dorsal aspect of the feet with evidence of some swelling and redness concerning for cellulitis failing outpatient oral Bactrim DS therapy 2-abnormal x-ray concern for possible previous sequela of osteo versus gout 3-we will check CRP sed rate and uric acid level 4-local wound care with a dry Aquacel dressing change every 48 hour 5-vancomycin pharmacy to dose with a target trough of 15 while watching kidney function and Vanco trough closely. We will follow on clinical condition and cultures to further adjust medication if needed Thank you for this consultation we will follow the patient along with you Time with Patient: Greater than 30
[2023-01-13] MEDS: VANCOMYCIN 1,500 MG in SODIUM CHLORIDE 0.9% 500 ML 500 ML IVPB SCH (22:23)
[2023-01-13] MEDS: FAMOTIDINE 20 MG TAB PO SCH (22:25)
[2023-01-14] MEDS: IBUPROFEN 400 MG TAB PO PRN ×4 (05:32→22:32)
[2023-01-14] MEDS: HYDROcodone/APAP 5-325MG 1 EACH TAB PO PRN ×4 (05:36→20:59)
[2023-01-14] MEDS: FAMOTIDINE 20 MG TAB PO SCH ×2 (09:24→20:20)
[2023-01-14] MEDS: ENOXAPARIN 40 MG/0.4 ML SYRINGE SQ SCH (09:24)
[2023-01-14 09:30] LABS: Uric Acid 4.9 mg/dL (3.5-8.5)
[2023-01-14] MEDS: VANCOMYCIN 1,500 MG in SODIUM CHLORIDE 0.9% 500 ML 500 ML IVPB SCH ×2 (10:17→20:20)
[2023-01-14 12:03] LABS: African American GFR (CKD) >90 (>60 ml/min/1.73 sqM); Anion Gap 10 mmol/L; Blood Urea Nitrogen 15 mg/dL (9-20); Calcium 8.7 mg/dL (8.4-10.2); Carbon Dioxide 22 mmol/L (22-30); Chloride 102 mmol/L (98-107); Glucose 112 mg/dL (74-99); Non-African American GFR(CKD) 79 (>60 ml/min/1.73 sqM); Potassium 4.9 mmol/L (3.5-5.1); Sodium 134 mmol/L (137-145)
--- NOTE | 2023-01-14 13:40 | P.PN ---
Subjective Progress Note Date: 01/14/23 57-year-old male is admitted for right foot cellulitis and stage II to 3 ulcer on the dorsal aspect. Patient was started on Bactrim without any improvement. Patient does have chronic venous stasis of bilateral lower extremities. Patient had an ultrasound that when he was started on Bactrim this is negative for any DVT. Patient drug screen is positive for amphetamines cocaine and benzodiazepine and patient admits to using them and agrees that he has to quit. 01/14/2023 Patient continues to report pain and discomfort bilateral feet. Local wound care with aquacel recommended. Patient continues on IV antibiotics in the form of vancomycin, blood cultures so far are negative. Preliminary wound cultures are negative so far confirmed with flint. Review of Systems Constitutional: Denied any fatigue denied any fever. Cardio vascular: denied any chest pain, palpitations Gastrointestinal: denied any nausea, vomiting, diarrhea Pulmonary: Denied any shortness of breath cough Neurologic denied any new focal deficits All inpatient medications were reviewed and appropriate changes in these medications as dictated in the interval history and assessment and plan. PHYSICAL EXAMINATION: GENERAL: The patient is alert and oriented x3, not in any acute distress. Well developed, well nourished. HEENT: Pupils are round and equally reacting to light. EOMI. No scleral icterus. No conjunctival pallor. Normocephalic, atraumatic. No pharyngeal erythema. No thyromegaly. CARDIOVASCULAR: S1 and S2 present. No murmurs, rubs, or gallops. PULMONARY: Chest is clear to auscultation, no wheezing or crackles. ABDOMEN: Soft, nontender, nondistended, normoactive bowel sounds. No palpable organomegaly. MUSCULOSKELETAL: No joint swelling or deformity. EXTREMITIES: No cyanosis, clubbing. NEUROLOGICAL: Gross neurological examination did not reveal any focal deficits. SKIN: Patient has a bilateral lower extremity venous stasis and chronic venous stasis dermatosis along with a large ulcer occupying the entire dorsal aspect of the right foot cellulitis. Assessment and plan -Cellulitis and infected ulcer on the dorsal aspect of the right foot: Patient continues on vancomycin and local wound care with aquacel. ID is following. Wound cultures are pending. -History of hepatitis C -Chronic venous stasis dermatosis -Nicotine use: Counseling was provided -Multiple drug use counseling was provided and patient is willing to quit all these -Bipolar disorder: Patient is presently not on any medications DVT prophylaxis: Lovenox GI prophylaxs: Pepcid Full Code The impression and plan of care has been dictated by Leona Caraballo, Nurse Practitioner as directed. Dr. Matthew MD I have performed a history and physical examination and medical decision making of this patient, discussed the same with the dictator, and agree with the dictators assessment and plan as written, documented as a scribe. Based on total visit time, I have performed more than 50% of this visit. Objective - Vital Signs Vital signs: Vital Signs Temp 98.6 F 01/14/23 07:00 Pulse 76 01/14/23 07:00 Resp 18 01/14/23 07:00 BP 138/70 01/14/23 07:00 Pulse Ox 100 01/14/23 07:00 FiO2 Intake & Output 01/13/23 01/14/23 01/14/23 18:59 06:59 18:59 Intake Total 118 Output Total 1050 1200 Balance -1050 -1082 Weight 95.254 kg Intake: Oral 118 Output: Urine 1050 1200 Other: Voiding Method Urinal - Labs CBC & Chem 7: 01/13/23 06:36 01/14/23 06:29 Labs: Abnormal Lab Results - Last 24 Hours (Table) 01/14/23 01/14/23 Range/Units 06:29 06:29 Sodium 134 L (137-145) mmol/L Glucose 112 H (74-99) mg/dL C-Reactive Protein 2.0 H (<1.0) mg/dL Microbiology - Last 24 Hours (Table) 01/13/23 07:52 Blood Culture - Preliminary Blood 01/13/23 07:52 Blood Culture - Preliminary Blood Assessment and Plan Time with Patient: Less than 30
--- NOTE | 2023-01-14 14:56 | P.PN ---
Subjective Progress Note Date: 01/14/23 Principal diagnosis: Bilateral foot ulcer and cellulitis Patient is a 57-year-old -Citizen Of [place] male with a past medical history significant for hepatitis C arthritis did have a history of venous stasis ulcer to bilateral lower extremity, presented to hospital with increasing swelling redness to bilateral foot area. On today's evaluation dated 01/14/2023, the patient denies having any fever and chills, the patient is breathing comfortably no chest pain shortness of breath or cough still complaining of pain to bilateral foot area no drainage Objective - Vital Signs Vital signs: Vital Signs Temp 98.6 F 01/14/23 07:00 Pulse 76 01/14/23 07:00 Resp 18 01/14/23 07:00 BP 138/70 01/14/23 07:00 Pulse Ox 100 01/14/23 07:00 FiO2 Intake & Output 01/13/23 01/14/23 01/14/23 18:59 06:59 18:59 Intake Total 118 Output Total 1050 1200 Balance -1050 -1082 Weight 95.254 kg Intake: Oral 118 Output: Urine 1050 1200 Other: Voiding Method Urinal - Exam GENERAL DESCRIPTION: Middle-age male lying in bed in no distress RESPIRATORY SYSTEM: Unlabored breathing , decreased breath sounds at bases HEART: S1 S2 regular rate and rhythm , ABDOMEN: Soft , no tenderness EXTREMITIES: Bilateral feet dorsal ulcer some swelling - Labs CBC & Chem 7: 01/13/23 06:36 01/14/23 06:29 Labs: Abnormal Lab Results - Last 24 Hours (Table) 01/14/23 01/14/23 Range/Units 06:29 06:29 Sodium 134 L (137-145) mmol/L Glucose 112 H (74-99) mg/dL C-Reactive Protein 2.0 H (<1.0) mg/dL Assessment and Plan (1) Wound of left foot Current Visit: Yes Status: Acute Code(s): S91.302A - UNSPECIFIED OPEN WOUND, LEFT FOOT, INITIAL ENCOUNTER SNOMED Code(s): 427584496 (2) Cellulitis of right foot Current Visit: Yes Status: Acute Code(s): L03.115 - CELLULITIS OF RIGHT LOWER LIMB SNOMED Code(s): 156610319 Plan: 1patient with bilateral feet ulceration mostly on the dorsal aspect of the feet with evidence of some swelling and redness concerning for cellulitis failing outpatient oral Bactrim DS therapy 2-abnormal x-ray concern for possible previous sequela of osteo versus gout 3-patient did have a CRP of 2, sed rate 15 and uric acid level level is normal at 4.9 4-local wound care with a dry Aquacel dressing change every 48 hour 5-patient to continue vancomycin pharmacy to dose with a target trough of 15 while waiting for the consultation. Time with Patient: Less than 30
[2023-01-15] MEDS: HYDROcodone/APAP 5-325MG 1 EACH TAB PO PRN ×2 (04:44→08:52)
[2023-01-15] MEDS: IBUPROFEN 400 MG TAB PO PRN ×2 (04:44→14:34)
[2023-01-15 07:57] LABS: African American GFR (CKD) >90 (>60 ml/min/1.73 sqM); Non-African American GFR(CKD) 84 (>60 ml/min/1.73 sqM)
[2023-01-15] MEDS ORDERED: VANCOMYCIN TROUGH DUE 1 EACH MISC MISCELLANE ONE (08:00)
[2023-01-15] MEDS: VANCOMYCIN 1,500 MG in SODIUM CHLORIDE 0.9% 500 ML 500 ML IVPB SCH (08:54)
[2023-01-15] MEDS: ENOXAPARIN 40 MG/0.4 ML SYRINGE SQ SCH (08:55)
[2023-01-15] MEDS: FAMOTIDINE 20 MG TAB PO SCH (08:55)
[2023-01-15] MEDS ORDERED: HYDROcodone/APAP 10-325MG 1 EACH TAB PO PRN (14:02)
[2023-01-15 14:11] VITALS: BP 136/75; PULSE 76; RESP 16; TEMP 98.3
--- NOTE | 2023-01-15 16:01 | P.PN ---
Subjective Progress Note Date: 01/15/23 Principal diagnosis: Bilateral foot ulcer and cellulitis Patient is a 57-year-old -[place] male with a past medical history significant for hepatitis C arthritis did have a history of venous stasis ulcer to bilateral lower extremity, presented to hospital with increasing swelling redness to bilateral foot area. On today's evaluation dated 01/15/2023, the patient remains to be afebrile, the patient is breathing comfortably on room air, the patient denies chest pain sh ortness of breath or cough still complaining of pain to bilateral foot area no drainage Objective - Vital Signs Vital signs: Vital Signs Temp 98 F 01/15/23 07:00 Pulse 66 01/15/23 07:00 Resp 14 01/15/23 07:00 BP 118/77 01/15/23 07:00 Pulse Ox 100 01/15/23 07:00 FiO2 Intake & Output 01/14/23 01/15/23 01/15/23 18:59 06:59 18:59 Intake Total 118 118 Output Total 1450 200 320 Balance -1332 -200 -202 Intake: Oral 118 118 Output: Urine 1450 200 320 Other: Voiding Method Urinal # Voids 1 4 - Exam GENERAL DESCRIPTION: Middle-age male lying in bed in no distress RESPIRATORY SYSTEM: Unlabored breathing , decreased breath sounds at bases HEART: S1 S2 regular rate and rhythm , ABDOMEN: Soft , no tenderness EXTREMITIES: Bilateral feet dorsal ulcer some swelling - Labs CBC & Chem 7: 01/13/23 06:36 01/15/23 07:24 Labs: Microbiology - Last 24 Hours (Table) 01/13/23 07:52 Blood Culture - Preliminary Blood 01/13/23 07:52 Blood Culture - Preliminary Blood 01/13/23 07:52 Gram Stain - Final Foot - Right Wound Culture - Final Assessment and Plan (1) Wound of left foot Current Visit: Yes Status: Acute Code(s): S91.302A - UNSPECIFIED OPEN WOUND, LEFT FOOT, INITIAL ENCOUNTER SNOMED Code(s): 499771055 (2) Cellulitis of right foot Current Visit: Yes Status: Acute Code(s): L03.115 - CELLULITIS OF RIGHT LOWER LIMB SNOMED Code(s): 215221092 Plan: 1patient with bilateral feet ulceration mostly on the dorsal aspect of the feet with evidence of some swelling and redness concerning for cellulitis failing outpatient oral Bactrim DS therapy 2-abnormal x-ray concern for possible previous sequela of osteo versus gout 3-patient did have a CRP of 2, sed rate 15 and uric acid level level is normal at 4.9 4-local wound care with a dry Aquacel dressing change every 48 hour 5-patient local culture has been normal skin lexus antibiotic and can be switched to oral doxycycline 7 days on discharge discuss with the admitting team Time with Patient: Less than 30
[2023-01-15] MEDS ORDERED: VANCOMYCIN 1,750 MG in SODIUM CHLORIDE 0.9% 500 ML 500 ML IVPB SCH (20:00)
[2023-01-15] MEDS ORDERED: PREGABALIN 100 MG CAP PO SCH (21:00)
--- NOTE | 2023-01-16 23:44 | P.DS ---
Providers Date of admission: 01/14/23 20:13 Attending physician: Shannon Vega Consults: 01/13/23 08:22 Consult Physician Urgent Consulting Provider: Michelle Kaminski Consult Reason/Comments: Cellulitis right foot Do you want consulting provider notified?: Yes Primary care physician: Stated None Hospital Course: Final Diagnosis -Cellulitis bilateral and infected ulcer on the dorsal aspect of the right foot: wound culture showing normal lexus patient had failed outpatient therapy with bactrim. -History of hepatitis C -Chronic venous stasis dermatosis -Nicotine use: Counseling was provided -poly substance abuse counseling provided -Bipolar disorder: Patient is presently not on any medications Full Code Discharge Disposition Patient is stable for discharge home. The wound culture is showing normal lexus and patient has been discharged on 7 day course of oral doxycycline BID as recommended by infectious disease. Patient to follow up with Dr. Kaminski on discharge. Patient is discharged on lyrica BID for the peripheral neuropathy. Local wound care to continue bilateral feet with aquacel silver to open wounds with kerlex and KATHRYN wrap to change every 48 hours. Repeat labs in 2 to 3 days. Hospital Course This is a 57 year old male with medical history of chronic venous stasis ulcer, hepatitis C and poly substance abuse who presents to the hospital with complaints of increasing swelling and redness to bilateral feet. Patient was being treated outpatient for the same with oral bactrim and has failed therapy. Patient does have ulcer on the dorsal of the right foot and this was cultured. Patient was admitted to the hospital for cellulitis and infectious disease was consulted. Patient was started on IV vancomycin. Xray bilateral feet reveal bilateral hallux valgus deformities with bunion, on the right the medial aspect of the first metatarsal head may contain some chronic well defined erosions that may reflect sequela of gout or previous infection. Generalizes soft tissue swelling of both sides, query signs of cellulitis or third spacing. Some punctuate debris is present along the sole of the forefoot on both side likely on the skin surface or in the superficial soft tissues. Pes planus bilaterally. Bilateral hammertoes. Patient had elevated CRP 2.0, normal sed rate normal white count. Did have drug screen positive for methamphetamines, amphetamines, cocaine, benzodiazepines and marijuana. Patient is counseled on substance abuse cessation and he verbalizes he will understanding and has desire to quit. Wound cultures showing normal skin lexus and patient has been transitioned to oral doxycycline x 7 days and will be discharged home. Alert x 3, no chest pain no shortness of breath. Receiving norco and lyrica has been added for the bilateral foot pain. Patient to follow up with ID and establish care with a PCP on discharge. Please see medication reconciliation for a list of current medication. Thank you for allowing us to participate in the care of this patient. The impression and plan of care has been dictated by Leona Caraballo, Nurse Practitioner as directed. Dr. Matthew MD I have performed a history and physical examination and medical decision making of this patient, discussed the same with the dictator, and agree with the dictators assessment and plan as written, documented as a scribe. Based on total visit time, I have performed more than 50% of this visit. Patient Condition at Discharge: Stable Plan - Discharge Summary Discharge Rx Participant: No New Discharge Prescriptions: New Pregabalin 100 mg PO BID 15 Days #30 cap Famotidine [Pepcid] 20 mg PO BID #60 tablet Acetaminophen Tab [Tylenol] 650 mg PO Q6HR PRN tab PRN Reason: Mild Pain Or Fever > 100.5 HYDROcodone/APAP 5-325MG [[place] 5-325] 1 tab PO Q6HR PRN 3 Days #12 tab PRN Reason: Pain Doxycycline [Vibramycin] 100 mg PO BID 7 Days #14 capsule Discontinued Sulfamethox-Tmp 800-160Mg [Bactrim Ds] 1 tab PO Q12HR Discharge Medication List Acetaminophen Tab [Tylenol] 650 mg PO Q6HR PRN tab 01/15/23 [Rx] Doxycycline [Vibramycin] 100 mg PO BID 7 Days #14 capsule 01/15/23 [Rx] Famotidine [Pepcid] 20 mg PO BID #60 tablet 01/15/23 [Rx] HYDROcodone/APAP 5-325MG [[place] 5-325] 1 tab PO Q6HR PRN 3 Days #12 tab 01/15/23 [Rx] Pregabalin 100 mg PO BID 15 Days #30 cap 01/15/23 [Rx] Follow up Appointment(s)/Referral(s): [facility], [NON-STAFF] - 1 Week None,Stated [Primary Care Provider] - 1-2 days Michelle Kaminski MD [STAFF PHYSICIAN] - 1 Week (Office will call patient to schedule appointment.) Ambulatory/Diagnostic Orders: Basic Metabolic Panel [LAB.AMB] Time Frame: 3 Days, Location: None Selected Complete Blood Count w/diff [LAB.AMB] Location: None Selected Patient Instructions/Handouts: Cellulitis (ED) Activity/Diet/Wound Care/Special Instructions: Patient to follow up with [facility] on discharge Local wound care to bilateral feet with aquacel silver to open wounds with kerlex and KATHRYN wrap to change every 48 hours. Repeat labs in 2 to 3 days Follow up with Dr. Kaminski in the office in 1 week Follow up with primary care provider need to establish care Discharge/Stand Alone Forms: Area PCPs Discharge Disposition: HOME WITH HOME HEALTH SERVICES
[2023-01-17] MEDS ORDERED: VANCOMYCIN TROUGH DUE 1 EACH MISC MISCELLANE ONE (07:00)
== END 2023-01-15 20:37 | disposition home or self-care (01) ==
LOC: EC 05:47 → 6NMEDSUR 08:51 → 1SOBS 21:19 → 6NMEDSUR 01-14 13:30 → OBSVTOIN 01-14 20:13 → INTOOBSV 01-14 20:13 → UNDODISIN 01-15 20:37
PROVIDERS: ADMIT Hospitalist; ATTEND Hospitalist
DX: L03.115 Cellulitis of right lower limb (principal); L97.519 Non-pressure chronic ulcer of other part of right foot with unspecified severity; L08.9 Local infection of the skin and subcutaneous tissue, unspecified; G62.9 Polyneuropathy, unspecified; F41.9 Anxiety disorder, unspecified; F31.9 Bipolar disorder, unspecified; I87.8 Other specified disorders of veins; F19.10 Other psychoactive substance abuse, uncomplicated; F17.290 Nicotine dependence, other tobacco product, uncomplicated; Z86.19 Personal history of other infectious and parasitic diseases; Z79.899 Other long term (current) drug therapy; Z88.8 Allergy status to other drugs, medicaments and biological substances; M20.12 Hallux valgus (acquired), left foot; M20.11 Hallux valgus (acquired), right foot; M21.619 Bunion of unspecified foot; M21.42 Flat foot [pes planus] (acquired), left foot; M21.41 Flat foot [pes planus] (acquired), right foot; M20.42 Other hammer toe(s) (acquired), left foot; M20.41 Other hammer toe(s) (acquired), right foot
CPT/HCPCS: 96366 ×4; 96372 ×2; 96376; 96365; 96367; 96375; 99285; 36415; 97162; 97166; 80053; 80048; 85652; 82565; 83605; 84550; 85025; 80202; 86140 ×2; 87040; 80306; 87070; 87205; 87075; 73620; G0378 ×5; J3370 ×3; J1650 ×2; J0692; J2270; J1885 ×2

== ENCOUNTER 2024-02-19 09:33 | Emergency (ER) | payer OTHER ==
[2024-02-19 09:42] VITALS: TEMP 99.7
--- NOTE | 2024-02-19 09:44 | ED ---
Headache HPI - General Chief Complaint: Headache Stated Complaint: headache/urinary incontinence Time Seen by Provider: 02/19/24 09:34 Source: patient, EMS, RN notes reviewed Mode of arrival: EMS Limitations: no limitations - History of Present Illness Initial Comments: This is a 58 year old male who presents to the emergency department for a headache and urinary incontinence. States that it started 4 days ago. He would not describe this as the worst headache of his life. He has been sleeping most of the day as a result. Reports minor associated nausea. He has had urinary incontinence during this time frame as well. Denies any problems with his bowels or hx of similar problems in the past. Denies any pain in his back or abdomen. - Related Data Previous Rx's Medication Instructions Recorded Acetaminophen Tab [Tylenol] 650 mg PO Q6HR PRN tab 01/15/23 Doxycycline [Vibramycin] 100 mg PO BID 7 Days #14 capsule 01/15/23 Famotidine [Pepcid] 20 mg PO BID #60 tablet 01/15/23 HYDROcodone/APAP 5-325MG [[place] 1 tab PO Q6HR PRN 3 Days #12 tab 01/15/23 5-325] Pregabalin 100 mg PO BID 15 Days #30 cap 01/15/23 Naproxen Sodium 550 mg PO BID PRN #30 tablet 02/19/24 Nirmatrelvir/Ritonavir [Paxlovid 1 each PO BID 5 Days #30 tab 02/19/24 300-100 mg Dose Pack] Ondansetron Odt [Zofran Odt] 4 mg PO Q8HR PRN #20 tab 02/19/24 Allergies Allergy/AdvReac Type Severity Reaction Status Date / Time cashew nut Allergy Severe Anaphylaxis Verified 01/13/23 09:00 peanut Allergy Unknown Verified 01/13/23 09:00 peanut oil Allergy Unknown Verified 01/13/23 09:00 sertraline [From Zoloft] Allergy Itching Verified 01/13/23 09:00 Review of Systems ROS Statement: Those systems with pertinent positive or pertinent negative responses have been documented in the HPI. ROS Other: All systems not noted in ROS Statement are negative. Past Medical History Past Medical History: No Reported History Additional Past Medical History / Comment(s): arthritis, Hep C, neuropathy, lower extremity wounds History of Any Multi-Drug Resistant Organisms: None Reported Past Surgical History: No Surgical Hx Reported, Orthopedic Surgery Additional Past Surgical History / Comment(s): bilateral feet Past Anesthesia/Blood Transfusion Reactions: No Reported Reaction Past Psychological History: Anxiety, Bipolar, Depression Smoking Status: Current every day smoker, Vaper Past Alcohol Use History: None Reported Past Drug Use History: Cocaine, Marijuana - Past Family History Mother Family Medical History: Hypertension General Exam Limitations: no limitations General appearance: alert, in no apparent distress Head exam: Present: atraumatic, normocephalic, normal inspection Eye exam: Present: normal appearance, PERRL, EOMI. Absent: scleral icterus, conjunctival injection, periorbital swelling Neck exam: Present: normal inspection. Absent: meningismus Respiratory exam: Present: normal lung sounds bilaterally. Absent: respiratory distress, wheezes, rales, rhonchi, stridor Cardiovascular Exam: Present: regular rate, normal rhythm, normal heart sounds. Absent: systolic murmur, diastolic murmur, rubs, gallop, clicks Neurological exam: Present: alert, oriented X3, CN II-XII intact Psychiatric exam: Present: normal affect, normal mood Skin exam: Present: warm, dry, intact, normal color. Absent: rash Course Vital Signs 02/19/24 02/19/24 02/19/24 09:35 10:30 11:00 Temperature 99.7 F H Pulse Rate 70 53 L 56 L Respiratory 18 14 14 Rate Blood Pressure 131/65 122/80 122/80 O2 Sat by Pulse 96 98 96 Oximetry 02/19/24 02/19/24 02/19/24 11:30 12:00 12:30 Temperature Pulse Rate 64 61 74 Respiratory 18 18 18 Rate Blood Pressure 112/82 112/82 107/81 O2 Sat by Pulse Oximetry Medical Decision Making - Medical Decision Making This is a 58 year old male who presents to the emergency department for a headache and urinary incontinence. Was pt. sent in by a medical professional or institution? @ -No Did you speak to anyone other than the patient for history? @ -No Did you review nursing and triage notes? @ -Yes, and I agree, it is accurate with regards to the patient's symptoms. Were old charts reviewed? @ -No Differential Diagnosis? @ -Differential Headache: Tension headache, migraine, SAH, trauma, meningitis, this is not meant to be an all-inclusive list. EKG interpreted by me (3pts min.)? @ -EKG interpreted by me demonstrating the following: Sinus rhythm. Ventricular rate 66 bpm, PA interval 151 ms, QRS duration 86 ms, QTC 377 ms. X-rays interpreted by me (1pt min.)? @ -Not obtained CT interpreted by me (1pt min.)? @ -Not obtained U/S interpreted by me (1pt. min.)? @ -Not obtained What testing was considered but not performed? (CT, X-rays, U/S, labs)? Why? @ -None What meds were considered but not given? Why? @ -None Did you discuss the management of the patient with other professionals? @ -No Did you reconcile home meds? @ -No Was smoking cessation discussed for >3mins.? @ -I discussed smoking cessation for greater than 3 minutes. The risk of smoking were discussed with the patient including but not limited to risks of cancer, stroke, coronary artery disease and COPD. Also discussed with patient were multiple methods of quitting smoking. Lastly we discussed the financial cost of smoking. Was critical care preformed (if so, how long)? @ -No Were there social determinants of health that impacted care today? How? (Homelessness, low income, unemployed, alcoholism, drug addiction, transportation, low edu. Level, literacy, decrease access to med. care, fdc, rehab)? @ -No Was there de-escalation of care discussed even if they declined? (Discuss DNR or withdrawal of care, Hospice)? @ -No What co-morbidities impacted this encounter? (DM, HTN, Smoking, COPD, CAD, Cancer, CVA, Hep., AIDS, mental health diagnosis, sleep apnea, morbid obesity)? @ -Smoking Was patient admitted / discharged? @ -Discharged. Lab work unremarkable. Patient is positive for COVID-19. UDS is also positive for multiple controlled substances including amphetamine, methamphetamine, cocaine, and marijuana. The Covid as well as withdrawals from multiple illicit substances can contribute to his symptoms of the headache as well as potential urinary incontinence. He had no falls or trauma, nor did he have any meningeal signs, and this was not the worst headache of his life, and thus no imaging was obtained. Symptoms were well controlled in the emergency department. Prescription for Paxlovid, Naproxen, and Zofran provided for symptomatic management. Advised getting plenty of rest and drinking plenty of fluids. Patient discharged home in stable condition. Undiagnosed new problem with uncertain prognosis? @ -None Drug Therapy requiring intensive monitoring for toxicity (Heparin, Nitro, Insulin, Cardizem)? @ -None Were any procedures done? @ -None Diagnosis/symptom? @ -COVID-19, headache, urinary incontinence Acute, or Chronic, or Acute on Chronic? @ -Acute Uncomplicated (without systemic symptoms) or Complicated (systemic symptoms)? @ -Uncomplicated Side effects of treatment? @ -None Exacerbation, Progression, or Severe Exacerbation] @ -Not applicable Poses a threat to life or bodily function? @ -No Return precautions reviewed in depth, the patient is instructed to return to the emergency department with any new, worsening, or concerning symptoms. Patient verbalized understanding. This case was discussed in detail with the attending ED physician, Dr. Persaud. Presentation, findings, and treatment plan discussed in detail as well. - Lab Data Result diagrams: 02/19/24 09:50 02/19/24 09:50 Lab Results 02/19/24 02/19/24 02/19/24 Range/Units 09:50 09:50 09:50 WBC 4.0 (3.8-10.6) k/uL RBC 4.81 (4.30-5.90) m/uL Hgb 14.2 (13.0-17.5) gm/dL Hct 43.9 (39.0-53.0) % MCV 91.3 (80.0-100.0) fL MCH 29.6 (25.0-35.0) pg MCHC 32.4 (31.0-37.0) g/dL RDW 13.0 (11.5-15.5) % Plt Count 203 (150-450) k/uL MPV 7.3 Neutrophils % 65 % Lymphocytes % 18 % Monocytes % 10 % Eosinophils % 2 % Basophils % 1 % Neutrophils # 2.6 (1.3-7.7) k/uL Lymphocytes # 0.7 L (1.0-4.8) k/uL Monocytes # 0.4 (0-1.0) k/uL Eosinophils # 0.1 (0-0.7) k/uL Basophils # 0.0 (0-0.2) k/uL PT 11.3 (10.0-12.5) sec INR 1.0 (<1.2) APTT 22.2 (22.0-30.0) sec Sodium 132 L (137-145) mmol/L Potassium 4.7 (3.5-5.1) mmol/L Chloride 98 (98-107) mmol/L Carbon Dioxide 29 (22-30) mmol/L Anion Gap 5 mmol/L BUN 15 (9-20) mg/dL Creatinine 1.03 (0.66-1.25) mg/dL Est GFR (CKD-EPI)AfAm >90 (>60 ml/min/1.73 sqM) Est GFR (CKD-EPI)NonAf 81 (>60 ml/min/1.73 sqM) Glucose 100 H (74-99) mg/dL Plasma Lactic Acid Pradip (0.7-2.0) mmol/L Calcium 8.9 (8.4-10.2) mg/dL Phosphorus 3.5 (2.5-4.5) mg/dL Magnesium 1.9 (1.6-2.3) mg/dL Total Bilirubin 1.1 (0.2-1.3) mg/dL AST 54 (17-59) U/L ALT 47 (4-49) U/L Alkaline Phosphatase 44 (38-126) U/L Troponin I (0.000-0.034) ng/mL Total Protein 7.9 (6.3-8.2) g/dL Albumin 4.0 (3.5-5.0) g/dL Urine Color Urine Appearance (Clear) Urine pH (5.0-8.0) Ur Specific [place] (1.001-1.035) Urine Protein (Negative) Urine Glucose (UA) (Negative) Urine Ketones (Negative) Urine Blood (Negative) Urine Nitrite (Negative) Urine Bilirubin (Negative) Urine Urobilinogen (<2.0) mg/dL Ur Leukocyte Esterase (Negative) Urine Opiates Screen (NotDetected) Ur Oxycodone Screen (NotDetected) Urine Methadone Screen (NotDetected) Ur Barbiturates Screen (NotDetected) U Tricyclic Antidepress (NotDetected) Ur Phencyclidine Scrn (NotDetected) Ur Amphetamines Screen (NotDetected) U Methamphetamines Scrn (NotDetected) U Benzodiazepines Scrn (NotDetected) Urine Cocaine Screen (NotDetected) U Marijuana (THC) Screen (NotDetected) Serum Alcohol <10 mg/dL Influenza Type A (PCR) (Not Detectd) Influenza Type B (PCR) (Not Detectd) RSV (PCR) (Not Detectd) SARS-CoV-2 (PCR) (Not Detectd) 02/19/24 02/19/24 02/19/24 Range/Units 09:50 09:50 09:50 WBC (3.8-10.6) k/uL RBC (4.30-5.90) m/uL Hgb (13.0-17.5) gm/dL Hct (39.0-53.0) % MCV (80.0-100.0) fL MCH (25.0-35.0) pg MCHC (31.0-37.0) g/dL RDW (11.5-15.5) % Plt Count (150-450) k/uL MPV Neutrophils % % Lymphocytes % % Monocytes % % Eosinophils % % Basophils % % Neutrophils # (1.3-7.7) k/uL Lymphocytes # (1.0-4.8) k/uL Monocytes # (0-1.0) k/uL Eosinophils # (0-0.7) k/uL Basophils # (0-0.2) k/uL PT (10.0-12.5) sec INR (<1.2) APTT (22.0-30.0) sec Sodium (137-145) mmol/L Potassium (3.5-5.1) mmol/L Chloride (98-107) mmol/L Carbon Dioxide (22-30) mmol/L Anion Gap mmol/L BUN (9-20) mg/dL Creatinine (0.66-1.25) mg/dL Est GFR (CKD-EPI)AfAm (>60 ml/min/1.73 sqM) Est GFR (CKD-EPI)NonAf (>60 ml/min/1.73 sqM) Glucose (74-99) mg/dL Plasma Lactic Acid Pradip 1.2 (0.7-2.0) mmol/L Calcium (8.4-10.2) mg/dL Phosphorus (2.5-4.5) mg/dL Magnesium (1.6-2.3) mg/dL Total Bilirubin (0.2-1.3) mg/dL AST (17-59) U/L ALT (4-49) U/L Alkaline Phosphatase (38-126) U/L Troponin I <0.012 (0.000-0.034) ng/mL Total Protein (6.3-8.2) g/dL Albumin (3.5-5.0) g/dL Urine Color Yellow Urine Appearance Clear (Clear) Urine pH 7.5 (5.0-8.0) Ur Specific [place] 1.026 (1.001-1.035) Urine Protein Trace H (Negative) Urine Glucose (UA) Negative (Negative) Urine Ketones Negative (Negative) Urine Blood Negative (Negative) Urine Nitrite Negative (Negative) Urine Bilirubin Negative (Negative) Urine Urobilinogen 6.0 (<2.0) mg/dL Ur Leukocyte Esterase Negative (Negative) Urine Opiates Screen Not Detected (NotDetected) Ur Oxycodone Screen Not Detected (NotDetected) Urine Methadone Screen Not Detected (NotDetected) Ur Barbiturates Screen Not Detected (NotDetected) U Tricyclic Antidepress Not Detected (NotDetected) Ur Phencyclidine Scrn Not Detected (NotDetected) Ur Amphetamines Screen Detected H (NotDetected) U Methamphetamines Scrn Detected H (NotDetected) U Benzodiazepines Scrn Not Detected (NotDetected) Urine Cocaine Screen Detected H (NotDetected) U Marijuana (THC) Screen Detected H (NotDetected) Serum Alcohol mg/dL Influenza Type A (PCR) (Not Detectd) Influenza Type B (PCR) (Not Detectd) RSV (PCR) (Not Detectd) SARS-CoV-2 (PCR) (Not Detectd) 02/19/24 Range/Units 09:50 WBC (3.8-10.6) k/uL RBC (4.30-5.90) m/uL Hgb (13.0-17.5) gm/dL Hct (39.0-53.0) % MCV (80.0-100.0) fL MCH (25.0-35.0) pg MCHC (31.0-37.0) g/dL RDW (11.5-15.5) % Plt Count (150-450) k/uL MPV Neutrophils % % Lymphocytes % % Monocytes % % Eosinophils % % Basophils % % Neutrophils # (1.3-7.7) k/uL Lymphocytes # (1.0-4.8) k/uL Monocytes # (0-1.0) k/uL Eosinophils # (0-0.7) k/uL Basophils # (0-0.2) k/uL PT (10.0-12.5) sec INR (<1.2) APTT (22.0-30.0) sec Sodium (137-145) mmol/L Potassium (3.5-5.1) mmol/L Chloride (98-107) mmol/L Carbon Dioxide (22-30) mmol/L Anion Gap mmol/L BUN (9-20) mg/dL Creatinine (0.66-1.25) mg/dL Est GFR (CKD-EPI)AfAm (>60 ml/min/1.73 sqM) Est GFR (CKD-EPI)NonAf (>60 ml/min/1.73 sqM) Glucose (74-99) mg/dL Plasma Lactic Acid Pradip (0.7-2.0) mmol/L Calcium (8.4-10.2) mg/dL Phosphorus (2.5-4.5) mg/dL Magnesium (1.6-2.3) mg/dL Total Bilirubin (0.2-1.3) mg/dL AST (17-59) U/L ALT (4-49) U/L Alkaline Phosphatase (38-126) U/L Troponin I (0.000-0.034) ng/mL Total Protein (6.3-8.2) g/dL Albumin (3.5-5.0) g/dL Urine Color Urine Appearance (Clear) Urine pH (5.0-8.0) Ur Specific [place] (1.001-1.035) Urine Protein (Negative) Urine Glucose (UA) (Negative) Urine Ketones (Negative) Urine Blood (Negative) Urine Nitrite (Negative) Urine Bilirubin (Negative) Urine Urobilinogen (<2.0) mg/dL Ur Leukocyte Esterase (Negative) Urine Opiates Screen (NotDetected) Ur Oxycodone Screen (NotDetected) Urine Methadone Screen (NotDetected) Ur Barbiturates Screen (NotDetected) U Tricyclic Antidepress (NotDetected) Ur Phencyclidine Scrn (NotDetected) Ur Amphetamines Screen (NotDetected) U Methamphetamines Scrn (NotDetected) U Benzodiazepines Scrn (NotDetected) Urine Cocaine Screen (NotDetected) U Marijuana (THC) Screen (NotDetected) Serum Alcohol mg/dL Influenza Type A (PCR) Not Detected (Not Detectd) Influenza Type B (PCR) Not Detected (Not Detectd) RSV (PCR) Not Detected (Not Detectd) SARS-CoV-2 (PCR) Detected A (Not Detectd) Disposition Clinical Impression: COVID-19, Headache, Urinary incontinence, Nicotine dependence Disposition: HOME SELF-CARE Instructions (If sedation given, give patient instructions): Coronavirus Disease 2019 (COVID-19), Acute Headache (ED), COVID-19 (Coronavirus Disease 2019) (ED), How to Recover from COVID-19 at Home (ED) Additional Instructions: Return to the emergency department with any new, worsening, or concerning symptoms. Take the Paxlovid as prescribed for 5 days. Take the Naproxen twice daily with Tylenol as needed for headaches. You can take the Zofran up to every 8 hours as needed for nausea and vomiting. Make sure you drink plenty of fluids and get plenty of rest Prescriptions: Naproxen Sodium 550 mg PO BID PRN #30 tablet PRN Reason: Pain Nirmatrelvir/Ritonavir [Paxlovid 300-100 mg Dose Pack] 1 each PO BID 5 Days #30 tab Ondansetron Odt [Zofran Odt] 4 mg PO Q8HR PRN #20 tab PRN Reason: Nausea And Vomiting Is patient prescribed a controlled substance at d/c from ED?: No Referrals: None,Stated [Primary Care Provider] - 1-2 days
[2024-02-19 10:06] LABS: Appearance,Urine Clear (Clear); Bilirubin,Urine Negative (Negative); Blood,Urine Negative (Negative); Color,Urine Yellow; Glucose,Urine (UA) Negative (Negative); Ketones,Urine Negative (Negative); Leukocyte Esterase,Urine Negative (Negative); Nitrite,Urine Negative (Negative); PH, Urine 7.5 (5.0-8.0); Protein,Urine Trace (Negative); Specific Gravity,Urine 1.026 (1.001-1.035)
[2024-02-19 10:16] LABS: Cocaine Screen,Urine Detected (NotDetected); Phencyclidine Screen,Urine Not Detected (NotDetected); Urn Cannabinoid Scrn Detected (NotDetected)
[2024-02-19 10:17] LABS: Amphetamine Screen,Urine Detected (NotDetected); Barbiturate Screen,Urine Not Detected (NotDetected); Benzodiazepines Screen,Urine Not Detected (NotDetected); Methadone Screen, Urine Not Detected (NotDetected); Opiate Screen,Urine Not Detected (NotDetected); Oxycodone Screen, Urine Not Detected (NotDetected); Tricyclic Antidepressant,Urine Not Detected (NotDetected)
[2024-02-19] MEDS: SODIUM CHLORIDE 0.9% 1,000 ML IV STA (10:19)
[2024-02-19] MEDS: DEXAMETHASONE SOD PHOSPHATE 10 MG/ML 1 ML VIAL IVP STA (10:19)
[2024-02-19] MEDS: METOCLOPRAMIDE 5 MG/ML 2 ML VIAL IVP STA (10:20)
[2024-02-19] MEDS: diphenhydrAMINE 50 MG/ML 1 ML VIAL IVP STA (10:20)
[2024-02-19] MEDS: KETOROLAC 15 MG/ML 1 ML VIAL IVP STA ×2 (10:20→11:35)
[2024-02-19 10:30] LABS: Basophils % (A) 1 %; Eosinophils # (A) 0.1 k/uL (0-0.7); Eosinophils % (A) 2 %; HCT 43.9 % (39.0-53.0); HGB 14.2 gm/dL (13.0-17.5); Lymphocytes # (A) 0.7 k/uL (1.0-4.8); Lymphocytes % (A) 18 %; MCH 29.6 pg (25.0-35.0); MCHC 32.4 g/dL (31.0-37.0); MCV 91.3 fL (80.0-100.0); Mean Platelet Volume 7.3; Monocytes # (A) 0.4 k/uL (0-1.0); Monocytes % (A) 10 %; Neutrophils # (A) 2.6 k/uL (1.3-7.7); Neutrophils % (A) 65 %; Platelet Count 203 k/uL (150-450); RBC 4.81 m/uL (4.30-5.90)
[2024-02-19 10:40] LABS: Partial Thromboplastin Time 22.2 sec (22.0-30.0); Prothrombin Time 11.3 sec (10.0-12.5)
[2024-02-19 10:56] LABS: ALT 47 U/L (4-49); AST 54 U/L (17-59); African American GFR (CKD) >90 (>60 ml/min/1.73 sqM); Alcohol <10 mg/dL; Alkaline Phosphatase 44 U/L (38-126); Anion Gap 5 mmol/L; Blood Urea Nitrogen 15 mg/dL (9-20); Calcium 8.9 mg/dL (8.4-10.2); Carbon Dioxide 29 mmol/L (22-30); Chloride 98 mmol/L (98-107); Glucose 100 mg/dL (74-99); Magnesium 1.9 mg/dL (1.6-2.3); Non-African American GFR(CKD) 81 (>60 ml/min/1.73 sqM); Phosphorus 3.5 mg/dL (2.5-4.5); Potassium 4.7 mmol/L (3.5-5.1); Sodium 132 mmol/L (137-145); Total Bilirubin 1.1 mg/dL (0.2-1.3); Total Protein 7.9 g/dL (6.3-8.2)
[2024-02-19] MEDS: MORPHINE SULFATE 4 MG/ML SYRINGE IVP STA ×2 (11:52→12:29)
[2024-02-19 12:58] VITALS: BP 107/81; PULSE 74; RESP 18
[2024-02-19] MEDS: ASPIRIN-ACET-CAFF 250-250-65MG 1 EACH TAB PO STA (13:02)
== END 2024-02-19 13:06 | disposition home or self-care (01) ==
LOC: EC 09:33
DX: U07.1 COVID-19 (principal); R32 Unspecified urinary incontinence; F17.290 Nicotine dependence, other tobacco product, uncomplicated; Z88.8 Allergy status to other drugs, medicaments and biological substances; Z91.010 Allergy to peanuts; Z91.018 Allergy to other foods
CPT/HCPCS: 36415; 93005; 80053; 83605; 83735; 84100; 84484; 85025; 85610; 85730; 81003; 80306; 87636; 99284; 96374; 96375 ×4; 96361; 99406; G0480; J2270; J1200; J1100; J2765; J1885; 80320

== ENCOUNTER 2024-02-21 13:03 | Emergency (ER) | payer OTHER ==
[2024-02-21 13:08] VITALS: RESP 18
--- NOTE | 2024-02-21 13:37 | ED ---
Weakness HPI - General Chief complaint: Weakness Stated complaint: Leg pain, COVID Time Seen by Provider: 02/21/24 13:23 Source: patient, RN notes reviewed Mode of arrival: ambulatory Limitations: no limitations - Related Data Previous Rx's Medication Instructions Recorded Acetaminophen Tab [Tylenol] 650 mg PO Q6HR PRN tab 01/15/23 Doxycycline [Vibramycin] 100 mg PO BID 7 Days #14 capsule 01/15/23 Famotidine [Pepcid] 20 mg PO BID #60 tablet 01/15/23 HYDROcodone/APAP 5-325MG [[place] 1 tab PO Q6HR PRN 3 Days #12 tab 01/15/23 5-325] Pregabalin 100 mg PO BID 15 Days #30 cap 01/15/23 Naproxen Sodium 550 mg PO BID PRN #30 tablet 02/19/24 Naproxen Sodium 550 mg PO BID PRN #30 tablet 02/19/24 Nirmatrelvir/Ritonavir [Paxlovid 1 each PO BID 5 Days #30 each 02/19/24 300-100 mg Dose Pack] Nirmatrelvir/Ritonavir [Paxlovid 1 each PO BID 5 Days #30 tab 02/19/24 300-100 mg Dose Pack] Ondansetron Odt [Zofran Odt] 4 mg PO Q8HR PRN #10 tab 02/19/24 Ondansetron Odt [Zofran Odt] 4 mg PO Q8HR PRN #20 tab 02/19/24 Ketorolac [Toradol] 10 mg PO Q8HR #15 tab 02/21/24 Allergies Allergy/AdvReac Type Severity Reaction Status Date / Time cashew nut Allergy Severe Anaphylaxis Verified 01/13/23 09:00 peanut Allergy Unknown Verified 01/13/23 09:00 peanut oil Allergy Unknown Verified 01/13/23 09:00 sertraline [From Zoloft] Allergy Itching Verified 01/13/23 09:00 Review of Systems ROS Statement: Those systems with pertinent positive or pertinent negative responses have been documented in the HPI. ROS Other: All systems not noted in ROS Statement are negative. Past Medical History Past Medical History: No Reported History Additional Past Medical History / Comment(s): arthritis, Hep C, neuropathy, lower extremity wounds, covid + 02/21/2024 History of Any Multi-Drug Resistant Organisms: None Reported Past Surgical History: No Surgical Hx Reported, Orthopedic Surgery Additional Past Surgical History / Comment(s): bilateral feet Past Anesthesia/Blood Transfusion Reactions: No Reported Reaction Past Psychological History: Anxiety, Bipolar, Depression Smoking Status: Current every day smoker, Vaper Past Alcohol Use History: None Reported Past Drug Use History: Cocaine, Marijuana - Past Family History Mother Family Medical History: Hypertension General Exam Limitations: no limitations Course Vital Signs 02/21/24 02/21/24 02/21/24 13:04 13:14 13:53 Temperature 99.8 F H 99.1 F Pulse Rate 66 88 Respiratory 18 18 18 Rate Blood Pressure 112/66 110/67 O2 Sat by Pulse 96 Oximetry Medical Decision Making - Medical Decision Making Was pt. sent in by a medical professional or institution (, PA, COIN WRAPPING MACHINE OPERATOR, urgent care, hospital, or [facility]...) When possible be specific @ -No Did you speak to anyone other than the patient for history (EMS, parent, family, police, friend...)? What history was obtained from this source @ -No Did you review nursing and triage notes (agree or disagree)? Why? @ -I reviewed and agree with nursing and triage notes Were old charts reviewed (outside hosp., previous admission, EMS record, old EKG, old radiological studies, urgent care reports/EKG's, [facility] records)? Report findings @ -Reviewed labs from recent visit including CBC comp, COVID-19 Differential Diagnosis (chest pain, altered mental status, abdominal pain women, abdominal pain men, vaginal bleeding, weakness, fever, dyspnea, syncope, headache, dizziness, GI bleed, back pain, seizure, CVA, palpatations, mental health, musculoskeletal)? @ chronic pain, joint pain COVID-19 EKG interpreted by me (3pts min.). @ -None e] X-rays interpreted by me (1pt min.). @ -None done CT interpreted by me (1pt min.). @ -None done U/S interpreted by me (1pt. min.). @ -None done What testing was considered but not performed or refused? (CT, X-rays, U/S, labs)? Why? @ -None What meds were considered but not given or refused? Why? @ -None Did you discuss the management of the patient with other professionals (professionals i.e. , PA, COIN WRAPPING MACHINE OPERATOR, lab, RT, psych nurse, social sciences chair, public transit bus driver, teacher, medical corps officer, egg caser)? Give summary @ -No Was smoking cessation discussed for >3mins.? @ -No Was critical care preformed (if so, how long)? @ -No Were there social determinants of health that impacted care today? How? (Homelessness, low income, unemployed, alcoholism, drug addiction, transportation, low edu. Level, literacy, decrease access to med. care, [facility], rehab)? @ -No Was there de-escalation of care discussed even if they declined (Discuss DNR or withdrawal of care, Hospice)? DNR status @ -No What co-morbidities impacted this encounter? (DM, HTN, Smoking, COPD, CAD, Cancer, CVA, ARF, Chemo, Hep., AIDS, mental health diagnosis, sleep apnea, morbid obesity)? @ -None Was patient admitted / discharged? Hospital course, mention meds given and route, prescriptions, significant lab abnormalities, going to OR and other pertinent info. @ -Discharge patient presented for joint pain, body aches patient had recent COVID-19 diagnosis. Patient has chronic pain. Undiagnosed new problem with uncertain prognosis? @ -No Drug Therapy requiring intensive monitoring for toxicity (Heparin, Nitro, Insulin, Cardizem)? @ -No Were any procedures done? @ -No Diagnosis/symptom? @ -COVID-19, myalgias Acute, or Chronic, or Acute on Chronic? @ -Acute Uncomplicated (without systemic symptoms) or Complicated (systemic symptoms)? @ -Uncomplicated Side effects of treatment? @ -No Exacerbation, Progression, or Severe Exacerbation? @ -No Poses a threat to life or bodily function? How? (Chest pain, [place], OR, pneumonia, PE, COPD, DKA, ARF, appy, cholecystitis, CVA, Diverticulitis, Homicidal, Suicidal, threat to staff... and all critical care pts) @ -No Disposition Clinical Impression: Myalgia, COVID-19 Disposition: HOME SELF-CARE Condition: Stable Instructions (If sedation given, give patient instructions): COVID-19 (Coronavirus Disease 2019) (ED) Additional Instructions: Please return to the Emergency Department if symptoms worsen or any other concerns. Prescriptions: Ketorolac [Toradol] 10 mg PO Q8HR #15 tab Is patient prescribed a controlled substance at d/c from ED?: No Referrals: None,Stated [Primary Care Provider] - 1-2 days Time of Disposition: 13:36
[2024-02-21] MEDS: KETOROLAC 15 MG/ML 1 ML VIAL IM STA (13:50)
[2024-02-21] MEDS: ACETAMINOPHEN TAB 500 MG TAB PO STA (13:51)
[2024-02-21 13:55] VITALS: BP 110/67; PULSE 88; TEMP 99.1
== END 2024-02-21 13:53 | disposition home or self-care (01) ==
LOC: EC 13:03
DX: U07.1 COVID-19 (principal); M79.10 Myalgia, unspecified site; F14.90 Cocaine use, unspecified, uncomplicated; F12.90 Cannabis use, unspecified, uncomplicated; F17.290 Nicotine dependence, other tobacco product, uncomplicated; Z91.018 Allergy to other foods; Z91.010 Allergy to peanuts
CPT/HCPCS: 99285; 96372; J1885

== ENCOUNTER 2024-03-06 21:43 | Emergency (ER) | payer OTHER ==
[2024-03-07] MEDS: SODIUM CHLORIDE 0.9% 1,000 ML IV ONE (01:27)
[2024-03-07 01:31] LABS: Glucose,Whole Blood 82 mg/dL (70-110)
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
[2024-03-07 01:55] LABS: ALT 43 U/L (4-49); AST 46 U/L (17-59); African American GFR (CKD) >90 (>60 ml/min/1.73 sqM); Albumin 3.6 g/dL (3.5-5.0); Alkaline Phosphatase 45 U/L (38-126); Anion Gap 4 mmol/L; Blood Urea Nitrogen 19 mg/dL (9-20); Calcium 8.8 mg/dL (8.4-10.2); Carbon Dioxide 28 mmol/L (22-30); Chloride 105 mmol/L (98-107); Glucose 75 mg/dL (74-99); Non-African American GFR(CKD) >90 (>60 ml/min/1.73 sqM); Potassium 4.2 mmol/L (3.5-5.1); Sodium 137 mmol/L (137-145); Total Bilirubin 0.6 mg/dL (0.2-1.3)
[2024-03-07 02:03] LABS: NT-Pro-B-Type Natriuretic Pept 92 pg/mL
[2024-03-07 02:06] LABS: Basophils % (A) 1 %; Eosinophils # (A) 0.2 k/uL (0-0.7); Eosinophils % (A) 4 %; HCT 37.9 % (39.0-53.0); HGB 12.4 gm/dL (13.0-17.5); Lymphocytes # (A) 1.5 k/uL (1.0-4.8); Lymphocytes % (A) 32 %; MCH 29.9 pg (25.0-35.0); MCHC 32.7 g/dL (31.0-37.0); MCV 91.4 fL (80.0-100.0); Monocytes # (A) 0.4 k/uL (0-1.0); Monocytes % (A) 9 %; Neutrophils # (A) 2.4 k/uL (1.3-7.7); Neutrophils % (A) 53 %; Platelet Count 246 k/uL (150-450); RBC 4.15 m/uL (4.30-5.90); RDW 13.2 % (11.5-15.5); WBC 4.5 k/uL (3.8-10.6)
--- NOTE | 2024-03-07 02:36 | US ---
EXAM: US Duplex Right Lower Extremity Veins CLINICAL HISTORY: US Reason: edema TECHNIQUE: Real-time duplex ultrasound scan of the right lower extremity veins integrating B-mode two-dimensional vascular structure, Doppler spectral analysis, color flow Doppler imaging and compression. COMPARISON: March 10, 2019 FINDINGS: Deep veins: Unremarkable. No DVT in the visualized common femoral, femoral, proximal deep femoral or popliteal veins. The veins demonstrate normal color flow, are normally compressible, with normal phasic flow and/or augmentation response. Superficial veins: Unremarkable. No thrombus in the visualized great saphenous vein. Soft tissues: There is an large lymph node in the right groin measuring 1.2 cm short axis diameter. No popliteal cyst. IMPRESSION: 1. There is an large lymph node in the right groin measuring 1.2 cm short axis diameter. 2. No evidence of the right lower extremity DVT.
[2024-03-07 04:24] VITALS: BP 160/83; PULSE 78; TEMP 98
[2024-03-07 05:24] VITALS: RESP 16
[2024-03-07 05:34] LABS: Amphetamine Screen,Urine Detected (NotDetected); Barbiturate Screen,Urine Not Detected (NotDetected); Benzodiazepines Screen,Urine Not Detected (NotDetected); Cocaine Screen,Urine Detected (NotDetected); Methadone Screen, Urine Not Detected (NotDetected); Opiate Screen,Urine Not Detected (NotDetected); Oxycodone Screen, Urine Not Detected (NotDetected); Phencyclidine Screen,Urine Not Detected (NotDetected); Tricyclic Antidepressant,Urine Not Detected (NotDetected); Urn Cannabinoid Scrn Detected (NotDetected)
--- NOTE | 2024-03-29 15:53 | US ---
EXAM: US Duplex Right Lower Extremity Veins CLINICAL HISTORY: Cellulitis TECHNIQUE: Real-time duplex ultrasound scan of the right lower extremity veins integrating B-mode two dimensional vascular structure, Doppler spectral analysis, color flow Doppler imaging and compression. COMPARISON: No previous studies. FINDINGS: Deep veins: Imaging of the right lower extremity deep venous system revealed no deep venous thrombosis and clean the right common femoral vein, right superficial femoral vein, and the right popliteal vein. Superficial veins:Unremarkable. No thrombus in the visualized great saphenous vein. Soft tissues:No acute findings. No popliteal cyst. Other findings: Proximal calf veins are unremarkable. The mid to distal calf veins are not visualized. IMPRESSION: 1. Limited evaluation of the calf veins. 2. No deep venous thrombosis of the right lower extremity MTDD
== END 2024-03-07 05:54 | disposition home or self-care (01) ==
LOC: EC 21:43
CPT/HCPCS: 36415; 80053; 80306; 83735; 83880; 85025; 96360; 99284

== ENCOUNTER 2024-03-13 21:00 | Inpatient (IN) | payer OTHER ==
[2024-03-13] MEDS ORDERED: HYDROmorphone 1 MG/ML 1 ML SYRINGE ONE (21:14)
[2024-03-13] MEDS ORDERED: SODIUM CHLORIDE 0.9% 1,000 ML BAG ONE (21:20)
[2024-03-14] MEDS ORDERED: HYDROmorphone 1 MG/ML 1 ML SYRINGE ONE ×4 (01:18→18:13)
[2024-03-14] MEDS ORDERED: cefTRIAXone 2 GM VIAL ONE (01:52)
[2024-03-14] MEDS ORDERED: MORPHINE SULFATE 4 MG/ML SYRINGE ONE (22:08)
[2024-03-15] MEDS ORDERED: MORPHINE SULFATE 4 MG/ML SYRINGE ONE ×2 (02:20→05:56)
[2024-03-15] MEDS ORDERED: NICOTINE 21MG/24HR PATCH TRANSDERM ONE (08:55)
[2024-03-15] MEDS ORDERED: HYDROcodone/APAP 5-325MG 1 EACH TAB ONE (18:08)
--- NOTE | 2024-03-25 15:52 | HP ---
HISTORY AND PHYSICAL The patient was in ER room 9 at the time of my evaluation. HISTORY OF PRESENT ILLNESS: This is a -[id number] gentleman with a history of polysubstance abuse, vascular insufficiency, who presented for evaluation of right lower extremity pain. The patient says that he has had multiple debridements at both of his lower extremities, but notes over the last week and half, he has had increasing pain of his right lower extremity, starting at mid lower leg, all the way down to his dorsal aspect of his foot. In addition to this, he started to notice some skin breakdown and increased nonpitting edema/swelling. The patient also reports some subjective fevers, chills, sweats. He was seen multiple times in the emergency room over the past week, but according to him, he was sent home with any medications. He follows with Dr. Baker for his vascular insufficiency and was previously due to undergo repair of his varicose veins, however, was incarcerated prior to followup. The patient was then sent from [place] where he was being treated for polysubstance abuse for methamphetamine, marijuana, cocaine. He says that in addition to the previously noted symptoms, he has also had so much pain that he has started walking with a cane and is barely able to bear weight on his lower extremity without significant distress. Review of systems as mentioned is positive for fevers, chills, sweats, pain. It is negative for nausea, vomiting, chest pain, palpitations, syncope, presyncope, abdominal pain, constipation, diarrhea, dysuria, hematochezia. In the emergency room, the patient was afebrile, 135/69, heart rate 79, 100% on room air. Initial workup demonstrated CBC showing a leukocyte count of 3.6, hemoglobin of 12.4, platelets of 193. Basic metabolic panel showed sodium of 134, potassium 4.3, chloride of 103, CO2 of 26, BUN of 18, creatinine of 0.76. Calcium was 9.1, phosphorus 4.0. Magnesium was 1.9. Liver function tests showed elevation of AST to 68, ALT to 73, alkaline phosphatase was 64. Coags were unremarkable. REVIEW OF SYSTEMS: All systems were reviewed and pertinent positives and negatives are listed in HPI, otherwise, unremarkable. PHYSICAL EXAMINATION: GENERAL: The patient appears to be in mild to moderate distress from pain in his right lower extremity, however, appears nontoxic. HEENT: Normocephalic, atraumatic, moist mucous membranes. RESPIRATORY: Clear to auscultation bilaterally without wheezes. CARDIOVASCULAR: Regular rate and rhythm without murmurs. GASTROINTESTINAL: Soft, nontender to palpation, nondistended. GENITOURINARY: No suprapubic tenderness, no costovertebral angle tenderness. NEUROLOGIC: Moving all extremities, nonfocal. MSK: The patient appears to have bilateral varicose veins, evidence of vascular insufficiency, on the dorsal aspect of his foot, there appears to be skin breakdown with surrounding erythema. There is a palpable dorsalis pedis pulse on both sides, though it is faint. Nonpitting edema of the right side. There is erythema surrounding the ulceration of the dorsal aspect of his right lower extremity. This is approximately 1 cm x 0.5 cm wide. This ulcer involved the superficial layer of the epidermis and does not go deeper. PSYCHIATRIC: The patient is cooperative, euthymic mood. LABS AND IMAGING: Reviewed and pertinent positives and negatives are listed in the HPI. ASSESSMENT/PLAN: 1. Right lower extremity cellulitis. The patient is on vancomycin and Zosyn per ER orders, we will continue these for now. Consult Dr. Baker from Vascular Surgery to evaluate the patient. Right lower extremity ultrasound was ordered. A1c should be ordered to rule out diabetic involvement of the ulceration. PT/OT should be ordered. 2. Polysubstance abuse: Cessation counseling recommended. Return to [place] apparently upon discharge. 3. Deep venous thrombosis prophylaxis can be done with enoxaparin 40 mg subcu daily. THE PATIENT IS A FULL CODE. MMODL / IJN: [id number] /
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
--- NOTE | 2024-04-18 13:01 | XR ---
Patient: Rufino Dee Ordering Physician: Unknown, Unknown ID: [id number] Phone, Pager: Phone: N/A Pager: N/A : 1965 Age/Gender: 58Y, M Primary Location: N/A Procedure: XR FOOT RT Study Da te: 03/13/2024 9:43:41 PM EXAMINATION TYPE: XR foot complete RT DATE OF EXAM: 03/27/2024 12:02 PM CLINICAL INDICATION: Ulcer, diabetes COMPARISON: 01/14/2024 TECHNIQUE: XR foot complete RT examined in the AP, oblique, and lateral projections. FINDINGS: Punched out lesion of the first digit distal metatarsal. There is mild hallux valgus. Soft tissue swelling of the foot. No evidence for osseous erosion. Ulcer not definitely appreciated. No evidence of any acute osseous pathology. Multifocal degeneration changes throughout the joints of the foot with osteophyte formation and joint space narrowing. IMPRESSION: 1. No evidence of acute fracture. 2. Multifocal degeneration changes throughout the joints of the foot. 3. Evidence of possible gout involving the first digit metatarsal phalangeal joint. 4. Hallux valgus. 5. Soft tissue swelling without evidence for osseous erosion.
--- NOTE | 2024-05-07 11:46 | CONS ---
CONSULTATION HISTORY OF PRESENT ILLNESS: The patient came to the emergency room complaining of discomfort in the right foot. The patient has a long-standing history of varicose vein and venous stasis ulcer involving the right lower extremity foot lateral aspect. PHYSICAL EXAMINATION: GENERAL: On examination, the patient was seen in his room. NECK: Supple. No bruit appreciated. CHEST: Clear. Good air entry in both lungs. First and second sounds normal. ABDOMEN: Soft, nontender. VASCULAR: Femorals are 2+ bilaterally. Dorsalis pedis 2+ on the right foot. ASSESSMENT: The patient has had multiple varicosities involving the right lower extremity. There is a superficial ulcer on the dorsal aspect of the foot. No fluctuation. No fever noted. PLAN: We will use Medihoney gel and the patient have an ultrasound. If it is negative for DVT, the patient can be followed with me in my office next week. The patient will need a venous ultrasound check for the reflux in the greater saphenous vein, short saphenous vein, and femoral vein. If the patient has reflux in the superficial system, the patient will need radiofrequency laser for the greater saphenous vein. MMODL / IJN: [id number] /
== END 2024-03-15 13:05 | disposition other institution (70) | DRG 197 ==
LOC: 4SSUR 21:00
PROVIDERS: ADMIT Internal Medicine; ATTEND Internal Medicine
DX: I87.2 Venous insufficiency (chronic) (peripheral) (principal); L97.919 Non-pressure chronic ulcer of unspecified part of right lower leg with unspecified severity; L03.115 Cellulitis of right lower limb; Z59.00 Homelessness unspecified; F10.10 Alcohol abuse, uncomplicated; F19.10 Other psychoactive substance abuse, uncomplicated; Z88.8 Allergy status to other drugs, medicaments and biological substances; Z91.018 Allergy to other foods; Z91.010 Allergy to peanuts
CPT/HCPCS: 87040; 96374; 99285